=== PATIENT | male | born 1965 | race Caucasian/White ===

== ENCOUNTER → 2017-09-10 11:28 | Outpatient (CLI) | payer OTHER, SELFPAY ==
[2017-09-10 12:29] LABS: Hematocrit 40.9 % (40-54); Mean Corp Hgb Conc 34.2 g/gl (32-36); Mean Corpuscular Hgb 31.8 pg (27.0-32.0); Mean Platelet Vol. 9.2 fl (6.2-12.0); Platelet Count 423 K/mm3 (150-450); RBC Distribution Width CV 12.3 % (11.6-14.6); RBC Distribution Width SD 41.1 fl (35.1-43.9)
[2017-09-10 12:34] LABS: Scan Indicated on CBC? Y/N NO
[2017-09-10 12:52] LABS: ALB/GLOB Ratio 0.9 RATIO (0.9-2.4); AST(SGOT) 37 U/L (15-37); Alanine Aminotransfer ALT/SGPT 33 U/L (16-61); Albumin, Serum 3.8 g/dL (3.2-5.0); Alkaline Phosphatase 93 U/L (45-117); Anion Gap 8 (5-15); BUN 21 mg/dL (7-18); BUN/Creat Ratio 20.8 RATIO (10-20); Calcium,Total 9.3 mg/dL (8.5-10.1); Chloride 111 mmol/L (98-107); Creatinine, Serum 1.01 mg/dL (0.70-1.30); EST Glomerular Filtration Rate 82 mL/min (>60); Est Glom Filt Rate - Afr Amer 100 mL/min (>60); Globulin 4.3 g/dL (2.2-4.2); Glucose 89 mg/dL (74-106); Potassium 3.7 mmol/L (3.5-5.1); Protein, Total 8.1 g/dL (6.4-8.2); Sodium Level 141 mmol/L (136-145); T4 Total, Thyroxin 8.7 ug/dL (4.5-12.1)
== END ==
PROVIDERS: Family Provider Family Medicine; PCP Family Medicine; Visit Provider Family Medicine
DX: R53.83 Other fatigue (principal)
CPT/HCPCS: 36415; 80053; 84436; 85027

== ENCOUNTER 2018-01-28 15:04 | Emergency (ER) | payer OTHER, SELFPAY ==
[2018-01-28 15:05] VITALS: BP 138/100; PULSE 92; RESP 18; TEMP 36.6; O2SAT 99; BMI 21.4
--- NOTE | 2018-01-28 15:25 | CT_ITS ---
STUDY: CTA OF THE BRAIN REASON FOR EXAM: Male, 52 years old. Headache for 3 days. RADIATION DOSAGE (If Supplied By Facility): CTDIvol = ( 26.65 ) mGy, DLP = ( 1169.78 ) mGycm TECHNIQUE: CT angiography was performed with a multi-detector CT scanner. Data acquisition was obtained from the skull base through the vertex following intravenous administration of 100 ml of Isovue 370. MIP images were reconstructed from the axial data set. Post-processing of the angiographic images was performed, with multiplanar reformation and 3D reconstruction. Individualized dose optimization techniques were used for this CT. COMPARISON: Noncontrast CT brain March 21, 2014 (report from that study are not available for review at the time of this dictation). FINDINGS: Normal bilateral petrous carotid arteries. Normal right cavernous carotid artery with a normal supraclinoid bifurcation. Normal left cavernous carotid artery with a normal supraclinoid bifurcation. Normal A1 segment of the right anterior cerebral artery. Normal A1 segment of the left anterior cerebral artery. Normal intact anterior communicating artery (ACOM). Normal bilateral A2 segments of the anterior cerebral arteries. Normal M1 and M2 segments of the right middle cerebral artery, with a normal M1 bifurcation. Normal M1 and M2 segments of the left middle cerebral artery, with a normal M1 bifurcation. Normal right posterior communicating artery (PCOM). There is a persistent origin of the left posterior cerebral artery with absence of the posterior communicating artery (PCOM). Normal bilateral vertebral arteries. Normal basilar artery with a normal basilar bifurcation. The visualized bilateral superior cerebellar (SCA) arteries are normal. Normal P1 segment of the right posterior cerebral artery. Normal P2 and visualized P3 segments of the bilateral posterior cerebral arteries. There is no demonstrated aneurysm of the [place] of [place]. There is no demonstrated abnormality of the visualized brain. 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 Electronically Signed: Balaji Aponte MD at 17:07 EDT , Service support ,
--- NOTE | 2018-01-28 15:28 | ED.VISSUMM ---
- ER Visit Summary Date of Service: 01/28/18 Chief Complaint: Headache History of Present Illness: The patient is a 52 M with a headache for 4 days. 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 He reports some nausea and vomiting. Denies fevers. Denies any other neurologic symptoms. He does report that he cut his right middle finger about the same time this started when he was chopping wood. This was a superficial injury. He has no concern for foreign body or fracture. Physical Examination: Afebrile and vital signs unremarkable. Patient is alert and oriented. No acute distress. Head and neck atraumatic. Cranial nerves grossly intact. Heart regular. Lungs clear. No focal or lateralizing neurologic abnormalities. Right middle finger shows a superficial laceration near the PIP joint. He has good range of motion. Neurovascularly intact distally. Negative [place] signs Test Results: CTA and labs pending. Emergency Department Course and Treatment: Patient has a superficial finger laceration. Nothing to suggest fracture or foreign body. Imaging not performed. Nothing to suggest joint involvement. Suturing and closure is not indicated at this point. Soak the area 3 times a day in warm soapy water. He will be prescribed antibiotics. Given his headache and history of alvarez aneurysm, will check CT imaging. Labs unremarkable. CTA showed nothing acute. No aneurysm or bleeding. Patient treated with Toradol. He also received Bactrim and Keflex for his finger infection. Follow-up with his outpatient doctors. Treatment Plan: As above Disposition: Discharge Impression: 1. Headache 2. Right middle finger laceration 1 cm This note was generated with [employer] dictation software. It may contain incorrect words, spelling, and punctuation that were not noted in review of the chart prior to signing ED Disposition - Plan for ED Patient: Chief Complaint: Headache Referrals: Pj Reed DO [Primary Care Provider] -
[2018-01-28 15:46] LABS: Absolute Lymphocyte Count 2.44 X10^3/ul (0.83-4.51); Absolute Neutrophil Count 6.4 X10^3/uL (2.0-7.7); Basophil# 0.03 X10^3/uL; Basophil% 0.3 % (0-1); Eosinophil# 0.11 X10^3/uL; Eosinophils% 1.1 % (0-5); Hematocrit 42.8 % (40-54); Hemoglobin 14.2 g/dl (13.0-16.5); Lymphocyte # 2.44 X10^3/ul (4.0); Lymphocyte % 25.1 % (19-41); Mean Corp Hgb Conc 33.2 g/gl (32-36); Mean Corpuscular Hgb 31.6 pg (27.0-32.0); Mean Corpuscular Volume 95.1 fL (80-94); Mean Platelet Vol. 8.8 fl (6.2-12.0); Monocyte# 0.72 X10^3/uL; Monocyte% 7.4 % (0-10); Neutrophil # 6.41 X10^3/uL (2.7-7.7); Platelet Count 319 K/mm3 (150-450); RBC Distribution Width CV 12.7 % (11.6-14.6); RBC Distribution Width SD 44.1 fl (35.1-43.9); White Blood Count 9.7 K/mm3 (4.4-11.0)
[2018-01-28 15:48] LABS: POSITIVE COUNT NO; POSITIVE DIFFERENTIAL NO; POSITIVE MORPHOLOGY NO
[2018-01-28] MEDS: 0.9% Normal Saline 1,000 ML 1000 ML IV (15:56)
[2018-01-28 15:57] LABS: International Normalized Ratio 0.9
[2018-01-28 15:58] LABS: Partial Thromboplast Time 30.5 Seconds (24.1-36.2)
[2018-01-28 16:02] LABS: Anion Gap 8 (5-15); BUN 15 mg/dL (7-18); BUN/Creat Ratio 14.7 RATIO (10-20); Calcium,Total 9.1 mg/dL (8.5-10.1); Chloride 110 mmol/L (98-107); Creatinine, Serum 1.02 mg/dL (0.70-1.30); EST Glomerular Filtration Rate 81 mL/min (>60); Est Glom Filt Rate - Afr Amer 98 mL/min (>60); Estimated Creatinine Clearance 78.81 ml/min; Glucose 99 mg/dL (74-106); Potassium 3.7 mmol/L (3.5-5.1); Sodium Level 143 mmol/L (136-145)
--- NOTE | 2018-01-28 17:32 | ED.DEP ---
ED Disposition - Plan for ED Patient: Chief Complaint: Headache Instructions: ED Cephalgia Unspecified Prescriptions: Cephalexin [Keflex] 500 mg PO Q6 #28 cap Naproxen [Naprosyn] 500 mg PO BID #14 tab Smz/Tmp Ds [Bactrim Ds] 1 tab PO BID #14 tab Referrals: Pj Reed DO [Primary Care Provider] -
[2018-01-28] MEDS: Cephalexin 250 MG Capsule 500 MG PO (18:00)
[2018-01-28] MEDS: Ketorolac 30 MG/ML Syringe IV (18:00)
[2018-01-28] MEDS: Smz/Tmp Ds Tablet 1 TABLET PO (18:00)
[2018-01-28 18:04] VITALS: BP 130/78; PULSE 78; RESP 16; O2SAT 100
== END 2018-01-28 18:05 | disposition home or self-care (01) ==
PROVIDERS: Emergency Provider Emergency Medicine; Family Provider Family Medicine; PCP Family Medicine
DX: R51 Headache (principal); S61.212A Laceration without foreign body of right middle finger without damage to nail, initial encounter; I67.1 Cerebral aneurysm, nonruptured; Z72.0 Tobacco use; Z79.899 Other long term (current) drug therapy; W26.8XXA Contact with other sharp object(s), not elsewhere classified, initial encounter; Y93.89 Activity, other specified; Y92.007 Garden or yard of unspecified non-institutional (private) residence as the place of occurrence of the external cause; Y99.8 Other external cause status
CPT/HCPCS: 70496; 80048; 85025; 85610; 85730; 96361; 96374; 99285; Q9967; A4216

== ENCOUNTER 2018-03-25 23:15 | Emergency (ER) | payer OTHER, SELFPAY ==
[2018-03-25 23:16] VITALS: BP 154/90; PULSE 89; RESP 22; TEMP 36.7; O2SAT 97; BMI 22.1
--- NOTE | 2018-03-25 23:41 | ED.DCSUM_ITS ---
- ER Visit Summary Date of Service: 03/25/18 Chief Complaint: Headache History of Present Illness: The patient is a 52 M 3-day history right sided headache with photophobia. No nausea or vomiting. No aura. No falls or head injuries. History of similar. States seen in ED 2 months ago for similar improved with Toradol. Reported history of avlarez aneurysm states that CTA of the head was obtained at that time. Records reviewed notes negative for any aneurysms. He is on headache medicines by his PCP follow-up 2 weeks ago. Unclear the name. States intermittent symptoms were told to take 2 tabs if needed. Denies fever. No other complaints. Physical Examination: General: Alert and oriented ?3, no acute distress HEENT: Normocephalic, atraumatic. Moist mucosa membranes. No temporal artery tenderness. Neck: supple, nontender. No meningismus Cardiovascular: Regular rate and rhythm, no murmurs Respiratory: Normal breath sounds, symmetric, no distress Abdomen: Soft, nontender, nondistended Extremities: Nontender, no edema, pulses intact ?4 Neuro: no focal neurological deficits. Test Results: [] Emergency Department Course and Treatment: Patient nontoxic, no meningismus. Reports improved symptoms with Toradol the past. This is ordered. Will re- evaluate. Reevaluation, improving symptoms. Requested prescription for Toradol which was written to use as needed. Work note given. Treatment Plan: [] Disposition: discharge Impression: Cephalgia This note was generated with [employer] dictation software. It may contain incorrect words, spelling, and punctuation that were not noted in review of the chart prior to signing ED Disposition - Plan for ED Patient: Disposition: Home or Assisted Living Chief Complaint: Headache Diagnosis: Cephalgia Instructions: ED Cephalgia Unspecified Prescriptions: Ketorolac [Toradol] 10 mg PO Q8H PRN PRN #20 tablet PRN Reason: Headache Referrals: Pj Reed DO [Primary Care Provider] - 3-5 Days
[2018-03-25] MEDS: Ketorolac 60 MG/2 ML Vial IM (23:59)
[2018-03-26 00:23] VITALS: BP 160/99; PULSE 86; O2SAT 99
== END 2018-03-26 00:30 | disposition home or self-care (01) ==
PROVIDERS: Emergency Provider Emergency Medicine; Family Provider Family Medicine; PCP Family Medicine
DX: R51 Headache (principal); I10 Essential (primary) hypertension; Z72.0 Tobacco use; Z79.899 Other long term (current) drug therapy
CPT/HCPCS: 96372; 99282

== ENCOUNTER 2018-06-08 07:57 | Emergency (ER) | payer OTHER, SELFPAY ==
[2018-06-08 07:58] VITALS: BP 150/112; PULSE 89; RESP 20; TEMP 36.4; O2SAT 99; BMI 22.8
--- NOTE | 2018-06-08 08:10 | ED.DCSUM_ITS ---
- ER Visit Summary Date of Service: 06/08/18 Chief Complaint: Headache History of Present Illness: The patient is a [address] Reed. He reports he has a headache that began 3 days ago. Is gradually gotten worse. He describes as a slamming in the frontal area. He states that it is 8 out of 10 currently and 10 out of 10 at worst. Is worsened by nothing relieved by nothing. He does complain of photophobia. He denies any associated fever, nausea, vomiting, numbness, weakness, or change in vision. Patient denies any recent trauma. He reports he has had similar headaches previously. Physical Examination: Vitals: Stable. Afebrile. General: Well-nourished and well-developed. Head: Normocephalic atraumatic. Neck: Supple, no lymphadenopathy. No JVD. Nontender. Cardiovascular: Regular rate and rhythm. No murmurs. Respiratory: No respiratory distress. Clear to auscultation bilaterally. Abdominal: Soft, nontender, nondistended, normal bowel sounds. No guarding, rebound, or peritoneal signs. Back: Nontender. Extremities: Nontender, no edema. Skin: Normal color, no rash. Neurologic: Alert and oriented ?3. Cranial nerves II through XII are intact. Normal strength and sensation. Psych: Normal affect. Emergency Department Course and Treatment: Patient reports that in the past he has had relief with Toradol. He does not want an IV placed. He was given a shot of Toradol IM. Treatment Plan: Patient will be discharged instructed to follow-up with his primary care physician 1-2 days if not improving. Return to the emergency department for any worsening symptoms. Disposition: This note was generated with [employer] dictation software. It may contain incorrect words, spelling, and punctuation that were not noted in review of the chart prior to signing. Impression: 1. Cephalgia, acute. This note was generated with [employer] dictation software. It may contain incorrect words, spelling, and punctuation that were not noted in review of the chart prior to signing ED Disposition - Plan for ED Patient: Chief Complaint: Headache Instructions: ED Cephalgia Unspecified Referrals: Pj Reed DO [Primary Care Provider] - 1-2 Days if not improving
[2018-06-08] MEDS: Ketorolac 60 MG/2 ML Vial IM (08:17)
== END 2018-06-08 08:29 | disposition home or self-care (01) ==
PROVIDERS: Emergency Provider Emergency Medicine; Family Provider Family Medicine; PCP Family Medicine
DX: R51 Headache (principal); I10 Essential (primary) hypertension; Z86.73 Personal history of transient ischemic attack (TIA), and cerebral infarction without residual deficits; Z72.0 Tobacco use; Z79.899 Other long term (current) drug therapy
CPT/HCPCS: 96372; 99282

== ENCOUNTER 2018-10-07 01:23 | Emergency (ER) | payer SELFPAY ==
[2018-10-07 01:24] VITALS: BP 165/104; PULSE 89; RESP 16; TEMP 36.7; O2SAT 100; BMI 22.4
--- NOTE | 2018-10-07 01:47 | RAD_ITS ---
STUDY: X-RAY - RIGHT FOOT CLINICAL: Male, 53 years old. Trauma TECHNIQUE: 3 view(s) of the foot. COMPARISON: None. FINDINGS: Normal talus, calcaneus, and tarsal bones. Normal visualized subtalar, talonavicular, calcaneocuboid, tarsal and tarsometatarsal articulations. Normal metatarsi. 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 Normal tibial and fibular sesamoid bones. Normal interphalangeal joint of the great toe. Normal phalanges of the great toe. Normal second through fifth metatarsophalangeal joints. Normal interphalangeal joints and phalanges of the lesser toes. The soft tissue structures are unremarkable. 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 Electronically Signed: Zoë Awan, at 2:31 EDT Tel , Service support ,
--- NOTE | 2018-10-07 02:41 | ED.DCSUM_ITS ---
- ER Visit Summary Date of Service: 10/07/18 Chief Complaint: Right first toe pain and foot pain History of Present Illness: The patient is a 53 M who presents with an injury to his right first toe and foot. He dropped a railroad tie on it yesterday about 10 hours before presentation. He is able to ambulate but is painful. He denies any other injuries. Physical Examination: Afebrile vitals unremarkable except blood pressure 165/104 Heart regular No respiratory distress There is ecchymosis of the right first toe as well as near avulsion of the nail he does not have any other foot tenderness he has an easily palpable dorsalis pedis pulse he has normal sensation Test Results: Right foot x-ray read as degenerative arthrosis of the first MTP. However on my review there does appear to be a fracture of the distal portion of the distal phalanx of the right first toe. Emergency Department Course and Treatment: Patient appears to have an open fracture of his right first toe. The nail itself is very hypertrophied and I believe would be technically difficult to remove to evaluate the nailbed. I do not feel this needs to be done emergently. Patient referred to podiatry. Patient was also placed on Keflex prophylaxis. Wound was cleansed and dressed and he was given a postoperative shoe and discharged home. Treatment Plan: [] Disposition: Discharge Impression: open fracture distal phalanx of right first toe This note was generated with [employer] dictation software. It may contain incorrect words, spelling, and punctuation that were not noted in review of the chart prior to signing ED Disposition - Plan for ED Patient: Referrals: Pj Reed DO [Primary Care Provider] -
--- NOTE | 2018-10-07 02:41 | ED.DEP ---
ED Disposition - Plan for ED Patient: Instructions: ED Fx Toe Open Referrals: Pj Reed DO [Primary Care Provider] - Zenia Vega DPM [STAFF PHYSICIAN] -
[2018-10-07 02:59] VITALS: BP 147/104; PULSE 73; RESP 16; O2SAT 97
== END 2018-10-07 03:00 | disposition home or self-care (01) ==
PROVIDERS: Emergency Provider Emergency Medicine; Family Provider Family Medicine; PCP Family Medicine
DX: S92.421B Displaced fracture of distal phalanx of right great toe, initial encounter for open fracture (principal); I10 Essential (primary) hypertension; Z72.0 Tobacco use; W22.8XXA Striking against or struck by other objects, initial encounter; Y93.89 Activity, other specified; Y92.89 Other specified places as the place of occurrence of the external cause; Y99.8 Other external cause status
CPT/HCPCS: 73630; 99283

== ENCOUNTER 2019-01-19 03:44 | Emergency (ER) | payer SELFPAY ==
[2019-01-19 03:45] VITALS: BP 158/103; PULSE 77; RESP 15; TEMP 36.4; O2SAT 100; BMI 22.8
[2019-01-19 03:49] VITALS: O2SAT 100
--- NOTE | 2019-01-19 04:34 | ED.VISSUMM ---
- ER Visit Summary Date of Service: 01/19/19 Chief Complaint: Sore throat History of Present Illness: The patient is a 53 M presents with a sore throat that is been getting worse over the past 4 days. Patient has not seen his primary care physician for this. Patient states he feels aching in his head and wheezing in his chest. Patient states nothing makes the pain worse but ibuprofen was helping with the pain. Patient admits to nasal congestion and a headache. Patient denies any nausea, vomiting, or diarrhea. Patient denies any chest pain or shortness of breath. Patient states he does have some yellow rhinorrhea. Patient also states that he occasionally coughs up yellow sputum. Physical Examination: Vital signs are stable. Patient is afebrile. Patient is in no acute distress. Tympanic membranes are clear bilaterally. Oral mucosa is pink and moist. Oropharynx is erythematous. There are no exudates noted. Neck is supple. Trachea is midline. There is tender anterior cervical lymphadenopathy. Heart was regular rate and rhythm. Lungs are clear and equal bilaterally. There is no retractions noted. There is good respiratory effort noted. Abdomen is soft and nontender. Cranial nerves II through XII are intact. There are no focal motor or sensory deficits noted. Test Results: Rapid strep was obtained and was negative. Emergency Department Course and Treatment: Patient was advised that this is most likely viral pharyngitis. Patient was instructed to drink plenty of fluids. Patient was instructed to follow-up with his primary care physician in 5 to 7 days. Patient understood and was agreeable with the plan. All questions were answered. Disposition: Discharge home Impression: Viral pharyngitis This note was generated with [employer] dictation software. It may contain incorrect words, spelling, and punctuation that were not noted in review of the chart prior to signing ED Disposition - Plan for ED Patient: Disposition: Home or Assisted Living Diagnosis: Viral pharyngitis Instructions: PHARYNGITIS, Viral Referrals: Pj Reed DO [Primary Care Provider] - 5-7 Days
[2019-01-19 06:53] VITALS: BP 165/98; PULSE 80; RESP 16; O2SAT 99
--- NOTE | 2019-01-22 10:43 | ED.RN ---
CALLED IN RX TO [facility] FOR AMOX 500 MG TID X 10 DAYS QUANT 30 NO REFILLS PER VERBAL ORDER FROM DR CRUZ
--- NOTE | 2019-01-22 10:43 | ED.RN ---
TALKED TO PT AND LET HIM KNOW CULT POS AND MEDS BEING CALLED IN
== END 2019-01-19 06:53 | disposition home or self-care (01) ==
PROVIDERS: Emergency Provider Emergency Medicine; Family Provider Family Medicine; PCP Family Medicine
DX: J02.8 Acute pharyngitis due to other specified organisms (principal); B97.89 Other viral agents as the cause of diseases classified elsewhere; I10 Essential (primary) hypertension; Z72.0 Tobacco use
CPT/HCPCS: 87077; 87880; 99282

== ENCOUNTER 2020-05-17 01:26 | Inpatient (IN) | payer MEDICAID, SELFPAY ==
[2020-05-17] VITALS (41 sets, daily range): BP systolic 121–163; BP diastolic 87–108; PULSE 63–88; RESP 12–21; TEMP 35.9–36.6; O2SAT 95–100; BMI 23.6; BMI 26.8; BMI 24.6
--- NOTE | 2020-05-17 01:30 | CT_ITS ---
STUDY: CT HEAD STROKE PROTOCOL W/O CONTRAST INJECTION REASON FOR EXAM: Male, 55 years old. STROKE RADIATION DOSAGE (If Supplied By Facility): CTDIvol = ( ) mGy, DLP = ( ) mGycm TECHNIQUE: Transaxial CT imaging of the brain was performed without administration of intravenous contrast material. Individualized dose optimization techniques were used for this CT. COMPARISON: March 21, 2018 CT scan head FINDINGS: Normal soft tissue structures. Normal calvarium. There is mild cerebral atrophy with widening of the extra-axial spaces and ventricular dilatation. Normal white matter tracts of the cerebral hemispheres. Normal basal ganglia and thalami. Normal brainstem. There is mild cerebellar atrophy. There is no intracranial hemorrhage. There are no findings of an acute ischemic infarction. Normal visualized paranasal sinuses. CT/STROKE Brain/Head without Cont IMPRESSION: No visualized acute hemorrhage infarct or edema. Recommend further imaging such as MRI or CT angiogram for further evaluation given the clinical history. N.B. : The above information has been verbally conveyed by Priscilla Kahn MD to Dr. Omar Werner MD, on 05/17/2020 01:44:47 (ET). Electronically Signed: Priscilla Kahn MD at 1:45 EST Tel , Service support ,
--- NOTE | 2020-05-17 01:30 | RAD_ITS ---
STUDY: X-RAY CHEST REASON FOR EXAM: Male, 55 years old. Neuro deficit TECHNIQUE: Single AP portable view of the chest. COMPARISON: March 16, 2015 chest x-ray FINDINGS: The lungs are clear and expanded. There is no demonstrated pleural abnormality. Normal size heart. Normal mediastinum and catrachita. Normal visualized pulmonary arteries. There is atherosclerotic tortuosity of the aortic arch and descending thoracic aorta. There are diffuse degenerative changes of the visualized thoracic spine. Normal visualized ribs, clavicles, and shoulders. There is no demonstrated abnormality of the visualized soft tissue structures of the upper abdomen. RAD/Chest 1 View IMPRESSION: Degenerative changes, as described above. No demonstrated acute cardiopulmonary process. Electronically Signed: Priscilla Kahn MD at 3:09 EST Tel , Service support ,
--- NOTE | 2020-05-17 01:30 | EKG12_ITS ---
Test Reason : STROKE Blood Pressure : / mmHG Vent. Rate : 092 BPM Atrial Rate : 092 BPM P-R Int : 180 ms QRS Dur : 082 ms QT Int : 388 ms P-R-T Axes : 051 014 062 degrees QTc Int : 479 ms Normal sinus rhythm Normal ECG Confirmed by TATYANA DC, LISSETTE ([id number]), field map editor OTTO LIAO ([id number]) on 05/18/2020 9:28:48 AM Referred By: LAMBERT Confirmed By:LISSETTE JOE MD
--- NOTE | 2020-05-17 01:31 | CT_ITS ---
We are attempting to reach an attending provider to discuss findings. An addendum with communication details will be sent when the communication is complete. STUDY: CTA HEAD AND NECK WITH CONTRAST REASON FOR EXAM: Male, 55 years old. ? STROKE/RT SIDE WEAKNESS RADIATION DOSAGE (If Supplied By Facility): CTDIvol = ( 16.78 ) mGy, DLP = ( 632.95 ) mGycm TECHNIQUE: CT angiography was performed with a multi-detector CT scanner. Data acquisition was obtained from the skull base through the vertex following intravenous administration of IV 100mL Isovue-370. MIP images were reconstructed from the axial data set. Post-processing of the angiographic images was performed, with multiplanar reformation and 3D reconstruction. Study has some limitations given that there is arterial and venous phase imaging at the similar timing. Individualized dose optimization techniques were used for this CT. COMPARISON: January 28, 2018 CT angiogram head, CT stroke. FINDINGS: Normal bilateral petrous carotid arteries. There is minimal calcified plaque formation of the right cavernous carotid artery, without a cross-sectional luminal stenosis. Normal left cavernous carotid artery with a normal supraclinoid bifurcation. Normal right A1 segments of the anterior cerebral artery. Normal left A1 segments of the anterior cerebral artery. Normal intact anterior communicating artery (ACOM). Normal bilateral A2 segments of the anterior cerebral arteries. Normal right M1 and M2 segments of the middle cerebral arteries, with a normal M1 bifurcation. Normal left M1 and M2 segments of the middle cerebral arteries, with a normal M1 bifurcation. Normal right posterior communicating artery (PCOM). There is a persistent origin of the left posterior cerebral artery with absence of the posterior communicating artery (PCOM). Normal bilateral vertebral arteries. Normal basilar artery with a normal basilar bifurcation. The visualized bilateral superior cerebellar (SCA) arteries are normal. Normal bilateral P1, P2 and visualized P3 segments of the posterior cerebral arteries. This is allowing for the timing of the procedure as there is a superimposed venous contrast enhancement within the venous structures at the same level as the arterial structures. There is no demonstrated aneurysm of the [place] of [place]. There is no demonstrated abnormality of the visualized brain. AORTIC ARCH: Normal visualized aortic arch. Normal origins of the innominate, left common carotid, and left subclavian arteries. RIGHT CAROTID ARTERIES: Normal right common carotid artery (CCA). Normal right common carotid bulb. Normal origin of the right internal carotid (ICA) artery without a hemodynamically significant stenosis. Normal visualized cervical portion of the right internal carotid artery. Normal origin of the right external carotid artery (ECA). LEFT CAROTID ARTERIES: Normal left common carotid artery (CCA). There is minimal soft plaque formation suggested within the carotid bulb. Normal origin of the left internal carotid (ICA) artery without a hemodynamically significant stenosis. Normal visualized cervical portion of the left internal carotid artery. Normal origin of the left external carotid artery (ECA). VERTEBRAL ARTERIES: Normal bilateral vertebral arteries. There is visualized mild degenerative change within the cervical spine. There is nonspecific mild prominence of the tonsillar tissues. CT/STROKE CTA Head AND Neck W/Con IMPRESSION: Stable CTA Head. Minimal soft plaque formation at the carotid bulb without significant stenosis. Given the clinical history and MRI may be helpful for further clarification. Electronically Signed: Priscilla Kahn MD at 2:46 EST Tel , Service support ,
--- NOTE | 2020-05-17 01:34 | ED.DCSUM_ITS ---
History of Present Illness Chief Complaint: Neuro S/Sx Informant: Patient, Chemistry Intern Onset: Today Narrative: Patient presents with sudden onset of neurological symptoms that started 1 hour and a half prior to arrival. He has been drinking alcohol today. When he arrives to the emergency department he is complaining of left leg and left arm weakness. Objectively he also has slight slurring of the speech although I am not sure if this is secondary to a stroke or because of the alcohol. He denies any head injury. He tells me he has a history of TIAs, he has not been compliant with any of his medications and is not taking any medications. No history of intracranial hemorrhage, he denies any symptoms of a GI bleed. He has not had any recent surgery. He does not have a current headache. Past Medical History - Allergies and Home Meds Allergies/Adverse Reactions: Allergies hydrocodone bitartrate [From Vicodin] Allergy (Verified 01/19/19 03:50) Rash tramadol HCl [From Ultram] Allergy (Verified 01/19/19 03:50) Rash Primary Care Physician: Pj Reed DO [COURTESY STAFF PHYSICIAN] - Past Medical History: - - Hypertension, hypercholesterolemia, prior TIAs, smoker, noncompliant with medications. Surgical History: - - left foot surgery, left knee surgery Smoking Status: Current every day smoker - Family History Paternal Family History: Reports: No pertinent history Maternal Family History: Reports: No pertinent history Review of Systems All systems negative except as indicated General: Denies: Fever Eyes: Denies: Visual changes - bilaterally ENT: Denies: Bilateral ear pain Cardiovascular: Denies: Chest pain Respiratory: Denies: Dyspnea, Cough, Sputum Gastrointestinal: Denies: Abdominal pain Genitourinary: Denies: Dysuria Musculoskeletal: Denies: Extremity Pain Skin: Denies: Rash Neurological: Reports: Weakness, Parasthesia Psych: Denies: Anxiety, Suicidal thoughts Endocrine: Denies: Polyuria Hematologic: Denies: Easy bruising STROKE Vital Signs/Narrative: Vital Signs Temp 05/17/20 01:27 97.9 F - NIHSS Initial 1a Level of Consciousness: 0 1b LOC Questions (Score 2 if aphasic/stupor): 0 1c LOC Commands (Only score 1st attempt): 0 2 Best Gaze (If aphasic, use reflexive mvmts.): 0 3 Visual: 0 4 Facial Palsy: 0 5 Motor Arm Right (UN = amputation/fusion): 0 5 Motor Arm Left: 1 6 Motor Leg Right: 0 6 Motor Leg Left: 3 7 Limb ataxia (Only + if out of proportion): 0 8 Sensory (Aphasia/stupor=0 or 1, coma=2): 1 9 Best Language: 0 10 Dysarthria (mute, coma=2, intubated=UN): 1 11 Extinction and Inattention (only scored if +): 0 Total Score: 6 General: - - Patient does not appear in distress. He is speaking to me, he does appear slightly intoxicated and I smell fermentation on his breath, however he can tell me the year the month his name, he gives me a reasonable history and review of systems. Head: Normocephalic, Atraumatic Eyes: Perrl ENT: Dry mucous membranes Neck: Supple Cardiovascular: Regular rate, Regular rhythm, No murmurs Respiratory: No distress, CTA bilaterally Abdomen: Soft, Nontender Back: Nontender, Normal Inspection Extremities: Nontender, No edema Skin: Normal color, No rash Neurological: - - See NIH stroke scale Diagnostic/Tx/Re-eval Chest X-Ray - ED: 1 View, Read by ED Physician, Read by Radiologist, Unchanged, Normal, Heart, Lungs - Medical Decision Making Stroke Team Activated: Yes Reviewed Inclusion/Exclusion criteria: Yes IV Alteplase (t-PA) Administered: Yes No contraindications for IV Alteplase (t-PA) administration.: Yes Alteplase (t-PA) risks, benefits, alternative discussed: Yes Patient certainly appears somewhat intoxicated however I talked to him and his and they are both in agreement to TPA, patient was reevaluated after CT now his left arm shows more weakness than before thus his new NIH stroke scale is an 8 and he meets TPA criteria. I discussed the patient with [facility] stroke neurologist was also in agreement with TPA. Critical care time (excluding procedures): 30-74 minutes ED Disposition - Plan for ED Patient: Disposition: Acute Care Hospital [facility] Diagnosis: CVA (cerebral vascular accident) Referrals: Pj Reed DO [COURTESY STAFF PHYSICIAN] -
--- NOTE | 2020-05-17 01:46 | ED.RN ---
LAST WELL KNOWN 901.
[2020-05-17 01:56] LABS: Absolute Lymphocyte Count 3.85 X10^3/uL (0.83-4.51); Absolute Neutrophil Count 3.5 X10^3/uL (2.0-7.7); Basophil# 0.07 X10^3/uL; Basophil% 0.9 % (0-1); Eosinophil# 0.18 X10^3/uL; Eosinophils% 2.2 % (0-5); Hematocrit 42.3 % (40-54); Hemoglobin 14.1 g/dL (13.0-16.5); Lymphocyte # 3.85 X10^3/ul (4.0); Mean Corp Hgb Conc 33.3 g/dL (32-36); Mean Corpuscular Hgb 30.9 pg (27.0-32.0); Mean Corpuscular Volume 92.8 fL (80-94); Monocyte# 0.58 X10^3/uL; Monocyte% 7.1 % (0-10); NRBC Flagged by Analyzer 0 % (0-5); Neutrophil # 3.48 X10^3/uL (2.7-7.7); Neutrophil % 42.4 % (47-70); Platelet Count 264 K/mm3 (150-450); RBC Distribution Width CV 12.1 % (11.6-14.6); RBC Distribution Width SD 41.4 fl (35.1-43.9); Red Blood Count 4.56 M/mm3 (4.6-6.2); White Blood Count 8.2 K/mm3 (4.4-11.0)
[2020-05-17 02:09] LABS: Anion Gap 9 (5-15); BUN 19 mg/dL (7-18); BUN/Creat Ratio 18.1 RATIO (10-20); Calcium,Total 7.9 mg/dL (8.5-10.1); Chloride 108 mmol/L (98-107); Creatinine, Serum 1.05 mg/dL (0.70-1.30); EST Glomerular Filtration Rate 78 mL/min (>60); Est Glom Filt Rate - Afr Amer 94 mL/min (>60); Glucose 93 mg/dL (74-106); Potassium 3.4 mmol/L (3.5-5.1); Sodium Level 139 mmol/L (136-145)
[2020-05-17 02:10] LABS: Partial Thromboplast Time 30.8 Seconds (24.1-36.2); Prothrombin Time (Protime)PT. 12.5 SECONDS (11.7-14.9)
[2020-05-17] MEDS: 0.9% Normal Saline 1,000 ML 100 ML IV (02:29)
[2020-05-17] MEDS: Acetaminophen 325 MG Tablet 650 MG PO ×3 (02:29→20:49)
--- NOTE | 2020-05-17 02:42 | ED.RN ---
S/O ALIYAH CORDOVA [phone]
--- NOTE | 2020-05-17 02:43 | ED.RN ---
CALLED CTJERRY SAID PRELIM WAS POSTED INTO INVISION. DR. MERRITT AWARE.
--- NOTE | 2020-05-17 03:03 | PCM.HP.STD ---
Problem List (1) CVA (cerebral vascular accident) Status: Acute Qualifiers: CVA mechanism: unspecified Qualified Code(s): I63.9 - Cerebral infarction, unspecified (2) Anxiety disorder Status: Chronic Qualifiers: Anxiety disorder type: unspecified anxiety disorder Qualified Code(s): F41.9 - Anxiety disorder, unspecified (3) Alcohol abuse Status: Chronic (4) Tobacco abuse disorder Status: Chronic (5) Chronic pain Status: Chronic Qualifiers: Chronic pain type: other chronic pain Qualified Code(s): G89.29 - Other chronic pain History of Present Illness Date of Admission: 05/17/20 Chief Complaint: Acute strokelike symptoms ongoing for 1 and half hours prior to arrival. The patient is a 55 year old M with past medical history of TIAs, brain aneurysm, status post star clipping, chronic alcohol use disorder who comes in with complaints of left leg and arm weakness. Patient reported has been having palpitations ongoing for days. 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 Around 11:30 PM, patient was noted to be lying around. He was unable to move his left side. He had complained of a headache. He tried to drag himself to go out and smoke. The EMS were called. Patient has a history of star clipping for brain aneurysm done by Dr. Bo in [facility]. He cannot remember if he had an MRI since then. His admitting NIHSS score was 6-8, he received TPA at 0148 hours. Vitals in the ED showed temperature of 96.6F, heart rate 80, blood pressure 153/98, respiratory 16, SPO2 97% on room air. Admitting blood work showed unremarkable CBCD, INR 1.0, potassium was 3.4, sodium 139, chloride 108, bicarbonate 22, BUN 19, creatinine 1.05, troponins negative. Alcohol level 106 CT scan of the brain showed no acute hemorrhage or edema. CTA of the head showed minimal soft plaque formation at the carotid bulb without significant stenosis Chest x-ray is unremarkable except for degenerative changes. At the time of being seen, patient was eager to be discharged. He stated that he had a job interview tomorrow morning. Post TPA, he is able to move his left upper extremity. Still cannot move his left lower extremity much. He complains of a headache Past Medical History Past Medical History (Chronic Problems): Chronic Problems Anxiety disorder (Chronic) Alcohol abuse (Chronic) Tobacco abuse disorder (Chronic) Chronic pain (Chronic) Allergies hydrocodone bitartrate [From Vicodin] Allergy (Verified 01/19/19 03:50) Rash tramadol HCl [From Ultram] Allergy (Verified 01/19/19 03:50) Rash Home Medications: Ambulatory Orders Medication Instructions Recorded NK 05/17/20 Surgical History: - - left foot surgery, left knee surgery Psychiatric History: Anxiety, Depression Lives: Spouse/ Significant Other Smoking Status: Current every day smoker Tobacco Use: Cigarettes, - Alcohol: Heavy Drugs: Marijuana - *Family History Paternal History Items: No pertinent history Maternal History Items: Cancer Review of Systems Constitutional: Denies: Anorexia, Chills, Fever, Malaise, Weakness, Weight Change, Fatigue Eyes: Denies: Blurred vision, Cataracts, Conjunctivae Inflammation HEENT: Denies: Difficulty Hearing, Difficulty Swallowing, Head Aches, Hearing Changes, Sinus Congestion, Sinus Drainage, Sore Throat Cardiovascular: Denies: Chest Pain, Claudication, Chest Pressure, Chest Tightness, Orthopnea, Palpitations, Paroxysmal Noc. Dyspnea Respiratory: Denies: Cough, Hemoptysis, Shortness of breath at rest, Shortness of breath upon exertion, Sputum production Gastrointestinal: Denies: Abdominal Pain, Hematemesis, Hematochezia, Nausea, Vomiting Genitourinary: Denies: Dysuria, Frequency Musculoskeletal: Denies: Joint Pain, Joint Tenderness Skin: Denies: Rash, Wounds Neurological: Reports: Slurred speech, Focal weakness, Incoordination, Numbness, Tingling. Denies: Balance problems, Blurred vision, Double vision Psychiatric: Denies: Anxiety, Depression, Homicidal Ideations, Suicidal Ideations Hematologic/ Lymphatic: Denies: Easy Bruising, Easy Bleeding VTE Information - Inpt Only VTE Present on Admission: No VTE Pharm Prophylaxis ordered?: Yes Patient Problems: Active and Suspected Problems CVA (cerebral vascular accident) (Acute) - Physical Exam Vitals/I&O's: Vital Signs Temp Pulse Resp BP Pulse Ox 97.2 F L 85 17 149/99 H 98 05/17/20 02:45 05/17/20 02:45 05/17/20 02:45 05/17/20 02:45 05/17/20 02:45 Oxygen Delivery Method Room Air Weight: 80 kg Body Mass Index (BMI) 26.8 Finger Stick Blood Glucose 120 General: Alert, Oriented x3, Cooperative, No apparent distress HEENT: Atraumatic, PERRLA, EOMI, Normocephalic Oral: Moist Mucosa Neck: Supple Lungs: Clear to auscultation, Normal air movement Cardiovascular: Regular rate, Regular Rhythm, Normal S1, Normal S2, No murmurs Abdomen: Bowel Sounds Present, Soft, Non Tender, Non-Distended, No Hepato-splenomegaly Extremities: No edema Skin: No rashes Musculoskeletal: No Tenderness to Palpation of Joints or Extremities Lymphatic: No Cervical, Supraclavicular, or Inguinal Adenopathy Neurological: Cranial nerves II-XII grossly intact, - - Power in his right upper and lower extremities 5/5. Left upper extremity is 4/5, power in the left lower extremity is 3/5 Psych/Mental Status: Normal Affect, Appropriate Microbiology Past 72 Hours 05/17/20 01:55 Mucosa - Nose SARS-CoV-2 Antigen (Rapid) - Final Laboratory Results 05/17/20 01:43: WBC 8.2, RBC 4.56 L, Hgb 14.1, Hct 42.3, MCV 92.8, MCH 30.9, MCHC 33.3, RDW Std Deviation 41.4, RDW Coeff of Jayy 12.1, Plt Count 264, MPV 9.0, Immature Gran % (Auto) 0.400, Neut % (Auto) 42.4 L, Lymph % (Auto) 47.0 H, [place] % (Auto) 7.1, Eos % (Auto) 2.2, Baso % (Auto) 0.9, Absolute Neuts (auto) 3.5, Absolute Lymphs (auto) 3.85, Nucleated RBC % 0 05/17/20 01:43: PT 12.5, INR 1.0, APTT 30.8 05/17/20 01:43: Sodium 139, Potassium 3.4 L, Chloride 108 H, Carbon Dioxide 22.0, Anion Gap 9, BUN 19 H, Creatinine 1.05, Estim Creat Clear Calc 76.90, Est GFR (MDRD) Af Amer 94, Est GFR (MDRD) Non-Af 78, BUN/Creatinine Ratio 18.1, Glucose 93, Calcium 7.9 L, Troponin I < 0.015 05/17/20 01:43: Ethyl Alcohol 106.0 Current Medications Acetaminophen (Acetaminophen 325 Mg Tablet) 650 mg PO .X1 PRN PRN Reason: Temp > 99.6 F Last Admin: 05/17/20 02:29 Dose: 650 mg Documented by: Diphenhydramine HCl (Diphenhydramine 50 Mg/Ml Syringe) 50 mg IV .X1 PRN PRN Reason: Allergic Reaction Stop: 05/19/20 01:49 Sodium Chloride () 1,000 mls @ 100 mls/hr IV .Q10H NIKITA Last Admin: 05/17/20 02:29 Dose: 100 mls/hr Documented by: Famotidine 20 mg/ Sodium (Chloride) 10 mls @ 300 mls/hr IV .X1 PRN PRN Reason: Allergic Reaction Stop: 05/19/20 01:49 Nicardipine/Dextrose (Cardene-Dex 20 Mg/200 Ml Soln) 20 mg in 200 mls @ 50 mls/hr IV .Q4H PRN; Protocol PRN Reason: See Instructions Labetalol HCl (Labetalol (Prefilled) 20 Mg/4 Ml) 20 mg IV X1 PRN PRN Reason: BLOOD PRESSURE Labetalol HCl (Labetalol (Prefilled) 20 Mg/4 Ml) 20 mg IV X1 PRN; Protocol PRN Reason: BLOOD PRESSURE Methylprednisolone (Methylprednisolone 125 Mg/2 Ml Vial) 125 mg IV .X1 PRN PRN Reason: Allergic Reaction Stop: 05/19/20 01:49 Assessment/Plan All Active Problems CVA (cerebral vascular accident) (Acute) Overdose of opiate or related narcotic (Acute) Acute respiratory failure with hypoxia (Acute) 1. Acute CVA with right hemiparesis, status post TPA at 0148HRS Initial CT of the head was negative for acute hemorrhage. CTA of the head was basically unremarkable except for mild plaque at the carotid bulb Continue per TPA protocol in ICU Patient has a history of star-clipping for brain aneurysm; unclear if that is MRI compatible -STAT records from [facility] requested Continue with rest of stroke protocol with 2D echo, lipid profile, HbA1c Mix[employer] consulted 2. Hypertension, uncontrolled, will allow for permissive hypertension Blood pressure control per post TPA protocol 3. Chronic alcohol use disorder, patient denies that he would go into withdrawal. Admitting alcohol level is 106 He stated that he could go for days without going to withdrawal We will monitor on alcohol withdrawal protocol without any start of taper 4. Hypokalemia, K is 3.4, replaced, recheck in a.m. We will also check magnesium level 5. Nicotine dependence, advised to quit, will put on replacement 6. DVT PPx- SCDs, s/p TPA 7. CODE STATUS: DNR CCA I discussed and explained in details the various types of CODE STATUS-full code, DNR CCA, DNR CC. Patient does not want to be kept on artificial life support if he suffers a cardiopulmonary arrest. He stated that his brother was on the ventilator for a while prior to dying and does not want to be like that. Time spent discussing CODE STATUS 17 minutes Inpatient E&M: 26720 Init Hosp L3 Procedures: 32030 Advncd Care Plan 30 Min
--- NOTE | 2020-05-17 04:22 | ECHOD_ITS ---
Reason For Study: TIA/CVA Procedure This was a 2D Doppler, Color Flow transthoracic echocardiogram. The exam was of adequate technical quality. Exam performed portable in ICU/CCU. Left Ventricle Normal LV size. Left ventricular systolic function is normal. The estimated ejection fraction is 60 %. No evidence for diastolic dysfunction. No regional wall motion abnormalities noted. Right Ventricle Normal RV size. Normal systolic function. Atria Normal left atrium. Normal right atrium. Positive agitated saline contrast study for a right to left interatrial shunt compatible with a PFO versus ASD. Mitral Valve There is no mitral annular calcification. Normal mitral valve. Trivial mitral valve insufficiency. Tricuspid Valve Normal tricuspid valve. Trivial tricuspid valve insufficiency. Right ventricular systolic pressure estimated to be 18 mmHg. Aortic Valve Trisinus/trileaflet aortic valve. Mild focal aortic valve calcification. Pulmonic Valve The pulmonic valve is not well visualized. Great Vessels Normal sized aortic root. Pericardium/Pleural No pericardial effusion. Medication Performed a rapid injection of agitated mix of 9 cc saline and 1cc air to assess for atrial septal defect. MMode/2D Measurements & Calculations LVIDd: 4.5 cm IVSd: 0.99 cm Ao root diam: 3.3 cm LVIDs: 3.1 cm LVPWd: 1.0 cm RVDd: 2.9 cm FS: 30.7 % LAV(MOD-sp2): 32.4 ml LA A4 area: 12.0 cm2 LA dimension(2D): 3.4 cm RA A4 area: 10.7 cm2 Time Measurements MV dec time: 0.22 sec Doppler Measurements & Calculations MV E max kadeem: 85.0 cm/sec Lat Peak E' Kadeem: 12.6 cm/sec Med Peak E' Kadeem: 8.5 cm/sec MV A max kadeem: 76.3 cm/sec E/E' lat: 6.8 E/E' med: 10.1 MV E/A: 1.1 Ao V2 max: 129.7 cm/sec LV V1 max: 92.9 cm/sec PA V2 max: 83.6 cm/sec Ao max P.7 mmHg LV V1 max P.5 mmHg TR max kadeem: 192.4 cm/sec TR max P.8 mmHg Interpretation Summary Left ventricular systolic function is normal. The estimated ejection fraction is 60 %. Trivial mitral valve insufficiency. Trivial tricuspid valve insufficiency. Mild focal aortic valve calcification. Right ventricular systolic pressure estimated to be 18 mmHg. No evidence for diastolic dysfunction. Positive agitated saline contrast study for a right to left interatrial shunt compatible with a PFO versus ASD. Ordering Physician: Mili Cannon Performed By: Dayami Moreno, GELA, RVT
[2020-05-17 04:44] LABS: AST(SGOT) 24 U/L (15-37); Alanine Aminotransfer ALT/SGPT 48 U/L (16-61); Albumin, Serum 3.3 g/dL (3.2-5.0); Alkaline Phosphatase 97 U/L (45-117); Bilirubin, Direct 0.09 mg/dL (0.00-0.30); Cholesterol 158 mg/dL (200); High Density Lipoprotein 33 mg/dL; Protein, Total 6.3 g/dL (6.4-8.2); Triglycerides 476 mg/dL
[2020-05-17] MEDS: Gabapentin 300 MG Capsule PO ×2 (05:57→14:09)
[2020-05-17] MEDS: 0.9% Saline Lock 10 ML Syringe IV (06:36)
[2020-05-17 06:37] LABS: Absolute Lymphocyte Count 3.49 X10^3/uL (0.83-4.51); Basophil# 0.08 X10^3/uL; Basophil% 1.1 % (0-1); Eosinophil# 0.19 X10^3/uL; Eosinophils% 2.6 % (0-5); Hematocrit 44.3 % (40-54); Hemoglobin 14.9 g/dL (13.0-16.5); Lymphocyte # 3.49 X10^3/ul (4.0); Lymphocyte % 47.5 % (19-41); Mean Corp Hgb Conc 33.6 g/dL (32-36); Mean Corpuscular Hgb 30.9 pg (27.0-32.0); Mean Corpuscular Volume 91.9 fL (80-94); Mean Platelet Vol. 9.2 fl (6.2-12.0); Monocyte# 0.56 X10^3/uL; Monocyte% 7.6 % (0-10); NRBC Flagged by Analyzer 0 % (0-5); Neutrophil # 2.99 X10^3/uL (2.7-7.7); Neutrophil % 40.7 % (47-70); Platelet Count 267 K/mm3 (150-450); RBC Distribution Width CV 12.1 % (11.6-14.6); Red Blood Count 4.82 M/mm3 (4.6-6.2); White Blood Count 7.4 K/mm3 (4.4-11.0)
[2020-05-17 06:53] LABS: ALB/GLOB Ratio 1.1 RATIO (0.9-2.4); AST(SGOT) 33 U/L (15-37); Alanine Aminotransfer ALT/SGPT 53 U/L (16-61); Albumin, Serum 3.5 g/dL (3.2-5.0); Alkaline Phosphatase 103 U/L (45-117); Anion Gap 9 (5-15); BUN 18 mg/dL (7-18); BUN/Creat Ratio 17.6 RATIO (10-20); Calcium,Total 7.8 mg/dL (8.5-10.1); Chloride 108 mmol/L (98-107); Creatinine, Serum 1.02 mg/dL (0.70-1.30); EST Glomerular Filtration Rate 81 mL/min (>60); Est Glom Filt Rate - Afr Amer 98 mL/min (>60); Estimated Creatinine Clearance 81.83 ml/min; Globulin 3.2 g/dL (2.2-4.2); Glucose 122 mg/dL (74-106); Potassium 3.8 mmol/L (3.5-5.1); Protein, Total 6.7 g/dL (6.4-8.2); Sodium Level 139 mmol/L (136-145)
[2020-05-17 08:33] LABS: Hemoglobin A1c 5.7 % (3.8-5.6)
[2020-05-17] MEDS: Folic Acid 1 MG Tablet PO (08:42)
[2020-05-17] MEDS: Thiamine Hydrochloride 100 MG Tablet PO (08:42)
--- NOTE | 2020-05-17 08:55 | PCM.CON.CC ---
Problem List (1) CVA (cerebral vascular accident) Status: Acute Qualifiers: CVA mechanism: unspecified Qualified Code(s): I63.9 - Cerebral infarction, unspecified (2) Overdose of opiate or related narcotic Status: Acute (3) Anxiety disorder Status: Chronic Qualifiers: Anxiety disorder type: unspecified anxiety disorder Qualified Code(s): F41.9 - Anxiety disorder, unspecified (4) Tobacco abuse disorder Status: Chronic (5) Chronic pain Status: Chronic Qualifiers: Chronic pain type: other chronic pain Qualified Code(s): G89.29 - Other chronic pain Reason for Consult Date of Consultation: 05/17/20 Reason for Consultation: Post CVA History of Present Illness: The patient is a 55 year old M with past medical history listed below, who presented to [facility] on 05/17/2020 at 1:30 AM secondary to acute onset of left-sided weakness and paresthesia. Patient reportedly had had some slight slurring of his speech, but was drinking alcohol and was unclear if this was related to intoxication. Patient reportedly then developed left-sided weakness and presented to the ER for evaluation. Patient does have a history of TIA/CVA in the past with left-sided symptoms and had been seen by interventional radiology. Patient denies any history of GI bleed and has not had any recent surgery. In the ER, patient was noted to have an initial NIH of 6. This did progress as high as 12 before he was placed on TPA. Patient's infusion was completed at approximately 3 AM while in the intensive care unit. Since being in the intensive care unit, patient has had significant improvement in overall NIH to as low as 4. Patient does continue to report paresthesia and left-sided weakness, but not paralysis. Patient is not having any dysarthria or aphasia, but does have a slight facial droop. Patient reports that he does drink alcohol regularly, but has not had withdrawal symptoms in the past. Patient does have an extensive smoking history, but has never been evaluated for COPD. Patient does not require supplemental oxygen at baseline. Patient states he has not established with a new primary care physician after the assisted of Dr. Reed. Patient was on antihypertensive medications in the past, but has stopped taking them secondary to a lack of a prescription. Review of systems otherwise negative from a constitutional, HEENT, respiratory, cardiovascular, GI, genitourinary, musculoskeletal, skin, neurologic, psychiatric and hematologic system unless stated above. Past Medical History Past Medical History (Chronic Problems): Chronic Problems Anxiety disorder (Chronic) Alcohol abuse (Chronic) Tobacco abuse disorder (Chronic) Chronic pain (Chronic) Allergies hydrocodone bitartrate [From Vicodin] Allergy (Verified 01/19/19 03:50) Rash tramadol HCl [From Ultram] Allergy (Verified 01/19/19 03:50) Rash Home Medications: Ambulatory Orders Medication Instructions Recorded NK 05/17/20 Surgical History: - - left foot surgery, left knee surgery Psychiatric History: Anxiety, Depression Lives: Spouse/ Significant Other Smoking Status: Current every day smoker Tobacco Use: Cigarettes, - Alcohol: Heavy Drugs: Marijuana - *Family History Paternal History Items: No pertinent history Maternal History Items: Cancer Review of Systems Comment: See HPI Patient Problems: Active and Suspected Problems CVA (cerebral vascular accident) (Acute) Objective: All imaging was personally reviewed. Agree with formal interpretation. Echocardiogram has been completed, but results are not available for review. Chest x-ray was not suggestive of any acute intrathoracic pathology, but there was some hyperinflation - Physical Exam Vitals/I&O's: Vital Signs Temp Pulse Resp BP Pulse Ox 36.6 C 73 17 142/89 H 96 05/17/20 08:00 05/17/20 08:30 05/17/20 08:30 05/17/20 08:30 05/17/20 08:30 Oxygen Delivery Method Room Air Weight: 75.7 kg Body Mass Index (BMI) 24.6 Finger Stick Blood Glucose 120 Intake and Output for Last 24 Hours 05/15/20 05/16/20 05/17/20 23:59 23:59 23:59 Intake Total 351 / 351 Output Total 900 / 900 Balance -549 / -549 General: Alert, Oriented x3, Cooperative, No apparent distress, - - Speaking in full sentences HEENT: Atraumatic, PERRLA, EOMI, - - Slight facial droop noted Oral: Moist Mucosa, No Gingival or Mucosal Lesions/ Ulcerations Neck: Supple, No JVD, No Nodes, Trachea Midline Lungs: Clear to auscultation, No rhonchi, No wheeze, No rales, - - Symmetric expansion. Increased AP diameter. Cardiovascular: Regular rate, Regular Rhythm, Normal S1, Normal S2, No murmurs, No rub noted, No Gallop Abdomen: Bowel Sounds Present, Soft, Non Tender, Non-Distended Extremities: No clubbing, No cyanosis, No edema Skin: No rashes, No breakdown Musculoskeletal: No Tenderness to Palpation of Joints or Extremities Lymphatic: No Cervical, Supraclavicular, or Inguinal Adenopathy Neurological: - - Slight drift noted in left upper and left lower extremity. Sensation to fine touch slightly abnormal. Slight facial droop noted. Psych/Mental Status: Alert and oriented to time, place, person, mood and affect Microbiology Past 72 Hours 05/17/20 01:55 Mucosa - Nose SARS-CoV-2 Antigen (Rapid) - Final Laboratory Results 05/17/20 01:43: WBC 8.2, RBC 4.56 L, Hgb 14.1, Hct 42.3, MCV 92.8, MCH 30.9, MCHC 33.3, RDW Std Deviation 41.4, RDW Coeff of Jayy 12.1, Plt Count 264, MPV 9.0, Immature Gran % (Auto) 0.400, Neut % (Auto) 42.4 L, Lymph % (Auto) 47.0 H, Tama % (Auto) 7.1, Eos % (Auto) 2.2, Baso % (Auto) 0.9, Absolute Neuts (auto) 3.5, Absolute Lymphs (auto) 3.85, Nucleated RBC % 0 05/17/20 01:43: PT 12.5, INR 1.0, APTT 30.8 05/17/20 01:43: Sodium 139, Potassium 3.4 L, Chloride 108 H, Carbon Dioxide 22.0, Anion Gap 9, BUN 19 H, Creatinine 1.05, Estim Creat Clear Calc 76.90, Est GFR (MDRD) Af Amer 94, Est GFR (MDRD) Non-Af 78, BUN/Creatinine Ratio 18.1, Glucose 93, Calcium 7.9 L, Troponin I < 0.015 05/17/20 01:43: Ethyl Alcohol 106.0 05/17/20 01:43: Total Bilirubin 0.20, Direct Bilirubin 0.09, AST 24, ALT 48, Alkaline Phosphatase 97, Total Protein 6.3 L, Albumin 3.3, Globulin 3.0, Triglycerides 476 H, Cholesterol 158, LDL Cholesterol TNP, VLDL Cholesterol TNP, HDL Cholesterol 33 L 05/17/20 01:43: Hemoglobin A1c 5.7 H 05/17/20 06:30: WBC 7.4, RBC 4.82, Hgb 14.9, Hct 44.3, MCV 91.9, MCH 30.9, MCHC 33.6, RDW Std Deviation 41.0, RDW Coeff of Jayy 12.1, Plt Count 267, MPV 9.2, Immature Gran % (Auto) 0.500, Neut % (Auto) 40.7 L, Lymph % (Auto) 47.5 H, Tama % (Auto) 7.6, Eos % (Auto) 2.6, Baso % (Auto) 1.1 H, Absolute Neuts (auto) 3.0, Absolute Lymphs (auto) 3.49, Nucleated RBC % 0 05/17/20 06:30: Sodium 139, Potassium 3.8, Chloride 108 H, Carbon Dioxide 22.0, Anion Gap 9, BUN 18, Creatinine 1.02, Estim Creat Clear Calc 81.83, Est GFR (MDRD) Af Amer 98, Est GFR (MDRD) Non-Af 81, BUN/Creatinine Ratio 17.6, Glucose 122 H, Calcium 7.8 L, Total Bilirubin 0.20, AST 33, ALT 53, Alkaline Phosphatase 103, Total Protein 6.7, Albumin 3.5, Globulin 3.2, Albumin/Globulin Ratio 1.1 Current Medications Acetaminophen (Acetaminophen 325 Mg Tablet) 650 mg PO Q6H PRN PRN PRN Reason: Pain Score 1-10 Last Admin: 05/17/20 08:42 Dose: 650 mg Documented by: Dicyclomine HCl (Dicyclomine 10 Mg Capsule) 20 mg PO Q6H PRN PRN PRN Reason: abdominal discomfort Folic Acid (Folic Acid 1 Mg Tablet) 1 mg PO DAILY@0800 NIKITA Last Admin: 05/17/20 08:42 Dose: 1 mg Documented by: Gabapentin (Gabapentin 300 Mg Capsule) 300 mg PO Q8H PRN PRN PRN Reason: moderate to severe anxiety Last Admin: 05/17/20 05:57 Dose: 300 mg Documented by: Hydroxyzine Pamoate (Hydroxyzine Adrienne 25 Mg Capsule) 50 mg PO Q4H PRN PRN PRN Reason: mild anxiety Sodium Chloride () 250 mls @ 15 mls/hr IV .[id number] PRN PRN Reason: Saline Flush Influenza Virus Vaccine Quadrival (Influenza Vaccine (6mos+)/Pf 0.5 Ml Syringe) 0.5 ml IM .ONCE ONE Stop: 05/18/20 10:01 Loperamide HCl (Loperamide 2 Mg Capsule) 2 mg PO Q4H PRN PRN PRN Reason: LOOSE STOOLS Nicotine (Nicotine 21 Mg Patch) 21 mg TD DAILY NIKITA Nicotine Polacrilex (Nicotine Polacrilex 2 Mg Gum) 2 mg PO Q2H PRN PRN PRN Reason: Nicotine Craving Ondansetron HCl (Ondansetron Odt 4 Mg Tablet) 8 mg PO Q8H PRN PRN PRN Reason: NAUSEA Sodium Chloride (0.9% Saline Lock 10 Ml Syringe) 10 - 40 ml IV UD PRN PRN Reason: SALINE FLUSH Last Admin: 05/17/20 06:36 Dose: 10 ml Documented by: Thiamine HCl (Thiamine Hydrochloride 100 Mg Tablet) 100 mg PO DAILYCM NIKITA Last Admin: 05/17/20 08:42 Dose: 100 mg Documented by: Trazodone HCl (Trazodone 100 Mg Tablet) 100 mg PO QHS PRN PRN PRN Reason: INSOMNIA Clinical Impression(s) from Imaging Studies Brain CT 05/17/20 01:30 IMPRESSION: No visualized acute hemorrhage infarct or edema. Recommend further imaging such as MRI or CT angiogram for further evaluation given the clinical history. N.B. : The above information has been verbally conveyed by Priscilla Kahn MD to Dr. Omar Werner MD, on 05/17/2020 01:44:47 (ET). Electronically Signed: Priscilla Kahn MD at 1:45 EST Tel , Service support , ADDENDUM: 05/17/20 0152 IMPRESSION: No visualized acute hemorrhage infarct or edema. Recommend further imaging such as MRI or CT angiogram for further evaluation given the clinical history. N.B. : The above information has been verbally conveyed by Priscilla Kahn MD to Dr. Omar Werner MD, on 05/17/2020 01:44:47 (ET). Electronically Signed: Priscilla Kahn MD at 1:45 EST Tel , Service support , Chest X-Ray 05/17/20 01:30 IMPRESSION: Degenerative changes, as described above. No demonstrated acute cardiopulmonary process. Electronically Signed: Priscilla Kahn MD at 3:09 EST Tel , Service support , Head/Neck CTA 05/17/20 01:31 IMPRESSION: Stable CTA Head. Minimal soft plaque formation at the carotid bulb without significant stenosis. Given the clinical history and MRI may be helpful for further clarification. Electronically Signed: Priscilla Kahn MD at 2:46 EST Tel , Service support , ADDENDUM: 05/17/20 0303 IMPRESSION: Stable CTA Head. Minimal soft plaque formation at the carotid bulb without significant stenosis. Given the clinical history and MRI may be helpful for further clarification. N.B. : The above information has been verbally conveyed by Priscilla Kahn MD to RENÉ MCLAUGHLIN MD, on 05/17/2020 02:56:05 (ET). Electronically Signed: Priscilla Kahn MD at 2:46 EST Tel , Service support , Assessment/Plan Active and Suspected Problems CVA (cerebral vascular accident) (Acute) RECOMMENDATIONS: 1. Continue with post TPA protocol 2. Labetalol and hydralazine as needed for hypertension 3. Possible initiation of chronic antihypertensive tomorrow 4. Monitor for signs and symptoms of alcohol withdrawal. IMPRESSIONS: 1. CVA status post TPA Patient with previous left-sided symptoms on TIA/CVA. Exact history is unclear. Patient reportedly was evaluated for a alvarez aneurysm, but no intracranial bleeding was noted. Patient appears to have responded well to TPA at this point. Continue with protocol. 2. Uncontrolled hypertension Patient's diastolic blood pressure is slightly elevated. Would treat with as needed medications as necessary per the protocol. Clinical suspicion for a need of new maintenance medication for hypertension prior to discharge, but this can be addressed after the 24 hours of TPA monitoring is completed. Would not initiate p.o. medications in the immediate period and allow for permissive hypertension. 3. Possible alcoholism Patient does admit to drinking frequently, but has not had withdrawal symptoms in the past. Patient admitted with an alcohol level of 106. Continue to monitor clinically. Patient may require Ativan. Patient receiving frequent checks by nursing secondary to problem #1, so this can be initiated if noted. Given reported history, likely not appropriate to initiate phenobarbital as this may complicate neurologic assessments. 4. Hypokalemia/nicotine dependence/lack of primary care Complicates care, management, recovery and prognosis. We will discuss with case management about providing information for new PCP. Inpatient E&M: 45630 Init Hosp L3
--- NOTE | 2020-05-17 12:49 | CASEMGMT ---
MAHOGANY HUERTA Assessment Note Introduced role of CM to patient to room. Patient is awake, alert and oriented. Able to participate in assessment. Demographics, PCP verified. Pt lived independently with his sign. other Shanna Fisher. States he did not have prior care needs. Pt now has residual L sided weakness. Discussed with patient that PT/OT would evaluate and recommendations would be given re: appropriate level of therapy which could include Inpt Rehab, outpt therapy or home therapy. Pt is agreeable to whatever I need. -ETOH use: Discussion with patient re: ETOH use. He states he does use alcohol, though not daily. States he has beer and [place] when he drinks. When asked how much he consumes, he would not give certain amount. Pt states it does not interfere with his life. States he has had 3 DUI's in the past, the last was in 2002. MAHOGANY HUERTA discussed resources available to patient if he would like information and he declined at this time. - He is currently employed as a temp and states he had a job interview today which he missed. He is able to call and contact employers himself. MAHOGANY HUERTA let him know a work excuse could be printed for him on dc if needed to verify he was @ [facility]. Diagnosis: CVA, uncontrolled HTN PCP: no PCP. [facility] for patient's area. Patient states he would like to re-establish with [facility] and will call on discharge. Insurance: [facility] Preferred Pharmacy: [facility] Prescription Benefit: yes LNOK: Significant Other, Shanna Fisher Living Arrangements: Lives in mobile home. Tranportation: drives, but has s.o. who can drive him if needed. DME: cane only HHC: none SNF: none Patient DC Goal: Home on dc DC Plan: TBD. PT/OT evaluations pending. Will need recommendations for level of therapy needed on dc. CM available for discharge planning coordination. Contact CM for any concerns/needs that may arise. Pierce HENRY RN ACM
--- NOTE | 2020-05-17 13:41 | CASEMGMT ---
Addendum entered by Nahun Le 05/17/20 15:49: Call from office and patient is not active with Dr. Schultz. Pt will be listed as no PCP. Call to [facility] and they are willing to have patient call on dc and fill out paperwork for re-evaluation by their physicians. Pt was a no show in 2019 and has not been seen there since Dr. Reed retired so they will not make an appt now. Above explained to patient and # given for him to call on dc. Pierce HENRY RN ACM Original Note: RN CM Note: Pt has been seeing Dr. Schultz in [place]. Call to office and message left to verify pt is active and for f/u appts on dc. Pierce Henry RN ACM
[2020-05-17] MEDS: hydrOXYzine PAM 25 MG Capsule 50 MG PO (15:27)
--- NOTE | 2020-05-17 15:57 | CASEMGMT ---
Social Work ICU Reason for Consult: PHQ9 related to new stroke diagnosis. Summary: Met with patient in room and introduced to social work role and reason for visit. Patient willing to complete PHQ9 assessment. Refer to attached link for further details. Score is a 6, falling in the mild range of depression. During PHQ9 assessment patient shared that has been feeling down and depressed related to not being able to find a job that patient really enjoys; trying to find a purpose. Patient reports he doesn't leave the house much, so has been sleeping more and feeling more tired. Patient also having thoughts of letting others down due to not being able to maintain a job, when in the past has been able to work jobs for years at at at time. Patient describes getting bored and restless, so ends up leaving his employment. Patient reports was to start a new job today, but unable to do so due to this hospitalization. Recent Life Changes: 18 year relationship, broke up for 2 years, and reconciled 6 months ago. Patient reports sometimes to feel like current girlfriend would be better off if patient was not around. Patient denies however, having active thoughts of wanting to kill or harm himself. Denies thoughts, plans, intent. Reports belief that killing oneself if is a cowards way, and went on to talk about wanting to find a job and wanting to visit with family in [place]. Patient denies access to lethal means such as firearms or stockpiles of medications. Patient does endorse an overdose on pain prescribed pain medications in about 2005 after patient's father and brother . Patient denies this was a suicide attempt, but more of trying to numb out pain. Patient reports a 4 day hospitalization at [facility] for medical management, but no psychiatric admission. Followed with outpatient services after. Patient reports history of counseling at the counseling Center and prescribed medications throughout the years such as Xanax along with 4 other meds that patient cannot recall the name of. Reports had a self initiated appointment at [facility] about 3 months ago, but did not follow through due to belief that could get better on his own. Patient endorsed having anxiety, and physical panic attacks at times. Patient reports to not have a lot of social outlets and that finds it helpful to have people to talk to. Denies any history of Bipolar illness. Patient endorses tattoos are my drug of choice at this time in patient's life. Patient does endorse drinking alcohol, on average 3 drinks in a day when drinking. Vague as to to frequency of alcohol consumption. Will drink both beer and [employer] Whiskey. Patient denies belief that drinking is problematic at this time, nor does patient feel guilty or remorse for level of usage. Patient alluded to past history of substance use, but that has grown up through the years. Patient report coping as keeping self busy, distractions, and being productive. Supports include girlfriend and then a sister in [place]. (Reports to have one other living sister but not a good relationship and then a 32 year old daughter who patient gave up parental rights to when the child was young). Assessment: Patient cooperative, pleasant, and talkative during social work visit often offering more information than what was asked. Patient easily redirected. Smiled at appropriate times, good eye contact, affect constricted overall. Patient is future oriented and does agree to have rn social services assist with an appointment at [facility] for a mental health assessment. [facility] program discussed, but patient uncertain about this as wants to be able to work and programming is the same time as new job would be. Plan: SW to follow up with MH resources including: PHQ9 handout, [facility] programming, and [facility] intake appointment. -STACI Hernández, PANTOGRAPH MACHINE SET UP OPERATOR
[2020-05-17] MEDS: Labetalol (Prefilled) 20 MG/4 ML IV (22:53)
[2020-05-18] VITALS (18 sets, daily range): BP systolic 107–142; BP diastolic 70–101; PULSE 53–81; RESP 14–20; TEMP 36.2–36.4; O2SAT 95–100
--- NOTE | 2020-05-18 02:07 | CT_ITS ---
STUDY: CT BRAIN WITHOUT CONTRAST REASON FOR EXAM: Male, 55 years old. Status post TPA thrombolysis for stroke RADIATION DOSAGE (If Supplied By Facility): CTDIvol = ( 44.99 ) mGy, DLP = ( 796.11 ) mGycm TECHNIQUE: Transaxial CT imaging of the brain was performed without administration of intravenous contrast material. Individualized dose optimization techniques were used for this CT. COMPARISON: 05/17/2020 FINDINGS: Normal soft tissue structures. Normal calvarium. Normal size ventricles and extra-axial spaces for the patient''s age. Normal white matter tracts of the cerebral hemispheres. Normal basal ganglia and thalami. Normal brainstem. Normal cerebellum. There is no intracranial hemorrhage. There are no findings of an acute ischemic infarction. Normal visualized paranasal sinuses. CT/Brain/Head without Contrast IMPRESSION: No acute intracranial abnormality. Electronically Signed: Marvin Grijalva MD at 2:48 EST Tel , Service support ,
[2020-05-18 04:31] LABS: Absolute Lymphocyte Count 3.17 X10^3/uL (0.83-4.51); Absolute Neutrophil Count 3.5 X10^3/uL (2.0-7.7); Basophil# 0.07 X10^3/uL; Basophil% 0.9 % (0-1); Eosinophil# 0.16 X10^3/uL; Eosinophils% 2.1 % (0-5); Hemoglobin 15.3 g/dL (13.0-16.5); Lymphocyte # 3.17 X10^3/ul (4.0); Lymphocyte % 41.9 % (19-41); Mean Corp Hgb Conc 33.3 g/dL (32-36); Mean Corpuscular Hgb 30.5 pg (27.0-32.0); Mean Corpuscular Volume 91.8 fL (80-94); Monocyte% 7.9 % (0-10); NRBC Flagged by Analyzer 0 % (0-5); Neutrophil # 3.52 X10^3/uL (2.7-7.7); Neutrophil % 46.7 % (47-70); Platelet Count 273 K/mm3 (150-450); RBC Distribution Width CV 12.1 % (11.6-14.6); RBC Distribution Width SD 41.3 fl (35.1-43.9); Red Blood Count 5.01 M/mm3 (4.6-6.2); White Blood Count 7.6 K/mm3 (4.4-11.0)
[2020-05-18 04:49] LABS: ALB/GLOB Ratio 1.1 RATIO (0.9-2.4); AST(SGOT) 27 U/L (15-37); Alanine Aminotransfer ALT/SGPT 55 U/L (16-61); Albumin, Serum 3.4 g/dL (3.2-5.0); Alkaline Phosphatase 81 U/L (45-117); Anion Gap 7 (5-15); BUN 18 mg/dL (7-18); BUN/Creat Ratio 16.4 RATIO (10-20); Calcium,Total 8.6 mg/dL (8.5-10.1); Chloride 106 mmol/L (98-107); EST Glomerular Filtration Rate 74 mL/min (>60); Est Glom Filt Rate - Afr Amer 89 mL/min (>60); Estimated Creatinine Clearance 75.88 ml/min; Globulin 3.2 g/dL (2.2-4.2); Glucose 97 mg/dL (74-106); Potassium 3.9 mmol/L (3.5-5.1); Protein, Total 6.6 g/dL (6.4-8.2); Sodium Level 138 mmol/L (136-145)
--- NOTE | 2020-05-18 07:19 | PCM.PN.INT ---
Subjective: Patient did well overnight. Patient's last NIH was 1. Patient is denying headache at this time, but has had complaints of headache overnight. CT of the head was normal this morning. There was some concern for withdrawal symptoms yesterday, but no as needed Ativan has been required. Objective: CT of the head was unremarkable. Echocardiogram did show an EF of 60% with a PFO. General: Alert, Oriented x3, Cooperative, No apparent distress, Well developed, Well nourished, - - Speaking in full sentences HEENT: Atraumatic, PERRLA, EOMI, Normocephalic Oral: Moist Mucosa, No Gingival or Mucosal Lesions/ Ulcerations Neck: Supple, No JVD, No Nodes, Trachea Midline Lungs: Clear to auscultation, Normal air movement, No rhonchi, No wheeze, No rales Cardiovascular: Regular rate, Regular Rhythm, Normal S1, Normal S2 Abdomen: Bowel Sounds Present, Soft, Non Tender, Non-Distended Extremities: No clubbing, No cyanosis, No edema Skin: No rashes, No breakdown Musculoskeletal: No Tenderness to Palpation of Joints or Extremities Lymphatic: No Cervical, Supraclavicular, or Inguinal Adenopathy Neurological: Neuro grossly intact - Slight leg drift left Psych/Mental Status: Alert and oriented to time, place, person, mood and affect Vital Signs Temp Pulse Resp BP Pulse Ox 36.2 C L 61 15 117/78 96 05/18/20 04:00 05/18/20 07:14 05/18/20 06:00 05/18/20 06:00 05/18/20 06:00 Oxygen Delivery Method Room Air Weight: 77.337 kg Body Mass Index (BMI) 24.6 Finger Stick Blood Glucose 120 Intake and Output for Last 24 Hours 05/16/20 05/17/20 05/18/20 23:59 23:59 23:59 Intake Total 1291 / 1291 Output Total 2150 / 3000 1300 / 1300 Balance -859 / -1709 -1300 / -1300 Labs (Last 48 Hours) 05/17/20 05/17/20 05/17/20 01:43 01:43 01:43 WBC 8.2 RBC 4.56 L Hgb 14.1 Hct 42.3 MCV 92.8 MCH 30.9 MCHC 33.3 RDW Std Deviation 41.4 RDW Coeff of Jayy 12.1 Plt Count 264 MPV 9.0 Immature Gran % (Auto) 0.400 Neut % (Auto) 42.4 L Lymph % (Auto) 47.0 H [place] % (Auto) 7.1 Eos % (Auto) 2.2 Baso % (Auto) 0.9 Absolute Neuts (auto) 3.5 Absolute Lymphs (auto) 3.85 Nucleated RBC % 0 PT 12.5 INR 1.0 APTT 30.8 Sodium 139 Potassium 3.4 L Chloride 108 H Carbon Dioxide 22.0 Anion Gap 9 BUN 19 H Creatinine 1.05 Estim Creat Clear Calc 76.90 Est GFR (MDRD) Af Amer 94 Est GFR (MDRD) Non-Af 78 BUN/Creatinine Ratio 18.1 Glucose 93 Hemoglobin A1c Calcium 7.9 L Total Bilirubin Direct Bilirubin AST ALT Alkaline Phosphatase Troponin I < 0.015 Total Protein Albumin Globulin Albumin/Globulin Ratio Triglycerides Cholesterol LDL Cholesterol VLDL Cholesterol HDL Cholesterol Ethyl Alcohol 05/17/20 05/17/20 05/17/20 01:43 01:43 01:43 WBC RBC Hgb Hct MCV MCH MCHC RDW Std Deviation RDW Coeff of Jayy Plt Count MPV Immature Gran % (Auto) Neut % (Auto) Lymph % (Auto) [place] % (Auto) Eos % (Auto) Baso % (Auto) Absolute Neuts (auto) Absolute Lymphs (auto) Nucleated RBC % PT INR APTT Sodium Potassium Chloride Carbon Dioxide Anion Gap BUN Creatinine Estim Creat Clear Calc Est GFR (MDRD) Af Amer Est GFR (MDRD) Non-Af BUN/Creatinine Ratio Glucose Hemoglobin A1c 5.7 H Calcium Total Bilirubin 0.20 Direct Bilirubin 0.09 AST 24 ALT 48 Alkaline Phosphatase 97 Troponin I Total Protein 6.3 L Albumin 3.3 Globulin 3.0 Albumin/Globulin Ratio Triglycerides 476 H Cholesterol 158 LDL Cholesterol TNP VLDL Cholesterol TNP HDL Cholesterol 33 L Ethyl Alcohol 106.0 05/17/20 05/17/20 05/18/20 06:30 06:30 04:25 WBC 7.4 7.6 RBC 4.82 5.01 Hgb 14.9 15.3 Hct 44.3 46.0 MCV 91.9 91.8 MCH 30.9 30.5 MCHC 33.6 33.3 RDW Std Deviation 41.0 41.3 RDW Coeff of Jayy 12.1 12.1 Plt Count 267 273 MPV 9.2 9.0 Immature Gran % (Auto) 0.500 0.500 Neut % (Auto) 40.7 L 46.7 L Lymph % (Auto) 47.5 H 41.9 H [place] % (Auto) 7.6 7.9 Eos % (Auto) 2.6 2.1 Baso % (Auto) 1.1 H 0.9 Absolute Neuts (auto) 3.0 3.5 Absolute Lymphs (auto) 3.49 3.17 Nucleated RBC % 0 0 PT INR APTT Sodium 139 Potassium 3.8 Chloride 108 H Carbon Dioxide 22.0 Anion Gap 9 BUN 18 Creatinine 1.02 Estim Creat Clear Calc 81.83 Est GFR (MDRD) Af Amer 98 Est GFR (MDRD) Non-Af 81 BUN/Creatinine Ratio 17.6 Glucose 122 H Hemoglobin A1c Calcium 7.8 L Total Bilirubin 0.20 Direct Bilirubin AST 33 ALT 53 Alkaline Phosphatase 103 Troponin I Total Protein 6.7 Albumin 3.5 Globulin 3.2 Albumin/Globulin Ratio 1.1 Triglycerides Cholesterol LDL Cholesterol VLDL Cholesterol HDL Cholesterol Ethyl Alcohol 05/18/20 04:25 WBC RBC Hgb Hct MCV MCH MCHC RDW Std Deviation RDW Coeff of Jayy Plt Count MPV Immature Gran % (Auto) Neut % (Auto) Lymph % (Auto) [place] % (Auto) Eos % (Auto) Baso % (Auto) Absolute Neuts (auto) Absolute Lymphs (auto) Nucleated RBC % PT INR APTT Sodium 138 Potassium 3.9 Chloride 106 Carbon Dioxide 25.0 Anion Gap 7 BUN 18 Creatinine 1.10 Estim Creat Clear Calc 75.88 Est GFR (MDRD) Af Amer 89 Est GFR (MDRD) Non-Af 74 BUN/Creatinine Ratio 16.4 Glucose 97 Hemoglobin A1c Calcium 8.6 Total Bilirubin 0.20 Direct Bilirubin AST 27 ALT 55 Alkaline Phosphatase 81 Troponin I Total Protein 6.6 Albumin 3.4 Globulin 3.2 Albumin/Globulin Ratio 1.1 Triglycerides Cholesterol LDL Cholesterol VLDL Cholesterol HDL Cholesterol Ethyl Alcohol Microbiology 05/17/20 01:55 Mucosa - Nose SARS-CoV-2 Antigen (Rapid) - Final Clinical Impression(s) from Imaging Studies Brain CT 05/18/20 02:07 IMPRESSION: No acute intracranial abnormality. Electronically Signed: Marvin Grijalva MD at 2:48 EST Tel , Service support , Medical Necessity - Tobacco Use Smoking Status: Current every day smoker Tobacco Use: Cigarettes, - Assessment/Plan All Active Problems CVA (cerebral vascular accident) (Acute) RECOMMENDATIONS: 1. Obtain neuro consultation 2. Consider baseline medication for baseline hypertension 3. Await MRI 4. Hemodynamically stable on room air. Will sign off from a critical care perspective IMPRESSIONS: 1. CVA status post TPA Patient with previous left-sided symptoms on TIA/CVA. Patient may be having paradoxical embolization given PFO. Patient reportedly was evaluated for a alvarez aneurysm, but no intracranial bleeding was noted. Patient appears to have responded well to TPA. No complications are noted. Neurology consult and MRI still need to be completed. 2. Uncontrolled hypertension Patient's diastolic blood pressure is slightly elevated. Would treat with as needed medications as necessary per the protocol. Patient does have a history of previous baseline hypertension. Likely reasonable to initiate baseline hypertensive medication. 3. Possible alcoholism Patient does admit to drinking frequently, but has not had withdrawal symptoms in the past. Patient admitted with an alcohol level of 106. Continue to monitor clinically. Patient was placed on the CIWA protocol, but appears to be doing okay at this time. This can likely be discontinued in another 24 hours given patient presented with a positive alcohol level. 4. Hypokalemia/nicotine dependence/lack of primary care Complicates care, management, recovery and prognosis. We will discuss with case management about providing information for new PCP. Inpatient E&M: 30020 Subs Hosp L2
[2020-05-18] MEDS: Acetaminophen 325 MG Tablet 650 MG PO ×2 (08:21→23:25)
[2020-05-18] MEDS: Thiamine Hydrochloride 100 MG Tablet PO (08:21)
[2020-05-18] MEDS: Folic Acid 1 MG Tablet PO (08:21)
--- NOTE | 2020-05-18 09:28 | MRI_ITS ---
STUDY: MRI BRAIN WITHOUT CONTRAST REASON FOR EXAM: Male, 55 years old. acute stroke, tpa given 05/17/20 2am, hx alcohol abuse TECHNIQUE: Standardized multiplanar fat and water weighted pulse sequences were obtained. COMPARISON: CT earlier today FINDINGS: Normal size of the ventricles and extra-axial spaces for the patient''s age. Normal white matter tracts of the supratentorial brain. There is no evidence for recent intracranial ischemia or other cause of cytotoxic edema on diffusion weighted imaging (DWI). Normal T2* images of the brain without demonstrated susceptibility artifact. There is no demonstrated hemosiderin stain. Normal bilateral basal ganglia. Normal thalami. There is no extra-axial fluid accumulation. Normal flow voids within the major intracranial circulation suggesting patency by spin echo criteria. Normal sella turcica, pituitary gland, infundibular stalk, optic chiasm and hypothalamus. Normal tectal plate and pineal gland. Normal midbrain, ria and medulla. Normal cerebellum. Normal basal cisterns. Normal bilateral temporal bones. Normal bilateral internal auditory canals. No demonstrated orbital abnormality, within the constraints of a routine brain study. Normal visualized paranasal sinuses. Normal calvarium and skull base. Normal visualized soft tissue structures. Normal visualized upper cervical spine. MRI/Brain without Contrast IMPRESSION: Normal unenhanced MRI of the brain. Electronically Signed: Richard Mast MD at 13:13 EST Tel , Service support ,
--- NOTE | 2020-05-18 09:48 | PCM.PROGNOTE ---
Patient Problems: Active and Suspected Problems CVA (cerebral vascular accident) (Acute) Subjective: Chief complaint: Follow-up after admission for acute stroke, he developed acute alcohol withdrawal. Patient seen and examined. Overnight, patient started having some withdrawal symptoms and he was started on Ativan as needed. Weakness on the left side improved. Denied headache, slurred speech or blurred vision this morning. CT scan brain done this morning and showed no acute bleed. His vital signs are stable. - Physical Exam Vitals/I&O's: Vital Signs Temp Pulse Resp BP Pulse Ox 97.2 F L 74 15 132/88 H 98 05/18/20 04:00 05/18/20 09:00 05/18/20 09:00 05/18/20 09:00 05/18/20 09:00 Oxygen Delivery Method Room Air Weight: 170 lb 8 oz Body Mass Index (BMI) 24.6 Finger Stick Blood Glucose 120 Intake and Output for Last 24 Hours 05/16/20 05/17/20 05/18/20 23:59 23:59 23:59 Intake Total 1291 / 1291 Output Total 2150 / 3000 1300 / 1300 Balance -859 / -1709 -1300 / -1300 General: Alert, Oriented x3, Cooperative, No apparent distress HEENT: Atraumatic, PERRLA, EOMI, Normocephalic Oral: Moist Mucosa, No Gingival or Mucosal Lesions/ Ulcerations Neck: Supple, No JVD, Negative Carotid Bruits, Trachea Midline, Thyroid Normal Size and Texture Lungs: Clear to auscultation, Normal air movement, No rhonchi, No wheeze, No rales Cardiovascular: Regular rate, Regular Rhythm, Normal S1, Normal S2, PMI Normal Abdomen: Bowel Sounds Present, Soft, Non Tender, Non-Distended, No Hepato-splenomegaly Extremities: No clubbing, No cyanosis, No edema Skin: No rashes, No breakdown Lymphatic: No Cervical, Supraclavicular, or Inguinal Adenopathy Neurological: Cranial nerves II-XII grossly intact, Motor Exam 5/5 strength throughout Psych/Mental Status: Normal Affect, Appropriate, Alert and oriented to time, place, person, mood and affect Microbiology Past 72 Hours 05/17/20 01:55 Mucosa - Nose SARS-CoV-2 Antigen (Rapid) - Final Laboratory Results 05/18/20 04:25: WBC 7.6, RBC 5.01, Hgb 15.3, Hct 46.0, MCV 91.8, MCH 30.5, MCHC 33.3, RDW Std Deviation 41.3, RDW Coeff of Jayy 12.1, Plt Count 273, MPV 9.0, Immature Gran % (Auto) 0.500, Neut % (Auto) 46.7 L, Lymph % (Auto) 41.9 H, [place] % (Auto) 7.9, Eos % (Auto) 2.1, Baso % (Auto) 0.9, Absolute Neuts (auto) 3.5, Absolute Lymphs (auto) 3.17, Nucleated RBC % 0 05/18/20 04:25: Sodium 138, Potassium 3.9, Chloride 106, Carbon Dioxide 25.0, Anion Gap 7, BUN 18, Creatinine 1.10, Estim Creat Clear Calc 75.88, Est GFR (MDRD) Af Amer 89, Est GFR (MDRD) Non-Af 74, BUN/Creatinine Ratio 16.4, Glucose 97, Calcium 8.6, Total Bilirubin 0.20, AST 27, ALT 55, Alkaline Phosphatase 81, Total Protein 6.6, Albumin 3.4, Globulin 3.2, Albumin/Globulin Ratio 1.1 Clinical Impression(s) from Imaging Studies Brain CT 05/17/20 01:30 IMPRESSION: No visualized acute hemorrhage infarct or edema. Recommend further imaging such as MRI or CT angiogram for further evaluation given the clinical history. N.B. : The above information has been verbally conveyed by Priscilla Kahn MD to Dr. Omar Werner MD, on 05/17/2020 01:44:47 (ET). Electronically Signed: Priscilla Kahn MD at 1:45 EST Tel , Service support , ADDENDUM: 05/17/20 0152 IMPRESSION: No visualized acute hemorrhage infarct or edema. Recommend further imaging such as MRI or CT angiogram for further evaluation given the clinical history. N.B. : The above information has been verbally conveyed by Priscilla Kahn MD to Dr. Omar Werner MD, on 05/17/2020 01:44:47 (ET). Electronically Signed: Priscilla Kahn MD at 1:45 EST Tel , Service support , Chest X-Ray 05/17/20 01:30 IMPRESSION: Degenerative changes, as described above. No demonstrated acute cardiopulmonary process. Electronically Signed: Priscilla Kahn MD at 3:09 EST Tel , Service support , Head/Neck CTA 05/17/20 01:31 IMPRESSION: Stable CTA Head. Minimal soft plaque formation at the carotid bulb without significant stenosis. Given the clinical history and MRI may be helpful for further clarification. Electronically Signed: Priscilla Kahn MD at 2:46 EST Tel , Service support , ADDENDUM: 05/17/20 0303 IMPRESSION: Stable CTA Head. Minimal soft plaque formation at the carotid bulb without significant stenosis. Given the clinical history and MRI may be helpful for further clarification. N.B. : The above information has been verbally conveyed by Priscilla Kahn MD to RENÉ MCLAUGHLIN MD, on 05/17/2020 02:56:05 (ET). Electronically Signed: Priscilla Kahn MD at 2:46 EST Tel , Service support , Brain CT 05/18/20 02:07 IMPRESSION: No acute intracranial abnormality. Electronically Signed: Marvin Grijalva MD at 2:48 EST Tel , Service support , Current Medications Acetaminophen (Acetaminophen 325 Mg Tablet) 650 mg PO Q6H PRN PRN PRN Reason: Pain Score 1-10 Last Admin: 05/18/20 08:21 Dose: 650 mg Documented by: Atorvastatin Calcium (Atorvastatin Calcium 80 Mg Tablet) 80 mg PO QHS NIKITA Dicyclomine HCl (Dicyclomine 10 Mg Capsule) 20 mg PO Q6H PRN PRN PRN Reason: abdominal discomfort Famotidine (Famotidine 20 Mg Tablet) 20 mg PO BID [facility] Folic Acid (Folic Acid 1 Mg Tablet) 1 mg PO DAILY@0800 [facility] Last Admin: 05/18/20 08:21 Dose: 1 mg Documented by: Gabapentin (Gabapentin 300 Mg Capsule) 300 mg PO Q8H PRN PRN PRN Reason: moderate to severe anxiety Last Admin: 05/17/20 14:09 Dose: 300 mg Documented by: Hydroxyzine Pamoate (Hydroxyzine Adrienne 25 Mg Capsule) 50 mg PO Q4H PRN PRN PRN Reason: mild anxiety Last Admin: 05/17/20 15:27 Dose: 50 mg Documented by: Sodium Chloride () 250 mls @ 15 mls/hr IV .[id number] PRN PRN Reason: Saline Flush Nicardipine/Dextrose (Cardene-Dex 20 Mg/200 Ml Soln) 20 mg in 200 mls @ 50 mls/hr IV .Q4H PRN; Protocol PRN Reason: See Instructions Influenza Virus Vaccine Quadrival (Influenza Vaccine (6mos+)/Pf 0.5 Ml Syringe) 0.5 ml IM .ONCE ONE Stop: 05/18/20 10:01 Labetalol HCl (Labetalol (Prefilled) 20 Mg/4 Ml) 20 mg IV X1 PRN PRN Reason: BP Goals Last Admin: 05/17/20 22:53 Dose: 20 mg Documented by: Loperamide HCl (Loperamide 2 Mg Capsule) 2 mg PO Q4H PRN PRN PRN Reason: LOOSE STOOLS Lorazepam (Lorazepam 1 Mg Tablet) 2 mg PO Q2H PRN PRN; Protocol PRN Reason: CIWA score > 8 but <15 Lorazepam (Lorazepam 1 Mg Tablet) 2 mg PO UD PRN; Protocol PRN Reason: CIWA score >/=15. Lorazepam (Lorazepam 2 Mg/Ml Syringe) 2 mg IV Q2H PRN PRN; Protocol PRN Reason: CIWA score > 8 but <15 Lorazepam (Lorazepam 2 Mg/Ml Syringe) 2 mg IV UD PRN; Protocol PRN Reason: CIWA score >/=15. Nicotine (Nicotine 21 Mg Patch) 21 mg TD DAILY [facility] Last Admin: 05/18/20 08:21 Dose: 21 mg Documented by: Nicotine Polacrilex (Nicotine Polacrilex 2 Mg Gum) 2 mg PO Q2H PRN PRN PRN Reason: Nicotine Craving Ondansetron HCl (Ondansetron Odt 4 Mg Tablet) 8 mg PO Q8H PRN PRN PRN Reason: NAUSEA Sodium Chloride (0.9% Saline Lock 10 Ml Syringe) 10 - 40 ml IV UD PRN PRN Reason: SALINE FLUSH Last Admin: 05/17/20 06:36 Dose: 10 ml Documented by: Thiamine HCl (Thiamine Hydrochloride 100 Mg Tablet) 100 mg PO DAILYCM [facility] Last Admin: 05/18/20 08:21 Dose: 100 mg Documented by: Trazodone HCl (Trazodone 100 Mg Tablet) 100 mg PO QHS PRN PRN PRN Reason: INSOMNIA Medical Necessity - Tobacco Use Smoking Status: Current every day smoker Tobacco Use: Cigarettes, - Assessment/Plan All Active Problems CVA (cerebral vascular accident) (Acute) This is a 55 years old male patient presented to the emergency room because of left leg and arm weakness as well as slurred speech, found to have acute stroke, received TPA and after admission, he developed acute alcohol withdrawal. #1 acute CVA status post TPA: Initially CT scan brain showed no acute findings. Repeat CT scan brain 24 hours after TPA showed no acute bleed. CTA of the head and neck showed no significant vascular disease or stenosis, revealed minimal soft plaque at the carotid bulb, no significant stenosis. 2D echocardiogram revealed ejection fraction of 60%, revealed PFO versus ASD. Currently, blood pressure under control. Weakness of the left side almost resolved. Started on statin this morning. Routine blood work was unremarkable. Plan: MRI brain today, start Lipitor, start aspirin if okay with neurology, SOC telemetry neurology consult after MRI results. #2 acute alcohol withdrawal: Patient drinks alcohol every day heavily. Last drink was 1 day before admission. Overnight, he expressed some symptoms of withdrawal. He was started on Ativan as needed, folic acid and thiamine. Currently, he is stable, vital signs are stable. Plan to continue same treatment. #3 hypertension: Noncompliant, patient stopped taking his medication 2 years ago. Currently, blood pressure under control. He is not on any antihypertensive medications. #4 migraine headaches: Stable, no complaints. #5 tobacco abuse: Continue NicoDerm patch. #6 alcohol abuse: Plan as above. #7 DVT prophylaxis: SCDs. This note was generated with [employer] dictation software. It may contain incorrect words, spelling, and punctuation that were not noted in checking the note before signing. Inpatient E&M: 56833 Subs Hosp L2
[2020-05-18] MEDS: Famotidine 20 MG Tablet PO ×2 (10:22→23:24)
[2020-05-18] MEDS: LORazepam 2 MG/ML Syringe 1 MG IV (11:52)
[2020-05-18] MEDS: 0.9% Saline Lock 10 ML Syringe IV (11:52)
--- NOTE | 2020-05-18 13:15 | TELEMED_ITS ---
[facility] Telemed has confirmed receipt of a request for visit. This document confirms receipt of the order initiating the consult. To find the results of the consultation, please view the patient's reports for the scanned Telemed Consult.
[2020-05-18] MEDS: Aspirin 325 MG Tablet PO (16:58)
--- NOTE | 2020-05-18 17:03 | CASEMGMT ---
MAHOGANY HUERTA NOTE: PT/OT notes have been reviewed--per evnighat, pt states he is back at his baseline and no additional therapy recommended. MAHOGANY HUERTA to room to talk with pt. He states he does not feel he needs any therapy. He states he is aware, if in the future he decides he would like therapy, that he can talk with his PCP. Pt states he plans to start seeing Dr Reed as his PCP again. He states he was informed that he needs to complete paperwork first and he plans to do so. He denies having any discharge planning needs/concerns/questions at this time. Rico MARINN MAHOGANY CM
[2020-05-18] MEDS: hydrOXYzine PAM 25 MG Capsule 50 MG PO (23:24)
[2020-05-18] MEDS: Atorvastatin Calcium 80 MG Tablet PO (23:24)
[2020-05-19] VITALS (7 sets, daily range): BP systolic 134–150; BP diastolic 80–99; PULSE 60–94; RESP 13–18; TEMP 36.4–36.6; O2SAT 95–98
[2020-05-19] MEDS: Famotidine 20 MG Tablet PO (08:56)
[2020-05-19] MEDS: Thiamine Hydrochloride 100 MG Tablet PO (08:56)
[2020-05-19] MEDS: Folic Acid 1 MG Tablet PO (08:56)
[2020-05-19] MEDS: Aspirin 325 MG Tablet PO (09:01)
--- NOTE | 2020-05-19 10:41 | PCM.DC ---
- Discharge Diagnoses Current Active Problems: Current Active and Chronic Problems CVA (cerebral vascular accident) (Acute) Anxiety disorder (Chronic) Alcohol abuse (Chronic) Tobacco abuse disorder (Chronic) You will use the following diet at home:: Cardiac Your food should be the consistency of: Regular Discharge Activity: Return to Normal Activity Weight Bearing Status: Weight bearing as tolerated Call your doctor if you observe: Fever of 101 or Higher, Shortness of breath, Dizziness, Fainting spells, Chest pain, Increased palpitations (irregular heartbeat), Uncontrolled pain Instructions: Taking Your Blood Pressure, Controlling High Blood Pressure, Recovering from Addiction: Continuing with Counseling, Alcoholism: How to be Part of the Solution Allergies/Adverse Reactions: Allergies hydrocodone bitartrate [From Vicodin] Allergy (Verified 01/19/19 03:50) Rash tramadol HCl [From Ultram] Allergy (Verified 01/19/19 03:50) Rash Medications to take at Discharge Aspirin 325 mg PO DAILY@0800 #90 tab 05/19/20 Atorvastatin Calcium [Lipitor] 80 mg PO QHS #90 tab 05/19/20 Folic Acid 1 mg PO DAILY@0800 #30 tab 05/19/20 Lisinopril/Hydrochlorothiazide [Lisinopril-Hctz 10-12.5 mg Tab] 1 ea PO DAILY #30 tab 05/19/20 Thiamine Hydrochloride [Vitamin B1] 100 mg PO DAILYCM #30 tab 05/19/20 The following prescriptions were given: Aspirin 325 mg PO DAILY@0800 #90 tab Transmission Status: Pending to [facility] Folic Acid 1 mg PO DAILY@0800 #30 tab Transmission Status[facility] Atorvastatin Calcium [Lipitor] 80 mg PO QHS #90 tab Transmission Status: P[facility] to [facility] Lisinopril/Hydrochlorothiazide [Lisinopril-Hctz 10-12.5 mg Tab] 1 ea PO DAILY #30 tab Transmission Status: P[facility] to [facility] Thiamine Hydrochloride [Vitamin B1] 100 mg PO DAILYCM #30 tab Transmission Status: Pending to [facility] Primary Care Physician: Pj Reed DO [COURTESY STAFF PHYSICIAN] - Please follow up with your Primary Care Physician in: 1 week. Test Results: Test results from this visit will be discussed in further detail at your follow-up appointment, if applicable. Please Follow Up With: Elliot Hamilton MD When: 2 weeks. Please Follow Up With: Amaury Mendieta MD When: 2-3 weeks.
[2020-05-19] MEDS: hydroCHLOROthiazide 12.5mg 12.5 MG PO (11:30)
[2020-05-19] MEDS: Lisinopril 10 MG Tablet PO (11:30)
--- NOTE | 2020-05-19 11:55 | DS.PCM_ITS ---
Discharge Date and Diagnosis - Problem List Patient Problems: Active and Suspected Problems CVA (cerebral vascular accident) (Acute) Date of Admission: 05/17/20 Date of Discharge: 05/19/20 - Primary Discharge Diagnosis Acute Problems: Active Problems #1 presumed acute CVA status post TPA. #2 acute alcohol withdrawal. #3 uncontrolled hypertension, noncompliant. - Secondary Discharge Diagnosis Chronic Problems: Chronic Problems Migraine (Chronic) Hypertension (Chronic) Anxiety disorder (Chronic) Alcohol abuse (Chronic) Tobacco abuse disorder (Chronic) Hospital Course and Treatment Imaging Results: Clinical Impression(s) from Imaging Studies Brain CT 05/17/20 01:30 IMPRESSION: No visualized acute hemorrhage infarct or edema. Recommend further imaging such as MRI or CT angiogram for further evaluation given the clinical history. N.B. : The above information has been verbally conveyed by Priscilla Kahn MD to Dr. Omar Wernre MD, on 05/17/2020 01:44:47 (ET). Electronically Signed: Priscilla Kahn MD at 1:45 EST Tel , Service support , ADDENDUM: 05/17/20 0152 IMPRESSION: No visualized acute hemorrhage infarct or edema. Recommend further imaging such as MRI or CT angiogram for further evaluation given the clinical history. N.B. : The above information has been verbally conveyed by Priscilla Kahn MD to Dr. Omar Werner MD, on 05/17/2020 01:44:47 (ET). Electronically Signed: Priscilla Kahn MD at 1:45 EST Tel , Service support , Chest X-Ray 05/17/20 01:30 IMPRESSION: Degenerative changes, as described above. No demonstrated acute cardiopulmonary process. Electronically Signed: Priscilla Kahn MD at 3:09 EST Tel , Service support , Head/Neck CTA 05/17/20 01:31 IMPRESSION: Stable CTA Head. Minimal soft plaque formation at the carotid bulb without significant stenosis. Given the clinical history and MRI may be helpful for further clarification. Electronically Signed: Priscilla Kahn MD at 2:46 EST Tel , Service support , ADDENDUM: 05/17/20 0303 IMPRESSION: Stable CTA Head. Minimal soft plaque formation at the carotid bulb without significant stenosis. Given the clinical history and MRI may be helpful for further clarification. N.B. : The above information has been verbally conveyed by Priscilla Kahn MD to RENÉ MCLAUGHLIN MD, on 05/17/2020 02:56:05 (ET). Electronically Signed: Priscilla aKhn MD at 2:46 EST Tel , Service support , Brain CT 05/18/20 02:07 IMPRESSION: No acute intracranial abnormality. Electronically Signed: Marvin Grijalva MD at 2:48 EST Tel , Service support , Brain MRI 05/18/20 09:28 IMPRESSION: Normal unenhanced MRI of the brain. Electronically Signed: Richard Mast MD at 13:13 EST Tel , Service support , Dr. Garvey, critical care. [facility] tele-neurology. Operations: None Procedures: 2-D Echocardiogram, EKG Summary of Care Provided: Patient seen and examined on the day of discharge to be to be stable to be discharged home. He denied any complaints. Vitals were stable. This is a 55 years old male patient presented to the emergency room because of left leg and arm weakness as well as slurred speech, presumed to have acute stroke, received TPA and after admission, he developed acute alcohol withdrawal. #1 Presumed acute CVA status post TPA: Initially CT scan brain showed no acute findings. Repeat CT scan brain 24 hours after TPA showed no acute bleed. CTA of the head and neck showed no significant vascular disease or stenosis, revealed minimal soft plaque at the carotid bulb, no significant stenosis. 2D echocardiogram revealed ejection fraction of 60%, revealed PFO versus ASD. MRI brain showed no evidence of acute infarct or hemorrhage. Patient was treated with Lipitor and started on aspirin after 24 hours from the TPA. [facility] neurology consulted, stated that no clear evidence of stroke on MRI brain, recommended aspirin 325 mg p.o. daily and statins as well as cardiology evaluation as outpatient for the PFO/ASD. Patient discharged home in a stable medical condition, discharged on aspirin 325 mg p.o. daily, Lipitor 80 mg nightly, recommended follow-up with neurology as outpatient and a referral to cardiology as outpatient in 2 weeks. #2 acute alcohol withdrawal: Patient drinks alcohol every day heavily. There was no significant withdrawal symptoms but patient started to become tremulous and shaky. He was treated with as needed Ativan, folic acid, and thiamine. Symptoms improved and has no significant withdrawal symptoms. Patient was discharged on folic acid and thiamine, counseled to quit drinking alcohol. #3 hypertension: Uncontrolled, noncompliant, patient stopped taking his medication 2 years ago. Started on lisinopril/HCTZ, recommended follow-up with PCP in 1 week. Patient discharged home in a stable medical condition, discharged on aspirin, statins, lisinopril/HCTZ, thiamine folic acid, referred to cardiology as outpatient for evaluation regarding PFO/ASD, recommended follow-up with PCP in 1 week and follow-up with neurology in 2 to 3 weeks. This note was generated with [employer] dictation software. It may contain incorrect words, spelling, and punctuation that were not noted in checking the note before signing. Patient Problems: Active and Suspected Problems CVA (cerebral vascular accident) (Acute) - Physical Exam Vitals/I&O's: Vital Signs Temp Pulse Resp BP Pulse Ox 98 F 94 14 150/93 H 97 05/19/20 11:32 05/19/20 11:32 05/19/20 11:32 05/19/20 11:32 05/19/20 11:32 Oxygen Delivery Method Room Air Weight: 171 lb 1.259 oz Body Mass Index (BMI) 24.6 Finger Stick Blood Glucose 120 Intake and Output for Last 24 Hours 05/17/20 05/18/20 05/19/20 23:59 23:59 23:59 Intake Total 1291 / 1291 780 / 780 240 / 240 Output Total 2150 / 3000 2750 / 2750 Balance -859 / -1709 -1970 / -1969 240 / 240 General: Alert, Oriented x3, Cooperative, No apparent distress HEENT: Atraumatic, PERRLA, EOMI, Normocephalic Oral: Moist Mucosa, No Gingival or Mucosal Lesions/ Ulcerations Neck: Supple, No JVD, Negative Carotid Bruits, Trachea Midline, Thyroid Normal Size and Texture Lungs: Clear to auscultation, Normal air movement, No rhonchi, No wheeze Cardiovascular: Regular rate, Regular Rhythm, Normal S1, Normal S2, PMI Normal Abdomen: Bowel Sounds Present, Soft, Non Tender, Non-Distended, No Hepato- splenomegaly Extremities: No clubbing, No cyanosis, No edema Skin: No rashes, No breakdown Lymphatic: No Cervical, Supraclavicular, or Inguinal Adenopathy Neurological: Cranial nerves II-XII grossly intact, Motor Exam 5/5 strength throughout Psych/Mental Status: Normal Affect, Appropriate Microbiology Past 72 Hours 05/17/20 01:55 Mucosa - Nose SARS-CoV-2 Antigen (Rapid) - Final Current Medications Acetaminophen (Acetaminophen 325 Mg Tablet) 650 mg PO Q6H PRN PRN PRN Reason: Pain Score 1-10 Last Admin: 05/18/20 23:25 Dose: 650 mg Documented by: Aspirin (Aspirin 325 Mg Tablet) 325 mg PO DAILY@0800 [facility] Last Admin: 05/19/20 09:01 Dose: 325 mg Documented by: Atorvastatin Calcium (Atorvastatin Calcium 80 Mg Tablet) 80 mg PO QHS [facility] Last Admin: 05/18/20 23:24 Dose: 80 mg Documented by: Dicyclomine HCl (Dicyclomine 10 Mg Capsule) 20 mg PO Q6H PRN PRN PRN Reason: abdominal discomfort Famotidine (Famotidine 20 Mg Tablet) 20 mg PO BID [facility] Last Admin: 05/19/20 08:56 Dose: 20 mg Documented by: Folic Acid (Folic Acid 1 Mg Tablet) 1 mg PO DAILY@0800 [facility] Last Admin: 05/19/20 08:56 Dose: 1 mg Documented by: Gabapentin (Gabapentin 300 Mg Capsule) 300 mg PO Q8H PRN PRN PRN Reason: moderate to severe anxiety Last Admin: 05/17/20 14:09 Dose: 300 mg Documented by: Hydroxyzine Pamoate (Hydroxyzine Adrienne 25 Mg Capsule) 50 mg PO Q4H PRN PRN PRN Reason: mild anxiety Last Admin: 05/18/20 23:24 Dose: 50 mg Documented by: Sodium Chloride () 250 mls @ 15 mls/hr IV .[id number] PRN PRN Reason: Saline Flush Nicardipine/Dextrose (Cardene-Dex 20 Mg/200 Ml Soln) 20 mg in 200 mls @ 50 mls/hr IV .Q4H PRN; Protocol PRN Reason: See Instructions Labetalol HCl (Labetalol (Prefilled) 20 Mg/4 Ml) 20 mg IV X1 PRN PRN Reason: BP Goals Last Admin: 05/17/20 22:53 Dose: 20 mg Documented by: Loperamide HCl (Loperamide 2 Mg Capsule) 2 mg PO Q4H PRN PRN PRN Reason: LOOSE STOOLS Lorazepam (Lorazepam 1 Mg Tablet) 2 mg PO Q2H PRN PRN; Protocol PRN Reason: CIWA score > 8 but <15 Lorazepam (Lorazepam 1 Mg Tablet) 2 mg PO UD PRN; Protocol PRN Reason: CIWA score >/=15. Lorazepam (Lorazepam 2 Mg/Ml Syringe) 2 mg IV Q2H PRN PRN; Protocol PRN Reason: CIWA score > 8 but <15 Lorazepam (Lorazepam 2 Mg/Ml Syringe) 2 mg IV UD PRN; Protocol PRN Reason: CIWA score >/=15. Nicotine (Nicotine 21 Mg Patch) 21 mg TD DAILY [facility] Last Admin: 05/19/20 08:57 Dose: 21 mg Documented by: Nicotine Polacrilex (Nicotine Polacrilex 2 Mg Gum) 2 mg PO Q2H PRN PRN PRN Reason: Nicotine Craving Ondansetron HCl (Ondansetron Odt 4 Mg Tablet) 8 mg PO Q8H PRN PRN PRN Reason: NAUSEA Sodium Chloride (0.9% Saline Lock 10 Ml Syringe) 10 - 40 ml IV UD PRN PRN Reason: SALINE FLUSH Last Admin: 05/18/20 11:52 Dose: 10 ml Documented by: Thiamine HCl (Thiamine Hydrochloride 100 Mg Tablet) [facility] Admin: 05/19/20 08:56 Dose: 100 mg Documented by: Trazodone HCl (Trazodone 100 Mg Tablet) 100 mg PO QHS PRN PRN PRN Reason: INSOMNIA Discharge Activity: Return to Normal Activity Weight Bearing Status: Weight bearing as tolerated Call your doctor if you observe: Fever of 101 or Higher, Shortness of breath, Dizziness, Fainting spells, Chest pain, Increased palpitations (irregular heartbeat), Uncontrolled pain Home Medications: Medications to take at Discharge Aspirin 325 mg PO DAILY@0800 #90 tab 05/19/20 Atorvastatin Calcium [Lipitor] 80 mg PO QHS #90 tab 05/19/20 Folic Acid 1 mg PO DAILY@0800 #30 tab 05/19/20 Lisinopril/Hydrochlorothiazide [Lisinopril-Hctz 10-12.5 mg Tab] 1 ea PO DAILY #30 tab 05/19/20 Thiamine Hydrochloride [Vitamin B1] 100 mg PO DAILYCM #30 tab 05/19/20 Following Prescriptions Were Given to Patient: Aspirin 325 mg PO DAILY@0800 #90 tab Transmission Status: Received by [address] Folic Acid 1 mg PO DAILY@0800 #30 tab Transmission Status: Received by [address] Atorvastatin Calcium [Lipitor] 80 mg PO QHS #90 tab Transmission Status: Received by [address] Lisinopril/Hydrochlorothiazide [Lisinopril-Hctz 10-12.5 mg Tab] 1 ea PO DAILY #30 tab Transmission Status: Received by [address] Thiamine Hydrochloride [Vitamin B1] 100 mg PO DAILYCM #30 tab Transmission Status: Received by [address] Primary Care Physician: Pj Reed DO [COURTESY STAFF PHYSICIAN] - Please follow up with your Primary Care Physician in: 1 week. Please Follow Up With: Elliot Hamilton MD When: 2 weeks. Please Follow Up With: Amaury Mendieta MD When: 2-3 weeks. Patient Instructions: Controlling High Blood Pressure, Alcoholism: How to be Part of the Solution, Recovering from Addiction: Continuing with Counseling, Taking Your Blood Pressure Disposition: Home Minutes spent on discharge:: 33 Patient Condition:: Stable Medical Necessity - Tobacco Use Smoking Status: Current every day smoker Tobacco Use: Cigarettes, - Meaningful Use Info Meaningful Use Diagnoses (Choose all that apply): None applicable Inpatient E&M: 29280 Disch Hosp
--- NOTE | 2020-05-19 12:18 | NURSING ---
disc Stroke/HTN education at length, including the importance of taking prescribed meds and keeping dr appts. Also disc stopping smoking and limiting/avoiding etoh. He indicates understanding and states he is willing to keep appointments and take meds.
--- NOTE | 2020-05-19 13:15 | CASEMGMT ---
Social Work ICU Arranged follow up for [facility] at [facility] for Saturday05.30.20 at 1400 with Cirilo York. Printed out appointment, along with [facility] pamphlet and PHQ9 resource guide. -STACI Hernández, PROPRIETARY TRADER
--- NOTE | 2020-05-19 14:29 | CASEMGMT ---
Social Work SW attempted to meet with pt to provide mental health resources and appointment card for [facility]. Pt had already left the hospital. SW placed phone call to pt at home and explained when the appointment was. SW offered to mail information to pt and pt declined stating he would pick info up at the hospital tomorrow. MERCEDEZ will arrange for pt to pick up operator the resources. VALENTE Moya
== END 2020-05-19 11:56 | disposition home or self-care (01) | DRG 45 ==
LOC: ED 02:50 → ICU 03:27
PROVIDERS: Admitting Provider Internal Medicine; Emergency Provider Emergency Medicine; Visit Provider Hospitalist
DX: I63.9 Cerebral infarction, unspecified (principal); F10.239 Alcohol dependence with withdrawal, unspecified; I10 Essential (primary) hypertension; Z23 Encounter for immunization; E78.00 Pure hypercholesterolemia, unspecified; F17.210 Nicotine dependence, cigarettes, uncomplicated; Z91.14 Patient's other noncompliance with medication regimen; Y90.5 Blood alcohol level of 100-119 mg/100 ml; E87.6 Hypokalemia; G81.94 Hemiplegia, unspecified affecting left nondominant side; Z66 Do not resuscitate; R47.81 Slurred speech; R29.810 Facial weakness; Q21.1 Atrial septal defect
CPT/HCPCS: 51702; 70450; 70496; 70498; 70551; 71045; 80048; 80053; 80061; 80076; 82077; 83036; 84484; 85025; 85610; 85730; 87426; 92610; 93005; 93306; 97161; 97166; 97802; 99285; 99406; J2997; J7030; Q9967; 90686; A4216; J3490

== ENCOUNTER → 2020-07-28 09:33 | Outpatient (CLI) | payer MEDICAID, SELFPAY ==
[2020-07-28 08:22] VITALS: BMI 24.2
[2020-07-28 11:15] LABS: Vitamin B12 403 pg/mL (211-911)
[2020-07-28 11:48] LABS: Thyroid Stim Hormone (TSH) 0.97 uIU/mL (0.358-3.74)
[2020-08-05 05:16] LABS: Vitamin B1, Thiamine 175.6 nmol/L (66.5-200.0)
== END ==
PROVIDERS: Referring Provider Psychiatry & Neurology Neurology; Visit Provider Psychiatry & Neurology Neurology
DX: G31.84 Mild cognitive impairment of uncertain or unknown etiology (principal); G45.9 Transient cerebral ischemic attack, unspecified
CPT/HCPCS: 36415; 82607; 82746; 84425; 84443

== ENCOUNTER → 2020-09-15 13:13 | Outpatient (CLI) | payer MEDICAID, SELFPAY ==
[2020-07-28 08:22] VITALS: BMI 24.2
--- NOTE | 2020-09-15 13:19 | RAD_ITS ---
STUDY: X-RAY - LUMBAR SPINE REASON FOR EXAM: Male, 55 years old. ARTHROPATHY OF LUMBAR FACET JOINT TECHNIQUE: 5 view(s) of the lumbar spine were obtained. COMPARISON: None FINDINGS: Normal lumbar lordosis. There is no substantial scoliosis. Grade 1 retrolisthesis at L2-3 There is narrowing of the L3-4, L4-5 and L5-S1 disc spaces with endplate spurring.. Facet arthropathy at L4-5 and L5-S1 Mild vascular calcification without evidence for aneurysm. RAD/L/S Spine Min 4 Views IMPRESSION: Advanced degenerative changes for age.. No acute fracture or other significant bony pathology. Electronically Signed: Del Gonzalez MD at 22:51 EDT , Service support ,
== END ==
PROVIDERS: Referring Provider Nurse Practitioner Family; Visit Provider Nurse Practitioner Family
DX: M46.96 Unspecified inflammatory spondylopathy, lumbar region (principal); M51.36 Other intervertebral disc degeneration, lumbar region; M54.16 Radiculopathy, lumbar region; M47.816 Spondylosis without myelopathy or radiculopathy, lumbar region
CPT/HCPCS: 72110

== ENCOUNTER → 2022-02-17 | Outpatient (CLI) | payer MEDICAID, SELFPAY ==
--- NOTE | 2022-02-17 11:42 | RAD_ITS ---
EXAM: XR THORACIC SPINE, 3 VIEWS CLINICAL INDICATION: Back pain. TECHNIQUE: Frontal, lateral and swimmer''s views of the thoracic spine. This report was created using [employer] report generation technology. COMPARISON: None. FINDINGS: VERTEBRAE: Minimal anterior wedging of the superior endplates of T8, T10, T11 and T12 vertebral bodies are from remote injury. Normal remaining vertebral body heights and endplates. No spondylolisthesis. Preservation of the normal thoracic kyphosis. No significant facet arthropathy. DISC SPACES: Normal thoracic disc space heights and alignment. RAD/Thoracic Spine 3 Views IMPRESSION: 1. Minimal anterior wedging of the superior endplates of T8, T10, T11 and T12 vertebral bodies are presumably from remote injury. 2. No acute osseous abnormality or malalignment of the thoracic spine. Electronically Signed: Neymar Menjivar MD at 14:24 EDT ,
== END | disposition home or self-care (01) ==
LOC: RAD 11:41
PROVIDERS: Referring Provider Anesthesiology Pain Medicine; Visit Provider Anesthesiology Pain Medicine
DX: M54.6 Pain in thoracic spine (principal)
CPT/HCPCS: 72072

== ENCOUNTER → 2022-04-12 | Outpatient (CLI) | payer MEDICAID, SELFPAY ==
[2022-04-12 16:51] LABS: Hematocrit 41.6 % (40-54); Hemoglobin 13.8 g/dL (13.0-16.5); Mean Corp Hgb Conc 33.2 g/dL (32-36); Mean Corpuscular Volume 93.5 fL (80-94); Mean Platelet Vol. 8.5 fl (6.2-12.0); Platelet Count 385 K/mm3 (150-450); RBC Distribution Width CV 13.2 % (11.6-14.6); RBC Distribution Width SD 45.6 fl (35.1-43.9); Red Blood Count 4.45 M/mm3 (4.6-6.2); White Blood Count 9.4 K/mm3 (4.4-11.0)
[2022-04-12 17:41] LABS: ALB/GLOB Ratio 1.2 RATIO (0.9-2.4); AST(SGOT) 33 U/L (15-37); Alanine Aminotransfer ALT/SGPT 169 U/L (16-61); Albumin, Serum 4.1 g/dL (3.2-5.0); Alkaline Phosphatase 104 U/L (45-117); Anion Gap 5 (5-15); BUN 22 mg/dL (7-18); BUN/Creat Ratio 17.9 RATIO (10-20); Calcium,Total 9.3 mg/dL (8.5-10.1); Chloride 107 mmol/L (98-107); Creatinine, Serum 1.23 mg/dL (0.70-1.30); EST Glomerular Filtration Rate 65 mL/min (>60); Est Glom Filt Rate - Afr Amer 78 mL/min (>60); Globulin 3.3 g/dL (2.2-4.2); Glucose 84 mg/dL (74-106); Potassium 4.4 mmol/L (3.5-5.1); Protein, Total 7.4 g/dL (6.4-8.2); Sodium Level 139 mmol/L (136-145)
[2022-04-17 20:52] LABS: Lamotrigine (Lamictal) Level 3.9 ug/mL (2.0-20.0); Trileptal-Oxcarbazepine 11 ug/mL (10-35)
== END | disposition home or self-care (01) ==
LOC: LAB 16:36
PROVIDERS: PCP Student in an Organized Health Care Education/Training Program; Referring Provider Psychiatry & Neurology Neurology; Visit Provider Psychiatry & Neurology Neurology
DX: F32.A Depression, unspecified (principal); F41.9 Anxiety disorder, unspecified
CPT/HCPCS: 36415; 80053; 82140; 82542; 85027

== ENCOUNTER → 2022-05-24 | Outpatient (CLI) | payer MEDICAID, SELFPAY ==
[2022-05-24 11:48] LABS: AST(SGOT) 27 U/L (15-37); Alanine Aminotransfer ALT/SGPT 56 U/L (16-61); Albumin, Serum 4.6 g/dL (3.2-5.0); Alkaline Phosphatase 129 U/L (45-117); Bilirubin, Direct 0.08 mg/dL (0.00-0.30); Globulin 3.7 g/dL (2.2-4.2); Protein, Total 8.3 g/dL (6.4-8.2)
[2022-05-25 06:07] LABS: HEPATITIS B SURFACE AG Negative (Negative); Hep C Antibodies <0.1 s/co ratio (0.0-0.9); Hepatitis A IgM Antibody Negative (Negative); Hepatitis B Core AB IgM Negative (Negative)
== END | disposition home or self-care (01) ==
LOC: LAB 09:38
PROVIDERS: PCP Student in an Organized Health Care Education/Training Program; Referring Provider Psychiatry & Neurology Neurology; Visit Provider Psychiatry & Neurology Neurology
DX: R79.89 Other specified abnormal findings of blood chemistry (principal)
CPT/HCPCS: 36415; 80074; 80076; 82140

== ENCOUNTER → 2022-06-28 | Outpatient (CLI) | payer MEDICAID, SELFPAY | END | disposition home or self-care (01) | LOC: PSN 08:32 | PROVIDERS: PCP Student in an Organized Health Care Education/Training Program; Referring Provider Psychiatry & Neurology Neurology; Visit Provider Psychiatry & Neurology Neurology | DX: G45.9 Transient cerebral ischemic attack, unspecified (principal); G31.84 Mild cognitive impairment of uncertain or unknown etiology | CPT/HCPCS: 95819 ==

== ENCOUNTER → 2022-08-30 | Outpatient (CLI) | payer MEDICAID, SELFPAY | END | disposition home or self-care (01) | PROVIDERS: PCP Student in an Organized Health Care Education/Training Program; Referring Provider Internal Medicine; Visit Provider Internal Medicine | DX: G47.33 Obstructive sleep apnea (adult) (pediatric) (principal) | CPT/HCPCS: 95810 ==

== ENCOUNTER → 2022-09-14 | Outpatient (CLI) | payer MEDICAID, SELFPAY ==
--- NOTE | 2022-09-16 06:40 | PFT ---
INTRODUCTION: The patient is a 57-year-old male that presents for pulmonary function studies secondary to a diagnosis of restrictive lung disease. Respiratory therapy reported good patient effort. Bronchodilators were used during testing. INTERPRETATION: Forced expiration spirometry demonstrates the presence of a moderately severe large airways obstructive ventilatory defect. There was no significant response to aerosolized bronchodilators. Spirograms are of good quality and plateau gradually indicating slow emptying of the lungs. Body plethysmography was performed and revealed a decreased TLC to 4.5 L, 78% of predicted, indicative of a mild restrictive ventilatory impairment. Diffusing capacity by single breath CO was within normal limits. IMPRESSION: Irreversible moderately severe mixed ventilatory defect.
== END | disposition home or self-care (01) ==
LOC: PSN 10:45
PROVIDERS: PCP Student in an Organized Health Care Education/Training Program; Referring Provider Internal Medicine; Visit Provider Internal Medicine
DX: F17.200 Nicotine dependence, unspecified, uncomplicated (principal)
CPT/HCPCS: 94060; 94726; 94729

== ENCOUNTER → 2022-11-22 | Outpatient (CLI) | payer MEDICAID, SELFPAY ==
--- NOTE | 2022-11-22 17:59 | CT_ITS ---
ACR Level 3 findings have been noted. An addendum which confirms receipt of the report will follow. EXAM: CT CHEST WITH INTRAVENOUS CONTRAST CLINICAL INDICATION: Hemoptysis, follow-up recurrent pneumonia TECHNIQUE: Helically acquired images were obtained of the chest with intravenous contrast. CTDIvol = ( 12.43 ) mGy, DLP = ( 592.40 ) mGycm This CT exam was performed using one or more of the following dose reduction techniques: automated exposure control, adjustment of the mA and/or kV according to patient size, and/or use of iterative reconstruction technique. CONTRAST: IV 100mL [id number] COMPARISON: No relevant prior studies available. FINDINGS: LUNGS AND PLEURAL SPACES: 6 mm solid circumscribed noncalcified pulmonary nodule at the right upper lobe near the apex. Moderate centrilobular emphysema. No mass. No consolidation. No pleural effusion or pneumothorax. HEART: Mild calcific coronary arteriolosclerosis. No cardiomegaly or pericardial effusion. MEDIASTINUM: Unremarkable. Esophagus is unremarkable. No hiatal hernia. No mediastinal or hilar adenopathy. THYROID: Thyroid is unremarkable. BONES/JOINTS: Several old healed right rib fractures laterally. No unusual lytic or sclerotic lesions of bone. VASCULATURE: Unremarkable. No obvious central pulmonary embolism although this study was not performed with the pulmonary embolism protocol. No PE. No aortic aneurysm or dissection. LIVER: Hepatic steatosis. SPLEEN: Small calcified granuloma of the spleen. CT/Chest WITH Contrast IMPRESSION: No PE. No pneumonia, aortic dissection or other acute disease. 6 mm right upper lobe pulmonary nodule with no aggressive features. Recommend 6 month follow-up chest CT to document stability. [employer] program was used to assist in the detection of abnormal findings. Electronically Signed: Asad Anderson MD at 3:01 EDT ,
[2022-11-22 18:28] LABS: CREATININE FINGERSTICK 1.3 mg/dL (0.70-1.30); EGFR FINGERSTICK > 60.0000 mL/min (>60)
== END | disposition home or self-care (01) ==
LOC: CT 17:56
PROVIDERS: PCP Student in an Organized Health Care Education/Training Program; Referring Provider Internal Medicine; Visit Provider Internal Medicine
DX: J18.9 Pneumonia, unspecified organism (principal); J44.1 Chronic obstructive pulmonary disease with (acute) exacerbation; R79.89 Other specified abnormal findings of blood chemistry; F17.200 Nicotine dependence, unspecified, uncomplicated
CPT/HCPCS: 71260; Q9967

== ENCOUNTER 2023-01-01 17:27 | Emergency (ER) | payer MEDICAID, SELFPAY ==
[2023-01-01 17:28] VITALS: BP 112/77; PULSE 98; RESP 14; TEMP 36.1; O2SAT 99; BMI 26.4
[2023-01-01 17:31] VITALS: BMI 26.9
--- NOTE | 2023-01-01 17:44 | CT_ITS ---
STUDY: CT BRAIN WITHOUT CONTRAST REASON FOR EXAM: Male, 57 years old. ams RADIATION DOSAGE (If Supplied By Facility): CTDIvol = ( 44.99 ) mGy, DLP = ( 829.85 ) mGycm TECHNIQUE: Transaxial CT imaging of the brain was performed without administration of intravenous contrast material. Individualized dose optimization techniques were used for this CT. COMPARISON: 05/18/2020. FINDINGS: Normal soft tissue structures. Normal calvarium. Normal size ventricles and extra-axial spaces for the patient''s age. Normal white matter tracts of the cerebral hemispheres. Normal basal ganglia and thalami. Normal brainstem. Normal cerebellum. There is no intracranial hemorrhage. There are no findings of an acute ischemic infarction. Normal visualized paranasal sinuses. CT/Brain/Head without Contrast IMPRESSION: Normal unenhanced CT scan of the brain. Electronically Signed: Macie Lyles MD at 19:11 EDT Reading Location ID and State: [id number] / Tel , Service support ,
--- NOTE | 2023-01-01 17:48 | EX.ED.DYSGE1 ---
HPI History of Present Illness Chief Complaint: Neuro S/Sx Narrative Narrative: Patient presents with his significant other for confusion. Apparently last he went to work at 10 PM and his significant other implored him not to go because it was acting confused and was dropping things. She states he was walking funny. He does have a history of TIA past. He is on aspirin he believes but did not bring his med list. She states that he she did not notice any facial droop or slurred speech but noticed he was dropping things he was able to go to work and was gone from 10 PM till about 330 and somebody followed him home out of concern he might crash. She states that he has basically been sleeping all day for the last few days. She notes that he has been hallucinating and believes he is seeing his mom and has been talking to her. She states that he has a history of some psychiatric disease but did not bring his paperwork. She believes he is on Seroquel and has not missed any doses. Patient significant other concerned he had a TIA. [facility] Medical History Alcohol abuse Alcohol withdrawal (05/18/20) Anxiety Anxiety disorder Community acquired pneumonia COPD exacerbation Essential hypertension Excessive daytime sleepiness Ischemic cerebrovascular accident (CVA) (05/17/20) Nicotine dependence PFO (patent foramen ovale) Primary snoring TIA (transient ischemic attack) Witnessed apneic spells Home Medications atorvastatin 80 mg tablet 80 mg PO QHS #90 tabs 05/19/20 [Rx Last Taken Unknown] BP monitor #1 ea 07/15/20 [Rx Last Taken Unknown] lisinopril 10 mg-hydrochlorothiazide 12.5 mg tablet 1 tab PO DAILY 07/28/20 [History Last Taken Unknown] cyclobenzaprine 5 mg tablet 5 mg PO DAILY PRN 11/24/20 [History Last Taken Unknown] gabapentin 300 mg capsule 300 mg PO BID 11/24/20 [History Last Taken Unknown] baclofen 10 mg tablet 5 mg PO DAILY 06/20/21 [History Last Taken Unknown] lamotrigine 150 mg tablet 150 mg PO DAILY 06/20/21 [History Last Taken Unknown] ondansetron HCl 4 mg tablet 4 mg PO TID PRN nausea and vomiting #90 tabs 06/20/21 [Rx Last Taken Unknown] oxcarbazepine 150 mg tablet 150 mg PO BID 06/20/21 [History Last Taken Unknown] quetiapine 50 mg tablet 50 mg PO DAILY 06/20/21 [History Last Taken Unknown] aspirin 81 mg tablet,delayed release (Adult Aspirin Regimen) 81 mg PO DAILY 09/26/21 [History Last Taken Unknown] amlodipine 5 mg tablet 5 mg PO DAILY #30 tabs 07/03/22 [Rx Last Taken Unknown] folic acid 1 mg tablet 1 mg PO DAILY #30 tabs 07/04/22 [Rx Last Taken Unknown] fremanezumab-vfrm 225 mg/1.5 mL subcutaneous syringe (Ajovy Syringe) 225 mg (1.5 mL) subcut QMONTH #1.5 mL 07/04/22 [Rx Last Taken Unknown] thiamine HCl (vitamin B1) 100 mg tablet 100 mg PO DAILY #30 tabs 07/04/22 [Rx Last Taken Unknown] ubrogepant 100 mg tablet (Ubrelvy) 100 mg .Route .COMPLEX migraine headache #16 tabs 07/04/22 [Rx Last Taken Unknown] umeclidinium 62.5 mcg-vilanterol 25 mcg/actuation powdr for inhalation (Anoro Ellipta) 1 inh inhalation DAILY #60 ea 08/15/22 [Rx Last Taken Unknown] albuterol sulfate 90 mcg/actuation aerosol inhaler 2 puff inhalation Q4H PRN shortness of breath or wheezing #8.5 grams 10/01/22 [Rx Last Taken Unknown] cholecalciferol (vitamin D3) 50 mcg (2,000 unit) capsule (Vitamin D3) 50 mcg PO DAILY 10/22/22 [History Last Taken Unknown] fluticasone propionate 220 mcg/actuation HFA aerosol inhaler (Flovent HFA) 1 puff inhalation BID #12 grams 10/22/22 [Rx Last Taken Unknown] hydroxyzine HCl 50 mg tablet 50 mg PO BID PRN 10/22/22 [History Last Taken Unknown] nabumetone 500 mg tablet 500 mg PO DAILY 10/22/22 [History Last Taken Unknown] nicotine (polacrilex) 4 mg gum 4 mg buccal ONCE PRN 10/22/22 [History Last Taken Unknown] olanzapine 15 mg tablet 15 mg PO DAILY 10/22/22 [History Last Taken Unknown] omeprazole 40 mg capsule,delayed release 40 mg PO DAILY 10/22/22 [History Last Taken Unknown] levofloxacin 500 mg tablet 500 mg PO DAILY #7 tabs 01/01/23 [Rx Last Taken Unknown] Allergy/AdvReac Type Severity Reaction Status Date / Time tramadol HCl [From [facility]] Allergy Rash Verified 01/01/23 17:28 Family History Mother Cancer Brother Lung disease Father Cancer Surgical History History of angiography (05/18/15) History of back surgery (~12/2021) History of foot surgery History of left knee surgery Social History Smoking Status: Current some day smoker tobacco type: cigarettes Electronic Cigarette Use: not used second hand exposure: No alcohol intake: current alcohol intake frequency: 0-2 drinks per day substance use type: former substance user and marijuana ROS ROS ED Constitutional Constitutional ED: Denies chills or fever(s) Eyes Eyes: Denies change in vision or diplopia ENT ENT ED: Denies rhinorrhea or sore throat Cardiovascular Cardiovascular: Denies chest pain or palpitations Respiratory/Chest Respiratory/Chest: Denies cough or dyspnea Gastrointestinal Gastrointestinal: Denies abdominal pain or constipation Genitourinary Genitourinary ED: Denies dysuria or hematuria Musculoskeletal Musculoskeletal: Denies arthralgias, back pain or myalgias Integumentary Denies abscess or Abrasions Neurologic Neurologic: Denies headache(s) or paresthesias Psychiatric Psychiatric: Denies anxiety, depression, suicidal ideation or suicidal thoughts EXAM Physical Exam Const Vital Signs: 01/01/23 17:28 01/01/23 18:10 01/01/23 20:05 Temperature 97 F L Temperature Source Temporal Pulse Rate 98 77 Respiratory Rate 14 14 Blood Pressure 112/77 117/81 H Blood Pressure Mean 88 93 Pulse Ox 99 99 94 Oxygen Delivery Method Room Air Room Air Room Air 01/01/23 20:45 01/01/23 20:56 Temperature Temperature Source Pulse Rate 80 80 Respiratory Rate 15 15 Blood Pressure 120/82 H 120/82 H Blood Pressure Mean 94 Pulse Ox 93 93 Oxygen Delivery Method Room Air Positive well nourished General Appearance ED: NAD; Negative for pallor HEENT Reports moist mucous membranes Negative for trauma Eyes PERRL and EOMs intact bilaterally General Eye ED: Negative for pale conjunctiva or scleral icterus Neck no lymphadenopathy and supple Chest Wall inspection of chest normal Resp normal respiratory effort and clear to auscultation bilaterally Auscultation: Negative for rales, rhonchi or wheezes Cardio regular rate and regular rhythm Extremity normal to inspection General Extremety ED: Negative for edema or tenderness General Extremity: Negative for edema Neuro oriented x3, CN's II-XII intact bilaterally and no sensory deficits noted Neuro Narrative: No focal neurologic deficits. NIH stroke scale score of 0 Sensorium / Orientation: alert Motor Exam: strength 5/5 throughout Skin no rashes or lesions noted and no wounds General Skin Exam: Negative for jaundice or pallor MDM MDM MDM Narrative Medical decision making narrative: Patient presenting with intermittent confusion over the weekend. He states he is not a drinker and does not do drugs. There is no explanation for his behavior. Patient significant other believes he might of had a TIA but she notes he has not had a facial droop, slurred speech, inability his extremities. He is not complaining of numbness or tingling. NIH stroke score of 0. CBC will be obtained to assess white blood cell count, hemoglobin, platelets, differential. BMP to assess renal function electrolytes. CMP to assess liver function. Lipase to assess for pancreatitis. EtOH will be obtained to assess for alcohol level. Drug abuse screen to assess for any abnormal drugs. EKG and high-sensitivity troponin will be obtained to rule out ischemia. CT brain rule out stroke or other acute intracranial abnormalities. Ammonia level will be drawn as well. He does not like he has a long history of alcohol abuse but he is denying drinking at all this weekend. CBC shows no leukocytosis. Hemoglobin hematocrit are stable. Platelets are normal. LFTs unremarkable. Creatinine is elevated today so he was given a liter of IV fluids. Ammonia level was normal. EtOH negative. Drug abuse screen negative. CT brain within normal limits. Chest x-ray on my interpretation shows hazy infiltrates compared to previous EKG. These are in the bibasilar region. Patient initially had a pulse ox of 99 but is now 93%. Given this I will treat him. First dose of Levaquin given in the ER. Urinalysis negative for infection. Patient will be discharged with prescription for Levaquin and instructed to drink plenty of fluids. He is given return precautions. Impression: 1. Confusion 2. Community-acquired pneumonia 3. Dehydration Lab Data Labs: Laboratory Results - last 24 hr 01/01/23 01/01/23 01/01/23 18:00 18:02 18:05 WBC 9.7 RBC 4.80 Hgb 14.2 Hct 42.3 MCV 88.1 MCH 29.6 MCHC 33.6 RDW Std Deviation 43.0 RDW Coeff of Jayy 13.3 Plt Count 379 MPV 9.8 Immature Gran % (Auto) 0.700 Neut % (Auto) 75.6 H Lymph % (Auto) 16.3 L [place] % (Auto) 6.0 Eos % (Auto) 0.9 Baso % (Auto) 0.5 Absolute Neuts (auto) 7.3 Absolute Lymphs (auto) 1.58 Nucleated RBC % 0 Sodium 137 Potassium 4.1 Chloride 104 Carbon Dioxide 22.0 Anion Gap 11 BUN 28 H Creatinine 1.43 H Estim Creat Clear Calc 56.99 Est GFR (MDRD) Af Amer 65 Est GFR (MDRD) Non-Af 54 L BUN/Creatinine Ratio 19.6 Glucose 107 H Calcium 9.8 Total Bilirubin 0.60 Direct Bilirubin 0.19 AST 57 H ALT 42 Alkaline Phosphatase 139 H Ammonia < 10.0 L Troponin I High Sens 7 Total Protein 8.1 Albumin 3.4 Globulin 4.7 H Lipase 32 TSH 1.02 Urine Color Yellow Urine Clarity Sl. Cloudy Urine pH 6.0 Ur Specific [place] 1.015 Urine Protein 15 H Urine Glucose (UA) Normal Urine Ketones 150 A* Urine Occult Blood Negative Urine Nitrite Negative Urine Bilirubin 1 H Urine Urobilinogen 1 H Ur Leukocyte Esterase 100 H Urine RBC 0 SEEN Urine WBC 10-25 SEEN Ur Squamous Epith Cells 0-5 SEEN Amorphous Sediment 1+ URATE Urine Bacteria 0 SEEN Urine Mucus 0 SEEN Urine Opiates Screen NEGATIVE Urine Methadone Screen NEGATIVE Ur Barbiturates Screen NEGATIVE Ur Phencyclidine Scrn NEGATIVE Ur Amphetamines Screen NEGATIVE MDMA (Ecstasy) Screen NEGATIVE U Benzodiazepines Scrn NEGATIVE Urine Cocaine Screen NEGATIVE U Cannabinoids Screen NEGATIVE Ur Drug Screen Comment Ethyl Alcohol 3.0 Radiography Diagnostic Testing: Clinical Impression(s) from Imaging Studies Brain CT 01/01/23 17:44 IMPRESSION: Normal unenhanced CT scan of the brain. Electronically Signed: Macie Lyles MD at 19:11 EDT Reading Location ID and State: [place] / Tel , Service support , Chest X-Ray 01/01/23 18:04 IMPRESSION: Hazy opacities in the lung bases suspicious for pneumonia. Electronically Signed: Macie Lyles MD at 19:04 EDT Reading Location ID and State: [place] / Tel , Service support , Discharge Plan Triage Chief Complaint: Neuro S/Sx ED Provider: Brian York Dx/Rx/DC Orders Instructions: ED Dehydration (Adult), ED Pneumonia (Adult) Prescriptions: New levofloxacin 500 mg tablet 500 mg PO DAILY Qty: 7 0RF No Action lisinopril-hydrochlorothiazide 10-12.5 mg tablet 1 tab PO DAILY cyclobenzaprine 5 mg tablet 5 mg PO DAILY PRN gabapentin 300 mg capsule 300 mg PO BID Patient Comments: take 1 capsule by mouth at bedtime for 3 days then 1 twice a day ... (REFER TO PRESCRIPTION NOTES). oxcarbazepine 150 mg tablet 150 mg PO BID quetiapine 50 mg tablet 50 mg PO DAILY lamotrigine 150 mg tablet 150 mg PO DAILY baclofen 10 mg tablet 5 mg PO DAILY Patient Comments: take 1/2 to 1 tablet by mouth three times a day if needed for SPASM(S) ondansetron HCl 4 mg tablet 4 mg PO TID PRN (Reason: nausea and vomiting) Qty: 90 2RF aspirin [Adult Aspirin Regimen] 81 mg tablet,delayed release (DR/EC) 81 mg PO DAILY amlodipine 5 mg tablet 5 mg PO DAILY Qty: 30 5RF thiamine HCl (vitamin B1) 100 mg tablet 100 mg PO DAILY Qty: 30 6RF folic acid 1 mg tablet 1 mg PO DAILY Qty: 30 6RF Ubrelvy 100 mg tablet 100 mg .ROUTE .COMPLEX Qty: 16 6RF Rx Instructions: One tablet PO every 2 hours as needed for headache up to 2 tablets daily. Ajovy Syringe 225 mg/1.5 mL syringe 225 mg subcut QMONTH Qty: 1.5 6RF Anoro Ellipta 62.5-25 mcg/actuation blister with device 1 inh inhalation DAILY Qty: 60 6RF cholecalciferol (vitamin D3) [Vitamin D3] 50 mcg (2,000 unit) capsule 50 mcg PO DAILY nabumetone 500 mg tablet 500 mg PO DAILY nicotine (polacrilex) 4 mg gum 4 mg buccal ONCE PRN omeprazole 40 mg capsule,delayed release(DR/EC) 40 mg PO DAILY olanzapine 15 mg tablet 15 mg PO DAILY hydroxyzine HCl 50 mg tablet 50 mg PO BID PRN fluticasone propionate [Flovent HFA] 220 mcg/actuation HFA aerosol inhaler 1 puff inhalation BID Qty: 12 4RF atorvastatin 80 MG tablet 80 mg PO QHS Qty: 90 0RF (DME) BP monitor large See Rx Instructions .Route .MEDSUPPLY Qty: 1 0RF Rx Instructions: As directed albuterol sulfate 90 mcg/actuation HFA aerosol inhaler 2 puff inhalation Q4H PRN (Reason: shortness of breath or wheezing) Qty: 8.5 11RF Primary Care Provider: Kam Dumont Referrals: Kam Dumont DO [Primary Care Provider] - Disposition Disposition: Home, Self Care
--- NOTE | 2023-01-01 18:04 | RAD_ITS ---
INDICATION: chest pain EXAMINATION/TECHNIQUE: X-RAY - XR Chest 1 View COMPARISON: 05/17/2020. FINDINGS: LINES/DEVICES: None. LUNGS: Mild hazy opacities in the lung bases, greater on the right. MEDIASTINUM AND CARDIOVASCULAR STRUCTURES: Cardiac silhouette not enlarged. Central airways and mediastinal contour are unremarkable. BONES AND SOFT TISSUES: Unremarkable. RAD/Chest 1 View (Portable) IMPRESSION: Hazy opacities in the lung bases suspicious for pneumonia. Electronically Signed: Macie Lyles MD at 19:04 EDT Reading Location ID and State: [id number] / Tel , Service support ,
[2023-01-01 18:10] VITALS: O2SAT 99
[2023-01-01 18:22] LABS: Bacteria 0 SEEN /hpf (None Seen); Mucous, Urine 0 SEEN /hpf (<or=2+); Red Blood Cells-Urine 0 SEEN /hpf (0-5)
[2023-01-01 18:27] LABS: Color, Urine Yellow (Yellow); Glucose, Dipstick Normal (Normal); Leukocyte Esterase-Dipstick 100 /ul (Negative); Nitrite-Dipstick Negative (Negative); Occult Blood-Urine Negative /ul (Negative); Protein-Dipstick 15 mg/dl (Negative); Specific Gravity, Urine 1.015 (1.002-1.030); Urine Clarity Sl. Cloudy (Clear); Urine Urobilinogen 1 mg/dl (Normal)
[2023-01-01 18:34] LABS: Absolute Lymphocyte Count 1.58 X10^3/uL (0.83-4.51); Absolute Neutrophil Count 7.3 X10^3/uL (2.0-7.7); Basophil# 0.05 X10^3/uL; Basophil% 0.5 % (0-1); Eosinophil# 0.09 X10^3/uL; Eosinophils% 0.9 % (0-5); Hematocrit 42.3 % (40-54); Hemoglobin 14.2 g/dL (13.0-16.5); Lymphocyte # 1.58 X10^3/ul (0.83-4.51); Lymphocyte % 16.3 % (19-41); Mean Corp Hgb Conc 33.6 g/dL (32-36); Mean Corpuscular Hgb 29.6 pg (27.0-32.0); Mean Corpuscular Volume 88.1 fL (80-94); Mean Platelet Vol. 9.8 fl (6.2-12.0); Monocyte# 0.58 X10^3/uL; NRBC Flagged by Analyzer 0 % (0-5); Neutrophil # 7.31 X10^3/uL (2.7-7.7); Neutrophil % 75.6 % (47-70); POSITIVE COUNT YES; Platelet Count 379 K/mm3 (150-450); RBC Distribution Width CV 13.3 % (11.6-14.6); White Blood Count 9.7 K/mm3 (4.4-11.0)
[2023-01-01 18:51] LABS: Amphetamine Urine VISTA NEGATIVE (<1000 ng/mL); Barbiturate Urine VISTA NEGATIVE (< 200 ng/mL); Benzodiazepine Urine VISTA NEGATIVE (< 200 ng/mL); Cocaine Urine VISTA NEGATIVE (< 300 ng/mL); Ecstacy Urine VISTA NEGATIVE (< 500 ng/mL); Methadone Urine VISTA NEGATIVE (< 300 ng/mL); PCP Urine VISTA NEGATIVE (< 25 ng/mL); THC Urine VISTA NEGATIVE (< 50 ng/mL); Vista UDS pH Range 6
[2023-01-01 18:55] LABS: Urine Bilirubin Dipstick 1 mg/dL (Negative)
[2023-01-01 18:57] LABS: Ketone-Dipstick 150 mg/dl (Negative)
[2023-01-01 19:01] LABS: White Blood Cells 10-25 SEEN /hpf (0-5)
[2023-01-01 19:02] LABS: Amorphous Sediment 1+ URATE; Squamous Epithelial Cells - UA 0-5 SEEN /hpf (0-5)
[2023-01-01 19:06] LABS: AST(SGOT) 57 U/L (15-37); Alanine Aminotransfer ALT/SGPT 42 U/L (16-61); Albumin, Serum 3.4 g/dL (3.2-5.0); Alkaline Phosphatase 139 U/L (45-117); Anion Gap 11 (5-15); BUN 28 mg/dL (7-18); BUN/Creat Ratio 19.6 RATIO (10-20); Bilirubin, Direct 0.19 mg/dL (0.00-0.30); Calcium,Total 9.8 mg/dL (8.5-10.1); Chloride 104 mmol/L (98-107); Creatinine, Serum 1.43 mg/dL (0.70-1.30); EST Glomerular Filtration Rate 54 mL/min (>60); Est Glom Filt Rate - Afr Amer 65 mL/min (>60); Estimated Creatinine Clearance 56.99 ml/min; Globulin 4.7 g/dL (2.2-4.2); Glucose 107 mg/dL (74-106); Lipase 32 U/L (13-75); Potassium 4.1 mmol/L (3.5-5.1); Protein, Total 8.1 g/dL (6.4-8.2); Sodium Level 137 mmol/L (136-145); Thyroid Stim Hormone (TSH) 1.02 uIU/mL (0.358-3.74); Troponin-I HS 7 pg/mL (3.0-78.0)
[2023-01-01 19:14] LABS: Ammonia < 10.0 umol/L (11-32)
[2023-01-01] MEDS: 0.9% Normal Saline 1,000 ML 999 ML IV (19:24)
[2023-01-01 20:05] VITALS: BP 117/81; PULSE 77; RESP 14; O2SAT 94
[2023-01-01 20:45] VITALS: BP 120/82; PULSE 80; RESP 15; O2SAT 93
[2023-01-01 20:56] VITALS: BP 120/82; PULSE 80; RESP 15; O2SAT 93
[2023-01-01] MEDS: levoFLOXacin 750 MG Tablet PO (21:23)
[2023-01-02 11:30] LABS: Bedside Glucose 123 mg/dL (74-106)
== END 2023-01-01 21:30 | disposition home or self-care (01) ==
PROVIDERS: Emergency Provider Student in an Organized Health Care Education/Training Program; PCP Student in an Organized Health Care Education/Training Program; Visit Provider Student in an Organized Health Care Education/Training Program
DX: R41.0 Disorientation, unspecified (principal); J18.9 Pneumonia, unspecified organism; E86.0 Dehydration; F17.210 Nicotine dependence, cigarettes, uncomplicated; Z86.73 Personal history of transient ischemic attack (TIA), and cerebral infarction without residual deficits
CPT/HCPCS: 70450; 71045; 80048; 80076; 80307; 81001; 82077; 82140; 82962; 83690; 84443; 84484; 85025; 93005; 99284; J7030; A4216

== ENCOUNTER → 2023-01-18 | Outpatient (CLI) | payer MEDICAID, SELFPAY ==
--- NOTE | 2023-01-18 06:46 | MRI_ITS ---
STUDY: MRI LUMBAR SPINE WITHOUT CONTRAST REASON FOR EXAM: Male, 57 years old. Radiculopathy, sharp, throbbing, burning low back pain constant. TECHNIQUE: Standardized fat and water weighted pulse sequences were obtained in the sagittal and axial planes. COMPARISON: Lumbar spine radiographs 09/15/2020. FINDINGS: T11-T12: (Sagittal only). Normal endplates. Minimal disc space height narrowing. Minimal ventral extradural defect is posterior bulging annulus. Normal central canal and bilateral intervertebral neural foramina. T12-L1: (Sagittal only). Normal endplates. Mild disc space height narrowing. Prominent ventral extradural defect due to posterior bulging annulus. Normal central canal and bilateral intervertebral neural foramina. Normal lumbar lordosis. There is no substantial scoliosis. Normal conus medullaris that terminates at the T12-L1 disc space level. L1-2: Normal endplates. Mild disc space height narrowing. Mild ventral extradural defect due to posterior bulging annulus. Normal facet joints. Normal central canal and bilateral lateral recesses. Normal bilateral intervertebral neural foramina. L2-3: Normal endplates. Mild disc space height narrowing. Mild degenerative retrolisthesis of L2 on L3 is unchanged. Mild bilateral degenerative facet arthropathy. Prominent dorsal epidural lipomatosis. Moderately pronounced central canal stenosis with an AP canal diameter of 6.3 mm. Normal bilateral lateral recesses. Normal right intervertebral neural foramen. Mild stenosis of the left intervertebral neural foramen. L3-4: Normal endplates. Schmorl''s node in the left side of the vertebral endplates with reactive marrow fatty infiltration. Moderate disc space height narrowing. Minimal degenerative anterolisthesis of L3 on L4. Moderate right degenerative facet arthropathy. Mild to moderate left degenerative facet arthropathy. Prominent dorsal epidural lipomatosis. Pronounced central canal stenosis with an AP canal diameter of 4 mm. Normal bilateral lateral recesses. Mild stenosis of the left intervertebral neural foramen. Normal right intervertebral neural foramen. L4-5: Mild Modic type II degenerative vertebral marrow fat infiltration underneath the vertebral endplates. Prominent central Schmorl''s node in the L4 inferior endplate. Mild degenerative retrolisthesis of L4 on L5. Mild asymmetric degenerative facet arthropathy, left greater than right. Prominent dorsal epidural lipomatosis. Pronounced central canal stenosis with an AP canal diameter of 4 mm. Normal bilateral lateral recesses. Moderate stenosis of the right intervertebral neural foramen. Mild stenosis of the left intervertebral neural foramen. L5-S1: Modic type II degenerative vertebral marrow fat infiltration underneath the vertebral endplates. Pronounced disc space height narrowing. Mild bilateral degenerative facet arthropathy. Mild to moderate central canal stenosis with an AP canal diameter of 8 mm. Normal bilateral lateral recesses. Pronounced stenosis of the right intervertebral neural foramen with osteophytic impingement on the right L5 nerve. Moderately pronounced stenosis of the left intervertebral neural foramen with minimal impingement on the undersurface of the left L5 nerve. Normal visualized sacral ala. Normal visualized paraspinous soft tissue structures. MRI/Spine Lumbar (Routine) IMPRESSION: 1. Pronounced stenosis of the right L5-S1 intervertebral neural foramen with osteophytic impingement on the right L5 nerve, moderately pronounced stenosis of the left L5-S1 intervertebral neural foramen with minimal impingement on the undersurface of the left L5 nerve. Mild to moderate central canal stenosis with an AP canal 11 mm. 2. Pronounced central canal stenosis at L4-L5 disc space level with an AP canal diameter of 4 mm, moderate stenosis of the right intervertebral neural foramen and mild degenerative retrolisthesis of L4 on L5. 3. Pronounced central canal stenosis at L3-L4 disc space level with an AP canal diameter of 4 mm, mild stenosis of the left intervertebral neural foramen and minimal degenerative anterolisthesis of L3 on L4. 4. Moderately pronounced central canal stenosis at L2-L3 disc space level with an AP canal diameter of 6.3 mm secondary to developmentally short pedicles, prominent dorsal epidural lipomatosis and mild degenerative retrolisthesis of L2 on L3. 5. Posterior bulging annulus at T11-T12, T12-L1 and L1-L2 disc space levels. 6. No MRI evidence of lumbar extruded disc fragment. Electronically Signed: Neymar Menjivar MD at 8:38 EDT ,
== END | disposition home or self-care (01) ==
LOC: MRI 06:08
PROVIDERS: PCP Student in an Organized Health Care Education/Training Program; Referring Provider Nurse Practitioner Acute Care; Visit Provider Nurse Practitioner Acute Care
DX: M46.96 Unspecified inflammatory spondylopathy, lumbar region (principal); M51.36 Other intervertebral disc degeneration, lumbar region; M48.061 Spinal stenosis, lumbar region without neurogenic claudication; M54.16 Radiculopathy, lumbar region; M47.816 Spondylosis without myelopathy or radiculopathy, lumbar region
CPT/HCPCS: 72148

== ENCOUNTER 2023-05-25 13:42 | Inpatient (IN) | payer OTHER, MEDICAID, SELFPAY ==
[2023-05-25] VITALS (13 sets, daily range): BP systolic 108–127; BP diastolic 71–87; PULSE 60–100; RESP 16–94; TEMP 35.8–37.6; O2SAT 89–96; BMI 27.1; BMI 26.8
--- NOTE | 2023-05-25 12:59 | RAD_ITS ---
INDICATION: dyspnea EXAMINATION/TECHNIQUE: X-RAY - portable upright AP chest x-ray COMPARISON: 01/01/2023 FINDINGS: LINES/DEVICES: None. LUNGS: Patchy bilateral airspace opacities, right side greater than left. No consolidations or pleural effusions. No vascular congestion. MEDIASTINUM AND CARDIOVASCULAR STRUCTURES: Patient rotated. Cardiac silhouette within upper normal limits. BONES AND SOFT TISSUES: No acute changes. RAD/Chest 1 View (Portable) IMPRESSION: Bilateral infiltrates, right side greater than left. Findings consistent with pneumonia. Recommend short-term follow-up to resolution. Electronically Signed: Eamon Mccarthy MD at 15:31 EST ,
[2023-05-25] MEDS: Ipratropium/Albuterol Sulfate 3 ML AMPUL.NEB INHALATION ×2 (14:23→23:04)
[2023-05-25 14:31] LABS: Absolute Lymphocyte Count 0.84 X10^3/uL (0.83-4.51); Absolute Neutrophil Count 5.9 X10^3/uL (2.0-7.7); Basophil# 0.01 X10^3/uL; Basophil% 0.1 % (0-1); Hematocrit 38.6 % (40-54); Hemoglobin 12.5 g/dL (13.0-16.5); Lymphocyte # 0.84 X10^3/ul (0.83-4.51); Lymphocyte % 11.8 % (19-41); Mean Corp Hgb Conc 32.4 g/dL (32-36); Mean Corpuscular Volume 89.6 fL (80-94); Mean Platelet Vol. 9.7 fl (6.2-12.0); Monocyte# 0.35 X10^3/uL; Monocyte% 4.9 % (0-10); NRBC Flagged by Analyzer 0 % (0-5); Neutrophil # 5.89 X10^3/uL (2.7-7.7); Neutrophil % 82.9 % (47-70); Platelet Count 194 K/mm3 (150-450); RBC Distribution Width SD 50.1 fl (35.1-43.9); Red Blood Count 4.31 M/mm3 (4.6-6.2); White Blood Count 7.1 K/mm3 (4.4-11.0)
--- OUTSIDE RECORDS SUMMARY | 2023-05-25 14:42 | XMS RPT_ITS | CCD ---
Author Name Unknown Address [address] [place] [address] Organization [facility] Care Team Providers Care Service Desk Team Lead Name Role Phone MORA EASLEY, DR ALVAREZ Primary Care Physician [phone] [place] Pj EASLEY Primary Care Provider Yanira vailable Kemarar , Kim Primary Care Provider MD ALEAH FISCHER Attending Unavailable ROMAR DO, DR ALVAREZ Primary Care Unavailable TEACH PEN AND PENCIL REPAIRER-FORESTRY WORKERFANY Attending Unavaila ble ROMAR DO, DR ALVAREZ Primary Care Unavailable TEACH PEN AND PENCIL REPAIRER-FORESTRY WORKER, FANY Referring Unavaila EDILIA Grace MD Attending Unavailable ROMAR DO, DR ALVAREZ Primary Care Unavailable DEVON CARDOSO MD Attending Unavailable ROMAR DO, DR ALVAREZ Primary Care Unavailable ROMAR DO, DR ALVAREZ Attending Unavailable ROMAR DO, DR ALVAREZ Primary Care Unavailable RONEY DO, FRANSICO [place] Attending Unavailable ROMAR DO, DR ALVAREZ Primary Care Unavailable ROMAR DO, DR ALVAREZ Attending Unavailable ROMAR DO, DR ALVAREZ Primary Care Unavailable ROMAR DO, DR ALVAREZ Attending Unavailable ROMAR DO, DR ALVAREZ Primary Care Unavailable ROMAR DO, DR ALVAREZ Attending Unavailable ROMAR DO, DR ALVAREZ Primary Care Unavailable ROMAR DO, DR ALVAREZ Attending Unavailable ROMAR DO, DR ALVAREZ Primary Care Unavailable ROMAR DO, DR ALVAREZ Attending Unavailable ROMAR DO, DR ALVAREZ Primary Care Unavailable ROMAR DO, DR ALVAREZ Attending Unavailable ROMAR DO, DR ALVAREZ Primary Care Unavailable ROMAR DO, DR ALVAREZ Attending Unavailable ROMAR DO, DR ALVAREZ Primary Care Unavailable ROMAR DO, DR ALVAREZ Attending Unavailable ROMAR DO, DR ALVAREZ Primary Care Unavailable ROMAR DO, DR ALVAREZ Attending Unavailable ROMAR DO, DR ALVAREZ Primary Care Unavailable ROMAR DO, DR ALVAREZ Attending Unavailable ROMAR DO, DR ALVAREZ Primary Care Unavailable ROMAR DO, DR ALVAREZ Attending Unavailable ROMAR DO, DR ALVAREZ Primary Care Unavailable ROMAR, KIM Primary Care Unavailable ROMAR, KIM Primary Care Unavailable MENDEZ GUILLORY Referring Unavailable ROMAR, KIM Primary Care Unavailable ROMAR, KIM Primary Care Unavailable ROMAR, KIM Primary Care Unavailable YONATHAN IVAN Referring Unavailable ROMAR, KIM Primary Care Unavailable ROMAR, KIM Primary Care Unavailable MIKE CORREA Referring Unavailable ROMAR, KIM Primary Care Unavailable ROMAR, KIM Primary Care Unavailable ROMAR, KIM Primary Care Unavailable FAIZA ÁLVAREZ Referring Unavailable ROMAR, KIM Primary Care Unavailable FAIZA ÁLVAREZ Referring Unavailable ROMAR, KIM Primary Care Unavailable Allergies Allergy Classification Reported Allergen(s) Allergy Type Date of Onset Reaction(s) Facility (6 sources) acetaminophen / HYDROcodone; Translations: [HYDROCODONE-ACET AMINOPHEN] Drug Allergy 0 Hives, GI Upset [facility] Repository (16 sources) traMADol; Translations: [TRAMADOL] Drug Allergy 6 AOF [facility] Repository (4 sources) HYDROcodone; Translations: [hydrocodone] Drug Allergy rash [facility] (11 sources) traMADol; Translations: [TRAMADOL HCL] Drug Allergy 0 Hives, GI [facility] (9 sources) Nicotine; Translations: [nicotine] Drug Allergy 3 Allergic contact dermatitis (disorder), Other: See Comments [facility] Medications Current Medications Medication Drug Class(es) Dates Sig (Normalized) Sig (Original) acetaminophen 500 mg oral tablet (15 sources) Start: 02-21-2022 End: 08-20-2022 take 1 tablet by mouth once daily acetaminophen 500 mg oral tablet Dose : 1,000 mg = 2 tab(s), Oral, q8h, PRN as needed for pain, in absence of pcp. not to exceed 3000 mg/day, # 180 tab(s), 0 Refill(s), Pharmacy: [facility] [place] - [id number], 176.5, cm, 07/17/22 12:58:00 EST, Height, kg, 07/17/22 12:58:00 EST,... Start Date: 08/09/22 Status: Ordered Completed/Discontinued Medications Medication Drug Class(es) Dates Sig (Normalized) Sig (Original) acetaminophen 500 mg / diphenhydrAMINE hydrochloride 25 mg oral tablet (10 sources) Histamine-1 Receptor Antagonist Start: 09-23-2009 acetaminophen/dp-h ydram hcl(TYLENOL PM EXTRA STRENGTH 25 MG-500 MG TAB) amitriptyline hydrochloride 25 mg oral tablet (10 sources) Tricyclic Antidepressant Start: 06-20-2021 amitriptyline (ELAVIL) 25 mg tablet Take by mouth. 0 06/20/2021 Active Problems Active Problems Problem Classification Problem Date Documented Date Episodic/Chronic Abdominal hernia (11 sources) Inguinal hernia 11-09-2021 Episodic Abdominal pain (14 sources) Left inguinal pain 07-06-2021 Episodic Acute cerebrovascular disease (15 sources) Cerebrovascular accident 05-26-2020 Chronic Administrative/social admission (1 source) Patient encounter status; Translations: [Encounter for other administrative examinations] Episodic Alcohol-related disorders (20 sources) Alcohol abuse; Translations: [Alcohol withdrawal syndrome] 05-26-2020 Chronic Anxiety disorders (15 sources) Anxiety 07-05-2015 Chronic Chronic obstructive pulmonary disease and bronchiectasis (2 sources) Acute exacerbation of chronic obstructive airways disease; Translations: [Chronic obstructive pulmonary disease with (acute) exacerbation] Onset: 09-10-2022 Chronic Chronic obstructive pulmonary disease and bronchiectasis (1 source) Bronchitis; Translations: [Bronchitis, not specified as acute or chronic] Episodic Disorders of lipid metabolism (2 sources) Hyperlipidemia 09-16-2022 Chronic Disorders of teeth and jaw (1 source) Chronic gingivitis; Translations: [Chronic gingivitis, plaque induced] Onset: 08-28-2022 Chronic Esophageal disorders (2 sources) Gastroesophageal reflux disease 09-16-2022 Chronic Essential hypertension (17 sources) Hypertensive disorder; Translations: [Essential (primary) hypertension] Onset: 07-17-2022 05-11-2021 Chronic Fracture of upper limb (15 sources) Closed fracture thumb distal phalanx, tuft 09-30-2021 Episodic Genitourinary symptoms and ill-defined conditions (14 sources) Dysuria 07-06-2021 Episodic Headache; including migraine (20 sources) Headache; Translations: [Headache, unspecified headache type] 07-05-2015 Episodic Heart valve disorders (15 sources) Aortic valve calcification 05-26-2020 Chronic Immunizations and screening for infectious disease (9 sources) Anti-nuclear factor positive 12-01-2021 Episodic Lymphadenitis (20 sources) Inguinal lymphadenopathy; Translations: [Head and neck lymphadenopathy] 07-06-2021 Episodic Malaise and fatigue (16 sources) Fatigue; Translations: [Malaise and fatigue] 02-09-2021 Episodic Mycoses (20 sources) Tinea corporis; Translations: [Candidal intertrigo] 02-09-2021 Episodic Neoplasms of unspecified nature or uncertain behavior (15 sources) Neoplasm and/or hamartoma 02-09-2021 Episodic Nutritional deficiencies (14 sources) Vitamin D deficiency 06-27-2021 Chronic Other and ill-defined cerebrovascular disease (15 sources) 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 Other and ill-defined heart disease (15 sources) Right to left cardiac shunt 05-26-2020 Chronic Other and unspecified benign neoplasm (12 sources) Melanocytic nevus 09-28-2021 Episodic Other connective tissue disease (15 sources) Swelling of right lower limb 06-14-2020 Episodic Other connective tissue disease (1 source) Pain in left foot; Translations: [Pain in left foot] 03-05-2023 Episodic Other connective tissue disease (1 source) Pain of left lower leg; Translations: [Pain in left lower leg] 03-05-2023 Episodic Other connective tissue disease (1 source) Pain in left foot; Translations: [Foot pain, left] Onset: 03-05-2023 Episodic Other connective tissue disease (1 source) Pain in left lower leg; Translations: [Pain in left lower leg] Onset: 03-05-2023 Episodic Other ear and sense organ disorders (15 sources) Bilateral tinnitus 06-14-2020 Episodic Other female genital disorders (12 sources) Disorder of reproductive system 07-27-2021 Episodic Other injuries and conditions due to external causes (1 source) Injury of ribs; Translations: [Unspecified injury of thorax, initial encounter] 04-02-2023 Episodic Other injuries and conditions due to external causes (1 source) Unspecified injury of thorax, initial encounter; Translations: [Rib injury] Onset: 04-02-2023 Episodic Other liver diseases (13 sources) Elevated liver enzymes level 07-15-2020 Episodic Other lower respiratory disease (1 source) Wheezing; Translations: [Wheezing] Episodic Other lower respiratory disease (7 sources) Nodule of lung 06-18-2022 Episodic Other lower respiratory disease (5 sources) Restrictive lung disease 07-17-2022 Episodic Other lower respiratory disease (1 source) Cough; Translations: [Acute cough] Episodic Other lower respiratory disease (1 source) Disorder of lung; Translations: [Other disorders of lung] Episodic Other male genital disorders (15 sources) Impotence 04-03-2019 Chronic Other male genital disorders (14 sources) Pain of left testicle 07-06-2021 Episodic Other screening for suspected conditions (not mental disorders or infectious disease) (1 source) Imaging of thorax abnormal; Translations: [Abnormal findings on diagnostic imaging of other specified body structures] Chronic Other skin disorders (12 sources) Swelling of hand 09-28-2021 Episodic Other skin disorders (8 sources) Mass of neck 05-24-2022 Episodic Other upper respiratory disease (2 sources) Nasal congestion 09-16-2022 Episodic Other upper respiratory infections (5 sources) Sore throat symptom; Translations: [Acute pharyngitis, unspecified] Episodic Pneumonia (except that caused by tuberculosis or sexually transmitted disease) (8 sources) Bilateral pneumonia; Translations: [Pneumonia] 07-10-2022 Episodic Residual codes; unclassified (10 sources) Chronic back pain 04-03-2019 Episodic Residual codes; unclassified (15 sources) Difficulty sleeping 05-26-2020 Episodic Residual codes; unclassified (15 sources) Flushing 10-18-2020 Episodic Residual codes; unclassified (15 sources) Memory impairment 06-14-2020 Episodic Screening and history of mental health and substance abuse codes (9 sources) History of delirium 02-21-2022 Episodic Spondylosis; intervertebral disc disorders; other back problems (1 source) Thoracic spondylosis; Translations: [Spondylosis without myelopathy or radiculopathy, thoracic region] Chronic Spondylosis; intervertebral disc disorders; other back problems (8 sources) Chronic low back pain 05-24-2022 Episodic Substance-related disorders (12 sources) Marijuana user 09-28-2021 Episodic Unclassified (15 sources) History of clinical finding in subject 05-28-2021 Unclassified (1 source) Acute cough; Translations: [Acute cough] Onset: 09-10-2022 Past or Other Problems Problem Classification Problem Date Documented Da te Episodic/Chronic Other non-traumatic joint disorders (2 sources) Pain in left knee; Translations: [Pain in joint, lower leg] Onset: 01-22-2023 01-22-2023 Episodic Results Test Name Value Interpretation Reference Range Facil ity Vital Signs Date Time Vital Sign Value Performing Clinician Facility 04-02-2023 14:59-0500 Body temperature 97.2 [degF] Yonathan Athy PA-C Work Phone: [facility] 04-02-2023 14:59-0500 Body weight 84.01 kg Yonathan Athy PA-C Work Phone: [facility] 04-02-2023 14:59-0500 Diastolic blood pressure 78 mm[Hg] Yonathan Athy PA-C Work Phone: [facility] 04-02-2023 14:59-0500 Heart rate 80 /min Yonathan Athy PA-C Work Phone: [facility] 04-02-2023 14:59-0500 Respiratory rate 16 /min Yonatahn Athy PA-C Work Phone: [facility] 04-02-2023 14:59-0500 SaO2% (BldA) [Mass fraction] 98 % Yonathan Athy PA-C Work Phone: [facility] 04-02-2023 14:59-0500 Systolic blood pressure 122 mm[Hg] Yonathan Athy PA-C Work Phone: [facility] 03-05-2023 14:40-0400 Body temperature 97.7 [degF] Mike Correa APRN.FORESTRY WORKER Work Phone: [facility] 03-05-2023 14:40-0400 Body weight 81.38 kg Mike Correa APRN.FORESTRY WORKER Work Phone: [facility] 03-05-2023 14:40-0400 Diastolic blood pressure 80 mm[Hg] Mike Correa APRN.FORESTRY WORKER Work Phone: [facility] 03-05-2023 14:40-0400 Heart rate 92 /min Mike Correa APRN.FORESTRY WORKER Work Phone: [facility] 03-05-2023 14:40-0400 Respiratory rate 16 /min Mike Correa APRN.FORESTRY WORKER Work Phone: [facility] 03-05-2023 14:40-0400 Systolic blood pressure 122 mm[Hg] Mike Correa APRN.FORESTRY WORKER Work Phone: [facility] 02-21-2023 11:53-0400 Body temperature 97.5 [degF] Melida Chille APRN.FORESTRY WORKER Work Phone: [facility] 02-21-2023 11:53-0400 Body weight 82.19 kg Melida Chilel APRN.FORESTRY WORKER Work Phone: [facility] 02-21-2023 11:53-0400 Diastolic blood pressure 84 mm[Hg] Melida Chilel APRN.FORESTRY WORKER Work Phone: [facility] 02-21-2023 11:53-0400 Heart rate 7 /min Melida Chilel APRN.FORESTRY WORKER Work Phone: [facility] 02-21-2023 11:53-0400 Respiratory rate 18 /min Melida Chilel APRN.FORESTRY WORKER Work Phone: [facility] 02-21-2023 11:53-0400 SaO2% (BldA) [Mass fraction] 95 % Melida Chilel APRN.FORESTRY WORKER Work Phone: [facility] 02-21-2023 11:53-0400 Systolic blood pressure 135 mm[Hg] Melida Chilel APRN.FORESTRY WORKER Work Phone: [facility] 01-22-2023 08:22-0400 Body temperature 97.39 [degF] Faiza Álvarez PA-C Work Phone: [facility] 01-22-2023 08:22-0400 Body weight 87.09 kg Faiza Bogner PA-C Work Phone: [facility] 01-22-2023 08:22-0400 Diastolic blood pressure 72 mm[Hg] Faiza Bogner PA-C Work Phone: [facility] 01-22-2023 08:22-0400 Heart rate 80 /min Faiza Bogner PA-C Work Phone: [facility] 01-22-2023 08:22-0400 Respiratory rate 16 /min Faiza Bogner PA-C Work Phone: [facility] 01-22-2023 08:22-0400 SaO2% (BldA) [Mass fraction] 96 % Faiza Bogner PA-C Work Phone: [facility] 01-22-2023 08:22-0400 Systolic blood pressure 122 mm[Hg] Faiza Bogner PA-C Work Phone: [facility] 01-02-2023 15:31-0400 Body temperature 97.81 [degF] Mendez Guillory MD Work Phone: [facility] 01-02-2023 15:31-0400 Body weight 81.1 kg Mendez Guillory MD Work Phone: [facility] 01-02-2023 15:31-0400 Diastolic blood pressure 79 mm[Hg] Mendez Guillory MD Work Phone: [facility] 01-02-2023 15:31-0400 Heart rate 104 /min Mendez Guillory MD Work Phone: [facility] 01-02-2023 15:31-0400 Respiratory rate 20 /min Mendez Guillory MD Work Phone: [facility] 01-02-2023 15:31-0400 SaO2% (BldA) [Mass fraction] 96 % Mendez Guillory MD Work Phone: [facility] 01-02-2023 15:31-0400 Systolic blood pressure 114 mm[Hg] Mendez Guillory MD Work Phone: [facility] 09-10-2022 11:25-0400 Body temperature 97.2 [degF] Mendez Guillory MD Work Phone: [facility] 09-10-2022 11:25-0400 Body weight 84.55 kg Mendez Guillory MD Work Phone: [facility] 09-10-2022 11:25-0400 Diastolic blood pressure 62 mm[Hg] Mendez Guillory MD Work Phone: [facility] 09-10-2022 11:25-0400 Heart rate 101 /min Mendez Guillory MD Work Phone: [facility] 09-10-2022 11:25-0400 Respiratory rate 20 /min Mendez Guillory MD Work Phone: [facility] 09-10-2022 11:25-0400 SaO2% (BldA) [Mass fraction] 92 % Mendez Guillory MD Work Phone: [facility] 09-10-2022 11:25-0400 Systolic blood pressure 98 mm[Hg] Mendez Guillory MD Work Phone: [facility] 09-05-2022 16:40-0400 Body temperature 100.09 [degF] Mendez Guillory MD Work Phone: [facility] 09-05-2022 16:40-0400 Body weight 87.18 kg Mendez Guillory MD Work Phone: [facility] 09-05-2022 16:40-0400 Heart rate 112 /min Mendez Guillory MD Work Phone: [facility] 09-05-2022 16:40-0400 Respiratory rate 21 /min Mendez Guillory MD Work Phone: [facility] 09-05-2022 16:40-0400 SaO2% (BldA) [Mass fraction] 93 % Mendez Guillory MD Work Phone: [facility] 08-28-2022 15:49-0400 Body height 175.3 cm DEVON CARDOSO MD [facility] 08-28-2022 15:49-0400 Body temperature 97.7 [degF] DEVON CARDOSO MD [facility] 08-28-2022 15:49-0400 Body weight 88 kg DEVON CARDOSO MD [facility] 08-28-2022 15:49-0400 Diastolic Blood Pressure Non-Invasive 98 1 DEVON CARDOSO MD [facility] 08-28-2022 15:49-0400 Heart rate 114 /min DEVON CARDOSO MD [facility] 08-28-2022 15:49-0400 Respiratory rate 18 /min DEVON CARDOSO MD [facility] 08-28-2022 15:49-0400 Systolic Blood Pressure Non-Invasive 162 1 DEVON CARDOSO MD [facility] 04-02-2022 16:37-0500 Body temperature 98.1 [degF] Traci Heri PEN AND PENCIL REPAIRER.FORESTRY WORKER Work Phone: [facility] 04-02-2022 16:37-0500 Body weight 77.29 kg Traci Heri PEN AND PENCIL REPAIRER.FORESTRY WORKER Work Phone: [facility] 04-02-2022 16:37-0500 Diastolic blood pressure 66 mm[Hg] Traci Heri PEN AND PENCIL REPAIRER.FORESTRY WORKER Work Phone: [facility] 04-02-2022 16:37-0500 Heart rate 110 /min Traci Heri PEN AND PENCIL REPAIRER.FORESTRY WORKER Work Phone: [facility] 04-02-2022 16:37-0500 Respiratory rate 20 /min Traci Heri PEN AND PENCIL REPAIRER.FORESTRY WORKER Work Phone: [facility] 04-02-2022 16:37-0500 SaO2% (BldA) [Mass fraction] 98 % Traci Heri PEN AND PENCIL REPAIRER.FORESTRY WORKER Work Phone: [facility] 04-02-2022 16:37-0500 Systolic blood pressure 100 mm[Hg] Traci Heri PEN AND PENCIL REPAIRER.FORESTRY WORKER Work Phone: [facility] 12-19-2021 10:19-0400 Body temperature 97.3 [degF] Traci Heri PEN AND PENCIL REPAIRER.FORESTRY WORKER Work Phone: [facility] 12-19-2021 10:19-0400 Body weight 79.29 kg Traci Heri PEN AND PENCIL REPAIRER.FORESTRY WORKER Work Phone: [facility] 12-19-2021 10:19-0400 Diastolic blood pressure 78 mm[Hg] Traci Heri PEN AND PENCIL REPAIRER.FORESTRY WORKER Work Phone: [facility] 12-19-2021 10:19-0400 Heart rate 89 /min Traci Heri PEN AND PENCIL REPAIRER.FORESTRY WORKER Work Phone: [facility] 12-19-2021 10:19-0400 Respiratory rate 18 /min Traci Heri PEN AND PENCIL REPAIRER.FORESTRY WORKER Work Phone: [facility] 12-19-2021 10:19-0400 SaO2% (BldA) [Mass fraction] 97 % Traci Heri PEN AND PENCIL REPAIRER.FORESTRY WORKER Work Phone: [facility] 12-19-2021 10:19-0400 Systolic blood pressure 112 mm[Hg] Traci Heri PEN AND PENCIL REPAIRER.FORESTRY WORKER Work Phone: [facility] Encounters Encounter Date Encounter Type Care Provider Facility Start: 05-04-2023 End: 05-04-2023 [facility] Facility:[facility] Start: 04-02-2023 End: 04-02-2023 [facility] Facility:[facility] Start: 04-02-2023 End: 04-02-2023 Patient encounter procedure Yonathan Ivan PA-C Work Phone: [facility] Procedures Date Procedure Procedure Detail Performing Clinician Start: 04-02-2023 COVID & INFLUENZA A/ B & RSV NAAT, ROUTINE Yonathan Ivan PA-C Work Phone: Start: 02-21-2023 STREP A MOLECULAR (POC) Melida Chilel PEN AND PENCIL REPAIRER.FORESTRY WORKER Work Phone: Start: 04-02-2022 STREP A MOLECULAR (POC) Traci Liriano PEN AND PENCIL REPAIRER.FORESTRY WORKER Work Phone: Start: 06-14-2012 Lipid 1996 panel - S fariba or Plasma Faiza Álvarez PA-C Work Phone: Aneurysm clipping DR KIM GONZALEZ DO Repair of ankle DR KIM Molina DO Plan of Treatment Date Care Activity Detail Author Start: 10-27-2030 Urine microalbumin profile DTaP,Tdap,Td Vaccine (3 - Td or Tdap) [facility] Start: 02-21-2023 End: 03-07-2023 COVID & INFLUENZA A/B & RSV NAAT, ROUTINE [facility] Work Phone: Immunizations Immunization Date Immunization Notes Care Provider Fa [facility] 06-15-2022 influenza, injectabl e, quadrivalent, contains preservative; Translations: [Fluarix PF Quadrivalent ] DR KIM DUMONT DO [facility] 06-15-2022 zoster vaccine recombinant; Translations: [Shingrix] DR KIM DUMONT DO [facility] 06-15-2022 Pneumococcal conjuga te PCV20, polysaccharide [id number] conjugate, adjuvant, PF; Translations: [Prevnar 20] DR KIM DUMONT DO [facility] 06-15-2022 influenza virus vaccine, unspecified formulation Faiza Álvarez PA-C Work Phone: [facility] 10-27-2020 tetanus and diphther ia toxoids, adsorbed, preservative free, for adult use (5 Lf of tetanus toxoid and 2 Lf of diphtheria toxoid); Translations: [Tenivac] DR KIM DUMONT DO [facility] 05-18-2020 influenza virus vaccine, unspecified formulation DR KIM DUMONT DO [facility] 03-20-2018 influenza virus vaccine, unspecified formulation DR KIM DUMONT DO [facility] 04-15-2017 influenza virus vaccine, unspecified formulation DR KIM DUMONT DO [facility] 04-11-2016 pneumococcal polysaccharide vaccine, [address] KIM DUMONT DO [facility] 03-18-2015 influenza virus vaccine, unspecified formulation DR KIM DUMONT DO [facility] 02-02-2015 tetanus toxoid, redu carlin diphtheria toxoid, and acellular pertussis vaccine, adsorbed DR KIM DUMONT DO [facility] 02-04-2014 influenza virus vaccine, unspecified formulation DR KIM DUMONT DO [facility] Payers Date Payer Category Payer Unknown PENDING 2023 Unknown [id number] 2023 Unknown [id number] 2021 Unknown [id number] 2021 Unknown [id number] 2019 Medicaid [id number] 1965 Unknown [id number] 2.16.8 [id number] 1965 Unknown [id number] 2.16.8 [id number] 1965 Unknown [id number] 2.16.8 [id number] 1965 Unknown [id number] 2.16.8 [id number] 1965 Unknown [id number] 2.16.8 [id number] 1965 Unknown [id number] 2.16.8 [id number] 1965 Unknown [id number] 2.16.8 [id number] 1965 Unknown [id number] 2.16.8 [id number] 1965 Unknown [id number] 2.16.8 [id number] 1965 Unknown [id number] 2.16.8 [id number] 1965 Unknown [id number] 2.16.8 [id number] 1965 Unknown [id number] 2.16.8 [id number] 1965 Unknown [id number] 2.16.8 [id number] 1965 Unknown [id number] 2.16.8 [id number] 1965 Unknown [id number] 2.16.8 [id number] 1965 Unknown [id number] 2.16.8 [id number] 1965 Unknown [id number] 2.16.8 [id number] Social History Date Type Detail Facility Start: 05-26-2020 Heavy tobacco smoker (finding) [facility] Sex Assigned At Male [facility] Start: 12-19-2021 Tobacco smoking stat [facility] Smokes tobacco daily [facility] History of tobacco use Cigarette Smoker [facility] Start: 12-19-2021 End: 02-21-2023 Cigarettes smoked current (pack per day) - Reported 0.5 [facility] Start: 12-19-2021 Tobacco use and exposure Smokeless tobacco non-user [facility] Start: 12-19-2021 End: 04-02-2023 Alcohol intake Current non-drinker of alcohol (finding) [facility] Start: 1965 Sex Assigned At Not on file [facility] Start: 12-09-2021 End: 04-02-2022 Exposure to SARS-CoV-2 (event) Not sure [facility] Work Phone: Start: 05-24-2022 Tobacco smoking status Light t obacco smoker (finding) [facility] Start: 01-02-2023 End: 02-21-2023 Tobacco use panel [facility] [facility] National Score (1-10 0), lower number is lower risk Not on file [facility] Functional Status Date Assessment Result Facility 09-03-2022 Functional Status Objective: Cardiovascular Screen: BP:116/70 HR: 108 BPM O2 sat: 96% Observation: Mild excess thoracic kyphosis. Thoracic AROM: Flex: min loss Ext: major loss Rotation: R: major loss L: major loss Motion testing: Flex in seated thoracic; increased pain, ext in seated inc pain. Mid range postural correction: reduced pain. MMT: see chart Palpation: MIld tenderness to palpation thoracic paraspinal region grossly Neural Tension: - slump test bilat Segmental Motion: NT Sensation: Grossly intact light touch bilat LE's and UE's Reflexes1+ bilat patellar and achillles. Gait: L knee valgus with slight circumduction through swing phase of gait. Decreased stride length bilat. [facility] 08-28-2022 Functional Status Room check performed [facility] [place] Mental Status Date Assessment Result Facility 08-28-2022 [facility] Status [facility] x [facility] Clinical Notes 11-24-2021 to 05-04-2023 Patient InstructionsYonathan Ivan PA-C - 04/02/2023 3:22 PM Mike Ackerman APRN.FORESTRY WORKER - 03/05/2023 3:15 PM EDTPatient Melida Gentile APRN.FORESTRY WORKER - 02/21/2023 11:59 AM EDTRadiology Note Date & Type Note Facility 05-04-2023 Note HNO ID: [id number] Author: Isadora Devi PA Service: ? Author Type: Physician Customer Development Representative Type: Progress Notes Filed: 05/04/2023 10:34 AM Note Text: This note was created using [employer]. Subjective Hilda Leo is a 58 year old male. HPI 58-year-old male presents for sore throat, headache, congestion. Patient states he has been having symptoms for the past 3 days. He has sore throat, congestion, mild cough, headache, body aches. No fevers. He states people have been sick at his work. He did a home COVID test that was negative. No chest pain or shortness of breath. He does have history of COPD. No other complaint. PAST MEDICAL HISTORY Diagnosis Date Alcohol abuse Anxiety COPD (chronic obstructive pulmonary disease) (HCC) CVA (cerebral vascular accident) ([facility]) Hypertension Migraine headache PAST SURGICAL HISTORY Procedure Laterality Date %ACLUK2 1ST EDILIA 2006 ACL repair times 3 on Left ANKLE Left ALLERGIES Nicotine and Ultram [Tramadol Hcl] MEDICATIONS Naproxen Sodium (ANAPROX DS) 550 mg tablet Take 1 tablet by mouth two times a day as needed. nystatin (MYCOSTATIN) 100,000 unit/mL suspension Take 5 mL by mouth four times daily. 1tsp swish in mouth for several minutes, then swallow (or expectorate) 4 times daily until gone. albuterol HFA (PROAIR HFA) 90 mcg/actuation inhaler Inhale 2 Puffs as instructed every 4 hours as needed. amitriptyline (ELAVIL) 25 mg tablet Take by mouth. amLODIPine (NORVASC) 5 mg tablet atorvastatin (LIPITOR) 80 mg tablet Cholecalciferol, Vitamin D3, 50 mcg (2,000 unit) cap folic acid 1 mg tablet AJOVY SYRINGE 225 mg/1.5 mL syringe inject 1 AND 1/2 milliliters ( 225 milligrams ) subcutaneously Ev... (REFER TO PRESCRIPTION NOTES). hydrOXYzine HCl (ATARAX) 50 mg tablet lamoTRIgine (LAMICTAL) 200 mg tablet Take 200 mg by mouth once daily. lisinopril-hydroCHLOROthiazide (PRINZIDE,ZESTORETIC) 10-12.5 mg per tablet OXcarbazepine (TRILEPTAL) [address] (PROTONIX) 20 mg tablet QUEtiapine (SEROQUEL) 50 mg tablet thiamine (VITAMIN B1) 100 mg tablet UBRELVY 100 mg tablet acetaminophen/dp-hydram hcl(TYLENOL PM EXTRA STRENGTH 25 MG-500 MG TAB) No family history on file. Social History Tobacco Use Smoking status: Every Day Packs/day: 0.50 Years: 25.00 Additional pack years: 0.00 Total pack years: 12.50 Types: Cigarettes Smokeless tobacco: Never Substance Use Topics Alcohol use: No Drug use: No Review of Systems Constitutional: Negative for chills and fever. HENT: Positive for congestion and sore throat. Respiratory: Positive for cough. Negative for shortness of breath. Gastrointestinal: Negative for diarrhea and vomiting. Musculoskeletal: Positive for myalgias. Neurological: Positive for headaches. Objective BP 128/82 Pulse 72 Temp 36.8 ?C (98.2 ?F) (Tympanic) Resp 16 Wt 80.9 kg (178 lb 6.4 oz) Physical Exam Vitals and nursing note reviewed. Constitutional: General: He is not in acute distress. Appearance: Normal appearance. He is not toxic-appearing. HENT: Right Ear: Tympanic membrane and ear canal normal. Left Ear: Tympanic membrane and ear canal normal. Nose: Congestion present. Mouth/Throat: Mouth: Mucous membranes are moist. Pharynx: Uvula midline. Posterior oropharyngeal erythema present. Tonsils: No tonsillar exudate or tonsillar abscesses. 2+ on the right. 2+ on the left. Eyes: Conjunctiva/sclera: Conjunctivae normal. Cardiovascular: Rate and Rhythm: Normal rate and regular rhythm. Pulmonary: Effort: Pulmonary effort is normal. Breath sounds: Normal breath sounds. Skin: General: Skin is warm and dry. Neurological: Mental Status: He is alert. Assessment and Plan ASSESSMENT/PLAN: 1. Sore throat - ICD9: 462, ICD10: J02.9 (primary diagnosis) - suspect viral - Group A strep molecular testing negative - Discussed supportive care treatment with fluids, rest and analgesia. - STREP A MOLECULAR (POC) 2. URI, acute - ICD9: 465.9, ICD10: J06.9 - Discussed viral etiology and rationale for treatment. - Symptomatic treatment with prn analgesia - Supportive care with fluids and rest -Declines COVID/flu/RSV swab. Diagnosis and treatment plan were discussed and questions were answered to the patient's satisfaction. Pt acknowledged understanding of concepts and follow up plan. Specific signs and symptoms that would indicate the need for higher level of care were discussed in detail warranting prompt ER evaluation. ANGELY Cowart [facility] 04-02-2023 Note HNO ID: [id number] Author: Yonathan Ivan PA-C Service: ? Author Type: Physician Customer Development Representative Type: Progress Notes Filed: 04/02/2023 3:40 PM Note Text: This note was created using [employer]. Subjective Hilda Leo is a 57 year old male. HPI Presents with a chief complaint of cough, congestion, sore throat over the past day. He also is complaining of some left rib pain. His dog had tripped him and he fell hitting the side of the coffee table yesterday. States if he sneezes or coughs it hurts in his ribs. Denies pain with breathing. Denies breaking his ribs previously. He has not had a fever. He did do a home COVID test which was negative. His girlfriend has been sick recently. He does have COPD. Review of Systems Constitutional: Positive for fatigue. Negative for fever. HENT: Positive for congestion, rhinorrhea and sore throat. Negative for ear pain, sinus pressure and sinus pain. Respiratory: Positive for cough. Negative for shortness of breath and wheezing. Cardiovascular: Left rib pain Gastrointestinal: Negative. Genitourinary: Negative. Musculoskeletal: Negative. All other systems reviewed and are negative. PAST MEDICAL HISTORY Diagnosis Date Alcohol abuse Anxiety COPD (chronic obstructive pulmonary disease) ([facility]) CVA (cerebral vascular accident) ([facility]) Hypertension Migraine headache Current Outpatient Medications Medication Sig Dispense Refill Naproxen Sodium (ANAPROX DS) 550 mg tablet Take 1 tablet by mouth two times a day as needed. 28 tablet 0 nystatin (MYCOSTATIN) 100,000 unit/mL suspension Take 5 mL by mouth four times daily. 1tsp swish in mouth for several minutes, then swallow (or expectorate) 4 times daily until gone. 200 mL 0 albuterol HFA (PROAIR HFA) 90 mcg/actuation inhaler Inhale 2 Puffs as instructed every 4 hours as needed. 18 g 0 amitriptyline (ELAVIL) 25 mg tablet Take by mouth. amLODIPine (NORVASC) 5 mg tablet atorvastatin (LIPITOR) 80 mg tablet Cholecalciferol, Vitamin D3, 50 mcg (2,000 unit) cap folic acid 1 mg tablet AJOVY SYRINGE 225 mg/1.5 mL syringe inject 1 AND 1/2 milliliters ( 225 milligrams ) subcutaneously Ev... (REFER TO PRESCRIPTION NOTES). hydrOXYzine HCl (ATARAX) 50 mg tablet lamoTRIgine (LAMICTAL) 200 mg tablet Take 200 mg by mouth once daily. lisinopril-hydroCHLOROthiazide (PRINZIDE,ZESTORETIC) 10-12.5 mg per tablet OXcarbazepine (TRILEPTAL) [address] (PROTONIX) 20 mg tablet QUEtiapine (SEROQUEL) 50 mg tablet thiamine (VITAMIN B1) 100 mg tablet UBRELVY 100 mg tablet acetaminophen/dp-hydram hcl(TYLENOL PM EXTRA STRENGTH 25 MG-500 MG TAB) 0 No current facility-administered medications for this visit. PAST SURGICAL HISTORY Procedure Laterality Date %ACLUK2 1ST EDILIA 2006 ACL repair times 3 on Left ANKLE Left No family history on file. Social History Tobacco Use Smoking status: Every Day Packs/day: 0.50 Years: 25.00 Additional pack years: 0.00 Total pack years: 12.50 Types: Cigarettes Smokeless tobacco: Never Substance Use Topics Alcohol use: No Drug use: No Objective BP 122/78 Pulse 80 Temp 36.2 ?C (97.2 ?F) (Tympanic) Resp 16 Wt 84 kg (185 lb 3.2 oz) SpO2 98% Physical Exam Vitals reviewed. Constitutional: Appearance: Normal appearance. HENT: Head: Normocephalic and atraumatic. Right Ear: Tympanic membrane, ear canal and external ear normal. Left Ear: Tympanic membrane, ear canal and external ear normal. Nose: Congestion present. Mouth/Throat: Mouth: Mucous membranes are moist. Pharynx: Oropharynx is clear. Cardiovascular: Rate and Rhythm: Normal rate and regular rhythm. Heart sounds: Normal heart sounds. Pulmonary: Effort: Pulmonary effort is normal. Breath sounds: Normal breath sounds. Comments: There is bruising on the lateral left ribs with tenderness on palpation. No tenderness on palpation of the abdomen or any sign of splenic injury. Musculoskeletal: Cervical back: Neck supple. Skin: General: Skin is warm and dry. Findings: No rash. Neurological: General: No focal deficit present. Mental Status: He is alert. Assessment and Plan ASSESSMENT/PLAN: 1. Rib injury - ICD9: 959.11, ICD10: S29.9XXA (primary diagnosis) Rib x-ray showed no displaced rib fractures. Discussed using ice, Tylenol, rest. If not improving follow-up with PCP. - XR RIBS/CHEST 3V AP RIB/OBLS/CXR LEFT 2. Viral URI - ICD9: 465.9, ICD10: J06.9 - Discussed viral etiology and rationale for treatment. - Symptomatic treatment with prn analgesia - Supportive care with fluids and rest - Follow up in 3-5 days if symptoms persist or sooner if worsening of symptoms - COVID AND INFLUENZA A/B AND RSV NAAT, ROUTINE Yonathan Ivan PA-C [facility] 04-02-2023 Note HNO ID: [id number] Author: Hamida Sher RT(R) Service: Radiology Author Type: Technologist Type: Progress Notes Filed: 04/02/2023 3:25 PM Note Text: Radiology Service Progress Note PATIENT NAME: Hilda Leo DATE OF SERVICE: April 02, 2023 TIME: 3:15 PM PATIENT IDENTITY VERIFICATION COMPLETED USING TWO (2) IDENTIFIERS: Name and Date of confirmed by patient verbally. FALL SCREENING: Has the patient had 2 falls in the last year or 1 fall with injury or currently using an Ambulatory Assistive Device (Walker, Cane, Wheelchair, Crutches, etc.)? No PATIENT GENDER DATA: Male PATIENT RELEVANT IMPLANT DATA REVIEWED: Yes RADIOLOGY DEPARTMENT: General X-ray: Exam(s) Completed: Rib X-Ray: Left PERIPHERAL IV DATA: Not applicable SIGNED BY: RT Deandra(R) April 02, 2023 3:15 PM [facility] 04-02-2023 Instructions Yonathan Ivan PA-C - 04/02/2023 3:37 PM EST Mucinex dm otc for cold symptoms If symptoms worsening in 5-7 days be seen again. documented in this encounter [facility] 04-02-2023 History of Present illness Narrative This note was created using [employer]. Subjective Hilda Leo is a 57 year old male. HPI Presents with a chief complaint of cough, congestion, sore throat over the past day. He also is complaining of some left rib pain. His dog had tripped him and he fell hitting the side of the coffee table yesterday. States if he sneezes or coughs it hurts in his ribs. Denies pain with breathing. Denies breaking his ribs previously. He has not had a fever. He did do a home COVID test which was negative. His girlfriend has been sick recently. He does have COPD. Review of Systems Constitutional: Positive for fatigue. Negative for fever. HENT: Positive for congestion, rhinorrhea and sore throat. Negative for ear pain, sinus pressure and sinus pain. Respiratory: Positive for cough. Negative for shortness of breath and wheezing. Cardiovascular: Left rib pain Gastrointestinal: Negative. Genitourinary: Negative. Musculoskeletal: Negative. All other systems reviewed and are negative. PAST MEDICAL HISTORY Diagnosis Date Alcohol abuse Anxiety COPD (chronic obstructive pulmonary disease) (HCC) CVA (cerebral vascular accident) (HCC) Hypertension Migraine headache Current Outpatient Medications Medication Sig Dispense Refill Naproxen Sodium (ANAPROX DS) 550 mg tablet Take 1 tablet by mouth two times a day as needed. 28 tablet 0 nystatin (MYCOSTATIN) 100,000 unit/mL suspension Take 5 mL by mouth four times daily. 1tsp swish in mouth for several minutes, then swallow (or expectorate) 4 times daily until gone. 200 mL 0 albuterol HFA (PROAIR HFA) 90 mcg/actuation inhaler Inhale 2 Puffs as instructed every 4 hours as needed. 18 g 0 amitriptyline (ELAVIL) 25 mg tablet Take by mouth. amLODIPine (NORVASC) 5 mg tablet atorvastatin (LIPITOR) 80 mg tablet Cholecalciferol, Vitamin D3, 50 mcg (2,000 unit) cap folic acid 1 mg tablet AJOVY SYRINGE 225 mg/1.5 mL syringe inject 1 AND 1/2 milliliters ( 225 milligrams ) subcutaneously Ev... (REFER TO PRESCRIPTION NOTES). hydrOXYzine HCl (ATARAX) 50 mg tablet lamoTRIgine (LAMICTAL) 200 mg tablet Take 200 mg by mouth once daily. lisinopril-hydroCHLOROthiazide (PRINZIDE,ZESTORETIC) 10-12.5 mg per tablet OXcarbazepine (TRILEPTAL) [address] (PROTONIX) 20 mg tablet QUEtiapine (SEROQUEL) 50 mg tablet thiamine (VITAMIN B1) 100 mg tablet UBRELVY 100 mg tablet acetaminophen/dp-hydram hcl(TYLENOL PM EXTRA STRENGTH 25 MG-500 MG TAB) 0 No current facility-administered medications for this visit. PAST SURGICAL HISTORY Procedure Laterality Date %ACLUK2 2006 ACL repair times 3 on Left ANKLE Left No family history on file. Social History Tobacco Use Smoking status: Every Day Packs/day: 0.50 Years: 25.00 Additional pack years: 0.00 Total pack years: 12.50 Types: Cigarettes Smokeless tobacco: Never Substance Use Topics Alcohol use: No Drug use: No Objective BP 122/78 Pulse 80 Temp 36.2 C (97.2 F) (Tympanic) Resp 16 Wt 84 kg (185 lb 3.2 oz) SpO2 98% Physical Exam Vitals reviewed. Constitutional: Appearance: Normal appearance. HENT: Head: Normocephalic and atraumatic. Right Ear: Tympanic membrane, ear canal and external ear normal. Left Ear: Tympanic membrane, ear canal and external ear normal. Nose: Congestion present. Mouth/Throat: Mouth: Mucous membranes are moist. Pharynx: Oropharynx is clear. Cardiovascular: Rate and Rhythm: Normal rate and regular rhythm. Heart sounds: Normal heart sounds. Pulmonary: Effort: Pulmonary effort is normal. Breath sounds: Normal breath sounds. Comments: There is bruising on the lateral left ribs with tenderness on palpation. No tenderness on palpation of the abdomen or any sign of splenic injury. Musculoskeletal: Cervical back: Neck supple. Skin: General: Skin is warm and dry. Findings: No rash. Neurological: General: No focal deficit present. Mental Status: He is alert. Assessment and Plan ASSESSMENT/PLAN: 1. Rib injury - ICD9: 959.11, ICD10: S29.9XXA (primary diagnosis) Rib x-ray showed no displaced rib fractures. Discussed using ice, Tylenol, rest. If not improving follow-up with PCP. - XR RIBS/CHEST 3V AP RIB/OBLS/CXR LEFT 2. Viral URI - ICD9: 465.9, ICD10: J06.9 - Discussed viral etiology and rationale for treatment. - Symptomatic treatment with prn analgesia - Supportive care with fluids and rest - Follow up in 3-5 days if symptoms persist or sooner if worsening of symptoms - COVID & INFLUENZA A/B & RSV NAAT, ROUTINE Yonathan Ivan PA-C documented in this encounter [facility] 03-05-2023 Note HNO ID: [id number] Author: Pattie Diehl RT(R) Service: Radiology Author Type: Technologist Type: Progress Notes Filed: 03/05/2023 3:28 PM Note Text: Radiology Service Progress Note PATIENT NAME: Hilda Leo DATE OF SERVICE: March 05, 2023 TIME: 3:15 PM PATIENT IDENTITY VERIFICATION COMPLETED USING TWO (2) IDENTIFIERS: Name and Date of confirmed by patient verbally. FALL SCREENING: Has the patient had 2 falls in the last year or 1 fall with injury or currently using an Ambulatory Assistive Device (Walker, Cane, Wheelchair, Crutches, etc.)? No PATIENT GENDER DATA: Male PATIENT RELEVANT IMPLANT DATA REVIEWED: Not Applicable RADIOLOGY DEPARTMENT: General X-ray: Exam(s) Completed: Lower Extremity X-Ray(s): Tibia Fibula, Left and Foot, Left PERIPHERAL IV DATA: Not applicable SIGNED BY: Pattie Diehl RT(R) March 05, 2023 3:15 PM [facility] 03-05-2023 Note HNO ID: [id number] Author: Mike Correa APRN.FORESTRY WORKER Service: ? Author Type: Nurse Practitioner Type: Progress Notes Filed: 03/06/2023 9:54 AM Note Text: Subjective Hilda Leo is a 57 year old year old who presents to express care today with complaint of left leg ankle and foot pain x 3 days s/p dropping a truck tire on his left leg. Aside from symptoms as described above, patient has no other complaints at this time. Presents with complaint of left leg ankle and foot pain x 3 days s/p dropping a truck tire on his left leg. States he lost his balance while chnging a truck tire, and the truck mio moved and the tire fell toward his left leg. Denies feeling or hearing a popping, tearing or breaking sensation. Pain has been worse with walking, 7-8/10. Taking Ibuprofen. Denies and sick symptoms fever, shortness of breath, chest pains, Nausea, vomiting, changes in bowel or bladder or skin rashes. : Review of Systems ALLERGIES Allergen Reactions Nicotine Other: See Comments Nicotine patches, contact dermatitis Ultram [Tramadol Hc* Hives, GI Upset Current Outpatient Medications on File Prior to Visit Medication Sig nystatin (MYCOSTATIN) 100,000 unit/mL suspension Take 5 mL by mouth four times daily. 1tsp swish in mouth for several minutes, then swallow (or expectorate) 4 times daily until gone. albuterol HFA (PROAIR HFA) 90 mcg/actuation inhaler Inhale 2 Puffs as instructed every 4 hours as needed. amitriptyline (ELAVIL) 25 mg tablet Take by mouth. amLODIPine (NORVASC) 5 mg tablet atorvastatin (LIPITOR) 80 mg tablet Cholecalciferol, Vitamin D3, 50 mcg (2,000 unit) cap folic acid 1 mg tablet AJOVY SYRINGE 225 mg/1.5 mL syringe inject 1 AND 1/2 milliliters ( 225 milligrams ) subcutaneously Ev... (REFER TO PRESCRIPTION NOTES). hydrOXYzine HCl (ATARAX) 50 mg tablet lamoTRIgine (LAMICTAL) 200 mg tablet Take 200 mg by mouth once daily. lisinopril-hydroCHLOROthiazide (PRINZIDE,ZESTORETIC) 10-12.5 mg per tablet OXcarbazepine (TRILEPTAL) [address] (PROTONIX) 20 mg tablet QUEtiapine (SEROQUEL) 50 mg tablet thiamine (VITAMIN B1) 100 mg tablet UBRELVY 100 mg tablet acetaminophen/dp-hydram hcl(TYLENOL PM EXTRA STRENGTH 25 MG-500 MG TAB) No current facility-administered medications on file prior to visit. There is no problem list on file for this patient. Social History Tobacco Use Smoking status: Every Day Packs/day: 0.50 Years: 25.00 Additional pack years: 0.00 Total pack years: 12.50 Types: Cigarettes Smokeless tobacco: Never Substance Use Topics Alcohol use: No Drug use: No Objective BP 122/80 Pulse 92 Temp 36.5 ?C (97.7 ?F) (Tympanic) Resp 16 Wt 81.4 kg (179 lb 6.4 oz) Physical Exam Constitutional: General: He is not in acute distress. Appearance: Normal appearance. He is not ill-appearing or toxic-appearing. Cardiovascular: Rate and Rhythm: Normal rate and regular rhythm. Pulses: Normal pulses. Heart sounds: Normal heart sounds. Pulmonary: Effort: Pulmonary effort is normal. Breath sounds: Normal breath sounds. Abdominal: General: Bowel sounds are normal. Palpations: Abdomen is soft. Musculoskeletal: General: Tenderness (from Tibia to lateral malleolus, to dorsum of left foot, diffuse tenderness, full ROM minimal difficulty with movement- flexion extension of ankle and foot, even with lateral movement of foot) and signs of injury (scattered bruises along lateral lower leg, no open wounds) present. No swelling or deformity. Right lower leg: Edema (1+ my normal swelling per pt ankle and foot) present. Left lower leg: Edema (1+ my normal swelling per pt and and foot) present. Skin: General: Skin is warm and dry. Capillary Refill: Capillary refill takes less than 2 seconds. Neurological: Mental Status: He is alert. Assessment/Plan 1. Foot pain, left - XR FOOT GENERAL 3V AP/LAT/OBL LEFT; Future - Naproxen Sodium (ANAPROX DS) 550 mg tablet; Take 1 tablet by mouth two times a day as needed. Dispense: 28 tablet; Refill: 0 2. Pain in left lower leg - XR TIBIA FIBULA 2V AP/LAT LEFT; Future - Naproxen Sodium (ANAPROX DS) 550 mg tablet; Take 1 tablet by mouth two times a day as needed. Dispense: 28 tablet; Refill: 0 Plan of care for this patient is to treat for SUPPORTIVE CARE AND NSAIDS FOR PAIN ALONG WITH ICE 20 MINS ON/ OFF -SEE PCP IN ONE WEEK IF NOT IMPROVING AND IN ONE MONTH REGARDING SWELLING AT ANKLES AND CURRENT MEDICATIONS Patient advised to drink fluids, get rest and take all meds as prescribed. Patient given educational materials - see patient instructions. Discussed use, benefit, and side effects of prescribed medications. All patient questions answered. Pt voiced understanding and agrees with treatment plan. Patient advised if symptoms worsen or persist, they are to follow up with PCP or ED. Patient agreeable with treatment plan. Mike Zaragoza (more content not included)... [facility] 03-05-2023 History of Present illness Narrative Subjective Hilda Leo is a 57 year old year old who presents to express care today with complaint of left leg ankle and foot pain x 3 days s/p dropping a truck tire on his left leg. Aside from symptoms as described above, patient has no other complaints at this time. Presents with complaint of left leg ankle and foot pain x 3 days s/p dropping a truck tire on his left leg. States he lost his balance while chnging a truck tire, and the truck mio moved and the tire fell toward his left leg. Denies feeling or hearing a popping, tearing or breaking sensation. Pain has been worse with walking, 7-8/10. Taking Ibuprofen. Denies and sick symptoms fever, shortness of breath, chest pains, Nausea, vomiting, changes in bowel or bladder or skin rashes. : Review of Systems ALLERGIES Allergen Reactions Nicotine Other: See Comments Nicotine patches, contact dermatitis Ultram [Tramadol Hc* Hives, GI Upset Current Outpatient Medications on File Prior to Visit Medication Sig nystatin (MYCOSTATIN) 100,000 unit/mL suspension Take 5 mL by mouth four times daily. 1tsp swish in mouth for several minutes, then swallow (or expectorate) 4 times daily until gone. albuterol HFA (PROAIR HFA) 90 mcg/actuation inhaler Inhale 2 Puffs as instructed every 4 hours as needed. amitriptyline (ELAVIL) 25 mg tablet Take by mouth. amLODIPine (NORVASC) 5 mg tablet atorvastatin (LIPITOR) 80 mg tablet Cholecalciferol, Vitamin D3, 50 mcg (2,000 unit) cap folic acid 1 mg tablet AJOVY SYRINGE 225 mg/1.5 mL syringe inject 1 AND 1/2 milliliters ( 225 milligrams ) subcutaneously Ev... (REFER TO PRESCRIPTION NOTES). hydrOXYzine HCl (ATARAX) 50 mg tablet lamoTRIgine (LAMICTAL) 200 mg tablet Take 200 mg by mouth once daily. lisinopril-hydroCHLOROthiazide (PRINZIDE,ZESTORETIC) 10-12.5 mg per tablet OXcarbazepine (TRILEPTAL) [address] (PROTONIX) 20 mg tablet QUEtiapine (SEROQUEL) 50 mg tablet thiamine (VITAMIN B1) 100 mg tablet UBRELVY 100 mg tablet acetaminophen/dp-hydram hcl(TYLENOL PM EXTRA STRENGTH 25 MG-500 MG TAB) No current facility-administered medications on file prior to visit. There is no problem list on file for this patient. Social History Tobacco Use Smoking status: Every Day Packs/day: 0.50 Years: 25.00 Additional pack years: 0.00 Total pack years: 12.50 Types: Cigarettes Smokeless tobacco: Never Substance Use Topics Alcohol use: No Drug use: No Objective BP 122/80 Pulse 92 Temp 36.5 C (97.7 F) (Tympanic) Resp 16 Wt 81.4 kg (179 lb 6.4 oz) Physical Exam Constitutional: General: He is not in acute distress. Appearance: Normal appearance. He is not ill-appearing or toxic-appearing. Cardiovascular: Rate and Rhythm: Normal rate and regular rhythm. Pulses: Normal pulses. Heart sounds: Normal heart sounds. Pulmonary: Effort: Pulmonary effort is normal. Breath sounds: Normal breath sounds. Abdominal: General: Bowel sounds are normal. Palpations: Abdomen is soft. Musculoskeletal: General: Tenderness (from Tibia to lateral malleolus, to dorsum of left foot, diffuse tenderness, full ROM minimal difficulty with movement- flexion extension of ankle and foot, even with lateral movement of foot) and signs of injury (scattered bruises along lateral lower leg, no open wounds) present. No swelling or deformity. Right lower leg: Edema (1+ my normal swelling per pt ankle and foot) present. Left lower leg: Edema (1+ my normal swelling per pt and and foot) present. Skin: General: Skin is warm and dry. Capillary Refill: Capillary refill takes less than 2 seconds. Neurological: Mental Status: He is alert. Assessment/Plan 1. Foot pain, left - XR FOOT GENERAL 3V AP/LAT/OBL LEFT; Future - Naproxen Sodium (ANAPROX DS) 550 mg tablet; Take 1 tablet by mouth two times a day as needed. Dispense: 28 tablet; Refill: 0 2. Pain in left lower leg - XR TIBIA FIBULA 2V AP/LAT LEFT; Future - Naproxen Sodium (ANAPROX DS) 550 mg tablet; Take 1 tablet by mouth two times a day as needed. Dispense: 28 tablet; Refill: 0 Plan of care for this patient is to treat for SUPPORTIVE CARE AND NSAIDS FOR PAIN ALONG WITH ICE 20 MINS ON/ OFF -SEE PCP IN ONE WEEK IF NOT IMPROVING AND IN ONE MONTH REGARDING SWELLING AT ANKLES AND CURRENT MEDICATIONS Patient advised to drink fluids, get rest and take all meds as prescribed. Patient given educational materials - see patient instructions. Discussed use, benefit, and side effects of prescribed medications. All patient questions answered. Pt voiced understanding and agrees with treatment plan. Patient advised if symptoms worsen or persist, they are to follow up with PCP or ED. Patient agreeable with treatment plan. Mike Correa APRN, CNP 03/05/2023 3:16 PM documented in this encounter [facility] 03-05-2023 Instructions Mike Correa APRN.CNP - 03/05/2023 3:15 PM EDT R.I.C.E. The general care of your injury includes the following: Resting, Icing, Compressing and Elevating the injured area. Remember this as RICE. REST: Limit the use of the injured body part. ICE: By applying ice to the affected area, swelling and pain can be reduced. Place some ice cubes in a re-sealable (Ziploc) bag and add some water. Put a thin washcloth between the bag and your skin. Apply the ice bag to the area for at least 20 minutes. Do this at least 4 times per day. Using the ice for longer times and more frequently is OK. NEVER APPLY ICE DIRECTLY TO THE SKIN. COMPRESS: Compression means to apply pressure around the injured area such as with a splint, cast or an david bandage. Compression decreases swelling and improves comfort. Compression should be tight enough to relieve swelling but not so tight as to decrease circulation. Increasing pain, numbness, tingling, or change in skin color, are all signs of decreased circulation. ELEVATE: Elevate the injured part. For example, elevate your foot by placing it on a chair while sitting, or propping it up on pillows when lying down. documented in this encounter [facility] 02-21-2023 Note HNO ID: [id number] Author: Melida Chilel APRN.LEBRON Service: ? Author Type: Nurse Practitioner Type: Progress Notes Filed: 02/21/2023 12:16 PM Note Text: CC: Patient presents with: Cough: MEREDITH, vomiting, congestion, eye pain x1 day HPI: Hilda Leo is a 57 year old male who presents to the office with complaint of head congestion, cough, nonproductive, and sore throat for the past day. Symptoms are worsening Associated symptoms includes sore throat. Denies nausea, vomiting , and diarrhea. Treatments tried include nothing so far. with no relief of symptoms. Sick contacts: unknown. History of asthma, frequent episodes of bronchitis, chronic bronchitis, bronchiectasis or COPD: No Smoker: No Seasonal/environmental allergies: No The ROS is otherwise negative. The patient's pmh, medications, allergies, and past visits are reviewed. PHYSICAL EXAM: BP 135/84 Pulse (!) 7 Temp 36.4 ?C (97.5 ?F) Resp 18 Wt 82.2 kg (181 lb 3.2 oz) SpO2 95% General appearance: alert, cooperative, pleasant, in no acute distress Head: Normocephalic Eyes: EOM's intact, conjunctiva pink and moist, no icterus, sclera white, non-injected Ears: Right ear: External ear/canal- Normal, TM - clear with good landmarks. Left ear: External ear/canal- Normal, TM - clear with good landmarks Oropharynx:moderate erythema, without exudates present Heart: Negative. RRR without obvious murmur, gallop, or rubs. No ectopy. Lungs: clear to auscultation, without rales or wheeze, good air exchange PAST MEDICAL HISTORY Diagnosis Date Alcohol abuse Anxiety COPD (chronic obstructive pulmonary disease) ([facility]) CVA (cerebral vascular accident) ([facility]) Hypertension Migraine headache PAST SURGICAL HISTORY Procedure Laterality Date %ACLUK2 1ST EDILIA 2006 ACL repair times 3 on Left ANKLE Left ALLERGIES Nicotine and Ultram [Tramadol Hcl] MEDICATIONS acetaminophen/dp-hydram hcl(TYLENOL PM EXTRA STRENGTH 25 MG-500 MG TAB) AJOVY SYRINGE 225 mg/1.5 mL syringe inject 1 AND 1/2 milliliters ( 225 milligrams ) subcutaneously Ev... (REFER TO PRESCRIPTION NOTES). albuterol HFA (PROAIR HFA) 90 mcg/actuation inhaler Inhale 2 Puffs as instructed every 4 hours as needed. amitriptyline (ELAVIL) 25 mg tablet Take by mouth. amLODIPine (NORVASC) 5 mg tablet atorvastatin (LIPITOR) 80 mg tablet Cholecalciferol, Vitamin D3, 50 mcg (2,000 unit) cap folic acid 1 mg tablet hydrOXYzine HCl (ATARAX) 50 mg tablet lamoTRIgine (LAMICTAL) 200 mg tablet Take 200 mg by mouth once daily. lisinopril-hydroCHLOROthiazide (PRINZIDE,ZESTORETIC) 10-12.5 mg per tablet nabumetone (RELAFEN) 500 mg tablet nystatin (MYCOSTATIN) 100,000 unit/mL suspension Take 5 mL by mouth four times daily. 1tsp swish in mouth for several minutes, then swallow (or expectorate) 4 times daily until gone. OXcarbazepine (TRILEPTAL) [address] (PROTONIX) 20 mg tablet QUEtiapine (SEROQUEL) 50 mg tablet thiamine (VITAMIN B1) 100 mg tablet UBRELVY 100 mg tablet No family history on file. Social History Tobacco Use Smoking status: Every Day Packs/day: 0.50 Years: 25.00 Additional pack years: 0.00 Total pack years: 12.50 Types: Cigarettes Smokeless tobacco: Never Substance Use Topics Alcohol use: No Drug use: No ASSESSMENT/PLAN: 1. Sore throat - ICD9: 462, ICD10: J02.9 (primary diagnosis) - STREP A MOLECULAR (POC) 2. URI, acute - ICD9: 465.9, ICD10: J06.9 - COVID AND INFLUENZA A/B AND RSV NAAT, ROUTINE OTC medication for symptoms management. Potential red flag symptoms discussed with the patient. Reviewed appropriate action plan to take if red flag symptoms occur. Patient agreeable to treatment plan. Melida Chilel APRN.[facility] 02-21-2023 History of Present illness Narrative CC: Patient presents with: Cough: MEREDITH, vomiting, congestion, eye pain x1 day HPI: iHlda Leo is a 57 year old male who presents to the office with complaint of head congestion, cough, nonproductive, and sore throat for the past day. Symptoms are worsening Associated symptoms includes sore throat. Denies nausea, vomiting , and diarrhea. Treatments tried include nothing so far. with no relief of symptoms. Sick contacts: unknown. History of asthma, frequent episodes of bronchitis, chronic bronchitis, bronchiectasis or COPD: No Smoker: No Seasonal/environmental allergies: No The ROS is otherwise negative. The patient's pmh, medications, allergies, and past visits are reviewed. PHYSICAL EXAM: BP 135/84 Pulse (!) 7 Temp 36.4 C (97.5 F) Resp 18 Wt 82.2 kg (181 lb 3.2 oz) SpO2 95% General appearance: alert, cooperative, pleasant, in no acute distress Head: Normocephalic Eyes: EOM's intact, conjunctiva pink and moist, no icterus, sclera white, non-injected Ears: Right ear: External ear/canal- Normal, TM - clear with good landmarks. Left ear: External ear/canal- Normal, TM - clear with good landmarks Oropharynx:moderate erythema, without exudates present Heart: Negative. RRR without obvious murmur, gallop, or rubs. No ectopy. Lungs: clear to auscultation, without rales or wheeze, good air exchange PAST MEDICAL HISTORY Diagnosis Date Alcohol abuse Anxiety COPD (chronic obstructive pulmonary disease) ([facility]) CVA (cerebral vascular accident) ([facility]) Hypertension Migraine headache PAST SURGICAL HISTORY Procedure Laterality Date %ACLUK2 1ST EDILIA 2006 ACL repair times 3 on Left ANKLE Left ALLERGIES Nicotine and Ultram [Tramadol Hcl] MEDICATIONS acetaminophen/dp-hydram hcl(TYLENOL PM EXTRA STRENGTH 25 MG-500 MG TAB) AJOVY SYRINGE 225 mg/1.5 mL syringe inject 1 AND 1/2 milliliters ( 225 milligrams ) subcutaneously Ev... (REFER TO PRESCRIPTION NOTES). albuterol HFA (PROAIR HFA) 90 mcg/actuation inhaler Inhale 2 Puffs as instructed every 4 hours as needed. amitriptyline (ELAVIL) 25 mg tablet Take by mouth. amLODIPine (NORVASC) 5 mg tablet atorvastatin (LIPITOR) 80 mg tablet Cholecalciferol, Vitamin D3, 50 mcg (2,000 unit) cap folic acid 1 mg tablet hydrOXYzine HCl (ATARAX) 50 mg tablet lamoTRIgine (LAMICTAL) 200 mg tablet Take 200 mg by mouth once daily. lisinopril-hydroCHLOROthiazide (PRINZIDE,ZESTORETIC) 10-12.5 mg per tablet nabumetone (RELAFEN) 500 mg tablet nystatin (MYCOSTATIN) 100,000 unit/mL suspension Take 5 mL by mouth four times daily. 1tsp swish in mouth for several minutes, then swallow (or expectorate) 4 times daily until gone. OXcarbazepine (TRILEPTAL) [address] (PROTONIX) 20 mg tablet QUEtiapine (SEROQUEL) 50 mg tablet thiamine (VITAMIN B1) 100 mg tablet UBRELVY 100 mg tablet No family history on file. Social History Tobacco Use Smoking status: Every Day Packs/day: 0.50 Years: 25.00 Additional pack years: 0.00 Total pack years: 12.50 Types: Cigarettes Smokeless tobacco: Never Substance Use Topics Alcohol use: No Drug use: No ASSESSMENT/PLAN: 1. Sore throat - ICD9: 462, ICD10: J02.9 (primary diagnosis) \ - STREP A MOLECULAR (POC) 2. URI, acute - ICD9: 465.9, ICD10: J06.9 - COVID & INFLUENZA A/B & RSV NAAT, ROUTINE OTC medication for symptoms management. Potential red flag symptoms discussed with the patient. Reviewed appropriate action plan to take if red flag symptoms occur. Patient agreeable to treatment plan. Melida Chilel APRN.LEBRON documented in this encounter [facility] 01-22-2023 Note HNO ID: [id number] Author: Pattie Diehl RT(R) Service: Radiology Author Type: Technologist Type: Progress Notes Filed: 01/22/2023 9:05 AM Note Text: Radiology Service Progress Note PATIENT NAME: Hilda Leo DATE OF SERVICE: January 22, 2023 TIME: 8:55 AM PATIENT IDENTITY VERIFICATION COMPLETED USING TWO (2) IDENTIFIERS: Name and Date of confirmed by patient verbally. FALL SCREENING: Has the patient had 2 falls in the last year or 1 fall with injury or currently using an Ambulatory Assistive Device (Walker, Cane, Wheelchair, Crutches, etc.)? No PATIENT GENDER DATA: Male PATIENT RELEVANT IMPLANT DATA REVIEWED: Not Applicable RADIOLOGY DEPARTMENT: General X-ray: Exam(s) Completed: Lower Extremity X-Ray(s): Knee, AP / Lat / Tunne / Merchant Left and Wt. Bearing PERIPHERAL IV DATA: Not applicable SIGNED BY: RT Romain(R) January 22, 2023 8:55 AM [facility] 01-22-2023 Note HNO ID: [id number] Author: Faiza Álvarez PA-C Service: ? Author Type: Physician Customer Development Representative Type: Progress Notes Filed: 01/22/2023 10:38 AM Note Text: 01/22/2023 Patient presents with: Knee Pain: left x 2 weeks, denies injury SUBJECTIVE: This is a 57 year old that is here today for Complaint(s) of left knee pain x 2-3 weeks. States he does recall planting foot and twisted knee to the outside. Has had some swelling in the knee sincthat time. Shooting pain from the top of the knee to the outside of the knee. Previous history of surgery for meniscal tear and ACL tear. PAST MEDICAL HISTORY Diagnosis Date Alcohol abuse Anxiety COPD (chronic obstructive pulmonary disease) ([facility]) CVA (cerebral vascular accident) ([facility]) Hypertension Migraine headache ALLERGIES Nicotine and Ultram [Tramadol Hcl] MEDICATIONS Current Outpatient Medications Medication Sig nystatin (MYCOSTATIN) 100,000 unit/mL suspension Take 5 mL by mouth four times daily. 1tsp swish in mouth for several minutes, then swallow (or expectorate) 4 times daily until gone. albuterol HFA (PROAIR HFA) 90 mcg/actuation inhaler Inhale 2 Puffs as instructed every 4 hours as needed. amitriptyline (ELAVIL) 25 mg tablet Take by mouth. amLODIPine (NORVASC) 5 mg tablet atorvastatin (LIPITOR) 80 mg tablet Cholecalciferol, Vitamin D3, 50 mcg (2,000 unit) cap folic acid 1 mg tablet AJOVY SYRINGE 225 mg/1.5 mL syringe inject 1 AND 1/2 milliliters ( 225 milligrams ) subcutaneously Ev... (REFER TO PRESCRIPTION NOTES). hydrOXYzine HCl (ATARAX) 50 mg tablet lamoTRIgine (LAMICTAL) 200 mg tablet Take 200 mg by mouth once daily. lisinopril-hydroCHLOROthiazide (PRINZIDE,ZESTORETIC) 10-12.5 mg per tablet nabumetone (RELAFEN) 500 mg tablet OXcarbazepine (TRILEPTAL) [address] (PROTONIX) 20 mg tablet QUEtiapine (SEROQUEL) 50 mg tablet thiamine (VITAMIN B1) 100 mg tablet UBRELVY 100 mg tablet acetaminophen/dp-hydram hcl(TYLENOL PM EXTRA STRENGTH 25 MG-500 MG TAB) No current facility-administered medications for this visit. SOCIAL HISTORY Social History Tobacco Use Smoking status: Every Day Packs/day: 0.50 Years: 25.00 Additional pack years: 0.00 Total pack years: 12.50 Types: Cigarettes Smokeless tobacco: Never Substance Use Topics Alcohol use: No Drug use: No REVIEW OF SYSTEMS See HPI OBJECTIVE: BP 122/72 Pulse 80 Temp 36.3 ?C (97.4 ?F) Resp 16 Wt 87.1 kg (192 lb) SpO2 96% APPEARANCE Well appearing, alert, in no acute distress, well-hydrated, well nourished. EXTREMITIES DONNY trace LE edema, non-pitting in ankles DONNY. No calf TTP. Negative Homans'. Left knee with normal ROM. + TTP in joint lines DONNY and over infra and supra patella. + edema present. No erythema, warmth. ASSESSMENT/PLAN: 1. Acute pain of left knee - ICD9: 719.46, ICD10: M25.562 XR shows joint space narrowing, with effusion. Recommend referral to orthopedics for evaluation David wrap applied, ice, rest Continue tylenol/motrin prn - XR KNEE GENERAL 4V AP BOTH/PA BOTH/LAT/MERC LEFT - CONSULT TO ORTHOPAEDICS The patient indicates understanding of these issues and agrees with the plan Reviewed red flags and when to seek care sooner. Faiza Álvarez PA-C [facility] 01-22-2023 History of Present illness Narrative 01/22/2023 Patient presents with: Knee Pain: left x 2 weeks, denies injury SUBJECTIVE: This is a 57 year old that is here today for Complaint(s) of left knee pain x 2-3 weeks. States he does recall planting foot and twisted knee to the outside. Has had some swelling in the knee sincthat time. Shooting pain from the top of the knee to the outside of the knee. Previous history of surgery for meniscal tear and ACL tear. PAST MEDICAL HISTORY Diagnosis Date Alcohol abuse Anxiety COPD (chronic obstructive pulmonary disease) ([facility]) CVA (cerebral vascular accident) ([facility]) Hypertension Migraine headache ALLERGIES Nicotine and Ultram [Tramadol Hcl] MEDICATIONS Current Outpatient Medications Medication Sig nystatin (MYCOSTATIN) 100,000 unit/mL suspension Take 5 mL by mouth four times daily. 1tsp swish in mouth for several minutes, then swallow (or expectorate) 4 times daily until gone. albuterol HFA (PROAIR HFA) 90 mcg/actuation inhaler Inhale 2 Puffs as instructed every 4 hours as needed. amitriptyline (ELAVIL) 25 mg tablet Take by mouth. amLODIPine (NORVASC) 5 mg tablet atorvastatin (LIPITOR) 80 mg tablet Cholecalciferol, Vitamin D3, 50 mcg (2,000 unit) cap folic acid 1 mg tablet AJOVY SYRINGE 225 mg/1.5 mL syringe inject 1 AND 1/2 milliliters ( 225 milligrams ) subcutaneously Ev... (REFER TO PRESCRIPTION NOTES). hydrOXYzine HCl (ATARAX) 50 mg tablet lamoTRIgine (LAMICTAL) 200 mg tablet Take 200 mg by mouth once daily. lisinopril-hydroCHLOROthiazide (PRINZIDE,ZESTORETIC) 10-12.5 mg per tablet nabumetone (RELAFEN) 500 mg tablet OXcarbazepine (TRILEPTAL) [address] (PROTONIX) 20 mg tablet QUEtiapine (SEROQUEL) 50 mg tablet thiamine (VITAMIN B1) 100 mg tablet UBRELVY 100 mg tablet acetaminophen/dp-hydram hcl(TYLENOL PM EXTRA STRENGTH 25 MG-500 MG TAB) No current facility-administered medications for this visit. SOCIAL HISTORY Social History Tobacco Use Smoking status: Every Day Packs/day: 0.50 Years: 25.00 Additional pack years: 0.00 Total pack years: 12.50 Types: Cigarettes Smokeless tobacco: Never Substance Use Topics Alcohol use: No Drug use: No REVIEW OF SYSTEMS See HPI OBJECTIVE: BP 122/72 Pulse 80 Temp 36.3 C (97.4 F) Resp 16 Wt 87.1 kg (192 lb) SpO2 96% APPEARANCE Well appearing, alert, in no acute distress, well-hydrated, well nourished. EXTREMITIES DONNY trace LE edema, non-pitting in ankles DONNY. No calf TTP. Negative Homans'. Left knee with normal ROM. + TTP in joint lines DONNY and over infra and supra patella. + edema present. No erythema, warmth. ASSESSMENT/PLAN: 1. Acute pain of left knee - ICD9: 719.46, ICD10: M25.562 XR shows joint space narrowing, with effusion. Recommend referral to orthopedics for evaluation David wrap applied, ice, rest Continue tylenol/motrin prn - XR KNEE GENERAL 4V AP BOTH/PA BOTH/LAT/MERC LEFT - CONSULT TO ORTHOPAEDICS The patient indicates understanding of these issues and agrees with the plan Reviewed red flags and when to seek care sooner. Faiza Álvarez PA-C documented in this encounter [facility] 01-08-2023 Miscellaneous Notes Patient given results and verbalized understanding of instructions given. Sybil Preston Left message for pt to call back. Roseanne Mcclellan MA Left VM instructing patient to return call to receive results. Cyndie Lopez MA COVID-19, influenza A, and influenza B PCR test are negative. Continue supportive therapies as discussed during visit. Follow-up with PCP if symptoms are not improving. Del Keyes APRN.FORESTRY WORKER documented in this encounter [facility] 01-02-2023 Note HNO ID: [id number] Author: Mendez Guillory MD Service: ? Author Type: Physician Type: Progress Notes Filed: 01/02/2023 4:12 PM Note Text: Patient presents with: Headache: Fatigue x2 days HPI: Feeling poorly for a couple days. Positive symptoms: Fatigue, malaise, all over Headache, some Diarrhea, poor appetite, Negative symptoms: change in chronic Cough or shortness of breath, Nasal Congestion, Rhinorrhea, Fever, Nausea, Vomiting, OTC: ubrelvy MEDICATIONS: Current Outpatient Medications Medication Sig nystatin (MYCOSTATIN) 100,000 unit/mL suspension Take 5 mL by mouth four times daily. 1tsp swish in mouth for several minutes, then swallow (or expectorate) 4 times daily until gone. albuterol HFA (PROAIR HFA) 90 mcg/actuation inhaler Inhale 2 Puffs as instructed every 4 hours as needed. amitriptyline (ELAVIL) 25 mg tablet Take by mouth. amLODIPine (NORVASC) 5 mg tablet atorvastatin (LIPITOR) 80 mg tablet Cholecalciferol, Vitamin D3, 50 mcg (2,000 unit) cap folic acid 1 mg tablet AJOVY SYRINGE 225 mg/1.5 mL syringe inject 1 AND 1/2 milliliters ( 225 milligrams ) subcutaneously Ev... (REFER TO PRESCRIPTION NOTES). hydrOXYzine HCl (ATARAX) 50 mg tablet lamoTRIgine (LAMICTAL) 200 mg tablet Take 200 mg by mouth once daily. lisinopril-hydroCHLOROthiazide (PRINZIDE,ZESTORETIC) 10-12.5 mg per tablet nabumetone (RELAFEN) 500 mg tablet OXcarbazepine (TRILEPTAL) [address] (PROTONIX) 20 mg tablet QUEtiapine (SEROQUEL) 50 mg tablet thiamine (VITAMIN B1) 100 mg tablet UBRELVY 100 mg tablet acetaminophen/dp-hydram hcl(TYLENOL PM EXTRA STRENGTH 25 MG-500 MG TAB) No current facility-administered medications for this visit. ALLERGIES: ALLERGIES Allergen Reactions Nicotine Other: See Comments Nicotine patches, contact dermatitis Ultram [Tramadol Hc* Hives, GI Upset VITALS: BP 114/79 Pulse 104 Temp 36.6 ?C (97.8 ?F) Resp 20 Wt 81.1 kg (178 lb 12.8 oz) SpO2 96% PHYSICAL EXAM: GEN: mildly ill appearing HEENT: PERRL, EOMI, conjunctiva clear Ears: canals clear. TMs without erythema, bulge, or effusion Sinuses: non-tender frontal sinus, non-tender maxillary sinuses Throat: moist mucous membranes, smooth erythema of tongue and mucosa, no exudate Neck: supple, no thyromegaly, no lymphadenopathy HEART: regular rate and rhythm, no murmurs LUNGS: right lung base crackles, no wheezes, no increased WOB ABD: Soft, protuberant, non-tender, no masses ASSESSMENT/PLAN: 1. Headache, unspecified headache type - ICD9: 784.0, ICD10: R51.9 (primary diagnosis) 2. Malaise and fatigue - ICD9: 780.79, ICD10: R53.81, R53.83 3. Pneumonia of lower lobe due to infectious organism, unspecified laterality - ICD9: 486, ICD10: J18.9 Patient is primarily concerned with a work note for today. He did not volunteer that he was seen in [facility] ER yesterday for malaise and abnormal behavior - rule out [facility] Brain/Head without Contrast Date of Exam: 01/01/[address] scan of the brain. Chest 1 View (Portable) on 01-01-2023 showed Hazy opacities in the lung bases suspicious for pneumonia. He was prescribed levofloxacin 500 mg tablet 500 mg PO DAILY #7 tabs 01/01/23. He will turkey picker levaquin tomorrow, it was not available at the pharmacy Add - COVID AND INFLUENZA A/B NAAT, ROUTINE Work note provided for today. Mendez Guillory MD [facility] 01-02-2023 History of Present illness Narrative Patient presents with: Headache: Fatigue x2 days HPI: Feeling poorly for a couple days. Positive symptoms: Fatigue, malaise, all over Headache, some Diarrhea, poor appetite, Negative symptoms: change in chronic Cough or shortness of breath, Nasal Congestion, Rhinorrhea, Fever, Nausea, Vomiting, OTC: ubrelvy MEDICATIONS: Current Outpatient Medications Medication Sig nystatin (MYCOSTATIN) 100,000 unit/mL suspension Take 5 mL by mouth four times daily. 1tsp swish in mouth for several minutes, then swallow (or expectorate) 4 times daily until gone. albuterol HFA (PROAIR HFA) 90 mcg/actuation inhaler Inhale 2 Puffs as instructed every 4 hours as needed. amitriptyline (ELAVIL) 25 mg tablet Take by mouth. amLODIPine (NORVASC) 5 mg tablet atorvastatin (LIPITOR) 80 mg tablet Cholecalciferol, Vitamin D3, 50 mcg (2,000 unit) cap folic acid 1 mg tablet AJOVY SYRINGE 225 mg/1.5 mL syringe inject 1 AND 1/2 milliliters ( 225 milligrams ) subcutaneously Ev... (REFER TO PRESCRIPTION NOTES). hydrOXYzine HCl (ATARAX) 50 mg tablet lamoTRIgine (LAMICTAL) 200 mg tablet Take 200 mg by mouth once daily. lisinopril-hydroCHLOROthiazide (PRINZIDE,ZESTORETIC) 10-12.5 mg per tablet nabumetone (RELAFEN) 500 mg tablet OXcarbazepine (TRILEPTAL) [address] (PROTONIX) 20 mg tablet QUEtiapine (SEROQUEL) 50 mg tablet thiamine (VITAMIN B1) 100 mg tablet UBRELVY 100 mg tablet acetaminophen/dp-hydram hcl(TYLENOL PM EXTRA STRENGTH 25 MG-500 MG TAB) No current facility-administered medications for this visit. ALLERGIES: ALLERGIES Allergen Reactions Nicotine Other: See Comments Nicotine patches, contact dermatitis Ultram [Tramadol Hc* Hives, GI Upset VITALS: BP 114/79 Pulse 104 Temp 36.6 C (97.8 F) Resp 20 Wt 81.1 kg (178 lb 12.8 oz) SpO2 96% PHYSICAL EXAM: GEN: mildly ill appearing HEENT: PERRL, EOMI, conjunctiva clear Ears: canals clear. TMs without erythema, bulge, or effusion Sinuses: non-tender frontal sinus, non-tender maxillary sinuses Throat: moist mucous membranes, smooth erythema of tongue and mucosa, no exudate Neck: supple, no thyromegaly, no lymphadenopathy HEART: regular rate and rhythm, no murmurs LUNGS: right lung base crackles, no wheezes, no increased WOB ABD: Soft, protuberant, non-tender, no masses ASSESSMENT/PLAN: 1. Headache, unspecified headache type - ICD9: 784.0, ICD10: R51.9 (primary diagnosis) 2. Malaise and fatigue - ICD9: 780.79, ICD10: R53.81, R53.83 3. Pneumonia of lower lobe due to infectious organism, unspecified laterality - ICD9: 486, ICD10: J18.9 Patient is primarily concerned with a work note for today. He did not volunteer that he was seen in [facility] ER yesterday for malaise and abnormal behavior - rule out [facility] Brain/Head without Contrast Date of Exam: 01/01/[address] scan of the brain. Chest 1 View (Portable) on 01-01-2023 showed Hazy opacities in the lung bases suspicious for pneumonia. He was prescribed levofloxacin 500 mg tablet 500 mg PO DAILY #7 tabs 01/01/23. He will turkey picker levaquin tomorrow, it was not available at the pharmacy Add - COVID & INFLUENZA A/B NAAT, ROUTINE Work note provided for today. Mendez Guillory MD documented in this encounter [facility] 09-10-2022 Note HNO ID: [id number] Author: RT Romain(R) Service: Nuclear Medicine Author Type: Technologist Type: Progress Notes Filed: 09/10/2022 12:17 PM Note Text: Radiology Service Progress Note PATIENT NAME: Hilda Leo DATE OF SERVICE: September 10, 2022 TIME: 12:06 PM PATIENT IDENTITY VERIFICATION COMPLETED USING TWO (2) IDENTIFIERS: Name and Date of confirmed by patient verbally. FALL SCREENING: Has the patient had 2 falls in the last year or 1 fall with injury or currently using an Ambulatory Assistive Device (Walker, Cane, Wheelchair, Crutches, etc.)? No PATIENT GENDER DATA: Male PATIENT RELEVANT IMPLANT DATA REVIEWED: Not Applicable RADIOLOGY DEPARTMENT: General X-ray: Exam(s) Completed: Chest X-Ray PERIPHERAL IV DATA: Not applicable SIGNED BY: RT Romain(R) September 10, 2022 12:06 PM [facility] 09-10-2022 Note HNO ID: [id number] Author: Mendez Guillory MD Service: ? Author Type: Physician Type: Progress Notes Filed: 09/10/2022 12:59 PM Note Text: Patient presents with: Cough: MEREDITH, fatigue x1 week HPI: Feeling sick for 1 week. Negative COVID here 09/05/22. Positive symptoms: Cough, Fatigue (falling asleep easily), Headache, dyspnea with walking, chest hurts to cough, improving Nasal Congestion/Rhinorrhea, resolved fever/sweats, improved sore throat Negative symptoms: leg edema, OTC: Mucinex. Prescribed nystatin for thrush last week. MEDICATIONS: Current Outpatient Medications Medication Sig nystatin (MYCOSTATIN) 100,000 unit/mL suspension Take 5 mL by mouth four times daily. 1tsp swish in mouth for several minutes, then swallow (or expectorate) 4 times daily until gone. albuterol HFA (PROAIR HFA) 90 mcg/actuation inhaler Inhale 2 Puffs as instructed every 4 hours as needed. amitriptyline (ELAVIL) 25 mg tablet Take by mouth. amLODIPine (NORVASC) 5 mg tablet atorvastatin (LIPITOR) 80 mg tablet Cholecalciferol, Vitamin D3, 50 mcg (2,000 unit) cap folic acid 1 mg tablet AJOVY SYRINGE 225 mg/1.5 mL syringe inject 1 AND 1/2 milliliters ( 225 milligrams ) subcutaneously Ev... (REFER TO PRESCRIPTION NOTES). hydrOXYzine HCl (ATARAX) 50 mg tablet lamoTRIgine (LAMICTAL) 200 mg tablet Take 200 mg by mouth once daily. lisinopril-hydroCHLOROthiazide (PRINZIDE,ZESTORETIC) 10-12.5 mg per tablet nabumetone (RELAFEN) 500 mg tablet OXcarbazepine (TRILEPTAL) [address] (PROTONIX) 20 mg tablet QUEtiapine (SEROQUEL) 50 mg tablet thiamine (VITAMIN B1) 100 mg tablet UBRELVY 100 mg tablet acetaminophen/dp-hydram hcl(TYLENOL PM EXTRA STRENGTH 25 MG-500 MG TAB) No current facility-administered medications for this visit. ALLERGIES: ALLERGIES Allergen Reactions Ultram [Tramadol Hc* Hives, GI Upset Vicodin [Hydrocodon* Hives, GI Upset VITALS: BP 98/62 Pulse 101 Temp 36.2 ?C (97.2 ?F) Resp 20 Wt 84.6 kg (186 lb 6.4 oz) SpO2 92% PHYSICAL EXAM: GEN: mildly ill appearing, alert, pleasant HEENT: PERRL, EOMI, conjunctiva clear Ears: canals clear. TMs without erythema, bulge, or effusion Sinuses: non-tender frontal sinus, non-tender maxillary sinuses Throat: slightly glossy/tachy mucous membranes, mild erythema, no exudate, no white patches Neck: supple, no thyromegaly, no lymphadenopathy HEART: borderline fast rate and regular rhythm, no murmurs LUNGS: clear to auscultation, no wheezes or crackles, no increased WOB ASSESSMENT/PLAN: 1. COPD with exacerbation (HCC) - ICD9: 491.21, ICD10: J44.1 (primary diagnosis) 2. Acute cough - ICD9: 786.2, ICD10: R05.1 - XR CHEST 2V FRONTAL/LAT1. Peribronchial cuffing which may be seen with small airways inflammation. - DOXYCYCLINE MONOHYDRATE 100 MG CAPSULE 3. Abnormal CXR (chest x-ray) - ICD9: 793.2, ICD10: R93.89 Minimal opacity at the left base, subsegmental atelectasis versus small focus of bronchopneumonia in the appropriate clinical setting. Reviewed with patient to keep his follow up with pulmonology in the next couple weeks for review and repeat imaging of left lower lung abnormality. Mendez Guillory MD [facility] 09-10-2022 Instructions Mendez Guillory MD - 09/10/2022 12:48 PM EDT Follow up with your lung doctor for follow up. Your chest xray today showed: IMPRESSION: 1. Peribronchial cuffing which may be seen with small airways inflammation. 2. Minimal opacity at the left base, subsegmental atelectasis versus small focus of bronchopneumonia in the appropriate clinical setting. documented in this encounter [facility] 09-10-2022 History of Present illness Narrative Patient presents with: Cough: MEREDITH, fatigue x1 week HPI: Feeling sick for 1 week. Negative COVID here 09/05/22. Positive symptoms: Cough, Fatigue (falling asleep easily), Headache, dyspnea with walking, chest hurts to cough, improving Nasal Congestion/Rhinorrhea, resolved fever/sweats, improved sore throat Negative symptoms: leg edema, OTC: Mucinex. Prescribed nystatin for thrush last week. MEDICATIONS: Current Outpatient Medications Medication Sig nystatin (MYCOSTATIN) 100,000 unit/mL suspension Take 5 mL by mouth four times daily. 1tsp swish in mouth for several minutes, then swallow (or expectorate) 4 times daily until gone. albuterol HFA (PROAIR HFA) 90 mcg/actuation inhaler Inhale 2 Puffs as instructed every 4 hours as needed. amitriptyline (ELAVIL) 25 mg tablet Take by mouth. amLODIPine (NORVASC) 5 mg tablet atorvastatin (LIPITOR) 80 mg tablet Cholecalciferol, Vitamin D3, 50 mcg (2,000 unit) cap folic acid 1 mg tablet AJOVY SYRINGE 225 mg/1.5 mL syringe inject 1 AND 1/2 milliliters ( 225 milligrams ) subcutaneously Ev... (REFER TO PRESCRIPTION NOTES). hydrOXYzine HCl (ATARAX) 50 mg tablet lamoTRIgine (LAMICTAL) 200 mg tablet Take 200 mg by mouth once daily. lisinopril-hydroCHLOROthiazide (PRINZIDE,ZESTORETIC) 10-12.5 mg per tablet nabumetone (RELAFEN) 500 mg tablet OXcarbazepine (TRILEPTAL) [address] (PROTONIX) 20 mg tablet QUEtiapine (SEROQUEL) 50 mg tablet thiamine (VITAMIN B1) 100 mg tablet UBRELVY 100 mg tablet acetaminophen/dp-hydram hcl(TYLENOL PM EXTRA STRENGTH 25 MG-500 MG TAB) No current facility-administered medications for this visit. ALLERGIES: ALLERGIES Allergen Reactions Ultram [Tramadol Hc* Hives, GI Upset Vicodin [Hydrocodon* Hives, GI Upset VITALS: BP 98/62 Pulse 101 Temp 36.2 C (97.2 F) Resp 20 Wt 84.6 kg (186 lb 6.4 oz) SpO2 92% PHYSICAL EXAM: GEN: mildly ill appearing, alert, pleasant HEENT: PERRL, EOMI, conjunctiva clear Ears: canals clear. TMs without erythema, bulge, or effusion Sinuses: non-tender frontal sinus, non-tender maxillary sinuses Throat: slightly glossy/tachy mucous membranes, mild erythema, no exudate, no white patches Neck: supple, no thyromegaly, no lymphadenopathy HEART: borderline fast rate and regular rhythm, no murmurs LUNGS: clear to auscultation, no wheezes or crackles, no increased WOB ASSESSMENT/PLAN: 1. COPD with exacerbation (HCC) - ICD9: 491.21, ICD10: J44.1 (primary diagnosis) 2. Acute cough - ICD9: 786.2, ICD10: R05.1 - XR CHEST 2V FRONTAL/LAT1. Peribronchial cuffing which may be seen with small airways inflammation. - DOXYCYCLINE MONOHYDRATE 100 MG CAPSULE 3. Abnormal CXR (chest x-ray) - ICD9: 793.2, ICD10: R93.89 Minimal opacity at the left base, subsegmental atelectasis versus small focus of bronchopneumonia in the appropriate clinical setting. Reviewed with patient to keep his follow up with pulmonology in the next couple weeks for review and repeat imaging of left lower lung abnormality. Mendez Guillory MD documented in this encounter [facility] 09-05-2022 Note HNO ID: [id number] Author: Mendez Guillory MD Service: ? Author Type: Physician Type: Progress Notes Filed: 09/05/2022 5:25 PM Note Text: Patient presents with: Cough: Body aches, chest congestion, MEREDITH x 2 days HPI: Feeling sick for a few days. Positive symptoms: Cough (occasional brown production), Chest tightness, Body Aches, Headache, Shortness of breath, Wheezing, Nasal Congestion, Rhinorrhea, Fever, Negative symptoms: Vomiting, Diarrhea, OTC: inhaler. Augmentin 08/15/22 (COPD exacerbation) and 08/28/22 (gingivitis), azithromycin 07/11/22. Dx with pneumonia in June, cleared on CXR through [facility] 08/22/22. Has had steroid recently also. Has not had known COVID illness. Smoking down to 1/4 PPD. MEDICATIONS: Current Outpatient Medications Medication Sig albuterol HFA (PROAIR HFA) 90 mcg/actuation inhaler Inhale 2 Puffs as instructed every 4 hours as needed. amitriptyline (ELAVIL) 25 mg tablet Take by mouth. amLODIPine (NORVASC) 5 mg tablet atorvastatin (LIPITOR) 80 mg tablet Cholecalciferol, Vitamin D3, 50 mcg (2,000 unit) cap folic acid 1 mg tablet [employer] SYRINGE 225 mg/1.5 mL syringe inject 1 AND 1/2 milliliters ( 225 milligrams ) subcutaneously Ev... (REFER TO PRESCRIPTION NOTES). hydrOXYzine HCl (ATARAX) 50 mg tablet lamoTRIgine (LAMICTAL) 200 mg tablet Take 200 mg by mouth once daily. lisinopril-hydroCHLOROthiazide (PRINZIDE,ZESTORETIC) 10-12.5 mg per tablet nabumetone (RELAFEN) 500 mg tablet OXcarbazepine (TRILEPTAL) [address] (PROTONIX) 20 mg tablet QUEtiapine (SEROQUEL) 50 mg tablet thiamine (VITAMIN B1) 100 mg tablet UBRELVY 100 mg tablet acetaminophen/dp-hydram hcl(TYLENOL PM EXTRA STRENGTH 25 MG-500 MG TAB) No current facility-administered medications for this visit. ALLERGIES: ALLERGIES Allergen Reactions Ultram [Tramadol Hc* Hives, GI Upset Vicodin [Hydrocodon* Hives, GI Upset VITALS: Pulse 112 Temp 37.8 ?C (100.1 ?F) Resp 21 Wt 87.2 kg (192 lb 3.2 oz) SpO2 93% Vitals PULSE OX 03/27/2019 97 03/01/2020 96 12/19/2021 97 12/26/2021 98 04/02/2022 98 09/05/2022 93 PHYSICAL EXAM: GEN: mildly ill appearing, alert. History is obtained from patient and chart with poor patient accuracy of recall. HEENT: PERRL, EOMI, conjunctiva clear Ears: canals clear. TMs without erythema, bulge, or effusion Sinuses: non-tender frontal sinus, non-tender maxillary sinuses Throat: glossy dry mucous membranes, mild erythema, white patches on the tongue, palate, and pharynx, Neck: supple, no thyromegaly, no lymphadenopathy HEART: borderline fast rate, regular rhythm, no murmurs LUNGS: few crackles right base, no increased WOB ASSESSMENT/PLAN: 1. Viral URI with cough - ICD9: 465.9, ICD10: J06.9 (primary diagnosis) - 2019 CORONAVIRUS He would be a high risk patient suitable for antiviral consideration if positive. Initial day of symptoms is unclear. Fever, tachycardia, and hypoxia. CXR for possible pneumonia declined. He will seek re-evaluation if not feeling better. 2. Thrush (oral) - ICD9: 112.0, ICD10: B37.0 - NYSTATIN 100,000 UNIT/ML ORAL SUSPENSION Mendez Guillory MD [facility] 09-05-2022 History of Present illness Narrative Patient presents with: Cough: Body aches, chest congestion, MEREDITH x 2 days HPI: Feeling sick for a few days. Positive symptoms: Cough (occasional brown production), Chest tightness, Body Aches, Headache, Shortness of breath, Wheezing, Nasal Congestion, Rhinorrhea, Fever, Negative symptoms: Vomiting, Diarrhea, OTC: inhaler. Augmentin 08/15/22 (COPD exacerbation) and 08/28/22 (gingivitis), azithromycin 07/11/22. Dx with pneumonia in June, cleared on CXR through [facility] 08/22/22. Has had steroid recently also. Has not had known COVID illness. Smoking down to 1/4 PPD. MEDICATIONS: Current Outpatient Medications Medication Sig albuterol HFA (PROAIR HFA) 90 mcg/actuation inhaler Inhale 2 Puffs as instructed every 4 hours as needed. amitriptyline (ELAVIL) 25 mg tablet Take by mouth. amLODIPine (NORVASC) 5 mg tablet atorvastatin (LIPITOR) 80 mg tablet Cholecalciferol, Vitamin D3, 50 mcg (2,000 unit) cap folic acid 1 mg tablet AJOVY SYRINGE 225 mg/1.5 mL syringe inject 1 AND 1/2 milliliters ( 225 milligrams ) subcutaneously Ev... (REFER TO PRESCRIPTION NOTES). hydrOXYzine HCl (ATARAX) 50 mg tablet lamoTRIgine (LAMICTAL) 200 mg tablet Take 200 mg by mouth once daily. lisinopril-hydroCHLOROthiazide (PRINZIDE,ZESTORETIC) 10-12.5 mg per tablet nabumetone (RELAFEN) 500 mg tablet OXcarbazepine (TRILEPTAL) [address] (PROTONIX) 20 mg tablet QUEtiapine (SEROQUEL) 50 mg tablet thiamine (VITAMIN B1) 100 mg tablet UBRELVY 100 mg tablet acetaminophen/dp-hydram hcl(TYLENOL PM EXTRA STRENGTH 25 MG-500 MG TAB) No current facility-administered medications for this visit. ALLERGIES: ALLERGIES Allergen Reactions Ultram [Tramadol Hc* Hives, GI Upset Vicodin [Hydrocodon* Hives, GI Upset VITALS: Pulse 112 Temp 37.8 C (100.1 F) Resp 21 Wt 87.2 kg (192 lb 3.2 oz) SpO2 93% Vitals PULSE OX 03/27/2019 97 03/01/2020 96 12/19/2021 97 12/26/2021 98 04/02/2022 98 09/05/2022 93 PHYSICAL EXAM: GEN: mildly ill appearing, alert. History is obtained from patient and chart with poor patient accuracy of recall. HEENT: PERRL, EOMI, conjunctiva clear Ears: canals clear. TMs without erythema, bulge, or effusion Sinuses: non-tender frontal sinus, non-tender maxillary sinuses Throat: glossy dry mucous membranes, mild erythema, white patches on the tongue, palate, and pharynx, Neck: supple, no thyromegaly, no lymphadenopathy HEART: borderline fast rate, regular rhythm, no murmurs LUNGS: few crackles right base, no increased WOB ASSESSMENT/PLAN: 1. Viral URI with cough - ICD9: 465.9, ICD10: J06.9 (primary diagnosis) - 2019 CORONAVIRUS He would be a high risk patient suitable for antiviral consideration if positive. Initial day of symptoms is unclear. Fever, tachycardia, and hypoxia. CXR for possible pneumonia declined. He will seek re-evaluation if not feeling better. 2. Thrush (oral) - ICD9: 112.0, ICD10: B37.0 - NYSTATIN 100,000 UNIT/ML ORAL SUSPENSION Mendez Guillory MD documented in this encounter [facility] 08-28-2022 Hospital Discharge instructions Patient Education 08/28/2022 15:57:24 AA Rita SMITH(CUSTOM) There is evidence of inflammation on the gums and adjacent soft tissues inside her mouth. Start antibiotic today. I would advise that you keep your dentures out to limit inflammation caused by your dentures. You should follow-up with your dentist. Follow Up Care 08/28/2022 15:43:41 With:KIM DUOMNT DO Address: [address] [place] [address] [place] [address]- [phone] When:2-4 days With:Go to emergency room if symptoms worsen Address:Unknown When:2-[address] [facility] 08-28-2022 Note Discharge Instructions Thank you for allowing [facility] to assist you with your healthcare needs. The following is important discharge information regarding your hospital visit. Diagnosis from Today's Visit Gingivitis Mouth pain What to Do Next Instructions from Your Care Team No qualifying data available. Post Acute Orders No qualifying data available. You Need to Schedule the Following Appointments Follow Up with KIM DUMONT DO When Within 2-4 days Where: [address] [facility] [place] [address]- [phone] Follow Up with Go to emergency room if symptoms worsen When Within 2-4 days Allergies Ultram Medications Please ask your primary doctor or pharmacist before taking any other medication not listed, including over the counter drugs, herbal medications, vitamins and or supplements as they may interact with your home medications. What How Much When Why Instructions Last Dose New amoxicillin (amoxicillin 875 mg oral tablet) 1 tab(s) by mouth Two (2) times a day Gingivitis Printed Prescription New amoxicillin-clavulanate (amoxicillin-clavulanate 875 mg-125 mg oral tablet) 1 tab(s) by mouth Every 12 hours Gingivitis Duration: 7 Days Printed Prescription New naproxen (naproxen 500 mg oral tablet) 1 tab(s) by mouth Two (2) times a day Gingivitis Printed Prescription Unchanged acetaminophen (acetaminophen 500 mg oral tablet) 2 tab(s) by mouth Every 8 hours as needed for as needed for pain in absence of pcp. not to exceed 3000 mg/ day Unchanged albuterol (Ventolin HFA MDI (90 mcg/ inh) inhalation aerosol) 2 puff(s) by inhalation Every 4 hours as needed for Shortness of breath or wheezing Duration: 30 Days use with spacer chamber. PHARMACY PLEASE DISPENSE SPACER. Okay to substitute alternative brand if needed for insurance. Unchanged amLODIPine (amLODIPine 5 mg oral tablet) 1 tab(s) by mouth Once a day in absence of pcp Unchanged atorvastatin (atorvastatin 80 mg oral tablet) 1 tab(s) by mouth Once a day in absence of pcp Unchanged cholecalciferol (Vitamin D3 50 mcg (2000 intl units) oral tablet) 1 tab(s) by mouth Every day in absence of pcp. with food Unchanged cyclobenzaprine (cyclobenzaprine 5 mg oral tablet) 1 tab(s) by mouth Three (3) times a day as needed for Muscle spasm Duration: 30 Days in absence of pcp. Do not drive, operate heavy machinery, or drink alcohol while on this med. Unchanged DME (DME MISCellaneous) See instructions COPD exacerbation Spacer chamber, Dx: J44.1 Unchanged folic acid (folic acid 1 mg oral tablet) 1 tab(s) by mouth Once a day in absence of pcp Unchanged gabapentin (gabapentin 300 mg oral capsule) take 1 capsule by mouth three times a day Unchanged hydrochlorothiazide-lisinopril (hydrochlorothiazide-lisinopril 12.5 mg-10 mg oral tablet) 1 tab(s) by mouth Once a day in absence of pcp Unchanged lamoTRIgine (lamoTRIgine 200 mg oral tablet) 1 tab(s) by mouth Two (2) times a day Unchanged lidocaine topical (lidocaine 4% topical cream) 1 application Topical Three (3) times a day as needed for as needed for pain Duration: 7 Days Apply thin layer to affected area as needed, not to exceed 3 applications in 24 hours Unchanged Misc Medication (RA ASPIRIN 325 MG TABLET) 1 tab by mouth Once a day Unchanged nicotine (nicotine 4 mg oral transmucosal lozenge) 1 lozenge(s) Transmucosal Every 2 hours as needed for as needed for smoking cessation Duration: 12 week(s) do not chew or swallow whole. as directed on package labeling. Weeks 1-6 use 1 lozenge every 1-2 hours as needed, weeks 7-9 use 1 lozenge every 2-4 hours, weeks 10-12 use 1 lozenge every 4-8 hours. Maximum 20 lozenges/ day. Unchanged OXcarbazepine (OXcarbazepine 150 mg oral tablet) 1 tab(s) by mouth Two (2) times a day Unchanged QUEtiapine (QUEtiapine 50 mg oral tablet) 1 tab(s) by mouth Two (2) times a day Unchanged thiamine (Vitamin B1 100 mg oral tablet) 1 tab(s) by mouth Once a day in absence of pcp Unchanged ubrogepant (Ubrelvy 100 mg oral tablet) 1 tab(s) by mouth Once as needed for as needed for migraine headache may repeat dose in 2 hours if needed Please take this list to your next doctor s visit. Bring all medications you take, including over the counter medications, herbals and other supplements with you to your doctor s visit. Patients and families are reminded to discard old lists and to update any records with all medication providers or retail pharmacies. Medication Leaflets naproxen (na PROX en) Aleve, Anaprox-DS, Midol Extended Relief, Naprelan 500, Naprosyn What is the most important information I should know about naproxen? Naproxen can increase your risk of fatal heart attack or stroke. Do not use this medicine just before or after heart bypass surgery (coronary artery bypass graft, or CABG). Naproxen may also cause stomach or intestinal bleeding, which can be fatal. What is naproxen? Naproxen is a nonsteroidal anti-inflammatory drug (NSAID). Naproxen is used to treat pain or inflammation caused by conditions such as arthritis, ankylosing spondylitis, tendinitis, bursitis, gout, or menstrual cramps. The delayed-release or extended-release tablets are slower-acting forms of naproxen that are used only for treating chronic conditions such as arthritis or ankylosing spondylitis. These forms of naproxen will not work fast enough to treat acute pain. Naproxen may also be used for purposes not listed in this medication guide. What should I discuss with my healthcare provider before taking naproxen? Naproxen can increase your risk of fatal heart attack or stroke, even if you don't have any risk factors. Do not use this medicine just before or after heart bypass surgery (coronary artery bypass graft, or CABG). Naproxen may also cause stomach or intestinal bleeding, which can be fatal. These conditions can occur without warning while you are using naproxen, especially in older adults. You should not use naproxen if you are allergic to it, or if you have ever had an asthma attack or severe allergic reaction after taking aspirin or an NSAID. Ask a doctor before giving naproxen to a child younger than 12 years old. Ask a doctor or pharmacist if this medicine is safe to use if you have: heart disease, high blood pressure, high cholesterol, diabetes, or if you smoke; a heart attack, stroke, or blood clot; stomach ulcers or bleeding; asthma; liver or kidney disease; fluid retention; or if you take aspirin to prevent heart attack or stroke. If you are , you should not take naproxen unless your doctor tells you to. Taking an NSAID during the last 20 weeks of can cause serious heart or kidney problems in the unborn baby and possible complications with your . It may not be safe to breastfeed while using this medicine. Ask your doctor about any risk. How should I take naproxen? Use exactly as directed on the label, or as prescribed by your doctor. Use the lowest dose that is effective in treating your condition. Shake the oral suspension (liquid) before you measure a dose. Measure a dose with the supplied measuring device (not a kitchen spoon). Take this medicine with food or milk if it upsets your stomach. Always follow directions on the medicine label about giving this medicine to a child. Naproxen doses are based on weight in children. Your child's dose needs may change if the child gains or loses weight. If you use naproxen long-term, you may need frequent medical tests. This medicine can affect the results of certain medical tests. Tell any doctor who treats you that you are using naproxen. Store at room temperature away from moisture, heat, and light. Keep the bottle tightly closed when not in use. What happens if I miss a dose? Since naproxen is used when needed, you may not be on a dosing schedule. Skip any missed dose if it's almost time for your next dose. Do not use two doses at one time. What happens if I overdose? Seek emergency medical attention or call the Poison Help line at . What should I avoid while taking naproxen? Avoid drinking alcohol. It may increase your risk of stomach bleeding. Avoid taking aspirin or other NSAIDs unless your doctor tells you to. Ask a doctor or pharmacist before using other medicines for pain, fever, swelling, or cold/flu symptoms. They may contain ingredients similar to naproxen (such as aspirin, ibuprofen, or ketoprofen). Ask your doctor before using an antacid, and use only the type your doctor recommends. Some antacids can make it harder for your body to absorb naproxen. What are the possible side effects of naproxen? Get emergency medical help if you have signs of an allergic reaction (runny or stuffy nose, wheezing or trouble breathing, hives, swelling in your face or throat) or a severe skin reaction (fever, sore throat, burning eyes, skin pain, red or purple skin rash with blistering and peeling). Stop using naproxen and seek medical treatment if you have a serious drug reaction that can affect many parts of your body. Symptoms may include skin rash, fever, swollen glands, muscle aches, severe weakness, unusual bruising, or yellowing of your skin or eyes. Get emergency medical help if you have signs of a heart attack or stroke: chest pain spreading to your jaw or shoulder, sudden numbness or weakness on one side of the body, slurred speech, leg swelling, feeling short of breath. Stop using naproxen and call your doctor at once if you have: shortness of breath (even with mild exertion); swelling or rapid weight gain; the first sign of any skin rash or blister, no matter how mild; signs of stomach bleeding--bloody or tarry stools, coughing up blood or vomit that looks like coffee grounds; liver problems--nausea, upper stomach pain, loss of appetite, dark urine, tyler-colored stools, jaundice (yellowing of the skin or eyes); kidney problems--little or no urination, painful urination, swelling in your feet or ankles; or low red blood cells (anemia)--pale skin, unusual tiredness, feeling light-headed or short of breath, cold hands and feet. Common side effects may include: headache; indigestion, heartburn, stomach pain; or flu symptoms; This is not a complete list of side effects and others may occur. Call your doctor for medical advice about side effects. You may report side effects to FDA at 2-353-ZLZ-7115. What other drugs will affect naproxen? Ask your doctor before using naproxen if you take an antidepressant. Taking certain antidepressants with an NSAID may cause you to bruise or bleed easily. Ask a doctor or pharmacist before using naproxen with any other medications, especially: other NSAIDs or salicylates (diflunisal, salsalate); antacids and sucralfate; cholestyramine; cyclosporine; digoxin; lithium; methotrexate; pemetrexed; probenecid; warfarin (Coumadin, Jantoven) or similar blood thinners; a diuretic or 'water pill'; or heart or blood pressure medication. This list is not complete. Other drugs may affect naproxen, including prescription and nvvx-glw-toquejt medicines, vitamins, and herbal products. Not all possible drug interactions are listed here. Where can I get more information? Your pharmacist can provide more information about naproxen. Remember, keep this and all other medicines out of the reach of children, never share your medicines with others, and use this medication only for the indication prescribed. Every effort has been made to ensure that the information provided by [employer]') is accurate, up-to-date, and complete, but no guarantee is made to that effect. Drug information contained herein may be time sensitive. [employer] information has been compiled for use by healthcare practitioners and consumers in the [place] and therefore [employer] does not warrant that uses outside of the [place] are appropriate, unless specifically indicated otherwise. [employer]'s drug information does not endorse drugs, diagnose patients or recommend therapy. [employer] drug information is an informational resource designed to assist licensed healthcare practitioners in caring for their patients and/or to serve consumers viewing this service as a supplement to, and not a substitute for, the expertise, skill, knowledge and judgment of healthcare practitioners. The absence of a warning for a given drug or drug combination in no way should be construed to indicate that the drug or drug combination is safe, effective or appropriate for any given patient. [employer] does not assume any responsibility for any aspect of healthcare administered with the aid of information [employer] provides. The information contained herein is not intended to cover all possible uses, directions, precautions, warnings, drug interactions, allergic reactions, or adverse effects. If you have questions about the drugs you are taking, check with your doctor, nurse or pharmacist. Copyright 8083-6452 [employer].. Version: .. Revision Date: 09/19/2021. amoxicillin and clavulanate potassium (am OK i TERA in KLAV ue JULIA ate vlad TAS ee um) Augmentin What is the most important information I should know about amoxicillin and clavulanate potassium? You should not use this medicine if you have severe kidney disease, if you have had liver problems or jaundice while taking amoxicillin and clavulanate potassium, or if you are allergic to any penicillin or cephalosporin antibiotic, such as Amoxil, Ceftin, Cefzil, Moxatag, Omnicef, and others. What is amoxicillin and clavulanate potassium? Amoxicillin is a penicillin antibiotic. Clavulanate potassium helps prevent certain bacteria from becoming resistant to amoxicillin. Amoxicillin and clavulanate potassium is a combination medicine used to treat many different infections caused by bacteria, such as sinusitis, pneumonia, ear infections, bronchitis, urinary tract infections, and infections of the skin. Amoxicillin and clavulanate potassium may also be used for purposes not listed in this medication guide. What should I discuss with my healthcare provider before taking amoxicillin and clavulanate potassium? You should not use this medicine if you are allergic to it, or if: you have severe kidney disease (or if you are on dialysis); you have had liver problems or jaundice while taking amoxicillin and clavulanate potassium; or you are allergic to any penicillin or cephalosporin antibiotic, such as Amoxil, Ceftin, Cefzil, Moxatag, Omnicef, and others. Tell your doctor if you have ever had: liver disease (hepatitis or jaundice); kidney disease; or mononucleosis. The liquid or chewable tablet may contain phenylalanine. Tell your doctor if you have phenylketonuria (PKU). Tell your doctor if you are or . Amoxicillin and clavulanate potassium can make control pills less effective. Ask your doctor about using a non-hormonal control (condom, diaphragm, cervical cap, or contraceptive sponge) to prevent . Do not give this medicine to a child without medical advice. How should I take amoxicillin and clavulanate potassium? Follow all directions on your prescription label and read all medication guides or instruction sheets. Use the medicine exactly as directed. Amoxicillin and clavulanate potassium may work best if you take it at the start of a meal. Take the medicine every 12 hours. Do not crush or chew the extended-release tablet. Swallow the pill whole, or break the pill in half and take both halves one at a time. Tell your doctor if you have trouble swallowing a whole or half pill. You must chew the chewable tablet before you swallow it. Shake the oral suspension (liquid) before you measure a dose. Use the dosing syringe provided, or use a medicine dose-measuring device (not a kitchen spoon). This medicine can affect the results of certain medical tests. Tell any doctor who treats you that you are using amoxicillin and clavulanate potassium. Use this medicine for the full prescribed length of time, even if your symptoms quickly improve. Skipping doses can increase your risk of infection that is resistant to medication. Amoxicillin and clavulanate potassium will not treat a viral infection such as the flu or a common cold. Store the tablets at room temperature away from moisture and heat. Store the liquid in the refrigerator. Throw away any unused liquid after 10 days. What happens if I miss a dose? Take the medicine as soon as you can, but skip the missed dose if it is almost time for your next dose. Do not take two doses at one time. What happens if I overdose? Seek emergency medical attention or call the Poison Help line at . Overdose can cause nausea, vomiting, stomach pain, diarrhea, skin rash, drowsiness, hyperactivity, and decreased urination. What should I avoid while taking amoxicillin and clavulanate potassium? Avoid taking this medicine together with or just after eating a high-fat meal. This will make it harder for your body to absorb the medication. Antibiotic medicines can cause diarrhea, which may be a sign of a new infection. If you have diarrhea that is watery or bloody, call your doctor before using anti-diarrhea medicine. What are the possible side effects of amoxicillin and clavulanate potassium? Get emergency medical help if you have signs of an allergic reaction (hives, difficult breathing, swelling in your face or throat) or a severe skin reaction (fever, sore throat, burning eyes, skin pain, red or purple skin rash with blistering and peeling). Stop using amoxicillin and clavulanate potassium and seek medical treatment if you have a serious drug reaction that can affect many parts of your body. Symptoms may include skin rash, fever, swollen glands, muscle aches, severe weakness, unusual bruising, or yellowing of your skin or eyes. Call your doctor at once if you have: severe stomach pain, diarrhea that is watery or bloody (even if it occurs months after your last dose); pale or yellowed skin, dark colored urine, fever, confusion or weakness; loss of appetite, upper stomach pain; little or no urination; or easy bruising or bleeding. Common side effects may include: nausea, vomiting; diarrhea; rash, itching; vaginal itching or discharge; or diaper rash. This is not a complete list of side effects and others may occur. Call your doctor for medical advice about side effects. You may report side effects to FDA at 9-579-BPR-0149. What other drugs will affect amoxicillin and clavulanate potassium? Tell your doctor about all your other medicines, especially: allopurinol; probenecid; or a blood thinner--warfarin, Coumadin, Jantoven. This list is not complete. Other drugs may affect amoxicillin and clavulanate potassium, including prescription and ukeg-euu-byuimzj medicines, vitamins, and herbal products. Not all possible drug interactions are listed here. Where can I get more information? Your doctor or pharmacist can provide more information about amoxicillin and clavulanate potassium. Remember, keep this and all other medicines out of the reach of children, never share your medicines with others, and use this medication only for the indication prescribed. Every effort has been made to ensure that the information provided by [employer]') is accurate, up-to-date, and complete, but no guarantee is made to that effect. Drug information contained herein may be time sensitive. [employer] information has been compiled for use by healthcare practitioners and consumers in the [place] and therefore [employer] does not warrant that uses outside of the [place] are appropriate, unless specifically indicated otherwise. [employer] drug information does not endorse drugs, diagnose patients or recommend therapy. [employer] drug information is an informational resource designed to assist licensed healthcare practitioners in caring for their patients and/or to serve consumers viewing this service as a supplement to, and not a substitute for, the expertise, skill, knowledge and judgment of healthcare practitioners. The absence of a warning for a given drug or drug combination in no way should be construed to indicate that the drug or drug combination is safe, effective or appropriate for any given patient. [employer] does not assume any responsibility for any aspect of healthcare administered with the aid of information [employer] provides. The information contained herein is not intended to cover all possible uses, directions, precautions, warnings, drug interactions, allergic reactions, or adverse effects. If you have questions about the drugs you are taking, check with your doctor, nurse or pharmacist. Copyright 6533-0483 [employer].. Version: 14.01. Revision Date: 02/16/2022. Education Materials There is evidence of inflammation on the gums and adjacent soft tissues inside her mouth. Start antibiotic today. I would advise that you keep your dentures out to limit inflammation caused by your dentures. You should follow-up with your dentist. Additional Information VACCINATE! IT SAVES LIVES! Members of the community who have not yet received the COVID-19 vaccine and would like to receive it can visit one of [facility] vaccine clinics. There are many vaccine clinic locations within the [facility]. For locations and available times, please visit [email or web address] [email or web address] It is important to note that some COVID mobile vaccine clinics are held outdoors and may be canceled in rainy or stormy conditions. To learn more about pediatric vaccinations (ages 5-11), we invite you to visit the [employer] webpage. [email or web address].org/pa [email or web address]-Hnyxp-Xekkuzzkieh-Freque xhrk-Nhjqm-Hxkykabzw.html To learn more about the COVID-19 vaccine, we invite you to visit the CDC website for a list of frequently asked questions. https://www.cdc.gov/coronavirus/2 019-ncov/vaccines/faq.html [employer] Patient Portal Access Instructions: Stay connected with your healthcare team and access your personal medical information anytime with the [employer] Patient Portal. If you would like a full copy of your medical records please contact the [facility] Medical Records Department Saturday through Saturday between 8a.m. and 4:30p.m. Please follow the directions below to access the portal: 1.Access the email account you provided upon registration to the hospital.2.Look for an invitation email from [facility].3.Open the email and access the invitation link: Accept Invitation to [facility]4.Fill in the required molina to create your account. Sign into [email or web address] with your username and password that you created in the above steps to stay up to date. You can then view a summary of results, a summary of your visits, and the ability to download your summaries to your computer or send the information securely to a physician. Remember that your healthcare information is confidential, so carefully consider who you will allow to register on the [employer] Patient Portal for access to your information. You can also access the [employer] Patient Portal on the [employer] oswaldo. Simply click on Health Records under Health Data and then click on the [employer] logo. HOW TO SAFELY DISPOSE OF PRESCRIPTION MEDICATIONS Please use one of the following methods to safely dispose of your unused medications. 1.Use a drug disposal kit: the drug disposal pouch allows you to safely discard your old and unused drugs. Ask your nurse to give you one when you are discharged.2.Visit a local take-back location: Many local pharmacies and police departments have programs that collect old and unwanted prescription drugs. Call your local pharmacy or go to http://Monkey Bizness.Altruik/6L8Ii4l to find one close to you.3.Make use of household items: Use cat litter or old coffee grounds to dispose medications if other options are not available. Mix your drugs with these household products, seal them in an airtight container and throw it into the garbage. Call [facility]: [phone] to be sure your drugs can be disposed of in this way. Some medicines may require a different approach.4.Never flush your medications down the toilet. IF YOU HAVE BEEN PRESCRIBED AN OPIOIDS FOR PAIN If you have been prescribed an opioid (such as hydrocodone, oxycodone or morphine), it is critical to understand the possible side effects and risks of opioid pain medications. Even when taken as directed, opioids can have several side effects including: Tolerance, meaning you might need to take more of a medication for the same pain relief. Nausea, vomiting and/or constipation. Sleepiness, dizziness, dry mouth, confusion, depression or itching. Physical dependence, meaning you have withdrawal symptoms when a medication is stopped ? this can develop within a few days. KNOW YOUR RESPONSIBILITIES It is important to know exactly how much and how often to take the opioid pain medications you are prescribed. Never take opioids in higher amounts or more often than prescribed. Do not combine opioids with alcohol or other drugs that cause drowsiness, such as benzodiazepines, also known as benzos, including diazepam and alprazolam, muscle relaxants or sleep aids. Never sell or share prescription opioids. This is illegal. Store opioids in a secure place and out of reach of others (including children, family, friends and visitors). The last page(s) of this document has been signed and retained as a CHART COPY Signatures Patient Education Materials AA Blank DI(CUSTOM) Medication Leaflets naproxen, amoxicillin and clavulanate potassium My discharge plan and instructions have been reviewed and explained to me and I,FELIPA, HILDA R understand my current condition and have read and understand these discharge instructions. I have received a written copy of the plan/instructions. If I have questions, I am aware that I should contact my doctor. Patient/Director Of Placement Signature: Date/Time: Relationship to Patient: ____ Witness Name/Signature: Date/Time: [facility] 06-14-2022 Evaluation + Plan note Future Appointments Appointment Date:06/15/2022 02:45:00 PM Scheduled Provider: Location:[facility] Appointment Type:PC Nurse Injection Appointment Date:07/03/2022 07:30:00 AM Scheduled Provider: Location:[facility] Appointment Type:US Soft Tissue Mass of Neck Appointment Date:07/03/2022 08:30:00 AM Scheduled Provider: Location:[facility] Appointment Type:PF PFT w/Bronchodiltor Appointment Date:07/05/2022 03:30:00 PM Scheduled Provider:KIM DUMONT DO Location:[facility] Appointment Type:PC OV Future Scheduled TestsCT Low Dose Lung Cancer Screening (LDCT) 02/21/22US Soft Tissue Mass of Neck 07/03/[address] [facility] 04-02-2022 Instructions Traci Liriano APRN.CNP - 04/02/2022 5:02 PM EST Albuterol inhaler 2 puffs every 4-6 hours as needed for cough Rest, increase water intake Motrin or Tylenol as needed for fever or pain. Salt water gargles, chloraseptic spray or lozenges as needed for sore throat. Warm beverages, honey. Nasal saline spray as needed Cool mist humidifier at night A cold normally lasts 7-10 days. If your symptoms are lasting longer, develop fever, or worsening by that time instead of improving then return to clinic or follow up with PCP for re-evaluation. Tylenol (generic acetaminophen) 500 mg-2 tabs every 8 hrs. as needed for fever and aches Ibuprofen 600 mg (3-200mg tablets) every 6 hours -Mucinex (generic is fine) Guaifenesin 1200 mg twice daily to help with cough and to thin out mucus * Prednisone 40 mg (2 tablets) per day for 5 days, take in morning or early in day * Do not NSAIDs during this 5 day course (ibuprofen, naproxen, Motrin, Aleve, Advil) Tylenol only during prednisone use * Follow up with primary care provider if no improvement with treatment * Seek medical care immediately, call 911, go to ER if you have chest pain, difficulty breathing, shortness of breath, inability to swallow. documented in this encounter [facility] 04-02-2022 History of Present illness Narrative Subjective The history is provided by the patient. No ink jet operator was used. HPI Hilda Leo is a 56 year old male who presents today for CC of cough, sore throat, body aches and headache for a week. He is also having fatigue. He has not used any medications over the past week. He is an every day smoker BP 100/66 Pulse 110 Temp 36.7 C (98.1 F) Resp 20 Wt 77.3 kg (170 lb 6.4 oz) SpO2 98% BMI 25.16 kg/m Social History Tobacco Use Smoking status: Every Day Packs/day: 0.50 Years: 25.00 Pack years: 12.50 Types: Cigarettes Smokeless tobacco: Never Substance Use Topics Alcohol use: No Drug use: No No past medical history on file. I have confirmed and edited as necessary, the [facility] Review of Systems Constitutional: Positive for malaise/fatigue. Negative for chills and fever. HENT: Positive for congestion, sinus pain and sore throat. Negative for ear pain. Respiratory: Positive for cough. Negative for sputum production, shortness of breath and wheezing. Cardiovascular: Negative for chest pain. Gastrointestinal: Negative for abdominal pain, diarrhea, nausea and vomiting. Musculoskeletal: Positive for myalgias. Neurological: Negative for headaches. Objective Physical Exam Vitals and nursing note reviewed. Constitutional: Appearance: He is not toxic-appearing. HENT: Head: Normocephalic and atraumatic. Right Ear: Tympanic membrane, ear canal and external ear normal. Left Ear: Tympanic membrane, ear canal and external ear normal. Nose: Mucosal edema, congestion and rhinorrhea present. Right Sinus: No maxillary sinus tenderness or frontal sinus tenderness. Left Sinus: No maxillary sinus tenderness or frontal sinus tenderness. Mouth/Throat: Pharynx: Uvula midline. Posterior oropharyngeal erythema present. No oropharyngeal exudate. Tonsils: No tonsillar abscesses. Cardiovascular: Rate and Rhythm: Normal rate and regular rhythm. Heart sounds: Normal heart sounds. Pulmonary: Effort: Pulmonary effort is normal. Breath sounds: Wheezing present. No decreased breath sounds, rhonchi or rales. Lymphadenopathy: Head: Right side of head: No submental, submandibular, tonsillar or preauricular adenopathy. Left side of head: No submental, submandibular, tonsillar or preauricular adenopathy. Cervical: No cervical adenopathy. Right cervical: No superficial cervical adenopathy. Left cervical: No superficial cervical adenopathy. Neurological: Mental Status: He is alert. Appears to be viral illness, declines covid/flu testing ASSESSMENT/PLAN: 1. Sore throat - ICD9: 462, ICD10: J02.9 (primary diagnosis) - suspect viral - Alere Strep Test negative, no culture pending - STREP A MOLECULAR (POC) 2. Bronchitis - ICD9: 490, ICD10: J40 Prednisone burst/albuterol inhaler prn Tessalon perls as needed for cough Comfort measures as discussed in patient instructions 3. Wheezing - ICD9: 786.07, ICD10: R06.2 Albuterol inhaler/prednisone Diagnosis and treatment plan were discussed and questions were answered to the patient's satisfaction. Pt acknowledged understanding of concepts and follow up plan. Specific signs and symptoms that would indicate the need for higher level of care were discussed in detail warranting prompt ER evaluation. Traci Liriano APRN.LEBRON documented in this encounter [facility] 12-19-2021 History of Present illness Narrative Subjective The history is provided by the patient. No ink jet operator was used. HPI Hilda Leo is a 56 year old male who presents today for CC of headache and needing work note. Patient is a patient of [facility]/Dr. Reed and is managed for migraines by him. He is currently on Ajovy, and Ubrelvy. Patient just took injection yesterday, and hasn't started any Ubrelvy, hasn't picked up prescription. Needs note for work, did not go today. He also states the headache isn't horrible, not the worst of his life, denies any other symptoms. BP 112/78 Pulse 89 Temp 36.3 C (97.3 F) (Tympanic) Resp 18 Wt 79.3 kg (174 lb 12.8 oz) SpO2 97% BMI 25.81 kg/m Social History Tobacco Use Smoking status: Every Day Packs/day: 0.50 Years: 25.00 Pack years: 12.50 Types: Cigarettes Smokeless tobacco: Never Substance Use Topics Alcohol use: No Drug use: No History reviewed. No pertinent past medical history. I have confirmed and edited as necessary, the [facility] Review of Systems Constitutional: Negative for chills and fever. HENT: Negative for congestion, ear pain, sinus pain and sore throat. Respiratory: Negative for cough, sputum production, shortness of breath and wheezing. Cardiovascular: Negative for chest pain. Gastrointestinal: Negative for abdominal pain, diarrhea, nausea and vomiting. Musculoskeletal: Negative for joint pain and myalgias. Skin: Negative for itching and rash. Neurological: Positive for headaches. All other systems reviewed and are negative. Objective Physical Exam Vitals and nursing note reviewed. Cardiovascular: Rate and Rhythm: Normal rate and regular rhythm. Heart sounds: Normal heart sounds. Pulmonary: Effort: Pulmonary effort is normal. Breath sounds: Normal breath sounds. Skin: General: Skin is warm and dry. Neurological: Mental Status: He is alert and oriented to person, place, and time. Cranial Nerves: Cranial nerves 2-12 are intact. Sensory: Sensation is intact. Motor: Motor function is intact. Coordination: Coordination is intact. Gait: Gait is intact. Psychiatric: Mood and Affect: Affect normal. ASSESSMENT/PLAN: 1. Headache, unspecified headache type - ICD9: 784.0, ICD10: R51.9 Denies worst headache of life H/o of migraines - states his typical migraine Continue migraine meds as ordered Follow up with neurologist if no improvement 2. Encounter to obtain excuse from work - ICD9: V68.89, ICD10: Z02.89 Work note given for today Diagnosis and treatment plan were discussed and questions were answered to the patient's satisfaction. Pt acknowledged understanding of concepts and follow up plan. Specific signs and symptoms that would indicate the need for higher level of care were discussed in detail warranting prompt ER evaluation. Traci Liriano APRN.LEBRON documented in this encounter [facility] 11-24-2021 Note ORIGINAL EXAMINATION: Left groin ULTRASOUND11/24/2021 11:19 am COMPARISON: 07/26/2021 HISTORY: ORDERING SYSTEM PROVIDED HISTORY: Reason for Exam: LIH left groin pain, suspected hernia FINDINGS: No left inguinal hernia is seen on this study. There is again visualization of benign reactive lymph nodes of no clinical significance. IMPRESSION: Negative ultrasound. No inguinal hernia is seen. If this is still strongly suspected, consider CT of the pelvis. Interpreted by: Colby Yoo MD Preliminary Report By: Colby Yoo MD Electronically signed By Colby Yoo MD Dictated Date: 11/24/2021 1:24:59 PM Prelim Date: 11/24/2021 1:30:04 PM Sign Date: 11/24/2021 1:30:04 PM Ordering Provider: [facility] 11-24-2021 Note ORIGINAL EXAMINATION: Left groin ULTRASOUND11/24/2021 11:19 am COMPARISON: 07/26/2021 HISTORY: ORDERING SYSTEM PROVIDED HISTORY: Reason for Exam: LIH left groin pain, suspected hernia FINDINGS: No left inguinal hernia is seen on this study. There is again visualization of benign reactive lymph nodes of no clinical significance. IMPRESSION: Negative ultrasound. No inguinal hernia is seen. If this is still strongly suspected, consider CT of the pelvis. Interpreted by: Colby Yoo MD Preliminary Report By: Colby Yoo MD Electronically signed By Colby Yoo MD Dictated Date: 11/24/2021 1:24:59 PM Prelim Date: 11/24/2021 1:30:04 PM Sign Date: 11/24/2021 1:30:04 PM Ordering Provider: [facility] Evaluation + Plan note Future Appointments Appointment Date:07/06/2021 04:00:00 PM Scheduled Provider:KIM DUMONT DO Location:[facility] Appointment Type:PC OV Diagnostic Tests PendingLipid Profile 06/26/21Thyroid Stimulating Hormone 06/26/21Complete Metabolic Panel 06/26/21Vitamin D Level 06/26/[address] [facility] Evaluation + Plan note Future Appointments Appointment Date:09/28/2021 04:30:00 PM Scheduled Provider:KIM DUMONT DO Location:[facility] Appointment Type:PC Wellness Annual Future Scheduled TestsUS Scrotum Contents 07/06/21US Groin Left 07/06/[address] [facility] Evaluation + Plan note Future Appointments Appointment Date:09/28/2021 04:30:00 PM Scheduled Provider:KIM DUMONT DO Location:[facility] Appointment Type: Wellness Annual [facility] Evaluation + Plan note Future Appointments Appointment Date:10/16/2021 04:00:00 PM Scheduled Provider: Location:[facility] [[email or web address] Appointment Type:DB Diabetic Individual Visit Appointment Date:10/19/2021 03:30:00 PM Scheduled Provider:EDILIA CHAVES MD Location:[facility] Appointment Type:GS ALLERGIST/IMMUNOLOGIST Appointment Date:11/16/2021 04:30:00 PM Scheduled Provider:KIM DUMONT DO Location:[facility] Appointment Type:PC OV Future Scheduled TestsAntinuclear Antibody Screen, Serum 09/28/21C-Reactive Protein 09/28/21Uric Acid 09/28/21Rheumatoid Factor 09/28/21Hepatitis C Antibody IgG 09/28/21Sedimentation Rate Automated 09/28/21CT Low Dose Lung Cancer Screening (LDCT) 09/28/21 [facility] Evaluation + Plan note Future Appointments Appointment Date:11/28/2021 10:30:00 AM Scheduled Provider:KIM DUMONT DO Location:[facility] Appointment Type:PC OV Appointment Date:11/30/2021 01:00:00 PM Scheduled Provider:EDILIA CHAVES MD Location[facility] Appointment Type:GS OV Check after Test Appointment Date:12/07/2021 02:30:00 PM Scheduled Provider: Location:[facility] Appointment Type:CT Thorax Screening w/o Contrast Future Scheduled TestsCT Low Dose Lung Cancer Screening (LDCT) 12/07/[address] [facility] Evaluation + Plan note Future Appointments Appointment Date:11/28/2021 10:30:00 AM Scheduled Provider:KIM DUMONT DO Location:[facility] Appointment Type:PC OV Appointment Date:11/30/2021 01:00:00 PM Scheduled Provider:EDILIA CHAVES MD Location:[facility] Appointment Type:GS OV Check after Test Appointment Date:12/07/2021 02:30:00 PM Scheduled Provider: Location:[facility] Appointment Type:CT Thorax Screening w/o Contrast Diagnostic Tests PendingAntinuclear Antibody Screen, Serum 11/24/21Rheumatoid Factor 11/24/21 Future Scheduled TestsCT Low Dose Lung Cancer Screening (LDCT) 12/07/[address] [facility] Evaluation + Plan note Future Appointments Appointment Date:05/24/2022 04:00:00 PM Scheduled Provider:KIM DUMONT DO Location:[facility] Appointment Type:PC OV Diagnostic Tests PendingAntinuclear Antibody Screen, Serum 05/23/22 Future Scheduled TestsCT Low Dose Lung Cancer Screening (LDCT) 02/21/[address] [facility] Evaluation + Plan note Future Appointments Appointment Date:07/10/2022 01:00:00 PM Scheduled Provider: Location:[facility] Appointment Type:PF PFT w/Bronchodiltor Appointment Date:07/24/2022 01:30:00 PM Scheduled Provider:KIM DUMONT DO Location:[facility] Appointment Type:PC OV [facility] Evaluation + Plan note Future Appointments Appointment Date:07/17/2022 01:00:00 PM Scheduled Provider:KIM DUMONT DO Location:[facility] Appointment Type:PC OV Appointment Date:07/24/2022 01:30:00 PM Scheduled Provider:KIM DUMONT DO Location:[facility] Appointment Type:PC OV Future Scheduled TestsXR Chest 2 Views (PA & Lateral) 08/28/[address] [facility] Evaluation + Plan note Future Appointments Appointment Date:09/12/2022 04:00:00 PM Scheduled Provider:KIM DUMONT DO Location:[facility] Appointment Type:PC OV Future Scheduled TestsBasic Metabolic Panel 07/17/22Complete Blood Count 07/17/22XR Chest 2 Views (PA & Lateral) 08/28/[address] [facility] Evaluation + Plan note Future Appointments Appointment Date:09/12/2022 04:00:00 PM Scheduled Provider:KIM DUMONT DO Location:[facility] Appointment Type:PC OV Future Scheduled TestsBasic Metabolic Panel 07/17/22Complete Blood Count 07/17/[address] [facility] Evaluation + Plan note Future Appointments Appointment Date:09/03/2022 04:30:00 PM Scheduled Provider: Location:[facility] Appointment Type:PT Outpatient Evaluation Appointment Date:09/12/2022 04:00:00 PM Scheduled Provider:KIM DUMONT DO Location:[facility] Appointment Type:PC OV Future Scheduled TestsBasic Metabolic Panel 07/17/22Complete Blood Count 07/17/[address] [facility] Evaluation + Plan note Future Appointments Appointment Date:12/20/2022 04:30:00 PM Scheduled Provider:KIM DUMONT DO Location:[facility] Appointment Type:PC OV [facility] documented in this encounter [facility] note* Diagnosis Sore throat- Primary Acute pharyngitis Bronchitis Bronchitis, not specified as acute or chronic Wheezing documented in this encounter [facility] note* Diagnosis Viral URI with cough- Primary Acute upper respiratory infections of unspecified site Thrush (oral) documented in this encounter [facility] note* Diagnosis COPD with exacerbation (HCC)- Primary Obstructive chronic bronchitis with exacerbation Acute cough Abnormal CXR (chest x-ray) Other nonspecific abnormal finding of lung field documented in this encounter [facility] note* Diagnosis Headache, unspecified headache type- Primary Malaise and fatigue Other malaise and fatigue Pneumonia of lower lobe due to infectious organism, unspecified laterality documented in this encounter [facility] note* Diagnosis Acute pain of left knee- Primary documented in this encounter [facility] note* Diagnosis Sore throat- Primary Acute pharyngitis URI, acute Acute upper respiratory infections of unspecified site documented in this encounter [facility] note* Diagnosis Foot pain, left- Primary Pain in limb Pain in left lower leg documented in this encounter [facility] note* Diagnosis Rib injury- Primary Sprain of ribs Viral URI Acute upper respiratory infections of unspecified site documented in this encounter [facility] course Narrative No data available for this section [facility] Hospital Discharge instructions No data available for this section [facility] Progress note No data available for this section [facility] Reason for referral (narrative)* Diagnostic Procedure Only (Urgent) - Closed Specialty Diagnoses / Procedures Referred By Contkaela t Referred To Contact XR IMAGING Diagnoses Pain in left lower leg Procedures XR TIBIA FIBULA 2V AP/LAT LEFT RADIOLOGIC EXAMINATION TIBIA & FIBULA 2 VIEWS Mike Correa, FORESTRY WORKER [address] [place] [address] Xr Imaging [id number] Referral ID Status Reason Start Date Expiration Date V isits Requested Visits Authorized [id number] Closed Auto-Generate d Referral 03/05/2023 04/03/2024 1 1 * Diagnostic Procedure Only (Urgent) - Closed Specialty Diagnoses / Procedures Referred By Contac t Referred To Contact XR IMAGING Diagnoses Foot pain, left Procedures XR FOOT GENERAL 3V AP/LAT/OBL LEFT RADEX FOOT COMPLETE MINIMUM 3 VIEWS Mike Correa APRN.FORESTRY WORKER [address] [place] [address] [place] [address] Referral ID Status Reason Start Date Expiration Date V isits Requested Visits Authorized [id number] Closed Auto-Generate d Referral 03/05/2023 04/03/2024 1 1 [facility] Diagnostic Procedure Only (Urgent) - Closed Specialty Diagnoses / Procedures Referred By Contac t Referred To Contact XR IMAGING Diagnoses Rib injury Procedures XR RIBS/CHEST 3V AP RIB/OBLS/CXR LEFT RADEX RIBS UNI W/POSTEROANT CH MINIMUM 3 VIEWS Yonathan Ivan PA-C [address] [id number] [place] [address] Referral ID Status Reason Start Date Expiration Date V isits Requested Visits Authorized [id number] Closed Auto-Generate d Referral 04/02/2023 05/01/2024 1 1 [facility] Summary Purpose Family History No Family History Records FoundNo Family History Records FoundNo Family History Records Found Advance Directives No Advanced Directives Records FoundNo Advanced Directives Records FoundNo Advanced Directives Records Found Reason for Referral Specialty Diagnoses / Procedures Referred By Contac t Referred To Contact Orthopedics Diagnoses Acute pain of left knee Procedures CONSULT TO ORTHOPAEDICS OFFICE/OUTPATIENT NEW HIGH MDM 60-74 MINUTES Faiza Álvarez PA-C [address] [place] [address] Referral ID Status Reason Start Date Expiration Date Visits Requested Visits Authorized [id number] Authorized PCP Requested Referral 01/22/2023 01/22/2024 1 1 Specialty Diagnoses / Procedures Referred By Contac t Referred To Contact XR IMAGING Diagnoses Acute pain of left knee Procedures XR KNEE GENERAL 4V AP BOTH/PA BOTH/LAT/MERC LEFT RADIOLOGIC EXAM KNEE COMPLETE 4/MORE VIEWS Faiza Álvarez PA-C [address] [place] [address] [place] [address] Referral ID Status Reason Start Date Expiration Date V isits Requested Visits Authorized [id number] Closed Auto-Generate d Referral 01/22/2023 02/21/2024 1 1 Specialty Diagnoses / Procedures Referred By Syeda purdy Referred To Contact Traci Liriano APRN.FORESTRY WORKER [id number] [id number] Referral ID Status Reason Start Date Expiration Date Visits Re quested Visits Authorized [id number] Closed 1 1 Health Concerns Infection Onset Date Last Indicated Resolved Time COVID-19 Rule-Out 02/21/2023 02/21/2023 Additional Source Comments (unrecognized sect ion and content) No Status Records FoundNo Status Records FoundNo Status Records Found INFORMATION SOURCE (unrecogn ized section and content) DATE CREATED AUTHOR AUTHOR'S ORGANIZ ATION 10/23/2022 [facility] ([place]) DATE CREATED AUTHOR AUTHOR'S ORGANIZ ATION 05/05/2023 [facility] Care Team (unrecognized sect ion and content) Service Desk Team Lead Relationship Specialty Start Date End Date Kim Dumont DO [address] [id number] PCP - General Family Medicine 12/26/21 Service Desk Team Lead Relationship Specialty Start Date End Date Kim Dumont DO [address] [place] [address] PCP - General Family Medicine 12/26/21 Service Desk Team Lead Relationship Specialty Start Date End Date Kim Dumont DO [address] [place] [address] PCP - General Family Medicine 12/26/21 Service Desk Team Lead Relationship Specialty Start Date End Date Kim Dumont DO [address] [place] [address] PCP - General Family Medicine 12/26/21 Service Desk Team Lead Relationship Specialty Start Date End Date Kim Dumont DO [address] [place] [id number] PCP - General Family Medicine 12/26/21 Service Desk Team Lead Relationship Specialty Start Date End Date Kim Dumont DO [address] [place] [address] PCP - General Family Medicine 12/26/21 Service Desk Team Lead Relationship Specialty Start Date End Date Kim Dumont DO [address] [place] [phone] PCP - General Family Medicine 12/26/21 Service Desk Team Lead Relationship Specialty Start Date End Date Kim Dumont DO [address] [place] [phone] PCP - General Family Medicine 12/26/21 Service Desk Team Lead Relationship Specialty Start Date End Date Kim Dumont DO [address] [place] [phone] PCP - General Family Medicine 12/26/21 Care Team (unrecognized sect ion and content) Care Team Personnel Name: KIM DUMONT DO Position: P4 Physician - Primary Care Med Service: Active Provider Member Role: Primary Care Physician Address: Address: [address] [place] [address] Care Team Related Persons Name: ALIYAH MOODY Care Team Personnel Name: KIM DUMONT DO Position: P4 Physician - Primary Care Med Service: Active Provider Member Role: Primary Care Physician Address: Address: [address] [place] [address] Care Team Related Persons Name: ALIYAH MOODY Care Team Personnel Name: KIM DUMONT DO Position: P4 Physician - Primary Care Member Role: Primary Care Physician Address: Address: [address] [place] [address] Care Team Related Persons Name: ALIYAH MOODY Care Team Personnel Name: KIM DUMONT DO Position: P4 Physician - Primary Care Member Role: Primary Care Physician Address: Address: [address] [place] [address] Care Team Related Persons Name: ALIYAH MOODY Care Team Personnel Name: KIM DUMONT DO Position: P4 Physician - Primary Care Member Role: Primary Care Physician Address: Address: [address] [place] [address] Care Team Related Persons Name: ALIYAH MOODY Care Team Personnel Name: KIM DUMONT DO Position: P4 Physician - Primary Care Member Role: Primary Care Physician Address: Address: [address] [place] [address] Care Team Related Persons Name: ALIYAH MOODY Care Team Personnel Name: KIM DUMONT DO Position: P4 Physician - Primary Care Member Role: Primary Care Physician Address: Address: [address] [place] [address] Care Team Related Persons Name: ALIYAH MOODY Source Comments (unrecognize d section and content) In the event this informatio n is protected by the Federal Confidentiality of Alcohol and Drug Abuse Patient Records regulations: The Federal rules restrict any use of the information to criminally investigate or prosecute any alcohol or drug abuse patient.[facility] the event this information is protected by the Federal Confidentiality of Alcohol and Drug Abuse Patient Records regulations: The Federal rules restrict any use of the information to criminally investigate or prosecute any alcohol or drug abuse patient.[facility] the event this information is protected by the Federal Confidentiality of Alcohol and Drug Abuse Patient Records regulations: The Federal rules restrict any use of the information to criminally investigate or prosecute any alcohol or drug abuse patient.[facility] the event this information is protected by the Federal Confidentiality of Alcohol and Drug Abuse Patient Records regulations: The Federal rules restrict any use of the information to criminally investigate or prosecute any alcohol or drug abuse patient.[facility] the event this information is protected by the Federal Confidentiality of Alcohol and Drug Abuse Patient Records regulations: The Federal rules restrict any use of the information to criminally investigate or prosecute any alcohol or drug abuse patient.[facility] the event this information is protected by the Federal Confidentiality of Alcohol and Drug Abuse Patient Records regulations: The Federal rules restrict any use of the information to criminally investigate or prosecute any alcohol or drug abuse patient.[facility] the event this information is protected by the Federal Confidentiality of Alcohol and Drug Abuse Patient Records regulations: The Federal rules restrict any use of the information to criminally investigate or prosecute any alcohol or drug abuse patient.[facility] the event this information is protected by the Federal Confidentiality of Alcohol and Drug Abuse Patient Records regulations: The Federal rules restrict any use of the information to criminally investigate or prosecute any alcohol or drug abuse patient.[facility] the event this information is protected by the Federal Confidentiality of Alcohol and Drug Abuse Patient Records regulations: The Federal rules restrict any use of the information to criminally investigate or prosecute any alcohol or drug abuse patient.[facility] the event this information is protected by the Federal Confidentiality of Alcohol and Drug Abuse Patient Records regulations: The Federal rules restrict any use of the information to criminally investigate or prosecute any alcohol or drug abuse patient.[facility] Reason for Visit (unrecogniz ed section and content) Reason Comments Cough ST, body aches, MEREDITH, fatigue x1 week Reason Comments Cough Body aches, chest co ngestion, MEREDITH x 2 days Reason Comments Cough MEREDITH, fatigue x1 week Reason Comments Headache Fatigue x2 days Reason Comments Results Reason Comments Knee Pain left x 2 weeks, larry es injury Reason Comments Cough MEREDITH, vomiting, conges tion, eye pain x1 day Reason Comments left leg and foot pain Tire fell on him 2 days ago Reason Comments Cough Cough, fatigue, MEREDITH, bodyaches x 2 days and left rib pain from a fall x 1 day FOR RECORDS PERTAINING TO PATIENTS WHO ARE OR HAVE BEEN ENROLLED IN A CHEMICAL DEPENDENCY/SUBSTANCEABUSE PROGRAM, SOME INFORMATION MAY BE OMITTED. This clinical summary was aggregated from multiple sources. Caution should be exercised in using it in the provision of clinical care. This summary normalizes information from multiple sources, and as a consequence, information in this document may materially change the coding, format and clinical context of patient data. In addition, data may be omitted in some cases. CLINICAL DECISIONS SHOULD BE BASED ON THE PRIMARY CLINICAL RECORDS. [facility]. provides no warranty or guarantee of the accuracy or completeness of information in this document.
[2023-05-25 14:46] LABS: Anion Gap 10 (5-15); BUN 24 mg/dL (7-18); BUN/Creat Ratio 13.2 RATIO (10-20); Calcium,Total 8.6 mg/dL (8.5-10.1); Chloride 109 mmol/L (98-107); Creatinine, Serum 1.82 mg/dL (0.70-1.30); EST Glomerular Filtration Rate 41 mL/min (>60); Est Glom Filt Rate - Afr Amer 49 mL/min (>60); Estimated Creatinine Clearance 44.24 ml/min; Glucose 104 mg/dL (74-106); Potassium 3.4 mmol/L (3.5-5.1); Sodium Level 141 mmol/L (136-145)
--- NOTE | 2023-05-25 15:12 | EKG12_ITS ---
Test Reason : SOB Blood Pressure : / mmHG Vent. Rate : 097 BPM Atrial Rate : 097 BPM P-R Int : 174 ms QRS Dur : 080 ms QT Int : 344 ms P-R-T Axes : 045 -17 056 degrees QTc Int : 436 ms Sinus rhythm with Premature atrial complexes Otherwise normal ECG Confirmed by ELAINA DC, MEG ([id number]), production editor ELAN MALDONADO ([id number]) on 05/27/2023 6:08:54 AM Referred By: Confirmed By:MEG DELANEY MD
--- NOTE | 2023-05-25 15:14 | EX.ED.DYSGE1 ---
HPI History of Present Illness Chief Complaint: Shortness of Breath Informant: patient Narrative Narrative: 58-year-old male presenting to the emergency department with a multiday history of dyspnea. Patient notes associated weakness myalgias headache sore throat. Believes he had a fever the first days. He was seen in urgent care and was referred to the emergency department. He notes a history of COPD stroke hypertension and smoking history. Patient notes cough with some sputum production which she describes as yellow. [facility] Medical History Alcohol abuse Alcohol withdrawal (05/18/20) Anxiety Anxiety disorder Community acquired pneumonia COPD exacerbation Essential hypertension Excessive daytime sleepiness Ischemic cerebrovascular accident (CVA) (05/17/20) Nicotine dependence PFO (patent foramen ovale) Primary snoring TIA (transient ischemic attack) Witnessed apneic spells Home Medications atorvastatin 80 mg tablet 80 mg PO QHS #90 tabs 05/19/20 [Rx Last Taken Unknown] BP monitor #1 ea 07/15/20 [Rx Last Taken Unknown] lisinopril 10 mg-hydrochlorothiazide 12.5 mg tablet 1 tab PO DAILY 07/28/20 [History Last Taken Unknown] quetiapine 50 mg tablet 50 mg PO DAILY 06/20/21 [History Last Taken Unknown] aspirin 81 mg tablet,delayed release (Adult Aspirin Regimen) 81 mg PO DAILY 09/26/21 [History Last Taken Unknown] amlodipine 5 mg tablet 5 mg PO DAILY #30 tabs 07/03/22 [Rx Last Taken Unknown] folic acid 1 mg tablet 1 mg PO DAILY #30 tabs 07/04/22 [Rx Last Taken Unknown] thiamine HCl (vitamin B1) 100 mg tablet 100 mg PO DAILY #30 tabs 07/04/22 [Rx Last Taken Unknown] albuterol sulfate 90 mcg/actuation aerosol inhaler 2 puff inhalation Q4H PRN shortness of breath or wheezing #8.5 grams 10/01/22 [Rx Last Taken Unknown] cholecalciferol (vitamin D3) 50 mcg (2,000 unit) capsule (Vitamin D3) 50 mcg PO DAILY 10/22/22 [History Last Taken Unknown] fluticasone propionate 220 mcg/actuation HFA aerosol inhaler (Flovent HFA) 1 puff inhalation BID #12 grams 10/22/22 [Rx Last Taken Unknown] nicotine (polacrilex) 4 mg gum 4 mg buccal ONCE PRN 10/22/22 [History Last Taken Unknown] olanzapine 15 mg tablet 15 mg PO DAILY 10/22/22 [History Last Taken Unknown] omeprazole 40 mg capsule,delayed release 40 mg PO DAILY 10/22/22 [History Last Taken Unknown] fremanezumab-vfrm 225 mg/1.5 mL subcutaneous syringe (Ajovy Syringe) 225 mg (1.5 mL) subcut QMONTH #1.5 mL 02/28/23 [Rx Last Taken Unknown] ubrogepant 100 mg tablet (Ubrelvy) 100 mg .Route .COMPLEX migraine headache #16 tabs 02/28/23 [Rx Last Taken Unknown] umeclidinium 62.5 mcg-vilanterol 25 mcg/actuation powdr for inhalation (Anoro Ellipta) 1 inh inhalation DAILY #60 ea 03/15/23 [Rx Last Taken Unknown] Allergy/AdvReac Type Severity Reaction Status Date / Time tramadol HCl [From [facility]] Allergy Rash Verified 05/25/23 13:45 Family History Mother Cancer Brother Lung disease Father Cancer Surgical History History of angiography (05/18/15) History of back surgery (~12/2021) History of foot surgery History of left knee surgery Social History Smoking Status: Current some day smoker tobacco type: e-cigarettes Electronic Cigarette Use: not used second hand exposure: No alcohol intake: current alcohol intake frequency: 0-2 drinks per day substance use type: former substance user and marijuana ROS ROS ED Constitutional Constitutional ED: Reports chills, fever(s) and subjective; Denies weight loss Eyes Eyes: Denies change in vision or diplopia ENT ENT ED: Reports rhinorrhea and sore throat; Denies ear pain Cardiovascular Cardiovascular: Denies chest pain, orthopnea, palpitations or racing heartbeat Respiratory/Chest Respiratory/Chest: Reports cough, dyspnea, dyspnea on exertion and sputum; Denies orthopnea Gastrointestinal Gastrointestinal: Reports nausea and vomiting; Denies abdominal pain or diarrhea Genitourinary Genitourinary ED: Denies dysuria, hematuria or urinary frequency Musculoskeletal Musculoskeletal: Reports arthralgias and myalgias Integumentary Denies abscess or rash Neurologic Neurologic: Reports headache(s); Denies weakness Psychiatric Psychiatric: Denies anxiety, depression, suicidal ideation or suicidal thoughts Endocrine Endocrinology: Denies polydipsia, polyphagia or polyuria Allergic/Immunologic Allergic/Immunologic ED: Denies mouth swelling, tongue swelling or urticaria EXAM Physical Exam Narrative Exam Narrative: Patient appears generally ill. Const Vital Signs: 05/25/23 13:45 05/25/23 13:55 05/25/23 14:10 Temperature 96.5 F L Temperature Source Temporal Pulse Rate 99 100 Respiratory Rate 16 20 H Respiratory Effort Short of Breath Respiratory Depth Normal Respiratory Pattern Blood Pressure 123/87 H 124/85 H Blood Pressure Mean 99 98 Pulse Ox 96 89 Oxygen Delivery Method Room Air Room Air Room Air Oxygen Flow Rate (L/min) 05/25/23 14:25 05/25/23 14:25 Temperature Temperature Source Pulse Rate 95 Respiratory Rate 16 Respiratory Effort Respiratory Depth Respiratory Pattern Normal Blood Pressure Blood Pressure Mean Pulse Ox 95 Oxygen Delivery Method Nasal Cannula Oxygen Flow Rate (L/min) 2 Positive well nourished and well developed General Appearance ED: well developed HEENT Reports normocephalic, head/scalp atraumatic and moist mucous membranes Eyes PERRL and EOMs intact bilaterally Neck no lymphadenopathy, supple and no JVD Resp Resp Narrative: Patient has slight tachypnea with exertion Auscultation: rhonchi and wheezes expiratory wheezes (Mild) Cardio regular rate, regular rhythm and no murmurs GI normal to inspection, nondistended, normoactive bowel sounds and non-tender Palpation: soft Back/Spine no CVA tenderness and normal ROM Extremity Extremity Narrative: Patient's bilateral hands are cold. They appear whitish or grayish. He does not know if he has a history of Raynaud's. General Extremety ED: Negative for edema General Extremity: Negative for edema Neuro oriented x3 and CN's II-XII intact bilaterally Sensorium / Orientation: alert Motor Exam: strength 5/5 throughout Psych mental status grossly normal Mood & Affect: Negative for depressed or tearful Skin no wounds General Skin Exam: elasticity normal MDM MDM MDM Narrative Medical decision making narrative: Initially patient was noted to be hypoxic around 80%. This is with a good waveform while attached to the ear. It slowly came up but only to about 84. He is placed on supplemental oxygen at 2 L which is raised him into the mid 90s. My independent interpretation of the chest x-ray is multifocal areas of infiltrate. White count normal at 7.1 creatinine 1.82 potassium 3.4. Patient received IV fluids and breathing treatments. His COVID test came back positive. We administered IV Decadron. Will obtain a CTA to evaluate for pulmonary embolism. I am planning on an admission given his hypoxemia. History & Record Review Discussion w/independent historian: Patient Additional record(s) reviewed:: Prior ED visit and Prior labs Lab Data Attestation: I reviewed the patient's lab results. Labs: Laboratory Results - last 24 hr 05/25/23 14:25 WBC 7.1 RBC 4.31 L Hgb 12.5 L Hct 38.6 L MCV 89.6 MCH 29.0 MCHC 32.4 RDW Std Deviation 50.1 H RDW Coeff of Jayy 15.0 H Plt Count 194 MPV 9.7 Immature Gran % (Auto) 0.300 Neut % (Auto) 82.9 H Lymph % (Auto) 11.[address] [place] % (Auto) 4.9 Eos % (Auto) 0.0 Baso % (Auto) 0.1 Absolute Neuts (auto) 5.9 Absolute Lymphs (auto) 0.84 Nucleated RBC % 0 Sodium 141 Potassium 3.4 L Chloride 109 H Carbon Dioxide 22.0 Anion Gap 10 BUN 24 H Creatinine 1.82 H Estim Creat Clear Calc 44.24 Est GFR (MDRD) Af Amer 49 L Est GFR (MDRD) Non-Af 41 L BUN/Creatinine Ratio 13.2 Glucose 104 Calcium 8.6 Radiography Diagnostic Testing: Clinical Impression(s) from Imaging Studies Chest X-Ray 05/25/23 12:59 IMPRESSION: Bilateral infiltrates, right side greater than left. Findings consistent with pneumonia. Recommend short-term follow-up to resolution. Electronically Signed: Eamon Mccarthy MD at 15:31 EST , EKG Initial EKG: Attestation: I personally reviewed and interpreted this EKG as follows: Comments: Sinus rhythm ventricular rate of 97 bpm Management Discussion w/another healthcare provider: Hospitalist Discharge Plan Dx/Rx/DC Orders Clinical Impression: Acute kidney injury, COVID-19, Acute hypoxic respiratory failure Disposition Disposition: Acute Care Hospital [facility]
[2023-05-25] MEDS: 0.9% Normal Saline (1000mL) 1,000 ML 1000 ML IV (15:17)
[2023-05-25] MEDS: Albuterol 2.5 MG/3 ML VIAL.NEB. INHALATION (15:21)
--- NOTE | 2023-05-25 15:30 | CT_ITS ---
STUDY: CTA CHEST REASON FOR EXAM: Male, 58 years old. Covid 19, pulmonary embolism RADIATION DOSAGE (If Supplied By Facility): CTDIvol = ( 10.60 ) mGy, DLP = ( 378.75 ) mGycm TECHNIQUE: The examination was performed with the intravenous administration of 100mL Isovue-370. Post-processing of the angiographic images was performed, with multiplanar reformation and 3D reconstruction. Individualized dose optimization techniques were used for this CT. COMPARISON: 11/22/2022 FINDINGS: Breathing motion artifact limits evaluation of the distal subsegmental branches of the pulmonary arteries. No filling defects in the central or segmental branches. Small or distal filling defects cannot be reliably excluded. Normal thoracic aorta and visualized great vessels. There is no demonstrated aortic dissection. Normal heart and pericardium. Mediastinal and right hilar adenopathy. Extensive, multifocal and bilateral groundglass opacities with multiple areas of confluence, right lung greater than left. No pulmonary mass lesions. Trace bilateral pleural effusions. Normal chest wall structures. No acute or aggressive osseous abnormality. No acute findings in the upper abdomen. CT/CTA Chest W/WO Contrast IMPRESSION: Limited examination due to breathing motion artifact. No pulmonary emboli in the central or primary segmental branches. Smaller or more distal PE cannot be reliably excluded. Pulmonary findings consistent with clinical history of Covid pneumonia. Electronically Signed: Eamon Mccarthy MD at 17:20 [facility] ,
[2023-05-25] MEDS: dexAMETHasone 10 MG/ML Vial IV (15:40)
[2023-05-25] MEDS: Ketorolac 15 MG/ML Vial IV (15:40)
--- NOTE | 2023-05-25 16:02 | HP.PCM.HOS_ITS ---
HPI - General General Date of Admission: 05/25/23 Date of Service: 05/25/23 Chief Complaint: Dyspnea, cough, fatigue, malaise, fever. HPI Narrative The patient is a 58 y/o M w/ PMHx: HTN, HLD, Suspected Raynaud's disease, Cognitive impairment, CKD possible II versus III stage, Anxiety and Depression, COPD, Hx EtOH abuse, Hx PFO, Hx CVA, Tobacco use, Hx Brain aneurysm s/p clipping who presents to the [facility] ED on 05/25/2023 with history of 3 to 5 days of dyspnea with weakness, fatigue, body ache, headache, sore throat with urgent care evalu ation on day of presentation and referral to the ED with mildly productive sputum noted to be yellow. He does note recent ill contacts at work with similar symptoms. He does note the person he lives with has also become ill but seems to be starting symptoms now and he does report that he updated them regarding his diagnosis of COVID. Patient of note is not vaccinated against COVID. Workup in the ED included T96.5, heart rate 99, BP 123/87, respiratory rate 16, initially 96% on room air however desaturated down to 89% with currently improvement to 95% on 2 L nasal cannula, CBC with WBC 7.1, hemoglobin 12.5, MCV 89.6, platelet 194 without marked shift, BMP with potassium 3.4, chloride 109, BUN/creatinine 24/1.82, chest x-ray with bilateral infiltrates, right side greater than left concerning for pneumonia, rapid SARS COVID positive, rapid influenza/RSV PCR negative, CTPA with and without contrast pending upon requested evaluation of patient, blood culture x 2 pending per ED, lactic acid pending per ED, coags pending per ED, troponin pending per ED, urinalysis pending per ED. In the ED patient ministered Toradol 50 mg IV x 1, DuoNeb and albuterol therapy as well as Decadron 10 mg IV x 1 and a 1 L normal saline bolus. [facility] Medical History (Updated 05/25/23 @ 17:[address] Francia Jamil MD) Cerebral aneurysm CKD (chronic kidney disease) COPD (chronic obstructive pulmonary disease) Essential hypertension Excessive daytime sleepiness GERD (gastroesophageal reflux disease) History of alcohol abuse Ischemic cerebrovascular accident (CVA) (05/17/20) Migraine headache without aura Mild cognitive impairment Nicotine dependence PFO (patent foramen ovale) Primary snoring TIA (transient ischemic attack) Witnessed apneic spells Home Medications atorvastatin 80 mg tablet 80 mg PO QHS #90 tabs 05/19/20 [Rx Last Taken Unknown] BP monitor #1 ea 07/15/20 [Rx Last Taken Unknown] lisinopril 10 mg-hydrochlorothiazide 12.5 mg tablet 1 tab PO DAILY 07/28/20 [History Last Taken Unknown] quetiapine 50 mg tablet 50 mg PO DAILY 06/20/21 [History Last Taken Unknown] aspirin 81 mg tablet,delayed release (Adult Aspirin Regimen) 81 mg PO DAILY 09/26/21 [History Last Taken Unknown] amlodipine 5 mg tablet 5 mg PO DAILY #30 tabs 07/03/22 [Rx Last Taken Unknown] folic acid 1 mg tablet 1 mg PO DAILY #30 tabs 07/04/22 [Rx Last Taken Unknown] thiamine HCl (vitamin B1) 100 mg tablet 100 mg PO DAILY #30 tabs 07/04/22 [Rx Last Taken Unknown] albuterol sulfate 90 mcg/actuation aerosol inhaler 2 puff inhalation Q4H PRN shortness of breath or wheezing #8.5 grams 10/01/22 [Rx Last Taken Unknown] cholecalciferol (vitamin D3) 50 mcg (2,000 unit) capsule (Vitamin D3) 50 mcg PO DAILY 10/22/22 [History Last Taken Unknown] fluticasone propionate 220 mcg/actuation HFA aerosol inhaler (Flovent HFA) 1 puff inhalation BID #12 grams 10/22/22 [Rx Last Taken Unknown] olanzapine 15 mg tablet 15 mg PO DAILY 10/22/22 [History Last Taken Unknown] omeprazole 40 mg capsule,delayed release 40 mg PO DAILY 10/22/22 [History Last Taken Unknown] fremanezumab-vfrm 225 mg/1.5 mL subcutaneous syringe (Ajovy Syringe) 225 mg (1.5 mL) subcut QMONTH #1.5 mL 02/28/23 [Rx Last Taken Unknown] ubrogepant 100 mg tablet (Ubrelvy) 100 mg .Route .COMPLEX migraine headache #16 tabs 02/28/23 [Rx Last Taken Unknown] umeclidinium 62.5 mcg-vilanterol 25 mcg/actuation powdr for inhalation (Anoro Ellipta) 1 inh inhalation DAILY #60 ea 03/15/23 [Rx Last Taken Unknown] baclofen 10 mg tablet 10 mg PO Q8H PRN muscle spasm 05/25/23 [History Last Taken Unknown] cyclobenzaprine 5 mg tablet mg 05/25/23 [History Last Taken Unknown] gabapentin 600 mg tablet 600 mg PO Q8H 05/25/23 [History Last Taken Unknown] lamotrigine 150 mg tablet 150 mg PO Q12H 05/25/23 [History Last Taken Unknown] nabumetone 500 mg tablet 500 mg PO 05/25/23 [History Last Taken Unknown] Allergy/AdvReac Type Severity Reaction Status Date / Time tramadol HCl [From [facility]] Allergy Rash Verified 05/25/23 13:45 Family History Mother Cancer Brother Lung disease Father Cancer Surgical History History of angiography (05/18/15) History of back surgery (~12/2021) History of foot surgery History of left knee surgery Social History (Updated 05/25/23 @ 17:[address] Francia Jamil MD) household members: friend(s) Smoking Status: Current some day smoker tobacco type: e-cigarettes Electronic Cigarette Use: not used second hand exposure: No alcohol intake: former details: Sober x 3 years. substance use type: former substance user and marijuana ROS ROS Narrative Admission Review of Systems: CONSTITUTIONAL: No weight loss, + subjective sensation fever, chills, weakness or fatigue. HEENT: + Congestion, rhinorrhea, sore throat, headache. Eyes: No visual loss, blurred vision, double vision or yellow sclerae. Ears, Nose, Throat: No hearing loss. SKIN: No rash or itching, lesions, wounds. CARDIOVASCULAR: No chest pain, chest pressure or chest discomfort, palpitations, edema, orthopnea, syncopal events. RESPIRATORY: + Dyspnea with cough with productive sputum. No wheezing, hemoptysis. GASTROINTESTINAL: + anorexia. No nausea, vomiting or diarrhea, abdominal pain, melena, BRBPR. GENITOURINARY: No dysuria, frequency, urgency or retention. NEUROLOGICAL: + Headache. No dizziness, syncope, paralysis, ataxia, numbness or tingling in the extremities, focal weakness, change in bowel or bladder control, seizure. MUSCULOSKELETAL: + muscle, back pain, joint pain or stiffness. HEMATOLOGIC: + Anemia. History of easy bleeding/bruising previously. LYMPHATICS: No enlarged nodes. No history of splenectomy. PSYCHIATRIC: + History of anxiety and depression. ENDOCRINOLOGIC: No reports of sweating, cold or heat intolerance. No polyuria or polydipsia. ALLERGIES: No history of asthma, hives, eczema or rhinitis. Vital Signs Vital Signs Vital Signs: 05/25/23 13:45 05/25/23 13:55 05/25/23 14:10 Temperature 96.5 F L Temperature Source Temporal Pulse Rate 99 100 Respiratory Rate 16 20 H Respiratory Effort Short of Breath Respiratory Depth Normal Respiratory Pattern Blood Pressure 123/87 H 124/85 H Blood Pressure Mean 99 98 Pulse Ox 96 89 Oxygen Delivery Method Room Air Room Air Room Air Oxygen Flow Rate (L/min) 05/25/23 14:25 05/25/23 14:25 05/25/23 15:12 Temperature Temperature Source Pulse Rate 95 Respiratory Rate 16 Respiratory Effort Respiratory Depth Respiratory Pattern Normal Blood Pressure Blood Pressure Mean Pulse Ox 95 94 Oxygen Delivery Method Nasal Cannula Nasal Cannula Oxygen Flow Rate (L/min) 2 2 Weight Weight: 184 lb Body Mass Index (BMI) 27.1 Physical Exam Narrative Physical Examination: General: Awake, alert, oriented x 3 and cooperative, seated upright in the ED bed, fatigued ill-appearing. Skin: Normal color, normal turgor, no icterus, no cyanosis ecchymoses. HEENT: AT/NC, EOMI, PERRLA, dry MM, no carotid bruits or JVD noted. Lungs: Diffusely diminished, greater bases, mildly increased respiratory rate but no distress, mildly rhonchorous. Heart: Mildly tachycardic with regular rhythm; no gallop, rub audible. Abdomen: Soft, NTTP, ND, mildly hyperactive BS, no appreciated HSM. Extremities: No cyanosis, clubbing, or edema. Neurological: Patient awake, alert, oriented as noted, cognitive function intact with underlying history of cognitive impairment chart reported; pupils equally reactive to light and accommodation, cranial nerves grossly normal, moving all 4 extremities, no focal deficits, strength moderately globally decreased secondary to acute presentation complaints. Psychiatric: Affect appears flat, fatigued, no acute evidence of depressive or anxiety feelings but does have underlying history. Results Lab / Micro Data 05/25/23 14:25 05/25/23 14:25 Labs: Laboratory Results - last 24 hr 05/25/23 14:25: WBC 7.1, RBC 4.31 L, Hgb 12.5 L, Hct 38.6 L, MCV 89.6, MCH 29.0, MCHC 32.4, RDW Std Deviation 50.1 H, RDW Coeff of Jayy 15.0 H, Plt Count 194, MPV 9.7, Immature Gran % (Auto) 0.300, Neut % (Auto) 82.9 H, Lymph % (Auto) 11.8 L, [place] % (Auto) 4.9, Eos % (Auto) 0.0, Baso % (Auto) 0.1, Absolute Neuts (auto) 5.9, Absolute Lymphs (auto) 0.84, Nucleated RBC % 0, Sodium 141, Potassium 3.4 L , Chloride 109 H, Carbon Dioxide 22.0, Anion Gap 10, BUN 24 H, Creatinine 1.82 H , Estim Creat Clear Calc 44.24, Est GFR (MDRD) Af Amer 49 L, Est GFR (MDRD) Non- Af 41 L, BUN/Creatinine Ratio 13.2, Glucose 104, Calcium 8.6 Micro: Microbiology 05/25/23 14:25 Mucosa - Nose SARS-CoV-2, Influenza & RSV (PCR) - Final SARS-CoV-2 (COVID 19 PCR) Imagaing Radiology Impression Chest X-Ray 05/25/23 12:59 IMPRESSION: Bilateral infiltrates, right side greater than left. Findings consistent with pneumonia. Recommend short-term follow-up to resolution. Electronically Signed: Eamon Mccarthy MD at 15:31 EST Reading Location ID and State: [facility] / ID Tel , Service support , Assessment & Plan Assessment/Plan (1) COVID-19: PLAN: Plan The patient is a 58 y/o M w/ PMHx: HTN, HLD, Suspected Raynaud's disease, Cognitive impairment, CKD possible II versus III stage, Anxiety and Depression, COPD, Hx EtOH abuse, Hx PFO, Hx CVA, Tobacco use, Hx Brain aneurysm s/p clipping who presents to the [facility] ED on 05/25/2023 with history of 3 to 5 days of dyspnea with weakness, fatigue, body ache, headache, sore throat with urgent care evaluation on day of presentation and referral to the ED with mildly productive sputum noted to be yellow. #1. Acute Hypoxia (not consistent with respiratory failure) secondary to Acute Bilateral Pneumonia secondary to Acute Viral Syndrome, COVID-19: CTPA with and without contrast pending upon requested evaluation of patient, blood culture x 2 pending per ED. Will admit to the MS, maintain on COVID precautions, will maintain on oxygen with wean as tolerated to room air, PRN albuterol, ATC DuoNebs, HOB, IS parameters w/ pending sputum cultures, respiratory viral panel and urine antigens, will obtain D-dimer, procalcitonin, CRP, CPK, Ferritin, LDH, trop and BNP, continue supportive care, closely monitor for worsening status for ARDS and multiorgan failure, will initiate and continue IV decadron x 10 doses, given presentation will also initiate IV remdesivir but defer to discretion of Infectious disease. Will closely monitor for any superimposed bacterial infection and low threshold to add antibiotic therapy. PT/OT/case management consulted for discharge planning. #2. Possible WILL versus Acute Renal Insufficiency on Chronic Kidney Disease Stage II per prior GFR trending however patient did have a decrease 01/01/23 thus unclear if now stage III: Admission BUN/Cr 24/1.82, baseline renal function previously 1.0-1.2, however he did have 1 single level 01/01/2023 with creatinine 1.43 at that time thus unclear if function had worsened or if this is actually acute kidney injury, will judiciously hydrate and trend. #3. Hypokalemia: Admission K+ 3.4, magnesium level request, supplementation given, repeat level in AM. #4. Chronic COPD: Will maintain on oxygen with wean as tolerated to room air, continue ATC duonebs, PRN albuterol, HOB, IS parameters. #5. Normocytic anemia, unclear chronicity but new since 01/01/2023: Admission hemoglobin 12.5, MCV 89.6, prior to this hemoglobin primarily 13-14 range, will continue to trend and if further drops will further investigate otherwise may consider evaluation outpatient. #6. Chart reported Hx Brain aneurysm: Chart reported s/p clipping, most recent CT of the brain noted 01/01/2023 with no reported significant findings and last MRI brain 05/18/2020 with a normal unenhanced MRI of the brain at that time. #7. History of EtOH Abuse: Patient notes sober x 3 years. To be cautious given cognitive impairment will maintain on CIWA protocol, MVI, thiamine and folic acid. Encourage continued sobriety. Case management consulted. #8. Suspected Raynaud's disease: Patient is not the best historian but from discussions and presentation do suspect he likely has an underlying component of Raynaud's, may consider low-dose nifedipine if necessary. #9. Hx TIA/CVA: Will continue aspirin, statin, hypertensive regimen. #10. Chronic migraines: We will continue patient chronic home regimen however some agents may not be readily available in the hospital this may have to use home regimen. #11. Anxiety and depression: We will continue patient home olanzapine and Seroquel low-dose regimen. #12. Chart reported Cognitive impairment: Noted in the chart and evident on evaluation, complicates presentation, CM consulted. #13. Tobacco Abuse: Encouraged cessation, inpatient consultation per RT, NR if desired. #14. GERD: We will continue patient home PPI. #15. Hypertension none amlodipine, holding ACEI-HCTZ given ? WILL, as needed IV hydralazine. #16. Hyperlipidemia: We will continue patient on statin therapy. #17. DVT prophylaxis: Lovenox. #18. CODE status: Patient HCPOA and living will are not in place but his significant other Ashley would be his decision maker if necessary. Discussed CODE status at length including difference between FULL code, DNR-CCA and DNR-CC status. Following discussions about the differences in these status, requested Full Code status. Advanced Care Planning Face to Face Time: 16 minutes. Charges/Coding Visit Charges Inpatient E&M: 00713 Init Hosp L3 Procedures Hospitalists Procedures: 41080 Advncd Care Plan 30 Min
[2023-05-25 16:18] LABS: International Normalized Ratio 0.9; Partial Thromboplast Time 25.6 Seconds (24.1-36.2); Prothrombin Time (Protime)PT. 12.1 SECONDS (11.7-14.9)
[2023-05-25 16:20] LABS: Troponin-I HS 19 pg/mL (3.0-78.0)
[2023-05-25 16:36] LABS: Lactic Acid 1.3 mmol/L (0.4-1.9)
--- OUTSIDE RECORDS SUMMARY | 2023-05-25 17:09 | XMS RPT_ITS | CCD ---
Author Name Unknown Address [address] [place] [address] Organization [facility] Care Team Providers Care Logistics Account Manager Name Role Phone MORA EASLEY, DR ALVAREZ Primary Care Physician [phone] [place] Pj EASLEY Primary Care Provider Yanira vailable Kemarar , Kim Primary Care Provider MD ALEAH FISCHER Attending Unavailable ROMAR DO, DR ALVAREZ Primary Care Unavailable TEACH WAIST PLEATER-LICENSED FUNERAL DIRECTORFANY Attending Unavaila ble ROMAR DO, DR ALVAREZ Primary Care Unavailable TEACH WAIST PLEATER-LICENSED FUNERAL DIRECTOR, FANY Referring Unavaila EDILIA Grace MD Attending [...] AMINOPHEN] Drug Allergy 0 Hives, GI Upset [facility] (16 sources) traMADol; Translations: [TRAMADOL] Drug Allergy 6 AOF [facility] (4 sources) HYDROcodone; Translations: [hydrocodone] Drug Allergy rash [facility] (11 sources) traMADol; Translations: [TRAMADOL HCL] Drug Allergy 0 Hives, GI [facility] (9 sources) Nicotine; Translations: [nicotine] Drug Allergy 3 Allergic contact dermatitis (disorder), Other: See Comments [facility] Medications Current Medications Medication Drug Class(es) Dates Sig (Normalized) Sig (Original) acetaminophen 500 mg oral tablet (15 sources) Start: 02-21-2022 End: 08-20-2022 take 1 tablet by mouth once daily acetaminophen 500 mg oral tablet Dose : 1,000 mg = 2 tab(s), Oral, q8h, PRN as needed for pain, in absence of pcp. not to exceed 3000 mg/day, # 180 tab(s), 0 Refill(s), Pharmacy: [facility] [place] [facility] [id number], 176.5, cm, 07/17/22 12:58:00 EST, Height, kg, [...] 97.2 [degF] Yonathan Athy PA-C Work Phone: [facility] 04-02-2023 14:59-0500 Body weight 84.01 kg Yonathan Athy PA-C Work Phone: [facility] 04-02-2023 14:59-0500 Diastolic blood pressure 78 mm[Hg] Yonathan Athy PA-C Work Phone: [facility] 04-02-2023 14:59-0500 Heart rate 80 /min Yonathan Athy PA-C Work Phone: [facility] 04-02-2023 14:59-0500 Respiratory rate 16 /min Yonathan Athy PA-C Work Phone: [facility] 04-02-2023 14:59-0500 SaO2% (BldA) [Mass fraction] 98 % Yonathan Athy PA-C Work Phone: [facility] 04-02-2023 14:59-0500 Systolic blood pressure 122 mm[Hg] Yonathan Athy PA-C Work Phone: [facility] 03-05-2023 14:40-0400 Body temperature 97.7 [degF] Mike Correa APRN.LICENSED FUNERAL DIRECTOR Work Phone: [facility] 03-05-2023 14:40-0400 Body weight 81.38 kg Mike Correa APRN.LICENSED FUNERAL DIRECTOR Work Phone: [facility] 03-05-2023 14:40-0400 Diastolic blood pressure 80 mm[Hg] Mike Correa APRN.LICENSED FUNERAL DIRECTOR Work Phone: [facility] 03-05-2023 14:40-0400 Heart rate 92 /min Mike Correa APRN.LICENSED FUNERAL DIRECTOR Work Phone: [facility] 03-05-2023 14:40-0400 Respiratory rate 16 /min Mike Correa APRN.LICENSED FUNERAL DIRECTOR Work Phone: [facility] 03-05-2023 14:40-0400 Systolic blood pressure 122 mm[Hg] Mike Correa APRN.LICENSED FUNERAL DIRECTOR Work Phone: [facility] 02-21-2023 11:53-0400 Body temperature 97.5 [degF] Melida Chilel APRN.LICENSED FUNERAL DIRECTOR Work Phone: [facility] 02-21-2023 11:53-0400 Body weight 82.19 kg Melida Chilel APRN.LICENSED FUNERAL DIRECTOR Work Phone: [facility] 02-21-2023 11:53-0400 Diastolic blood pressure 84 mm[Hg] Melida Chilel APRN.LICENSED FUNERAL DIRECTOR Work Phone: [facility] 02-21-2023 11:53-0400 Heart rate 7 /min Melida Chilel APRN.LICENSED FUNERAL DIRECTOR Work Phone: [facility] 02-21-2023 11:53-0400 Respiratory rate 18 /min Melida Chilel APRN.LICENSED FUNERAL DIRECTOR Work Phone: [facility] 02-21-2023 11:53-0400 SaO2% (BldA) [Mass fraction] 95 % Melida Chilel APRN.LICENSED FUNERAL DIRECTOR Work Phone: [facility] 02-21-2023 11:53-0400 Systolic blood pressure 135 mm[Hg] Melida Chilel APRN.LICENSED FUNERAL DIRECTOR Work Phone: [facility] 01-22-2023 08:22-0400 Body temperature 97.39 [degF] Faiza Álvarez PA-C Work Phone: [facility] 01-22-2023 08:22-0400 Body weight 87.09 kg Faiza Bogner PA-C Work Phone: [facility] 01-22-2023 08:22-0400 Diastolic blood pressure 72 mm[Hg] Faiza Bogner PA-C Work Phone: [facility] 01-22-2023 08:22-0400 Heart rate 80 /min Faiza Bogner PA-C Work Phone: [facility] 01-22-2023 08:22-0400 Respiratory rate 16 /min Faiza Bogner PA-C Work Phone: [facility] 01-22-2023 08:22-0400 SaO2% (BldA) [Mass fraction] 96 % Faiza Bogner PA-C Work Phone: [facility] 01-22-2023 08:22-0400 Systolic blood pressure 122 mm[Hg] Faiza Bogner PA-C Work Phone: [facility] 01-02-2023 15:31-0400 Body temperature 97.81 [degF] Mendez Guillory MD Work Phone: [facility] 01-02-2023 15:31-0400 Body weight 81.1 kg Mendez Guillory MD Work Phone: [facility] 01-02-2023 15:31-0400 Diastolic blood pressure 79 mm[Hg] Mendez Guillory MD Work Phone: [facility] 01-02-2023 15:31-0400 Heart rate 104 /min Mendez Guillory MD Work Phone: [facility] 01-02-2023 15:31-0400 Respiratory rate 20 /min Mendez Guillory MD Work Phone: [facility] 01-02-2023 15:31-0400 SaO2% (BldA) [Mass fraction] 96 % Mendez Guillory MD Work Phone: [facility] 01-02-2023 15:31-0400 Systolic blood pressure 114 mm[Hg] Mendez Guillory MD Work Phone: [facility] 09-10-2022 11:25-0400 Body temperature 97.2 [degF] Mendez Guillory MD Work Phone: [facility] 09-10-2022 11:25-0400 Body weight 84.55 kg Mendez Guillory MD Work Phone: [facility] 09-10-2022 11:25-0400 Diastolic blood pressure 62 mm[Hg] Mendez Guillory MD Work Phone: [facility] 09-10-2022 11:25-0400 Heart rate 101 /min Mendez Guillory MD Work Phone: [facility] 09-10-2022 11:25-0400 Respiratory rate 20 /min Mendez Guillory MD Work Phone: [facility] 09-10-2022 11:25-0400 SaO2% (BldA) [Mass fraction] 92 % Mendez Guillory MD Work Phone: [facility] 09-10-2022 11:25-0400 Systolic blood pressure 98 mm[Hg] Mendez Guillory MD Work Phone: [facility] 09-05-2022 16:40-0400 Body temperature 100.09 [degF] Mendez Guillory MD Work Phone: [facility] 09-05-2022 16:40-0400 Body weight 87.18 kg Mendez Guillory MD Work Phone: [facility] 09-05-2022 16:40-0400 Heart rate 112 /min Mendez Guillory MD Work Phone: [facility] 09-05-2022 16:40-0400 Respiratory rate 21 /min Mendez Guillory MD Work Phone: [facility] 09-05-2022 16:40-0400 SaO2% (BldA) [Mass fraction] 93 % Mendez Guillory MD Work Phone: [facility] 08-28-2022 15:49-0400 Body height 175.3 cm DEVON CARDOSO MD [facility] 08-28-2022 15:49-0400 Body temperature 97.7 [degF] DEVON CARDOSO MD [facility] 08-28-2022 15:49-0400 Body weight 88 kg DEVON CARDOSO MD [facility] 08-28-2022 15:49-0400 Diastolic Blood Pressure Non-Invasive 98 1 DEVON CARDOSO MD [facility] 08-28-2022 15:49-0400 Heart rate 114 /min DEVON CARDOSO MD [facility] 08-28-2022 15:49-0400 Respiratory rate 18 /min DEVON CARDOSO MD [facility] 08-28-2022 15:49-0400 Systolic Blood Pressure Non-Invasive 162 1 DEVON CARDOSO MD [facility] 04-02-2022 16:37-0500 Body temperature 98.1 [degF] Traci Heri WAIST PLEATER.LICENSED FUNERAL DIRECTOR Work Phone: [facility] 04-02-2022 16:37-0500 Body weight 77.29 kg Traci Heri WAIST PLEATER.LICENSED FUNERAL DIRECTOR Work Phone: [facility] 04-02-2022 16:37-0500 Diastolic blood pressure 66 mm[Hg] Traci Heri WAIST PLEATER.LICENSED FUNERAL DIRECTOR Work Phone: [facility] 04-02-2022 16:37-0500 Heart rate 110 /min Traci Heri WAIST PLEATER.LICENSED FUNERAL DIRECTOR Work Phone: [facility] 04-02-2022 16:37-0500 Respiratory rate 20 /min Traci Heri WAIST PLEATER.LICENSED FUNERAL DIRECTOR Work Phone: [facility] 04-02-2022 16:37-0500 SaO2% (BldA) [Mass fraction] 98 % Traci Heri WAIST PLEATER.LICENSED FUNERAL DIRECTOR Work Phone: [facility] 04-02-2022 16:37-0500 Systolic blood pressure 100 mm[Hg] Traci Heri WAIST PLEATER.LICENSED FUNERAL DIRECTOR Work Phone: [facility] 12-19-2021 10:19-0400 Body temperature 97.3 [degF] Traci Heri WAIST PLEATER.LICENSED FUNERAL DIRECTOR Work Phone: [facility] 12-19-2021 10:19-0400 Body weight 79.29 kg Traci Heri WAIST PLEATER.LICENSED FUNERAL DIRECTOR Work Phone: [facility] 12-19-2021 10:19-0400 Diastolic blood pressure 78 mm[Hg] Traci Heri WAIST PLEATER.LICENSED FUNERAL DIRECTOR Work Phone: [facility] 12-19-2021 10:19-0400 Heart rate 89 /min Traci Heri WAIST PLEATER.LICENSED FUNERAL DIRECTOR Work Phone: [facility] 12-19-2021 10:19-0400 Respiratory rate 18 /min Traci Heri WAIST PLEATER.LICENSED FUNERAL DIRECTOR Work Phone: [facility] 12-19-2021 10:19-0400 SaO2% (BldA) [Mass fraction] 97 % Traci Heri WAIST PLEATER.LICENSED FUNERAL DIRECTOR Work Phone: [facility] 12-19-2021 10:19-0400 Systolic blood pressure 112 mm[Hg] Traci Heri WAIST PLEATER.LICENSED FUNERAL DIRECTOR Work Phone: [facility] Encounters Encounter Date Encounter Type Care Provider Facility Start: 05-04-2023 End: 05-04-2023 [facility] Facility:[facility] Start: 04-02-2023 End: 04-02-2023 [facility] Facility:[facility] Start: 04-02-2023 End: 04-02-2023 Patient encounter procedure Yonathan Ivan PA-C Work Phone: [facility] Procedures Date Procedure Procedure Detail Performing Clinician Start: 04-02-2023 COVID & INFLUENZA A/ B & RSV NAAT, ROUTINE Yonathan Ivan PA-C Work Phone: Start: 02-21-2023 STREP A MOLECULAR (POC) Melida Chilel WAIST PLEATER.LICENSED FUNERAL DIRECTOR Work Phone: Start: 04-02-2022 STREP A MOLECULAR (POC) Traci Liriano WAIST PLEATER.LICENSED FUNERAL DIRECTOR Work Phone: Start: 06-14-2012 Lipid 1996 panel - S fariba or Plasma Faiza Álvarez PA-C Work Phone: Aneurysm clipping DR KIM GONZALEZ DO Repair of ankle DR KIM Molina DO Plan of Treatment Date Care Activity Detail Author Start: 10-27-2030 Urine microalbumin profile DTaP,Tdap,Td Vaccine (3 - Td or Tdap) [facility] Start: 02-21-2023 End: 03-07-2023 COVID & INFLUENZA A/B & RSV NAAT, ROUTINE [facility] Work Phone: Immunizations Immunization Date Immunization Notes Care Provider Fa [facility] 06-15-2022 influenza, injectabl e, quadrivalent, contains preservative; Translations: [Fluarix PF Quadrivalent ] DR KIM DUMONT DO [facility] 06-15-2022 zoster vaccine recombinant; Translations: [Shingrix] DR KIM DUMONT DO [facility] 06-15-2022 Pneumococcal conjuga te PCV20, polysaccharide [id number] conjugate, adjuvant, PF; Translations: [Prevnar 20] DR KIM DUMONT DO [facility] 06-15-2022 influenza virus vaccine, unspecified formulation Faiza Álvarez PA-C Work Phone: [facility] 10-27-2020 tetanus and diphther ia toxoids, adsorbed, preservative free, for adult use (5 Lf of tetanus toxoid and 2 Lf of diphtheria toxoid); Translations: [Tenivac] DR KIM DUMONT DO [facility] 05-18-2020 influenza virus vaccine, unspecified formulation DR KIM DUMONT DO [facility] 03-20-2018 influenza virus vaccine, unspecified formulation DR KIM DUMONT DO [facility] 04-15-2017 influenza virus vaccine, unspecified formulation DR KIM DUMONT DO [facility] 04-11-2016 pneumococcal polysaccharide vaccine, [address] KIM DUMONT DO [facility] 03-18-2015 influenza virus vaccine, unspecified formulation DR KIM DUMONT DO [facility] 02-02-2015 tetanus toxoid, redu carlin diphtheria toxoid, and acellular pertussis vaccine, adsorbed DR KIM DUMONT DO [facility] 02-04-2014 influenza virus vaccine, unspecified formulation DR KIM DUMONT DO [facility] Payers Date Payer Category Payer Unknown PENDING 2023 Unknown [id number] 2023 Unknown [id number] 2021 Unknown [id number] 2021 Unknown [id number] 2019 Medicaid [id number] 1965 Unknown [id number] 2.16.8 [id number] 1965 Unknown [id number] 2.16.8 [id number] 1965 Unknown [id number] 2.16.8 [id number] 1965 Unknown [id number] 2.16.8 [id number] 1965 Unknown [id number] 2.16.8 [id number] 1965 Unknown [id number] 2.16.8 [id number] 1965 Unknown [id number] 2.16.8 [id number] 1965 Unknown [id number] 2.16.8 [id number] 1965 Unknown [id number] 2.16.8 [id number] 1965 Unknown [id number] 2.16.8 [id number] 1965 Unknown [id number] 2.16.8 [id number] 1965 Unknown [id number] 2.16.8 [id number] 1965 Unknown [id number] 2.16.8 [id number] 1965 Unknown [id number] 2.16.8 [id number] 1965 Unknown [id number] 2.16.8 [id number] 1965 Unknown [id number] 2.16.8 [id number] 1965 Unknown [id number] 2.16.8 [id number] Social History Date Type Detail Facility Start: 05-26-2020 Heavy tobacco smoker (finding) [facility] Sex Assigned At Male [facility] Start: 12-19-2021 Tobacco smoking stat [facility] Smokes tobacco daily [facility] History of tobacco use Cigarette Smoker [facility] Start: 12-19-2021 End: 02-21-2023 Cigarettes smoked current (pack per day) - Reported 0.5 [facility] Start: 12-19-2021 Tobacco use and exposure Smokeless tobacco non-user [facility] Start: 12-19-2021 End: 04-02-2023 Alcohol intake Current non-drinker of alcohol (finding) [facility] Start: 1965 Sex Assigned At Not on file [facility] Start: 12-09-2021 End: 04-02-2022 Exposure to SARS-CoV-2 (event) Not sure [facility] Work Phone: Start: 05-24-2022 Tobacco smoking status Light t obacco smoker (finding) [facility] Start: 01-02-2023 End: 02-21-2023 Tobacco use panel [facility] National Score (1-10 0), lower number is lower risk Not on file [facility] Functional Status Date Assessment Result Facility 09-03-2022 [...] phase of gait. Decreased stride length bilat. [facility] 08-28-2022 Functional Status Room check performed [facility] Mental Status Date Assessment Result Facility 08-28-2022 [facility] Clinical Notes 11-24-2021 to 05-04-2023 Patient InstructionsYonathan Ivan PA-C - 04/02/2023 3:22 PM Mike Ackerman APRN.LICENSED FUNERAL DIRECTOR - 03/05/2023 3:15 PM EDTPatient Melida Gentile APRN.LICENSED FUNERAL DIRECTOR - 02/21/2023 11:59 AM EDTRadiology Note Date & Type Note Facility 05-04-2023 Note HNO ID: [id number] Author: Isadora Devi PA Service: ? Author Type: Physician Clinique Counter Manager Type: Progress Notes Filed: 05/04/2023 10:34 AM Note Text: This note was created using [employer]. Subjective Hilda Leo is a 58 year [...] pulmonary disease) (HCC) CVA (cerebral vascular accident) ([facility]) Hypertension Migraine headache PAST SURGICAL HISTORY [...] detail warranting prompt ER evaluation. ANGELY Cowart [facility] 04-02-2023 Note HNO ID: [id number] Author: Yonathan Ivan PA-C Service: ? Author Type: Physician Clinique Counter Manager Type: Progress Notes Filed: 04/02/2023 3:40 PM Note Text: This note was created using [employer]. Subjective Hilda Leo is a 57 year [...] abuse Anxiety COPD (chronic obstructive pulmonary disease) ([facility]) CVA (cerebral vascular accident) ([facility]) Hypertension Migraine headache Current Outpatient Medications [...] AND RSV NAAT, ROUTINE Yonathan Ivan PA-C [facility] 04-02-2023 Note HNO ID: [id number] Author: Hamida Sher RT(R) Service: Radiology Author [...] RT Deandra(R) April 02, 2023 3:15 PM [facility] 04-02-2023 Instructions Yonathan Ivan PA-C - 04/02/2023 3:37 PM EST Mucinex dm otc for cold symptoms If symptoms worsening in 5-7 days be seen again. documented in this encounter [facility] 04-02-2023 History of Present illness Narrative This note was created using [employer]. Subjective Hilda Leo is a 57 year [...] Yonathan Ivan PA-C documented in this encounter [facility] 03-05-2023 Note HNO ID: [id number] Author: Pattie Diehl RT(R) Service: Radiology Author [...] Diehl RT(R) March 05, 2023 3:15 PM [facility] 03-05-2023 Note HNO ID: [id number] Author: Mike Correa APRN.LICENSED FUNERAL DIRECTOR Service: ? Author Type: Nurse Practitioner Type: [...] plan. Mike Zaragoza (more content not included)... [facility] 03-05-2023 History of Present illness Narrative [...] 03/05/2023 3:16 PM documented in this encounter [facility] 03-05-2023 Instructions Mike Correa APRN.CNP - 03/05/2023 [...] when lying down. documented in this encounter [facility] 02-21-2023 Note HNO ID: [id number] Author: Melida Chilel APRN.[facility] Service: ? Author [...] abuse Anxiety COPD (chronic obstructive pulmonary disease) ([facility]) CVA (cerebral vascular accident) ([facility]) Hypertension Migraine headache PAST SURGICAL HISTORY [...] Patient agreeable to treatment plan. Melida Chilel APRN.[facility] 02-21-2023 History of Present illness Narrative [...] abuse Anxiety COPD (chronic obstructive pulmonary disease) ([facility]) CVA (cerebral vascular accident) ([facility]) Hypertension Migraine headache PAST SURGICAL HISTORY [...] Melida Chilel APRN.LEBRON documented in this encounter [facility] 01-22-2023 Note HNO ID: [id number] Author: Pattie Diehl RT(R) Service: Radiology Author [...] RT Romain(R) January 22, 2023 8:55 AM [facility] 01-22-2023 Note HNO ID: [id number] Author: Faiza Álvarez PA-C Service: ? Author Type: Physician Clinique Counter Manager Type: Progress Notes Filed: 01/22/2023 10:38 AM [...] abuse Anxiety COPD (chronic obstructive pulmonary disease) ([facility]) CVA (cerebral vascular accident) ([facility]) Hypertension Migraine headache ALLERGIES Nicotine and [...] to seek care sooner. Faiza Álvarez PA-C [facility] 01-22-2023 History of Present illness Narrative [...] abuse Anxiety COPD (chronic obstructive pulmonary disease) ([facility]) CVA (cerebral vascular accident) ([facility]) Hypertension Migraine headache ALLERGIES Nicotine and [...] Faiza Álvarez PA-C documented in this encounter [facility] 01-08-2023 Miscellaneous Notes Patient given results and [...] if symptoms are not improving. Del Keyes APRN.LICENSED FUNERAL DIRECTOR documented in this encounter [facility] 01-02-2023 Note HNO ID: [id number] Author: Mendez Guillory MD Service: ? Author [...] not volunteer that he was seen in [facility] ER yesterday for malaise and abnormal behavior - rule out [facility] Brain/Head without Contrast Date of Exam: 01/01/[address] scan of the brain. Chest 1 View (Portable) on 01-01-2023 showed Hazy opacities in the lung bases suspicious for pneumonia. He was prescribed levofloxacin 500 mg tablet 500 mg PO DAILY #7 tabs 01/01/23. He will order picker levaquin tomorrow, it was not available at the pharmacy Add - COVID AND INFLUENZA A/B NAAT, ROUTINE Work note provided for today. Mendez Guillory MD [facility] 01-02-2023 History of Present illness Narrative [...] not volunteer that he was seen in [facility] ER yesterday for malaise and abnormal behavior - rule out TIA [facility] Brain/Head without Contrast Date of Exam: 01/01/[address] scan of the brain. Chest 1 View (Portable) on 01-01-2023 showed Hazy opacities in the lung bases suspicious for pneumonia. He was prescribed levofloxacin 500 mg tablet 500 mg PO DAILY #7 tabs 01/01/23. He will order picker levaquin tomorrow, it was not available at the pharmacy Add - COVID & INFLUENZA A/B NAAT, ROUTINE Work note provided for today. Mendez Guillory MD documented in this encounter [facility] 09-10-2022 Note HNO ID: [id number] Author: RT Romain(R) Service: Nuclear Medicine Author [...] RT Romain(R) September 10, 2022 12:06 PM [facility] 09-10-2022 Note HNO ID: [id number] Author: Mendez Guillory MD Service: ? Author [...] left lower lung abnormality. Mendez Guillory MD [facility] 09-10-2022 Instructions Mendez Guillory MD - 09/10/2022 12:48 PM EDT Follow up with your lung doctor for follow up. Your chest xray today showed: IMPRESSION: 1. Peribronchial cuffing which may be seen with small airways inflammation. 2. Minimal opacity at the left base, subsegmental atelectasis versus small focus of bronchopneumonia in the appropriate clinical setting. documented in this encounter [facility] 09-10-2022 History of Present illness Narrative Patient [...] Mendez Guillory MD documented in this encounter [facility] 09-05-2022 Note HNO ID: [id number] Author: Mendez Guillory MD Service: ? Author [...] pneumonia in June, cleared on CXR through [facility] 08/22/22. Has had steroid recently also. Has [...] unit) cap folic acid 1 mg tablet meebeeOVY SYRINGE 225 mg/1.5 mL syringe inject 1 [...] 100,000 UNIT/ML ORAL SUSPENSION Mendez Guillory MD [facility] 09-05-2022 History of Present illness Narrative [...] pneumonia in June, cleared on CXR through [facility] 08/22/22. Has had steroid recently also. Has [...] Mendez Guillory MD documented in this encounter [facility] 08-28-2022 Hospital Discharge instructions Patient Education 08/28/2022 15:57:24 AA Rita SMITH(CUSTOM) There is evidence of inflammation on the gums and adjacent soft tissues inside her mouth. Start antibiotic today. I would advise that you keep your dentures out to limit inflammation caused by your dentures. You should follow-up with your dentist. Follow Up Care 08/28/2022 15:43:41 With:KIM DUMONT DO Address: [address] [place] [address] Physicians [place] [address]- [phone] When:2-4 days With:Go to emergency room if symptoms worsen Address:Unknown When:2-4 days [facility] 08-28-2022 Note Discharge Instructions Thank you for allowing [facility] to assist you with your healthcare needs. The following is important discharge information regarding your hospital visit. Diagnosis from Today's Visit Gingivitis Mouth pain What to Do Next Instructions from Your Care Team No qualifying data available. Post Acute Orders No qualifying data available. You Need to Schedule the Following Appointments Follow Up with KIM DUMONT DO When Within 2-4 days Where: [address] [facility] [place] [phone] Follow Up with Go to emergency room [...] may report side effects to FDA at 4-841-ACJ-3010. What other drugs will affect naproxen? Ask [...] drugs may affect naproxen, including prescription and mfic-cer-kyzebig medicines, vitamins, and herbal products. Not all [...] to ensure that the information provided by [employer]. ('[employer]') is accurate, up-to-date, and complete, but no guarantee is made to that effect. Drug information contained herein may be time sensitive. [employer] information has been compiled for use by healthcare practitioners and consumers in the [place] and therefore [employer] does not warrant that uses outside of the [place] are appropriate, unless specifically indicated otherwise. [employer]'s drug information does not endorse drugs, diagnose patients or recommend therapy. [employer] drug information is an informational resource designed [...] effective or appropriate for any given patient. [employer] does not assume any responsibility for any aspect of healthcare administered with the aid of information [employer] provides. The information contained herein is not intended to cover all possible uses, directions, precautions, warnings, drug interactions, allergic reactions, or adverse effects. If you have questions about the drugs you are taking, check with your doctor, nurse or pharmacist. Copyright 1196-0342 [employer]. Version: .. Revision Date: 09/19/2021. amoxicillin and [...] may report side effects to FDA at 2-039-HKH-5514. What other drugs will affect amoxicillin and clavulanate potassium? Tell your doctor about all your other medicines, especially: allopurinol; probenecid; or a blood thinner--warfarin, Coumadin, Jantoven. This list is not complete. Other drugs may affect amoxicillin and clavulanate potassium, including prescription and gpzb-yxf-nvrvpbo medicines, vitamins, and herbal products. Not all [...] to ensure that the information provided by [employer]. ('[employer]') is accurate, up-to-date, and complete, but no guarantee is made to that effect. Drug information contained herein may be time sensitive. [employer] information has been compiled for use by healthcare practitioners and consumers in the [place] and therefore [employer] does not warrant that uses outside of the [place] are appropriate, unless specifically indicated otherwise. [employer] drug information does not endorse drugs, diagnose patients or recommend therapy. [employer] drug information is an informational resource designed [...] effective or appropriate for any given patient. [employer] does not assume any responsibility for any aspect of healthcare administered with the aid of information [employer] provides. The information contained herein is not intended to cover all possible uses, directions, precautions, warnings, drug interactions, allergic reactions, or adverse effects. If you have questions about the drugs you are taking, check with your doctor, nurse or pharmacist. Copyright 8791-1943 [employer]. Version: 14.01. Revision Date: 02/16/2022. Education Materials [...] to receive it can visit one of [facility] vaccine clinics. There are many vaccine clinic locations within the [facility]. For locations and available times, please visit [email or web address].g ov/. It is important to note that some COVID mobile vaccine clinics are held outdoors and may be canceled in rainy or stormy conditions. To learn more about pediatric vaccinations (ages 5-11), we invite you to visit the [employer] webpage. https://www.Hotchalks.org/pa ges/0834-Jrkcs-Wrjexrppdmh-Freque ogvh-Eilbv-Zhgrcwiyp.html To learn more about the COVID-19 vaccine, we invite you to visit the CDC website for a list of frequently asked questions. https://www.cdc.gov/coronavirus/2 019-ncov/vaccines/faq.html [facility] Patient Portal Access Instructions: Stay connected with your healthcare team and access your personal medical information anytime with the [employer] Patient Portal. If you would like a full copy of your medical records please contact the [facility] Medical Records Department Saturday through Saturday between 8a.m. and 4:30p.m. Please follow the directions below to access the portal: 1.Access the email account you provided upon registration to the hospital.2.Look for an invitation email from [facility].3.Open the email and access the invitation link: Accept Invitation to [facility]4.Fill in the required molina to create your account. Sign into [email or web address] with your username and password that you [...] you will allow to register on the [employer] Patient Portal for access to your information. You can also access the [facility] Patient Portal on the [employer] oswaldo. Simply click on Health Records under Health Data and then click on the [employer] logo. HOW TO SAFELY DISPOSE OF PRESCRIPTION [...] Call your local pharmacy or go to http://[employer]6T0El2k to find one close to you.3.Make use of household items: Use cat litter or old coffee grounds to dispose medications if other options are not available. Mix your drugs with these household products, seal them in an airtight container and throw it into the garbage. Call [facility]: [phone] to be sure your drugs can be [...] aware that I should contact my doctor. Patient/Pharmacy Technician Infusion Signature: Date/Time: Relationship to Patient: ____ Witness Name/Signature: Date/Time: [facility] 06-14-2022 Evaluation + Plan note Future Appointments Appointment Date:06/15/2022 02:45:00 PM Scheduled Provider: Location:[facility] Appointment Type:PC Nurse Injection Appointment Date:07/03/2022 07:30:00 AM Scheduled Provider: Location:[facility] Appointment Type:US Soft Tissue Mass of Neck Appointment Date:07/03/2022 08:30:00 AM Scheduled Provider: Location:[facility] Appointment Type:PF PFT w/Bronchodiltor Appointment Date:07/05/2022 03:30:00 PM Scheduled Provider:KIM DUMONT DO Location:[facility] Appointment Type:PC OV Future Scheduled TestsCT Low Dose Lung Cancer Screening (LDCT) 02/21/22US Soft Tissue Mass of Neck 07/03/22 [facility] 04-02-2022 Instructions Traci Liriano APRN.CNP - [...] inability to swallow. documented in this encounter [facility] 04-02-2022 History of Present illness Narrative Subjective The history is provided by the patient. No social services coordinator was used. HPI Hilda Leo is a [...] have confirmed and edited as necessary, the [facility] Review of Systems Constitutional: Positive for malaise/fatigue. [...] Traci Liriano APRN.LEBRON documented in this encounter [facility] 12-19-2021 History of Present illness Narrative Subjective The history is provided by the patient. No social services coordinator was used. HPI Hilda Leo is a 56 year old male who presents today for CC of headache and needing work note. Patient is a patient of [facility]/Dr. Reed and is managed for migraines [...] have confirmed and edited as necessary, the [facility] Review of Systems Constitutional: Negative for chills [...] Traci Liriano APRN.LEBRON documented in this encounter [facility] 11-24-2021 Note ORIGINAL EXAMINATION: Left groin ULTRASOUND11/24/2021 [...] Sign Date: 11/24/2021 1:30:04 PM Ordering Provider: [facility] 11-24-2021 Note ORIGINAL EXAMINATION: Left groin ULTRASOUND11/24/2021 [...] Sign Date: 11/24/2021 1:30:04 PM [facility] + Plan note Future Appointments Appointment Date:07/06/2021 04:00:00 PM Scheduled Provider:KIM DUMONT DO Location:[facility] Appointment Type:PC OV Diagnostic Tests PendingLipid Profile 06/26/21Thyroid Stimulating Hormone 06/26/21Complete Metabolic Panel 06/26/21Vitamin D Level 06/26/21 [facility] Evaluation + Plan note Future Appointments Appointment Date:09/28/2021 04:30:00 PM Scheduled Provider:KIM DUMONT DO Location:[facility] Appointment Type:PC Wellness Annual Future Scheduled TestsUS Scrotum Contents 07/06/21US Groin Left 07/06/21 [facility] Evaluation + Plan note Future Appointments Appointment Date:09/28/2021 04:30:00 PM Scheduled Provider:KIM DUMONT DO Location:[facility] Appointment Type: Wellness Annual [facility] Evaluation + Plan note Future Appointments Appointment Date:10/16/2021 04:00:00 PM Scheduled Provider: Location:[facility] Appointment Type:DB Diabetic Individual Visit Appointment Date:10/19/2021 03:30:00 PM Scheduled Provider:EDILIA CHAVES MD Location:[facility] Appointment Type:GS FOIL SPOOLER Appointment Date:11/16/2021 04:30:00 PM Scheduled Provider:KIM DUMONT DO Location:[facility] Appointment Type:PC OV Future Scheduled TestsAntinuclear Antibody Screen, Serum 09/28/21C-Reactive Protein 09/28/21Uric Acid 09/28/21Rheumatoid Factor 09/28/21Hepatitis C Antibody IgG 09/28/21Sedimentation Rate Automated 09/28/21CT Low Dose Lung Cancer Screening (LDCT) 09/28/21 [facility] Evaluation + Plan note Future Appointments Appointment Date:11/28/2021 10:30:00 AM Scheduled Provider:KIM DUMONT DO Location:[facility] Appointment Type:PC OV Appointment Date:11/30/2021 01:00:00 PM Scheduled Provider:EDILIA CHAVES MD Location:[facility] Appointment Type:GS OV Check after Test Appointment Date:12/07/2021 02:30:00 PM Scheduled Provider: Location:[facility] Appointment Type:CT Thorax Screening w/o Contrast Future Scheduled TestsCT Low Dose Lung Cancer Screening (LDCT) 12/07/21 [facility] Evaluation + Plan note Future Appointments Appointment Date:11/28/2021 10:30:00 AM Scheduled Provider:KIM DUMONT DO Location:[facility] Appointment Type:PC OV Appointment Date:11/30/2021 01:00:00 PM Scheduled Provider:EDILIA CHAVES MD Location:[facility] Appointment Type:GS OV Check after Test Appointment Date:12/07/2021 02:30:00 PM Scheduled Provider: Location:[facility] Appointment Type:CT Thorax Screening w/o Contrast Diagnostic Tests PendingAntinuclear Antibody Screen, Serum 11/24/21Rheumatoid Factor 11/24/21 Future Scheduled TestsCT Low Dose Lung Cancer Screening (LDCT) 12/07/21 [facility] Evaluation + Plan note Future Appointments Appointment Date:05/24/2022 04:00:00 PM Scheduled Provider:KIM DUMONT DO Location:[facility] Appointment Type:PC OV Diagnostic Tests PendingAntinuclear Antibody Screen, Serum 05/23/22 Future Scheduled TestsCT Low Dose Lung Cancer Screening (LDCT) 02/21/22 [facility] Evaluation + Plan note Future Appointments Appointment Date:07/10/2022 01:00:00 PM Scheduled Provider: Location:[facility] Appointment Type:PF PFT w/Bronchodiltor Appointment Date:07/24/2022 01:30:00 PM Scheduled Provider:KIM DUMONT DO Location:[facility] Appointment Type:PC OV [facility] Evaluation + Plan note Future Appointments Appointment Date:07/17/2022 01:00:00 PM Scheduled Provider:KIM DUMONT DO Location:[facility] Appointment Type:PC OV Appointment Date:07/24/2022 01:30:00 PM Scheduled Provider:KIM DUMONT DO Location:[facility] Appointment Type:PC OV Future Scheduled TestsXR Chest 2 Views (PA & Lateral) 08/28/22 [facility] Evaluation + Plan note Future Appointments Appointment Date:09/12/2022 04:00:00 PM Scheduled Provider:KIM DUMONT DO Location:[facility] Appointment Type:PC OV Future Scheduled TestsBasic Metabolic Panel 07/17/22Complete Blood Count 07/17/22XR Chest 2 Views (PA & Lateral) 08/28/22 [facility] Evaluation + Plan note Future Appointments Appointment Date:09/12/2022 04:00:00 PM Scheduled Provider:KIM DUMONT DO Location:[facility] Appointment Type:PC OV Future Scheduled TestsBasic Metabolic Panel 07/17/22Complete Blood Count 07/17/22 [facility] Evaluation + Plan note Future Appointments Appointment Date:09/03/2022 04:30:00 PM Scheduled Provider: Location:[facility] Appointment Type:PT Outpatient Evaluation Appointment Date:09/12/2022 04:00:00 PM Scheduled Provider:KIM DUMONT DO Location:[facility] Appointment Type:PC OV Future Scheduled TestsBasic Metabolic Panel 07/17/22Complete Blood Count 07/17/22 [facility] Evaluation + Plan note Future Appointments Appointment Date:12/20/2022 04:30:00 PM Scheduled Provider:KIM DUMONT DO Location:[facility] Appointment Type:PC OV [facility] documented in this encounter [facility] note* Diagnosis Sore throat- Primary Acute pharyngitis Bronchitis Bronchitis, not specified as acute or chronic Wheezing documented in this encounter [facility] note* Diagnosis Viral URI with cough- Primary Acute upper respiratory infections of unspecified site Thrush (oral) documented in this encounter [facility] note* Diagnosis COPD with exacerbation (HCC)- Primary Obstructive chronic bronchitis with exacerbation Acute cough Abnormal CXR (chest x-ray) Other nonspecific abnormal finding of lung field documented in this encounter [facility] note* Diagnosis Headache, unspecified headache type- Primary Malaise and fatigue Other malaise and fatigue Pneumonia of lower lobe due to infectious organism, unspecified laterality documented in this encounter [facility] note* Diagnosis Acute pain of left knee- Primary documented in this encounter [facility] note* Diagnosis Sore throat- Primary Acute pharyngitis URI, acute Acute upper respiratory infections of unspecified site documented in this encounter [facility] note* Diagnosis Foot pain, left- Primary Pain in limb Pain in left lower leg documented in this encounter [facility] note* Diagnosis Rib injury- Primary Sprain of ribs Viral URI Acute upper respiratory infections of unspecified site documented in this encounter [facility] course Narrative No data available for this section [facility] Hospital Discharge instructions No data available for this section [facility] Progress note No data available for this section [facility] Reason for referral (narrative)* Diagnostic Procedure Only (Urgent) - Closed Specialty Diagnoses / Procedures Referred By Contkaela t Referred To Contact XR IMAGING Diagnoses Pain in left lower leg Procedures XR TIBIA FIBULA 2V AP/LAT LEFT RADIOLOGIC EXAMINATION TIBIA & FIBULA 2 VIEWS Mike Corera, LICENSED FUNERAL DIRECTOR [address] [place] [address] Xr Imaging [facility] Referral ID Status Reason Start Date Expiration Date V isits Requested Visits Authorized [id number] Closed Auto-Generate d Referral 03/05/2023 04/03/2024 1 1 * Diagnostic Procedure Only (Urgent) - Closed Specialty Diagnoses / Procedures Referred By Contac t Referred To Contact XR IMAGING Diagnoses Foot pain, left Procedures XR FOOT GENERAL 3V AP/LAT/OBL LEFT RADEX FOOT COMPLETE MINIMUM 3 VIEWS Mike Correa APRN.LICENSED FUNERAL DIRECTOR [address] [place] [address] [place] [address] Referral ID Status Reason Start Date Expiration Date V isits Requested Visits Authorized [id number] Closed Auto-Generate d Referral 03/05/2023 04/03/2024 1 1 [facility] Diagnostic Procedure Only (Urgent) - Closed Specialty Diagnoses / Procedures Referred By Contac t Referred To Contact XR IMAGING Diagnoses Rib injury Procedures XR RIBS/CHEST 3V AP RIB/OBLS/CXR LEFT RADEX RIBS UNI W/POSTEROANT CH MINIMUM 3 VIEWS Yonathan Ivan PA-C [address] [id number] [place] [address] Referral ID Status Reason Start Date Expiration Date V isits Requested Visits Authorized [id number] Closed Auto-Generate d Referral 04/02/2023 05/01/2024 1 1 [facility] Summary Purpose Family History No Family History [...] HIGH MDM 60-74 MINUTES Faiza Álvarez PA-C [address] [place] [address] Referral ID Status Reason Start Date Expiration Date Visits Requested Visits Authorized [id number] Authorized PCP Requested Referral 01/22/2023 01/22/2024 1 1 Specialty Diagnoses / Procedures Referred By Contac t Referred To Contact XR IMAGING Diagnoses Acute pain of left knee Procedures XR KNEE GENERAL 4V AP BOTH/PA BOTH/LAT/MERC LEFT RADIOLOGIC EXAM KNEE COMPLETE 4/MORE VIEWS Faiza Álvarez PA-C [address] [place] [address] [place] [address] Referral ID Status Reason Start Date Expiration Date V isits Requested Visits Authorized [id number] Closed Auto-Generate d Referral 01/22/2023 02/21/2024 1 1 Specialty Diagnoses / Procedures Referred By Syeda purdy Referred To Contact Traci Liriano APRN.LICENSED FUNERAL DIRECTOR [address] [id number] Referral ID Status Reason Start Date Expiration Date Visits Re quested Visits Authorized [id number] Closed 1 1 Health Concerns Infection Onset Date Last Indicated Resolved Time COVID-19 Rule-Out 02/21/2023 02/21/2023 Additional Source Comments (unrecognized sect ion and content) No Status Records FoundNo Status Records FoundNo Status Records Found INFORMATION SOURCE (unrecogn ized section and content) DATE CREATED AUTHOR AUTHOR'S ORGANIZ ATION 10/23/2022 [facility] ([place]) DATE CREATED AUTHOR AUTHOR'S ORGANIZ ATION 05/05/2023 [facility] Care Team (unrecognized sect ion and content) Logistics Account Manager Relationship Specialty Start Date End Date Kim Dumont DO [address] [phone] PCP - General Family Medicine 12/26/21 Logistics Account Manager Relationship Specialty Start Date End Date Kim Dumont DO [address] [place] [address] PCP - General Family Medicine 12/26/21 Logistics Account Manager Relationship Specialty Start Date End Date Kim Dumont DO [address] [place] [address] PCP - General Family Medicine 12/26/21 Logistics Account Manager Relationship Specialty Start Date End Date Kim Dumont DO [address] [place] [address] PCP - General Family Medicine 12/26/21 Logistics Account Manager Relationship Specialty Start Date End Date Kim Dumont DO [address] [place] [phone] PCP - General Family Medicine 12/26/21 Logistics Account Manager Relationship Specialty Start Date End Date Kim Dumont DO [address] [place] [address] PCP - General Family Medicine 12/26/21 Logistics Account Manager Relationship Specialty Start Date End Date Kim Dumont DO [address] [place] [phone] PCP - General Family Medicine 12/26/21 Logistics Account Manager Relationship Specialty Start Date End Date Kim Dumont DO [address] [place] [phone] PCP - General Family Medicine 12/26/21 Logistics Account Manager Relationship Specialty Start Date End Date Kim Dumont DO [address] [place] [address] PCP - General Family Medicine 12/26/21 Care Team (unrecognized sect ion and content) Care Team Personnel Name: KIM DUMONT DO Position: P4 Physician - Primary Care Med Service: Active Provider Member Role: Primary Care Physician Address: Address: [address] [place] [address] Care Team Related Persons Name: ALIYAH MOODY Care Team Personnel Name: KIM DUMONT DO Position: P4 Physician - Primary Care Med Service: Active Provider Member Role: Primary Care Physician Address: Address: [address] [place] [address] Care Team Related Persons Name: ALIYAH MOODY Care Team Personnel Name: KIM DUMONT DO Position: P4 Physician - Primary Care Member Role: Primary Care Physician Address: Address: [address] [place] [address] Care Team Related Persons Name: ALIYAH MOODY Care Team Personnel Name: KIM DUMONT DO Position: P4 Physician - Primary Care Member Role: Primary Care Physician Address: Address: [address] [place] [address] Care Team Related Persons Name: ALIYAH MOODY Care Team Personnel Name: KIM DUMONT DO Position: P4 Physician - Primary Care Member Role: Primary Care Physician Address: Address: [address] [place] [address] Care Team Related Persons Name: ALIYAH MOODY Care Team Personnel Name: KIM DUMONT DO Position: P4 Physician - Primary Care Member Role: Primary Care Physician Address: Address: [address] [place] [address] Care Team Related Persons Name: ALIYAH MOODY Care Team Personnel Name: KIM DUMONT DO Position: P4 Physician - Primary Care Member Role: Primary Care Physician Address: Address: [address] [place] [address] Care Team Related Persons Name: ALIYAH MOODY Source Comments (unrecognize d section and content) In the event this informatio n is protected by the Federal Confidentiality of Alcohol and Drug Abuse Patient Records regulations: The Federal rules restrict any use of the information to criminally investigate or prosecute any alcohol or drug abuse patient.[facility] the event this information is protected by the Federal Confidentiality of Alcohol and Drug Abuse Patient Records regulations: The Federal rules restrict any use of the information to criminally investigate or prosecute any alcohol or drug abuse patient.[facility] Center[facility] the event this information is protected by the Federal Confidentiality of Alcohol and Drug Abuse Patient Records regulations: The Federal rules restrict any use of the information to criminally investigate or prosecute any alcohol or drug abuse patient.[facility] Center[facility] the event this information is protected by the Federal Confidentiality of Alcohol and Drug Abuse Patient Records regulations: The Federal rules restrict any use of the information to criminally investigate or prosecute any alcohol or drug abuse patient.[facility] Center[facility] the event this information is protected by the Federal Confidentiality of Alcohol and Drug Abuse Patient Records regulations: The Federal rules restrict any use of the information to criminally investigate or prosecute any alcohol or drug abuse patient.[facility] CenterIn the event this information is protected by the Federal Confidentiality of Alcohol and Drug Abuse Patient Records regulations: The Federal rules restrict any use of the information to criminally investigate or prosecute any alcohol or drug abuse patient.[facility] CenterIn the event this information is protected by the Federal Confidentiality of Alcohol and Drug Abuse Patient Records regulations: The Federal rules restrict any use of the information to criminally investigate or prosecute any alcohol or drug abuse patient.[facility] CenterIn the event this information is protected by the Federal Confidentiality of Alcohol and Drug Abuse Patient Records regulations: The Federal rules restrict any use of the information to criminally investigate or prosecute any alcohol or drug abuse patient.[facility] [facility] the event this information is protected by the Federal Confidentiality of Alcohol and Drug Abuse Patient Records regulations: The Federal rules restrict any use of the information to criminally investigate or prosecute any alcohol or drug abuse patient.[facility] the event this information is protected by the Federal Confidentiality of Alcohol and Drug Abuse Patient Records regulations: The Federal rules restrict any use of the information to criminally investigate or prosecute any alcohol or drug abuse patient.[facility] Reason for Visit (unrecogniz ed section and [...] BE BASED ON THE PRIMARY CLINICAL RECORDS. [facility]. provides no warranty or guarantee of the accuracy or completeness of information in this document.
[2023-05-25 17:27] LABS: D-Dimer Quantitative (DVT/PE) 3.19 FEU/ug/m (0.27-0.49)
[2023-05-25 17:44] LABS: AST(SGOT) 58 U/L (15-37); Alanine Aminotransfer ALT/SGPT 28 U/L (16-61); Albumin, Serum 3.2 g/dL (3.2-5.0); Alkaline Phosphatase 105 U/L (45-117); Bilirubin, Direct 0.14 mg/dL (0.00-0.30); CPK Total, Creatine Kinase 902 U/L (39-308); Ferritin 258 ng/mL (26-388); Globulin 4.1 g/dL (2.2-4.2); LDH 573 U/L (87-241); Magnesium 1.8 mg/dL (1.6-2.6); Phosphorus 2.3 mg/dL (2.5-4.9); Protein, Total 7.3 g/dL (6.4-8.2)
[2023-05-25 18:06] LABS: BNP,B-Type NATRIURETIC PEPTIDE 32.9 pg/mL (0-100)
[2023-05-25 18:11] LABS: Erythrocyte Sedimentation Rate 76 mm/hr (0-20)
[2023-05-25] MEDS: 0.9% Normal Saline (1000mL) 1,000 ML 100 ML IV (18:56)
[2023-05-25] MEDS: Potassium Chloride Oral Tablet 20 MEQ 40 MEQ PO (19:02)
[2023-05-25] MEDS: Acetaminophen 325 MG Tablet 650 MG PO (19:02)
[2023-05-25 20:08] LABS: Procalcitonin 0.94 ng/mL (0.00-0.09)
[2023-05-25] MEDS: LORazepam 1 MG Tablet 2 MG PO (22:19)
[2023-05-25] MEDS: MELATONIN 3 MG TABLET PO (22:19)
[2023-05-25] MEDS: Atorvastatin Calcium 80 MG Tablet PO (22:19)
[2023-05-25] MEDS: Enoxaparin 30 MG/0.3 ML Syringe SC (22:21)
[2023-05-25] MEDS: Remdesivir 200 MG in 0.9% Normal Saline (250mL Bag) 210 ML 250 MG IV (22:24)
[2023-05-26] VITALS (10 sets, daily range): BP systolic 106–128; BP diastolic 75–79; PULSE 64–90; RESP 18–24; TEMP 35.4–36.2; O2SAT 78–97; BMI 26.6
[2023-05-26] MEDS: LORazepam 1 MG Tablet 2 MG PO (00:50)
[2023-05-26] MEDS: 0.9% Normal Saline (1000mL) 1,000 ML 100 ML IV (04:51)
[2023-05-26 07:08] LABS: Absolute Lymphocyte Count 0.63 X10^3/uL (0.83-4.51); Absolute Neutrophil Count 2.9 X10^3/uL (2.0-7.7); Hematocrit 33.3 % (40-54); Lymphocyte # 0.63 X10^3/ul (0.83-4.51); Lymphocyte % 16.5 % (19-41); Mean Corpuscular Volume 90.7 fL (80-94); Mean Platelet Vol. 9.6 fl (6.2-12.0); Monocyte# 0.27 X10^3/uL; Monocyte% 7.1 % (0-10); NRBC Flagged by Analyzer 0 % (0-5); Neutrophil # 2.89 X10^3/uL (2.7-7.7); Neutrophil % 75.9 % (47-70); Platelet Count 181 K/mm3 (150-450); RBC Distribution Width SD 50.2 fl (35.1-43.9); Red Blood Count 3.67 M/mm3 (4.6-6.2); White Blood Count 3.8 K/mm3 (4.4-11.0)
[2023-05-26] MEDS: Ipratropium/Albuterol Sulfate 3 ML AMPUL.NEB INHALATION ×3 (08:13→20:21)
--- NOTE | 2023-05-26 09:33 | PCM.PN.HOSP ---
Reason for Visit Reason for Visit: Diagnoses COVID-19 (05/25/23) Objective Data Objective Data Vital Signs: Vital Signs Temp Pulse Resp BP Pulse Ox O2 Del Method O2 Flow Rate 97.2 F L 90 20 H 106/75 93 Nasal Cannula 3 05/26/23 04:52 05/26/23 08:13 05/26/23 08:13 05/26/23 04:52 05/26/23 08:13 05/26/23 08:13 05/26/23 08:13 Oxygen Flow Rate (L/min) 3 Oxygen Delivery Method Nasal Cannula Weight: 180 lb Body Mass Index (BMI) 26.6 Intake & Output: Intake and Output for Last 24 Hours 05/24/23 05/25/23 05/26/23 23:59 23:59 23:59 Intake Total 1250 / 1250 991.67 / 991.67 Output Total 500 / 500 500 / 500 Balance 750 / 750 491.67 / 491.67 Lab / Micro Data 05/26/23 06:37 05/26/23 06:37 Labs: Laboratory Results - last 24 hr 05/25/23 14:25: WBC 7.1, RBC 4.31 L, Hgb 12.5 L, Hct 38.6 L, MCV 89.6, MCH 29.0, MCHC 32.4, RDW Std Deviation 50.1 H, RDW Coeff of Jayy 15.0 H, Plt Count 194, MPV 9.7, Immature Gran % (Auto) 0.300, Neut % (Auto) 82.9 H, Lymph % (Auto) 11.8 L, Mckenzie % (Auto) 4.9, Eos % (Auto) 0.0, Baso % (Auto) 0.1, Absolute Neuts (auto) 5.9, Absolute Lymphs (auto) 0.84, Nucleated RBC % 0, ESR 76 H, D-Dimer Quant (PE/DVT) 3.19 H*, Sodium 141, Potassium 3.4 L, Chloride 109 H, Carbon Dioxide 22.0, Anion Gap 10, BUN 24 H, Creatinine 1.82 H, Estim Creat Clear Calc 44.24, Est GFR (MDRD) Af Amer 49 L, Est GFR (MDRD) Non-Af 41 L, BUN/Creatinine Ratio 13.2, Glucose 104, Calcium 8.6, Phosphorus 2.3 L, Magnesium 1.8, Ferritin 258, Total Bilirubin 0.40, Direct Bilirubin 0.14, AST 58 H, ALT 28, Alkaline Phosphatase 105, Lactate Dehydrogenase 573 H, Total Creatine Kinase 902 H, Troponin I High Sens 19 05/25/23 14:25: Troponin I High Sens Cancelled, C-React Prot Ext Range 208.00 H, B-Natriuretic Peptide 32.9, Total Protein 7.3, Albumin 3.2, Globulin 4.1 05/25/23 15:20: Lactic Acid 1.3 05/25/23 15:41: PT 12.1, INR 0.9, APTT 25.6 05/25/23 19:30: Procalcitonin 0.94 H 05/26/23 06:37: WBC 3.8 L, RBC 3.67 L, Hgb 11.0 L, Hct 33.3 L, MCV 90.7, MCH 30.0, MCHC 33.0, RDW Std Deviation 50.2 H, RDW Coeff of Jayy 15.0 H, Plt Count 181, MPV 9.6, Immature Gran % (Auto) 0.500, Neut % (Auto) 75.9 H, Lymph % (Auto) 16.5 L, Mckenzie % (Auto) 7.1, Eos % (Auto) 0.0, Baso % (Auto) 0.0, Absolute Neuts (auto) 2.9, Absolute Lymphs (auto) 0.63 L, Nucleated RBC % 0 Micro: Microbiology 05/25/23 14:25 Mucosa - Nose SARS-CoV-2, Influenza & RSV (PCR) - Final SARS-CoV-2 (COVID 19 PCR) Radiography Diagnostic Testing: Radiology Impression Chest X-Ray 05/25/23 12:59 IMPRESSION: Bilateral infiltrates, right side greater than left. Findings consistent with pneumonia. Recommend short-term follow-up to resolution. Electronically Signed: Eamon Mccarthy MD at 15:31 EST , Chest CTA 05/25/23 15:30 IMPRESSION: Limited examination due to breathing motion artifact. No pulmonary emboli in the central or primary segmental branches. Smaller or more distal PE cannot be reliably excluded. Pulmonary findings consistent with clinical history of Covid pneumonia. Electronically Signed: Eamon Mccarthy MD at 17:20 EST , Physical Exam Narrative Seen and examined. States he has COVID in the past about 1/2 years ago. He has not taken any vaccine. Complain of cough, chest congestion sputum production sore throat and shortness of breath for 4 days. Physical exam General: Alert, Oriented x3, Cooperative HEENT: Atraumatic, PERRLA, EOMI, Normocephalic Oral: No Gingival or Mucosal Lesions/ Ulcerations Neck: Supple, No JVD, Negative Carotid Bruits Lungs: Air entry diminished in bilateral lung bases. Bilateral coarse crepitations and wheezing. Mild hypoxia. Cardiovascular: Regular rate, Regular Rhythm, Normal S1, Normal S2, No murmurs Abdomen: Bowel Sounds Present, Soft, Non Tender, Non-Distended : No renal angle tenderness. No suprapubic tenderness. Extremities: No edema, Capillary Refill Less than 3 Seconds Skin: No rashes, No breakdown Musculoskeletal: No Tenderness to Palpation of Joints or Extremities. ROM full and intact. Neurological: Cranial nerves II-XII grossly intact, DTR 2+/4. No acute focal neurological deficit. Psych/Mental Status: Flat affect. Assessment & Plan Assessment/Plan (1) COVID-19: PLAN: Plan The patient is a 58 y/o M admitted about 4 days of dyspnea along with associated symptoms of weakness myalgia headache and sore throat cough with sputum production yellowish in color. Patient also had fever for first few days. She has history of COPD stroke and a smoking history. 1. Acute bilateral pneumonia most likely due to COVID-19 with hypoxia, does not meet diagnosis of acute hypoxic respiratory failure: Patient is admitted to MedSurg floor. IV dexamethasone and remdesivir. On DuoNeb, continue incentive spirometry and PEP. Phlegm tree markers including CK, LDH CRP elevated, procalcitonin 0.94. Lactic acid normal. Troponin is normal. BNP normal. PT and OT ordered. #2. IWLL on CKD stage III: BUNs/creatinine 20/1.42 improved from 24/1.82. Last creatinine on December 2022 is 1.43 that is his baseline. WILL is resolved. Discontinue IV fluid patient might go on fluid overload with COVID-19 pneumonia and decreased lung function. #3. Hypokalemia: Admission K+ 3.4, magnesium level request, supplementation given, repeat potassium normal. Hypokalemia resolved #4. COPD: on oxygen with wean as tolerated to room air, continue ATC duonebs, PRN albuterol, HOB, IS parameters. #5. Normocytic anemia, unclear chronicity but new since 01/01/2023: Admission hemoglobin 12.5, MCV 89.6, prior to this hemoglobin primarily 13-14 range, will continue to trend and if further drops will further investigate otherwise may consider evaluation outpatient. #6. Chart reported Hx Brain aneurysm: Chart reported s/p clipping, most recent CT of the brain noted 01/01/2023 with no reported significant findings and last MRI brain 05/18/2020 with a normal unenhanced MRI of the brain at that time. #7. History of EtOH Abuse: Patient notes sober x 3 years. To be cautious given cognitive impairment will maintain on CIWA protocol, MVI, thiamine and folic acid. Encourage continued sobriety. Case management consulted. #8. Suspected Raynaud's disease: Patient is not the best historian but from discussions and presentation do suspect he likely has an underlying component of Raynaud's, may consider low-dose nifedipine if necessary. #9. Hx TIA/CVA: continue aspirin, statin, hypertensive regimen. #10. Chronic migraines: continue patient chronic home regimen however some agents may not be readily available in the hospital this may have to use home regimen. #11. Anxiety and depression: We will continue patient home olanzapine and Seroquel low-dose regimen. #12. Chart reported Cognitive impairment: Noted in the chart and evident on evaluation, complicates presentation, CM consulted. #13. Tobacco Abuse: Encouraged cessation, inpatient consultation per RT, NR if desired. #14. GERD: continue patient home PPI. #15. Hypertension none amlodipine, holding ACEI-HCTZ #16. Hyperlipidemia: We will continue patient on statin therapy. #17. DVT prophylaxis: Lovenox. #18. CODE status: Patient HCPOA and living will are not in place but his significant other Ashley would be his decision maker if necessary. Discussed CODE status at length including difference between FULL code, DNR-CCA and DNR-CC status. Following discussions about the differences in these status, requested Full Code status. Charges/Coding Visit Charges Inpatient E&M: 08211 Subs Hosp L2
[2023-05-26] MEDS: OLANZapine 5 MG/TAB TAB.RAPDIS 15 MG PO (10:26)
[2023-05-26] MEDS: Pantoprazole Sodium 40 MG Tablet PO (10:27)
[2023-05-26] MEDS: Thiamine Hydrochloride 100 MG Tablet PO (10:27)
[2023-05-26] MEDS: Influenza Virus Vac Quad 23-24 60 MCG/0.5 ML SYRINGE IM (10:27)
[2023-05-26] MEDS: Folic Acid 1 MG Tablet PO (10:27)
[2023-05-26] MEDS: amLODIPine 5 MG Tablet PO (10:27)
[2023-05-26] MEDS: Aspirin E.C. 81 MG Tablet PO (10:27)
[2023-05-26] MEDS: Multivitamins,Ther W-Minerals Tablet 1 TABLET PO (10:27)
[2023-05-26] MEDS: dexAMETHasone 4 MG/ML Vial 6 MG IV (10:28)
[2023-05-26] MEDS: Enoxaparin 30 MG/0.3 ML Syringe SC ×2 (10:28→20:42)
[2023-05-26] MEDS: QUEtiapine 25 MG Tablet 50 MG PO (10:30)
[2023-05-26 10:39] LABS: ALB/GLOB Ratio 0.7 RATIO (0.9-2.4); AST(SGOT) 38 U/L (15-37); Alanine Aminotransfer ALT/SGPT 22 U/L (16-61); Albumin, Serum 2.5 g/dL (3.2-5.0); Alkaline Phosphatase 89 U/L (45-117); Anion Gap 7 (5-15); BUN 20 mg/dL (7-18); BUN/Creat Ratio 14.1 RATIO (10-20); Calcium,Total 7.8 mg/dL (8.5-10.1); Chloride 113 mmol/L (98-107); Creatinine, Serum 1.42 mg/dL (0.70-1.30); EST Glomerular Filtration Rate 54 mL/min (>60); Est Glom Filt Rate - Afr Amer 66 mL/min (>60); Globulin 3.8 g/dL (2.2-4.2); Glucose 163 mg/dL (74-106); Potassium 4.1 mmol/L (3.5-5.1); Protein, Total 6.3 g/dL (6.4-8.2); Sodium Level 142 mmol/L (136-145)
[2023-05-26] MEDS: Atorvastatin Calcium 80 MG Tablet PO (20:41)
[2023-05-26] MEDS: Remdesivir 100 MG in 0.9% Normal Saline (250mL Bag) 230 ML 250 MG IV (20:41)
[2023-05-27] VITALS (16 sets, daily range): BP systolic 114–128; BP diastolic 74–85; PULSE 55–102; RESP 18–26; TEMP 36.4–36.6; O2SAT 77–99; BMI 25.9
[2023-05-27] MEDS: Acetaminophen 325 MG Tablet 650 MG PO (00:14)
[2023-05-27] MEDS: MELATONIN 3 MG TABLET PO (00:14)
[2023-05-27] MEDS: Albuterol 2.5 MG/3 ML VIAL.NEB. INHALATION (01:04)
[2023-05-27] MEDS: LORazepam 1 MG Tablet 2 MG PO ×3 (03:13→21:57)
--- NOTE | 2023-05-27 04:53 | NURSING ---
Pt continues to take 02 off. Pt desated to 87 % on ra. 02 reappilied. Pt confused at this time.
--- NOTE | 2023-05-27 05:01 | NURSING ---
Patient in covid room. MAHOGANY Rodriguez asked this nurse to pull ativan.
[2023-05-27] MEDS: lamoTRIgine 150 MG Tablet PO ×2 (05:30→21:58)
[2023-05-27] MEDS: OXcarbazepine 300 MG Tablet PO ×2 (05:30→21:58)
[2023-05-27] MEDS: Escitalopram Oxalate 10 MG Tablet PO (05:30)
[2023-05-27 06:41] LABS: Absolute Lymphocyte Count 1.04 X10^3/uL (0.83-4.51); Absolute Neutrophil Count 6.8 X10^3/uL (2.0-7.7); Basophil# 0.03 X10^3/uL; Basophil% 0.3 % (0-1); Hemoglobin 12.6 g/dL (13.0-16.5); Lymphocyte # 1.04 X10^3/ul (0.83-4.51); Lymphocyte % 11.7 % (19-41); Mean Corp Hgb Conc 32.3 g/dL (32-36); Mean Corpuscular Hgb 28.9 pg (27.0-32.0); Mean Corpuscular Volume 89.4 fL (80-94); Mean Platelet Vol. 9.7 fl (6.2-12.0); NRBC Flagged by Analyzer 0 % (0-5); Neutrophil % 76.9 % (47-70); Platelet Count 247 K/mm3 (150-450); Red Blood Count 4.36 M/mm3 (4.6-6.2); White Blood Count 8.9 K/mm3 (4.4-11.0)
--- NOTE | 2023-05-27 06:41 | NURSING ---
Pt continues to think he is at work. Pt very confused and restless. Pt will not keep 02 in his nose. Pt trying to get out of bed. 02 reapplied. Process Control Tech notified of need for a sitter. Ramiro will be here at 7am
[2023-05-27 07:04] LABS: ALB/GLOB Ratio 0.7 RATIO (0.9-2.4); AST(SGOT) 38 U/L (15-37); Alanine Aminotransfer ALT/SGPT 22 U/L (16-61); Albumin, Serum 2.5 g/dL (3.2-5.0); Alkaline Phosphatase 92 U/L (45-117); Anion Gap 8 (5-15); BUN 21 mg/dL (7-18); BUN/Creat Ratio 16.9 RATIO (10-20); Calcium,Total 8.3 mg/dL (8.5-10.1); Chloride 113 mmol/L (98-107); Creatinine, Serum 1.24 mg/dL (0.70-1.30); EST Glomerular Filtration Rate 64 mL/min (>60); Est Glom Filt Rate - Afr Amer 77 mL/min (>60); Estimated Creatinine Clearance 64.94 ml/min; Globulin 3.8 g/dL (2.2-4.2); Glucose 140 mg/dL (74-106); Potassium 3.7 mmol/L (3.5-5.1); Protein, Total 6.3 g/dL (6.4-8.2); Sodium Level 142 mmol/L (136-145)
[2023-05-27] MEDS: Ipratropium/Albuterol Sulfate 3 ML AMPUL.NEB INHALATION ×4 (07:19→20:22)
[2023-05-27] MEDS: Multivitamins,Ther W-Minerals Tablet 1 TABLET PO (10:05)
[2023-05-27] MEDS: OLANZapine 5 MG/TAB TAB.RAPDIS 15 MG PO (10:05)
[2023-05-27] MEDS: Enoxaparin 30 MG/0.3 ML Syringe SC ×2 (10:05→21:56)
[2023-05-27] MEDS: QUEtiapine 25 MG Tablet 50 MG PO (10:05)
[2023-05-27] MEDS: Thiamine Hydrochloride 100 MG Tablet PO (10:05)
[2023-05-27] MEDS: Pantoprazole Sodium 40 MG Tablet PO (10:06)
[2023-05-27] MEDS: Etodolac 200 MG Capsule PO ×2 (10:06→21:57)
[2023-05-27] MEDS: dexAMETHasone 4 MG/ML Vial 6 MG IV (10:06)
[2023-05-27] MEDS: Folic Acid 1 MG Tablet PO (10:06)
[2023-05-27] MEDS: amLODIPine 5 MG Tablet PO (10:06)
[2023-05-27] MEDS: Aspirin E.C. 81 MG Tablet PO (10:06)
--- NOTE | 2023-05-27 10:13 | CASEMGMT ---
MAHOGANY HUERTA Assessment Pt is A&Ox1-2 this time with no friends or family in the room. Pt has a sitter. Pt does not have a POA on file. This MAHOGANY HUERTA calls pt SO (Shanna) and she states pt Mother has Alzheimers and that his Dad has . Pt has a daughter that he gave up his parental rights to. Pt SO states that he has 2 sisters and the main contact for decisions should be Rachel Silva. Facesheet updated. Shanna states that she is willing to answer questions regarding the pt. Care providers, pharmacy, and demographics verified. Admitting dx: COVID PNA, Hypoxia LACE Strata: 3 PCP: Julia Specialists: Inside Sales Account Manager and Neurologist through [place]. Dr. Das (Pain management). Preferred Pharmacy: [facility] Insurance: [facility] Prescription Benefit: Yes LNOK: Shanna Fisher (SO), Rachel Silva ([facility]) Living Arrangements: Pt SO states they live together in a double wide with 3 steps to enter the home with no issues. No steps inside the home. ADLs/IADLs: Pt SO states the pt is normally I with ADLs and IADLs Transportation: Pt and pt SO drive DME:Denies HHC/SNF:Denies Plan: See how pt progresses in the hospital. Pt SO states the goal is to DC home with her. TBD. Wang Correa RN, CM
[2023-05-27] MEDS: LORazepam 2 MG/ML Syringe IV ×2 (14:14→18:48)
[2023-05-27] MEDS: 0.9% Saline Lock 10 ML Syringe IV ×4 (14:14→21:56)
[2023-05-27 15:09] LABS: Allen Test Positive; Base Excess -3 mmol/L (-2 to +2); Bicarbonate 22.6 mmol/L (22-26); Blood Gas Specimen Type ART; Mode Not entered; O2 Delivery Device Airvo; PO2 72 mmHG (75-100); SITE L Radial; SO2 94 % (95-99); Total Carbon Dioxide 24 mmol/L; pCO2 38.2 mmHg (35-45); pH 7.38 (7.35-7.45)
--- NOTE | 2023-05-27 16:29 | PCM.PN.HOSP ---
Subjective Subjective Confused and delirious. Keeps try to remove his Airvo and needs to have a sitter Objective Data Objective Data Vital Signs: Vital Signs Temp Pulse Resp BP Pulse Ox O2 Del Method O2 Flow Rate 97.6 F L 102 H 20 H 128/85 H 93 Airvo 60 05/27/23 14:14 05/27/23 14:14 05/27/23 14:14 05/27/23 14:14 05/27/23 14:14 05/27/23 15:32 05/27/23 15:32 FiO2 88 05/27/23 15:32 Oxygen Flow Rate (L/min) 60 Oxygen Delivery Method Airvo Weight: 175 lb 7.807 oz Body Mass Index (BMI) 25.9 Intake & Output: Intake and Output for Last 24 Hours 05/26/23 05/27/23 05/28/23 03:59 03:59 03:59 Intake Total 1250 / 1250 2138.34 / 2138.34 400 / 400 Output Total 500 / 500 500 / 500 900 / 900 Balance 750 / 750 1638.34 / 1638.34 -500 / -500 Lab / Micro Data 05/27/23 06:31 05/27/23 06:31 Labs: Laboratory Results - last 24 hr 05/27/23 06:31: WBC 8.9, RBC 4.36 L, Hgb 12.6 L, Hct 39.0 L, MCV 89.4, MCH 28.9, MCHC 32.3, RDW Std Deviation 50.0 H, RDW Coeff of Jayy 15.0 H, Plt Count 247, MPV 9.7, Immature Gran % (Auto) 2.100 H, Neut % (Auto) 76.9 H, Lymph % (Auto) 11.7 L, Eaton % (Auto) 9.0, Eos % (Auto) 0.0, Baso % (Auto) 0.3, Absolute Neuts (auto) 6.8, Absolute Lymphs (auto) 1.04, Nucleated RBC % 0, Sodium 142, Potassium 3.7, Chloride 113 H, Carbon Dioxide 21.0, Anion Gap 8, BUN 21 H, Creatinine 1.24, Estim Creat Clear Calc 64.94, Est GFR (MDRD) Af Amer 77, Est GFR (MDRD) Non-Af 64, BUN/Creatinine Ratio 16.9, Glucose 140 H, Calcium 8.3 L, Total Bilirubin 0.30, AST 38 H, ALT 22, Alkaline Phosphatase 92, Total Protein 6.3 L, Albumin 2.5 L, Globulin 3.8, Albumin/Globulin Ratio 0.7 L Micro: Microbiology 05/25/23 14:25 Mucosa - Nose SARS-CoV-2, Influenza & RSV (PCR) - Final SARS-CoV-2 (COVID 19 PCR) ABG Data ABG results: ABG 05/27/23 15:05 Specimen Type ART Sample Site L Radial pH 7.38 Bicarbonate Actual 22.6 Total CO2 24 Base Excess -3 L O2 Saturation 94 L O2 % 89.0 ABG pCO2 38.2 ABG pO2 72 L Johnny Test Positive O2 Delivery Device Airvo Vent Mode Not entered Physical Exam Narrative General: Alert, disoriented, Cooperative, No apparent distress HEENT: Atraumatic, PERRLA, EOMI, Normocephalic Oral: Moist Mucosa Neck: Supple, No JVD Lungs: Diminished, Normal air movement, No rhonchi, wheeze, No rales Cardiovascular: Regular rate, Regular Rhythm, Normal S1, Normal S2, No murmurs Abdomen: Soft, Non Tender, Non-Distended, No Hepato-splenomegaly Extremities: No edema, Capillary Refill Less than 3 Seconds Skin: No rashes, No breakdown Musculoskeletal: No Tenderness to Palpation of Joints or Extremities Neurological: Does not follow commands but moves all extremities no focal neurologic deficit Psych/Mental Status: Delirious, redirectable Assessment & Plan Assessment/Plan (1) COVID-19: PLAN: Plan 1. Acute bilateral pneumonia most likely due to COVID-19 with hypoxia with COPD exacerbation, does not meet diagnosis of acute hypoxic respiratory failure: Patient is admitted to MedSurg floor. IV dexamethasone and remdesivir. On DuoNeb, continue incentive spirometry and PEP. Phlegm tree markers including CK, LDH CRP elevated, procalcitonin 0.94. Lactic acid normal. Troponin is normal. BNP normal. PT and OT ordered. 05/27/2023: The CTA of the chest does not show any PEs however there was motion artifact and it is fairly consistent with COVID-pneumonia, will continue with present therapies he has increasing oxygen requirements and is currently on Airvo so we will trial him with a dose of IV Lasix. ABG demonstrates so low pO2 we will monitor 2. WILL on CKD stage III: BUNs/creatinine 20/1.42 improved from 24/1.82. Last creatinine on December 2022 is 1.43 that is his baseline. WILL is resolved. Discontinue IV fluid patient might go on fluid overload with COVID-19 pneumonia and decreased lung function. 05/27/2023: Creatinine is down to 1.24 today, will trial him on a dose of Lasix 3. Chart reported Hx Brain aneurysm: Chart reported s/p clipping, most recent CT of the brain noted 01/01/2023 with no reported significant findings and last MRI brain 05/18/2020 with a normal unenhanced MRI of the brain at that time. 4. History of EtOH Abuse: Patient notes sober x 3 years. To be cautious given cognitive impairment will maintain on CIWA protocol, MVI, thiamine and folic acid. Encourage continued sobriety. Case management consulted. 05/27/2023: He is behaving like alcohol withdrawal but his significant other also states that he has been sober for 3 years 5. Hx TIA/CVA: continue aspirin, statin, hypertensive regimen. 6. Chronic migraines: continue patient chronic home regimen however some agents may not be readily available in the hospital this may have to use home regimen. 7. Anxiety and depression: We will continue patient home olanzapine and Seroquel low-dose regimen. 8. Chart reported Cognitive impairment: Noted in the chart and evident on evaluation, complicates presentation, CM consulted. 9. Tobacco Abuse: Encouraged cessation, inpatient consultation per RT, NR if desired. 10. GERD: continue patient home PPI. 11. Hypertension none amlodipine, holding ACEI-HCTZ 12. Hyperlipidemia: We will continue patient on statin therapy. DVT: Lovenox Capacity Legal Tire Service Technician Reflex Medical hold order details:: IF a medical hold is selected below, a suggested order for a MEDICAL HOLD will reflex upon signing the document. Next of kin: [place] law dictates a PRIORITY LIST for identifying legal decision-maker/legal next of kin in the following order (LNOK): 1st: The patient?s legal guardian, if any 2nd: The patient's spouse (if status is questionable, consult Risk Management) 3rd: The patient?s adult child(amberly) (majority, if multiple children) 4th: The patient?s parents 5th: The patient?s adult siblings (majority, if multiple children siblings) Charges/Coding Visit Charges Inpatient E&M: 49380 Subs Hosp L2
[2023-05-27] MEDS: Furosemide 40 MG/4 ML Vial IV (16:31)
[2023-05-27] MEDS: Remdesivir 100 MG in 0.9% Normal Saline (250mL Bag) 230 ML 250 MG IV (21:55)
[2023-05-27] MEDS: Atorvastatin Calcium 80 MG Tablet PO (21:57)
[2023-05-28] VITALS (12 sets, daily range): BP systolic 100–113; BP diastolic 68–85; PULSE 76–110; RESP 18–28; TEMP 36.6–37.8; O2SAT 91–97; BMI 24.5
[2023-05-28 08:27] LABS: Absolute Lymphocyte Count 1.58 X10^3/uL (0.83-4.51); Absolute Neutrophil Count 12.9 X10^3/uL (2.0-7.7); Basophil# 0.08 X10^3/uL; Basophil% 0.5 % (0-1); Hemoglobin 14.1 g/dL (13.0-16.5); Lymphocyte # 1.58 X10^3/ul (0.83-4.51); Lymphocyte % 9.9 % (19-41); Mean Corp Hgb Conc 32.8 g/dL (32-36); Mean Corpuscular Hgb 28.7 pg (27.0-32.0); Mean Corpuscular Volume 87.6 fL (80-94); Mean Platelet Vol. 9.5 fl (6.2-12.0); Monocyte# 1.01 X10^3/uL; Monocyte% 6.3 % (0-10); NRBC Flagged by Analyzer 0 % (0-5); Neutrophil # 12.92 X10^3/uL (2.7-7.7); Neutrophil % 81.2 % (47-70); Platelet Count 344 K/mm3 (150-450); RBC Distribution Width CV 14.9 % (11.6-14.6); RBC Distribution Width SD 47.7 fl (35.1-43.9); Red Blood Count 4.91 M/mm3 (4.6-6.2); White Blood Count 15.9 K/mm3 (4.4-11.0)
[2023-05-28 08:51] LABS: ALB/GLOB Ratio 0.7 RATIO (0.9-2.4); AST(SGOT) 39 U/L (15-37); Alanine Aminotransfer ALT/SGPT 22 U/L (16-61); Albumin, Serum 2.8 g/dL (3.2-5.0); Alkaline Phosphatase 121 U/L (45-117); Anion Gap 6 (5-15); BUN 29 mg/dL (7-18); BUN/Creat Ratio 23.8 RATIO (10-20); Calcium,Total 9.7 mg/dL (8.5-10.1); Chloride 108 mmol/L (98-107); Creatinine, Serum 1.22 mg/dL (0.70-1.30); EST Glomerular Filtration Rate 65 mL/min (>60); Est Glom Filt Rate - Afr Amer 78 mL/min (>60); Globulin 4.3 g/dL (2.2-4.2); Glucose 117 mg/dL (74-106); Potassium 3.8 mmol/L (3.5-5.1); Protein, Total 7.1 g/dL (6.4-8.2); Sodium Level 141 mmol/L (136-145)
--- NOTE | 2023-05-28 10:35 | PN.HOSP_ITS ---
Subjective Subjective No new issues, appears to be breathing a little bit better with the Lasix that he was given yesterday we will repeat dose today Objective Data Objective Data Vital Signs: Vital Signs Temp Pulse Resp BP Pulse Ox O2 Del Method O2 Flow Rate 100 F H 76 28 H 110/69 96 Airvo 60 05/28/23 08:20 05/28/23 08:20 05/28/23 08:20 05/28/23 08:20 05/28/23 08:20 05/28/23 04:33 05/27/23 15:32 FiO2 50 05/28/23 07:10 Oxygen Flow Rate (L/min) 60 Oxygen Delivery Method Airvo Weight: 166 lb 4.8 oz Body Mass Index (BMI) 24.5 Intake & Output: Intake and Output for Last 24 Hours 05/27/23 05/28/23 05/29/23 03:59 03:59 03:59 Intake Total 2138.34 / 2138.34 1050 / 1050 Output Total 500 / 500 2100 / 2100 Balance 1638.34 / 1638.34 -1050 / -1050 Lab / Micro Data 05/28/23 08:06 05/28/23 08:06 Labs: Laboratory Results - last 24 hr 05/28/23 08:06: WBC 15.9 H, RBC 4.91, Hgb 14.1, Hct 43.0, MCV 87.6, MCH 28.7, MCHC 32.8, RDW Std Deviation 47.7 H, RDW Coeff of Jayy 14.9 H, Plt Count 344, MPV 9.5, Immature Gran % (Auto) 2.100 H, Neut % (Auto) 81.2 H, Lymph % (Auto) 9.9 L, Spencer % (Auto) 6.3, Eos % (Auto) 0.0, Baso % (Auto) 0.5, Absolute Neuts (auto) 12.9 H, Absolute Lymphs (auto) 1.58, Nucleated RBC % 0, Sodium 141, Potassium 3.8, Chloride 108 H, Carbon Dioxide 27.0, Anion Gap 6, BUN 29 H, Creatinine 1.22, Estim Creat Clear Calc 66.00, Est GFR (MDRD) Af Amer 78, Est GFR (MDRD) Non-Af 65, BUN/Creatinine Ratio 23.8 H, Glucose 117 H, Calcium 9.7, Total Bilirubin 0.60, AST 39 H, ALT 22, Alkaline Phosphatase 121 H, Total Protein 7.1, Albumin 2.8 L, Globulin 4.3 H, Albumin/Globulin Ratio 0.7 L Micro: Microbiology 05/25/23 15:45 Blood Culture (Wb) - Anticubital Right Blood Culture - Preliminary No growth in 48 hours. 05/25/23 15:20 Blood Culture (Wb) - Anticubital Left Blood Culture - Preliminary No growth in 48 hours. 05/25/23 14:25 Mucosa - Nose SARS-CoV-2, Influenza & RSV (PCR) - Final SARS-CoV-2 (COVID 19 PCR) ABG Data ABG results: ABG 05/27/23 15:05 Specimen Type ART Sample Site L Radial pH 7.38 Bicarbonate Actual 22.6 Total CO2 24 Base Excess -3 L O2 Saturation 94 L O2 % 89.0 ABG pCO2 38.2 ABG pO2 72 L Johnny Test Positive O2 Delivery Device Airvo Vent Mode Not entered Physical Exam Narrative General: Alert, disoriented, No apparent distress HEENT: Atraumatic, PERRLA, EOMI, Normocephalic Oral: Moist Mucosa Neck: Supple, No JVD Lungs: Diminished, Normal air movement, No rhonchi, wheeze, No rales Cardiovascular: Regular rate, Regular Rhythm, Normal S1, Normal S2, No murmurs Abdomen: Soft, Non Tender, Non-Distended, No Hepato-splenomegaly Extremities: No edema, Capillary Refill Less than 3 Seconds Skin: No rashes, No breakdown Musculoskeletal: No Tenderness to Palpation of Joints or Extremities Neurological: Does not follow commands but moves all extremities no focal neurologic deficit Psych/Mental Status: Delirious, redirectable Assessment & Plan Assessment/Plan (1) COVID-19: PLAN: Plan 1. Acute bilateral pneumonia most likely due to COVID-19 with hypoxia with COPD exacerbation, does not meet diagnosis of acute hypoxic respiratory failure: Patient is admitted to Medr floor. IV dexamethasone and remdesivir. On DuoNeb, continue incentive spirometry and PEP. Phlegm tree markers including CK, LDH CRP elevated, procalcitonin 0.94. Lactic acid normal. Troponin is normal. BNP normal. PT and OT ordered. 05/27/2023: The CTA of the chest does not show any PEs however there was motion artifact and it is fairly consistent with COVID-pneumonia, will continue with present therapies he has increasing oxygen requirements and is currently on Airvo so we will trial him with a dose of IV Lasix. ABG demonstrates so low pO2 we will monitor 05/28/2023: ABG yesterday was unremarkable other than a low pO2 he was given a dose of Lasix which was able to bring down his FiO2 so we will repeat a dose today kidney function so far stable 2. WILL on CKD stage III: BUNs/creatinine 201.42 improved from 241.82. Last creatinine on December 2022 is 1.43 that is his baseline. WILL is resolved. Discontinue IV fluid patient might go on fluid overload with COVID-19 pneumonia and decreased lung function. 05/27/2023: Creatinine is down to 1.24 today, will trial him on a dose of Lasix 05/28/2023: Creatinine is 1.22 today, can repeat a dose of Lasix 3. Chart reported Hx Brain aneurysm: Chart reported s/p clipping, most recent CT of the brain noted 01/01/2023 with no reported significant findings and last MRI brain 05/18/2020 with a normal unenhanced MRI of the brain at that time. 4. History of EtOH Abuse: Patient notes sober x 3 years. To be cautious given cognitive impairment will maintain on CIWA protocol, MVI, thiamine and folic acid. Encourage continued sobriety. Case management consulted. 05/27/2023: He is behaving like alcohol withdrawal but his significant other also states that he has been sober for 3 years 5. Hx TIA/CVA: continue aspirin, statin, hypertensive regimen. 6. Chronic migraines: continue patient chronic home regimen however some agents may not be readily available in the hospital this may have to use home regimen. 7. Anxiety and depression: We will continue patient home olanzapine and Sero quel low-dose regimen. 8. Chart reported Cognitive impairment: Noted in the chart and evident on e valuation, complicates presentation, CM consulted. 9. Tobacco Abuse: Encouraged cessation, inpatient consultation per RT, NR if desired. 10. GERD: continue patient home PPI. 11. Hypertension none amlodipine, holding ACEI-HCTZ 12. Hyperlipidemia: We will continue patient on statin therapy. DVT: Lovenox Capacity Legal Controls Designer Reflex Medical hold order details:: IF a medical hold is selected below, a suggested order for a MEDICAL HOLD will reflex upon signing the document. Next of kin: [place] law dictates a PRIORITY LIST for identifying legal decision-maker/legal next of kin in the following order (LNOK): 1st: The patient?s legal guardian, if any 2nd: The patient's spouse (if status is questionable, consult Risk Management) 3rd: The patient?s adult child(amberly) (majority, if multiple children) 4th: The patient?s parents 5th: The patient?s adult siblings (majority, if multiple children siblings) Charges/Coding Visit Charges Inpatient E&M: 13169 Subs Hosp L2
[2023-05-28] MEDS: Ipratropium/Albuterol Sulfate 3 ML AMPUL.NEB INHALATION (10:52)
[2023-05-28] MEDS: OLANZapine 5 MG/TAB TAB.RAPDIS 15 MG PO (10:54)
[2023-05-28] MEDS: Enoxaparin 30 MG/0.3 ML Syringe SC ×2 (10:54→22:45)
[2023-05-28] MEDS: 0.9% Saline Lock 10 ML Syringe IV ×4 (10:54→18:06)
[2023-05-28] MEDS: Folic Acid 1 MG Tablet PO (10:55)
[2023-05-28] MEDS: Pantoprazole Sodium 40 MG Tablet PO (10:55)
[2023-05-28] MEDS: amLODIPine 5 MG Tablet PO (10:55)
[2023-05-28] MEDS: Acetaminophen 325 MG Tablet 650 MG PO (10:55)
[2023-05-28] MEDS: Thiamine Hydrochloride 100 MG Tablet PO (10:55)
[2023-05-28] MEDS: QUEtiapine 25 MG Tablet 50 MG PO (10:55)
[2023-05-28] MEDS: OXcarbazepine 300 MG Tablet PO (10:55)
[2023-05-28] MEDS: lamoTRIgine 150 MG Tablet PO (10:55)
[2023-05-28] MEDS: Etodolac 200 MG Capsule PO (10:56)
[2023-05-28] MEDS: dexAMETHasone 4 MG/ML Vial 6 MG IV (10:56)
[2023-05-28] MEDS: Multivitamins,Ther W-Minerals Tablet 1 TABLET PO (10:56)
[2023-05-28] MEDS: Aspirin E.C. 81 MG Tablet PO (10:56)
[2023-05-28] MEDS: Escitalopram Oxalate 10 MG Tablet PO (11:01)
[2023-05-28] MEDS: Furosemide 40 MG/4 ML Vial IV (11:01)
[2023-05-28] MEDS: LORazepam 1 MG Tablet 2 MG PO (11:04)
[2023-05-28] MEDS: LORazepam 2 MG/ML Syringe IV ×3 (14:16→18:06)
[2023-05-28] MEDS: Remdesivir 100 MG in 0.9% Normal Saline (250mL Bag) 230 ML 250 MG IV (22:43)
[2023-05-29] VITALS (20 sets, daily range): BP systolic 99–133; BP diastolic 53–87; PULSE 79–105; RESP 18–60; TEMP 36.3–37.1; O2SAT 91–98; BMI 25.9; BMI 24.5
[2023-05-29] MEDS: 0.9% Saline Lock 10 ML Syringe IV ×4 (03:54→23:26)
[2023-05-29] MEDS: LORazepam 2 MG/ML Syringe IV (03:54)
[2023-05-29 08:07] LABS: Absolute Lymphocyte Count 1.58 X10^3/uL (0.83-4.51); Absolute Neutrophil Count 10.8 X10^3/uL (2.0-7.7); Basophil# 0.09 X10^3/uL; Basophil% 0.6 % (0-1); Eosinophil# 0.02 X10^3/uL; Eosinophils% 0.1 % (0-5); Hematocrit 40.9 % (40-54); Hemoglobin 13.5 g/dL (13.0-16.5); Lymphocyte # 1.58 X10^3/ul (0.83-4.51); Lymphocyte % 11.2 % (19-41); Mean Corpuscular Hgb 28.9 pg (27.0-32.0); Mean Corpuscular Volume 87.6 fL (80-94); Mean Platelet Vol. 9.6 fl (6.2-12.0); Monocyte# 1.25 X10^3/uL; Monocyte% 8.8 % (0-10); NRBC Flagged by Analyzer 0 % (0-5); Neutrophil # 10.82 X10^3/uL (2.7-7.7); Neutrophil % 76.7 % (47-70); Platelet Count 380 K/mm3 (150-450); RBC Distribution Width CV 14.7 % (11.6-14.6); RBC Distribution Width SD 47.5 fl (35.1-43.9); Red Blood Count 4.67 M/mm3 (4.6-6.2); White Blood Count 14.1 K/mm3 (4.4-11.0)
[2023-05-29 08:37] LABS: Anion Gap 6 (5-15); BUN 41 mg/dL (7-18); BUN/Creat Ratio 29.9 RATIO (10-20); Calcium,Total 9.3 mg/dL (8.5-10.1); Chloride 106 mmol/L (98-107); Creatinine, Serum 1.37 mg/dL (0.70-1.30); EST Glomerular Filtration Rate 57 mL/min (>60); Est Glom Filt Rate - Afr Amer 69 mL/min (>60); Estimated Creatinine Clearance 58.77 ml/min; Glucose 110 mg/dL (74-106); Magnesium 2.2 mg/dL (1.6-2.6); Phosphorus 3.1 mg/dL (2.5-4.9); Potassium 3.4 mmol/L (3.5-5.1); Sodium Level 141 mmol/L (136-145)
[2023-05-29] MEDS: QUEtiapine 25 MG Tablet 50 MG PO ×2 (09:48→13:46)
[2023-05-29] MEDS: Acetaminophen 325 MG Tablet 650 MG PO (09:48)
[2023-05-29] MEDS: OLANZapine 5 MG/TAB TAB.RAPDIS 15 MG PO (09:48)
[2023-05-29] MEDS: Escitalopram Oxalate 10 MG Tablet PO (09:49)
[2023-05-29] MEDS: Thiamine Hydrochloride 100 MG Tablet PO (09:49)
[2023-05-29] MEDS: Etodolac 200 MG Capsule PO ×2 (09:49→20:47)
[2023-05-29] MEDS: lamoTRIgine 150 MG Tablet PO ×2 (09:49→20:47)
[2023-05-29] MEDS: OXcarbazepine 300 MG Tablet PO ×2 (09:49→20:49)
[2023-05-29] MEDS: Aspirin E.C. 81 MG Tablet PO (09:49)
[2023-05-29] MEDS: amLODIPine 5 MG Tablet PO (09:50)
[2023-05-29] MEDS: Folic Acid 1 MG Tablet PO (09:50)
[2023-05-29] MEDS: Pantoprazole Sodium 40 MG Tablet PO (09:50)
[2023-05-29] MEDS: Enoxaparin 30 MG/0.3 ML Syringe SC ×2 (09:50→20:47)
[2023-05-29] MEDS: Multivitamins,Ther W-Minerals Tablet 1 TABLET PO (09:50)
[2023-05-29] MEDS: dexAMETHasone 4 MG/ML Vial 6 MG IV (09:50)
--- NOTE | 2023-05-29 13:01 | EX.PCM.CONCC ---
Assessment & Plan Assessment/Plan (1) Acute hypoxic respiratory failure: (2) COVID-19: PLAN: Plan RECOMMENDATIONS: 1. Wean heated high flow oxygen to maintain saturations at or above 90%. 2. Start empiric antibiotics. 3. Check MRSA screen, strep and urine Legionella antigens. 4. If no improvement in respiratory status over the next 24 to 48 hours, consider repeat CTA chest to rule out PE. 5. Continue scheduled bronchodilators. 6. Gentle diuresis as tolerated by hemodynamics and renal function. 7. Obtain arterial blood gas. IMPRESSIONS: 1. Acute hypoxemic respiratory failure Most likely secondary to underlying exacerbation of his COPD precipitated by COVID-19 pneumonia. Given that the patient has demonstrated worsening hypoxemia over the course of his hospitalization, we will start him empirically on broad-spectrum antimicrobials. Plan to check MRSA screen, along with strep and urine Legionella antigens. Arterial blood gas will also be obtained. Prior CTA chest completed on May 25 showed no definitive evidence of central pulmonary emboli. However, the imaging study was suboptimal due to respiratory artifact motion. Therefore, the patient does not begin to improve with conservative therapy, will need to consider repeat CTA chest to rule out PE. In the interim, continue heated high flow oxygen and wean FiO2 for saturations greater than 90%. I agree with attempts at gentle diuresis as tolerated by hemodynamics and renal function. In addition to the aforementioned, the patient's known right to left interatrial shunt is also complicating his current respiratory status. 2. Chronic kidney disease/anemia/history of alcohol dependency in remission/anxiety/depression/underlying cognitive impairment Complicates care, management, recovery and prognosis. Continue supportive care as noted above. This note was generated with [employer] dictation software. It may contain incorrect words, spelling, and punctuation that were not noted in checking the note before signing. HPI Consult Data Date of Consult: 05/29/23 HPI Narrative Reason for Consultation: Acute hypoxemic respiratory failure HPI Narrative: The patient is a 58-year-old male, with a history as outlined below, who presented to the emergency department on May 25 with cough, shortness of breath and fever. The patient has known COPD, underlying cognitive impairment and suspicion for obstructive sleep apnea. He was being maintained on a triple therapy inhaler regimen on an outpatient basis. The patient's medical history is also significant for underlying PFO and prior alcohol abuse history, apparently in remission. On presentation to the emergency department, the patient was documented to be afebrile and hemodynamically stable. He was initially saturating 96% on room air. Initial laboratory evaluation revealed no evidence of a leukocytosis. Chemistry profile was notable for a potassium of 3.4 and creatinine of 1.82. Lactate was within normal limits. COVID PCR was positive. CTA chest showed no significant pulmonary emboli, but did demonstrate extensive multifocal groundglass opacities. The patient was subsequently placed on bronchodilators, Decadron and remdesivir. Over the course of the hospitalization, the patient's oxygenation status has worsened. He is currently documented to be overall net +1.6 L for the hospitalization. [facility] Medical History (Updated 05/25/23 @ 18:23 by Kaylynn Tripp) Cerebral aneurysm Chronic pain CKD (chronic kidney disease) COPD (chronic obstructive pulmonary disease) Essential hypertension Excessive daytime sleepiness GERD (gastroesophageal reflux disease) History of alcohol abuse Hypertension Ischemic cerebrovascular accident (CVA) (05/17/20) Migraine headache without aura Mild cognitive impairment Nicotine dependence PFO (patent foramen ovale) Primary snoring Restless legs Smoker Stroke/cerebrovascular accident TIA (transient ischemic attack) Witnessed apneic spells Home Medications atorvastatin 80 mg tablet 80 mg PO QHS #90 tabs 05/19/20 [Rx Last Taken Unknown] BP monitor #1 ea 07/15/20 [Rx Last Taken Unknown] lisinopril 10 mg-hydrochlorothiazide 12.5 mg tablet 1 tab PO DAILY 07/28/20 [History Last Taken Unknown] quetiapine 50 mg tablet 50 mg PO DAILY 06/20/21 [History Last Taken Unknown] aspirin 81 mg tablet,delayed release (Adult Aspirin Regimen) 81 mg PO DAILY 09/26/21 [History Last Taken Unknown] amlodipine 5 mg tablet 5 mg PO DAILY #30 tabs 07/03/22 [Rx Last Taken Unknown] folic acid 1 mg tablet 1 mg PO DAILY #30 tabs 07/04/22 [Rx Last Taken Unknown] thiamine HCl (vitamin B1) 100 mg tablet 100 mg PO DAILY #30 tabs 07/04/22 [Rx Last Taken Unknown] albuterol sulfate 90 mcg/actuation aerosol inhaler 2 puff inhalation Q4H PRN shortness of breath or wheezing #8.5 grams 10/01/22 [Rx Last Taken Unknown] cholecalciferol (vitamin D3) 50 mcg (2,000 unit) capsule (Vitamin D3) 50 mcg PO DAILY 10/22/22 [History Last Taken Unknown] fluticasone propionate 220 mcg/actuation HFA aerosol inhaler (Flovent HFA) 1 puff inhalation BID #12 grams 10/22/22 [Rx Last Taken Unknown] olanzapine 15 mg tablet 15 mg PO DAILY 10/22/22 [History Last Taken Unknown] omeprazole 40 mg capsule,delayed release 40 mg PO DAILY 10/22/22 [History Last Taken Unknown] fremanezumab-vfrm 225 mg/1.5 mL subcutaneous syringe (Ajovy Syringe) 225 mg (1.5 mL) subcut QMONTH #1.5 mL 02/28/23 [Rx Last Taken Unknown] ubrogepant 100 mg tablet (Ubrelvy) 100 mg .Route .COMPLEX migraine headache #16 tabs 02/28/23 [Rx Last Taken Unknown] umeclidinium 62.5 mcg-vilanterol 25 mcg/actuation powdr for inhalation (Anoro Ellipta) 1 inh inhalation DAILY #60 ea 03/15/23 [Rx Last Taken Unknown] baclofen 10 mg tablet 10 mg PO Q8H PRN muscle spasm 05/25/23 [History Last Taken Unknown] cyclobenzaprine 5 mg tablet 5 mg PO DAILY back pain 05/25/23 [History Last Taken Unknown] gabapentin 600 mg tablet 600 mg PO Q8H 05/25/23 [History Last Taken Unknown] lamotrigine 150 mg tablet 150 mg PO Q12H 05/25/23 [History Last Taken Unknown] nabumetone 500 mg tablet 500 mg PO BID pain 05/25/23 [History Last Taken Unknown] escitalopram oxalate 10 mg tablet 10 mg PO DAILY anx 05/27/23 [History Last Taken Unknown] oxcarbazepine 300 mg tablet 300 mg PO BID seizure 05/27/23 [History Last Taken Unknown] Allergy/AdvReac Type Severity Reaction Status Date / Time tramadol HCl [From [facility]] Allergy Rash Verified 05/25/23 13:45 Family History Mother Cancer Brother Lung disease Father Cancer Surgical History History of angiography (05/18/15) History of back surgery (~12/2021) History of foot surgery History of left knee surgery Social History (Updated 05/25/23 @ 17:[address] Francia Jamil MD) household members: friend(s) Smoking Status: Current some day smoker tobacco type: cigarettes and e-cigarettes Electronic Cigarette Use: not used second hand exposure: No alcohol intake: former details: Sober x 3 years. substance use type: former substance user and marijuana ROS ROS Narrative 10 systems were reviewed with pertinent positives as noted in the HPI above. Physical Exam Const Constitutional Narrative: Alert, but disoriented and confused. Frequently removing his high flow cannula. Sitting in bedside recliner. HEENT normocephalic and head/scalp atraumatic Eyes PERRL, EOMs intact bilaterally and conjunctivae normal Neck supple General: trachea midline Chest inspection of chest normal Resp Effort and Inspection: tachypneic Auscultation: diminished lung sounds Cardio regular rate and regular rhythm GI normal to inspection, nondistended, normoactive bowel sounds Extremity no clubbing, cyanosis or edema Skin no rashes or lesions noted Neuro moves all extremities and no focal motor deficits Psych Activity / Motor Behavior: restless Lab / Micro Data 05/29/23 07:11 05/29/23 07:11 Labs: Laboratory Results - last 24 hr 05/29/23 07:11: WBC 14.1 H, RBC 4.67, Hgb 13.5, Hct 40.9, MCV 87.6, MCH 28.9, MCHC 33.0, RDW Std Deviation 47.5 H, RDW Coeff of Jayy 14.7 H, Plt Count 380, MPV 9.6, Immature Gran % (Auto) 2.600 H, Neut % (Auto) 76.7 H, Lymph % (Auto) 11.2 L, [place] % (Auto) 8.8, Eos % (Auto) 0.1, Baso % (Auto) 0.6, Absolute Neuts (auto) 10.8 H, Absolute Lymphs (auto) 1.58, Nucleated RBC % 0, Sodium 141, Potassium 3.4 L, Chloride 106, Carbon Dioxide 29.0, Anion Gap 6, BUN 41 H, Creatinine 1.37 H, Estim Creat Clear Calc 58.77, Est GFR (MDRD) Af Amer 69, Est GFR (MDRD) Non-Af 57 L, BUN/Creatinine Ratio 29.9 H, Glucose 110 H, Calcium 9.3, Phosphorus 3.1, Magnesium 2.2 Micro: Microbiology 05/25/23 15:45 Blood Culture (Wb) - Anticubital Right Blood Culture - Preliminary No growth in 48 hours. 05/25/23 15:20 Blood Culture (Wb) - Anticubital Left Blood Culture - Preliminary No growth in 48 hours. Capacity Legal Service Station Attendant Reflex Medical hold order details:: IF a medical hold is selected below, a suggested order for a MEDICAL HOLD will reflex upon signing the document. Next of kin: [place] law dictates a PRIORITY LIST for identifying legal decision-maker/legal next of kin in the following order (LNOK): 1st: The patient?s legal guardian, if any 2nd: The patient's spouse (if status is questionable, consult Risk Management) 3rd: The patient?s adult child(amberly) (majority, if multiple children) 4th: The patient?s parents 5th: The patient?s adult siblings (majority, if multiple children siblings) Charges/Coding Visit Charges Inpatient E&M: 31608 Init Hosp L3
--- NOTE | 2023-05-29 14:10 | PN.HOSP_ITS ---
Subjective Subjective Still disoriented slightly improved on his Airvo however we will consult pulmonology Objective Data Objective Data Vital Signs: Vital Signs Temp Pulse Resp BP Pulse Ox O2 Del Method O2 Flow Rate 97.4 F L 88 24 H 133/87 H 94 Airvo 60 05/29/23 14:00 05/29/23 14:08 05/29/23 14:08 05/29/23 14:00 05/29/23 14:08 05/29/23 14:00 05/29/23 11:59 FiO2 66 05/29/23 14:08 Oxygen Flow Rate (L/min) 60 Oxygen Delivery Method Airvo Weight: 176 lb 2.389 oz Body Mass Index (BMI) 25.9 Intake & Output: Intake and Output for Last 24 Hours 05/28/23 05/29/23 05/30/23 03:59 03:59 03:59 Intake Total 1050 / 1050 1150 / 1150 Output Total 2100 / 2100 850 / 850 350 / 350 Balance -1050 / -1050 300 / 300 -350 / -350 Lab / Micro Data 05/29/23 07:11 05/29/23 07:11 Labs: Laboratory Results - last 24 hr 05/29/23 07:11: WBC 14.1 H, RBC 4.67, Hgb 13.5, Hct 40.9, MCV 87.6, MCH 28.9, MCHC 33.0, RDW Std Deviation 47.5 H, RDW Coeff of Jayy 14.7 H, Plt Count 380, MPV 9.6, Immature Gran % (Auto) 2.600 H, Neut % (Auto) 76.7 H, Lymph % (Auto) 11.2 L , [place] % (Auto) 8.8, Eos % (Auto) 0.1, Baso % (Auto) 0.6, Absolute Neuts (auto) 10.8 H, Absolute Lymphs (auto) 1.58, Nucleated RBC % 0, Sodium 141, Potassium 3.4 L, Chloride 106, Carbon Dioxide 29.0, Anion Gap 6, BUN 41 H, Creatinine 1.37 H, Estim Creat Clear Calc 58.77, Est GFR (MDRD) Af Amer 69, Est GFR (MDRD) Non- Af 57 L, BUN/Creatinine Ratio 29.9 H, Glucose 110 H, Calcium 9.3, Phosphorus 3.1, Magnesium 2.2 Micro: Microbiology 05/25/23 15:45 Blood Culture (Wb) - Anticubital Right Blood Culture - Preliminary No growth in 48 hours. 05/25/23 15:20 Blood Culture (Wb) - Anticubital Left Blood Culture - Preliminary No growth in 48 hours. 05/25/23 14:25 Mucosa - Nose SARS-CoV-2, Influenza & RSV (PCR) - Final SARS-CoV-2 (COVID 19 PCR) Physical Exam Narrative General: Alert, disoriented, No apparent distress HEENT: Atraumatic, PERRLA, EOMI, Normocephalic Oral: Moist Mucosa Neck: Supple, No JVD Lungs: Diminished, Normal air movement, No rhonchi, wheeze, No rales, tachypneic Cardiovascular: Regular rate, Regular Rhythm, Normal S1, Normal S2, No murmurs Abdomen: Soft, Non Tender, Non-Distended, No Hepato-splenomegaly Extremities: No edema, Capillary Refill Less than 3 Seconds Skin: No rashes, No breakdown Musculoskeletal: No Tenderness to Palpation of Joints or Extremities Neurological: Does not follow commands but moves all extremities no focal neurologic deficit Psych/Mental Status: Delirious, redirectable Assessment & Plan Assessment/Plan (1) COVID-19: PLAN: Plan 1. Acute bilateral pneumonia most likely due to COVID-19 with hypoxia with COPD exacerbation with acute hypoxic respiratory failure: Patient is admitted to MedSurg floor. IV dexamethasone and remdesivir. On DuoNeb, continue incentive spirometry and PEP. Phlegm tree markers including CK, LDH CRP elevated, procalcitonin 0.94. Lactic acid normal. Troponin is normal. BNP normal. PT and OT ordered. 05/27/2023: The CTA of the chest does not show any PEs however there was motion artifact and it is fairly consistent with COVID-pneumonia, will continue with present therapies he has increasing oxygen requirements and is currently on Airvo so we will trial him with a dose of IV Lasix. ABG demonstrates so low pO2 we will monitor 05/28/2023: ABG yesterday was unremarkable other than a low pO2 he was given a dose of Lasix which was able to bring down his FiO2 so we will repeat a dose today kidney function so far stable 05/29/2023: He remains on Airvo and is tachypneic indicative of respiratory failure, given his continued presentation we will consult pulmonology today for assistance. He did have some improvement with Lasix however creatinine did bump a little bit to 1.37 today 2. WILL on CKD stage III: BUNs/creatinine 20/1.42 improved from 24/1.82. Last creatinine on December 2022 is 1.43 that is his baseline. WILL is resolved. Dis continue IV fluid patient might go on fluid overload with COVID-19 pneumonia and decreased lung function. 05/27/2023: Creatinine is down to 1.24 today, will trial him on a dose of Lasix 05/28/2023: Creatinine is 1.22 today, can repeat a dose of Lasix 05/29/2023: Will hold Lasix today and monitor renal function jumped to 1.37 3. Chart reported Hx Brain aneurysm: Chart reported s/p clipping, most recent CT of the brain noted 01/01/2023 with no reported significant findings and last MRI brain 05/18/2020 with a normal unenhanced MRI of the brain at that time. 4. History of EtOH Abuse: Patient notes sober x 3 years. To be cautious given cognitive impairment will maintain on CIWA protocol, MVI, thiamine and folic acid. Encourage continued sobriety. Case management consulted. 05/27/2023: He is behaving like alcohol withdrawal but his significant other also states that he has been sober for 3 years 5. Hx TIA/CVA: continue aspirin, statin, hypertensive regimen. 6. Chronic migraines: continue patient chronic home regimen however some agents may not be readily available in the hospital this may have to use home regimen. 7. Anxiety and depression: We will continue patient home olanzapine and Seroquel low-dose regimen. 05/29/2023: Continues to be delirious and a little combative so we will give him a one-time dose of 50 mg of Seroquel on top of his morning regimen 8. Chart reported Cognitive impairment: Noted in the chart and evident on evaluation, complicates presentation, CM consulted. 9. Tobacco Abuse: Encouraged cessation, inpatient consultation per RT, NR if desired. 10. GERD: continue patient home PPI. 11. Hypertension none amlodipine, holding ACEI-HCTZ 12. Hyperlipidemia: We will continue patient on statin therapy. DVT: Lovenox Capacity Legal Visiting Housekeeper Reflex Medical hold order details:: IF a medical hold is selected below, a suggested order for a MEDICAL HOLD will reflex upon signing the document. Next of kin: [place] law dictates a PRIORITY LIST for identifying legal decision-maker/legal next of kin in the following order (LNOK): 1st: The patient?s legal guardian, if any 2nd: The patient's spouse (if status is questionable, consult Risk Management) 3rd: The patient?s adult child(amberly) (majority, if multiple children) 4th: The patient?s parents 5th: The patient?s adult siblings (majority, if multiple children siblings) Charges/Coding Visit Charges Inpatient E&M: 13310 Subs Hosp L2
[2023-05-29] MEDS: Vancomycin HCl 2,000 MG in 0.9% Normal Saline (500mL Bag) 500 ML 250 MG IV (15:17)
[2023-05-29] MEDS: 0.9% Normal Saline (250mL Bag) 250 ML 15 ML IV (15:18)
[2023-05-29 15:21] LABS: M R Staph aureus DNA By PCR POSITIVE (Negative); Probe Check PASS
--- NOTE | 2023-05-29 15:43 | NURSING ---
attempted 2nd iv site twice unsuccessfully d/t pt pulls back and flails arm once cannula in. Charge nurse aware, unsafe for nurse d/t risk of needle stick and pt uncooperative when stimulated she notified md and med changes made. pt stood at edge of bed to void then back to bed.
[2023-05-29 15:55] LABS: Bacteria 0 SEEN /hpf (None Seen); Mucous, Urine 0 SEEN /hpf (<or=2+); Red Blood Cells-Urine 0 SEEN /hpf (0-5); Squamous Epithelial Cells - UA 0 SEEN /hpf (0-5); White Blood Cells 0 SEEN /hpf (0-5)
[2023-05-29 15:58] LABS: Color, Urine Yellow (Yellow); Glucose, Dipstick Normal (Normal); Ketone-Dipstick Negative (Negative); Leukocyte Esterase-Dipstick Negative /ul (Negative); Nitrite-Dipstick Negative (Negative); Occult Blood-Urine Negative /ul (Negative); Protein-Dipstick 30 mg/dl (Negative); Urine Clarity Clear (Clear); Urine Urobilinogen Normal (Normal); Urine pH 6.5 (5.0 - 8.0)
--- NOTE | 2023-05-29 16:01 | PCM.RX.CS ---
Consult Antibiotic Management Pharmacy has been consulted to manage selected antibiotic: Vancomycin Type of Intervention Type of Consult: New start Suspected Infection Suspected Infection: Other Labs Labs: Sodium 141 mmol/L (136-145) 05/29/23 07:11 Potassium 3.4 mmol/L (3.5-5.1) L 05/29/23 07:11 Chloride 106 mmol/L (98-107) 05/29/23 07:11 Carbon Dioxide 29.0 mmol/L (21.0-32.0) 05/29/23 07:11 Anion Gap 6 (5-15) 05/29/23 07:11 BUN 41 mg/dL (7-18) H 05/29/23 07:11 Creatinine 1.37 mg/dL (0.70-1.30) H 05/29/23 07:11 Est GFR (MDRD) Af Amer 69 mL/min (>60) 05/29/23 07:11 Est GFR (MDRD) Non-Af 57 mL/min (>60) L 05/29/23 07:11 BUN/Creatinine Ratio 29.9 RATIO (10-20) H 05/29/23 07:11 Glucose 110 mg/dL (74-106) H 05/29/23 07:11 Microbiology Microbiology: Microbiology 05/25/23 15:45 Blood Culture (Wb) - Anticubital Right Blood Culture - Preliminary No growth in 48 hours. 05/25/23 15:20 Blood Culture (Wb) - Anticubital Left Blood Culture - Preliminary No growth in 48 hours. 05/25/23 14:25 Mucosa - Nose SARS-CoV-2, Influenza & RSV (PCR) - Final SARS-CoV-2 (COVID 19 PCR) Dosing Weight Weight used for dosin.9 kg Estimated Creatinine Clearance Estimated Creatinine Clearance: 58.8ML/MIN Goal Trough Goal Trough: 15-20 mcg/mL Pharmacy Plan for Drug Dosing Pharmacy Plan for Drug Dosing: Give initial load dose of 2000mg IV x1, then continue with 750mg IV q12h per [facility] dosing protocol. Will check a trough before the 4th total dose. Pharmacy Service will continue to monitor and adjust dosing as required. Follow-Up Labs Follow-Up Labs: Trough: Vancomycin Date/Time Labs Ordered Labs to be done on [date and time ordered]: 05/31/23 02:30
[2023-05-29 16:04] LABS: Urine Bilirubin Dipstick 3 mg/dL (Negative)
[2023-05-29] MEDS: Piperacil/Tazobactam 3.375 GM in 0.9% Normal Saline (50mL MB+) 50 ML IV ×2 (18:19→23:18)
[2023-05-29] MEDS: Ipratropium/Albuterol Sulfate 3 ML AMPUL.NEB INHALATION (19:18)
[2023-05-29] MEDS: hydrOXYzine 50 MG/ML Vial 100 MG IM (20:42)
[2023-05-29] MEDS: Atorvastatin Calcium 80 MG Tablet PO (20:48)
[2023-05-29] MEDS: Remdesivir 100 MG in 0.9% Normal Saline (250mL Bag) 230 ML 250 MG IV (20:53)
--- NOTE | 2023-05-29 23:23 | NURSING ---
Bilateral wrist restraints applied to maintain pt safety. Pt constantly attempting to pull off airvo and pull at other wires/equipment.
[2023-05-29] MEDS: dexMEDEtomidine 400 MCG in 0.9% Normal Saline (100mL Bag) 96 ML 10 MCG CONT INF (23:26)
[2023-05-30] VITALS (29 sets, daily range): BP systolic 93–127; BP diastolic 70–90; PULSE 47–94; RESP 15–60; TEMP 35.8–36.7; O2SAT 60–100
[2023-05-30] MEDS: Vancomycin HCl 750 MG in 0.9% Normal Saline (250mL Bag) 250 ML 250 MG IV ×2 (03:10→15:13)
[2023-05-30 03:16] LABS: Absolute Lymphocyte Count 1.15 X10^3/uL (0.83-4.51); Absolute Neutrophil Count 12.7 X10^3/uL (2.0-7.7); Basophil# 0.07 X10^3/uL; Basophil% 0.5 % (0-1); Hemoglobin 12.6 g/dL (13.0-16.5); Lymphocyte # 1.15 X10^3/ul (0.83-4.51); Lymphocyte % 7.6 % (19-41); Mean Corp Hgb Conc 33.2 g/dL (32-36); Mean Corpuscular Hgb 29.1 pg (27.0-32.0); Mean Corpuscular Volume 87.8 fL (80-94); Mean Platelet Vol. 9.5 fl (6.2-12.0); Monocyte# 0.92 X10^3/uL; NRBC Flagged by Analyzer 0 % (0-5); Neutrophil # 12.65 X10^3/uL (2.7-7.7); Neutrophil % 83.1 % (47-70); Platelet Count 368 K/mm3 (150-450); RBC Distribution Width CV 14.4 % (11.6-14.6); RBC Distribution Width SD 46.6 fl (35.1-43.9); Red Blood Count 4.33 M/mm3 (4.6-6.2); White Blood Count 15.2 K/mm3 (4.4-11.0)
[2023-05-30 03:31] LABS: Anion Gap 5 (5-15); BUN 36 mg/dL (7-18); BUN/Creat Ratio 32.4 RATIO (10-20); Calcium,Total 8.6 mg/dL (8.5-10.1); Chloride 111 mmol/L (98-107); Creatinine, Serum 1.11 mg/dL (0.70-1.30); EST Glomerular Filtration Rate 72 mL/min (>60); Est Glom Filt Rate - Afr Amer 88 mL/min (>60); Estimated Creatinine Clearance 72.54 ml/min; Glucose 149 mg/dL (74-106); Potassium 3.7 mmol/L (3.5-5.1); Sodium Level 143 mmol/L (136-145)
[2023-05-30] MEDS: dexMEDEtomidine 400 MCG in 0.9% Normal Saline (100mL Bag) 96 ML 10 MCG CONT INF (04:26)
[2023-05-30] MEDS: Piperacil/Tazobactam 3.375 GM in 0.9% Normal Saline (50mL MB+) 50 ML IV ×4 (05:00→22:06)
[2023-05-30] MEDS: Ipratropium/Albuterol Sulfate 3 ML AMPUL.NEB INHALATION ×2 (06:50→11:00)
--- NOTE | 2023-05-30 07:18 | PCM.PN.INT ---
Assessment & Plan Assessment/Plan (1) Acute hypoxic respiratory failure: (2) COVID-19: PLAN: Plan RECOMMENDATIONS: 1. Wean heated high flow oxygen to maintain saturations at or above 90%. 2. Continue empiric antibiotics. 3. Hold all sedating medications, pending improvement in mental status. 4. If no improvement in respiratory status over the next 24 to 48 hours, consider repeat CTA chest to rule out PE. 5. Continue scheduled bronchodilators. 6. Gentle diuresis as tolerated by hemodynamics and renal function. IMPRESSIONS: 1. Acute hypoxemic respiratory failure Most likely secondary to underlying exacerbation of his COPD precipitated by COVID-19 pneumonia and possible secondary bacterial pneumonia. The patient will remain on empiric broad-spectrum antimicrobials. Prior CTA chest completed on May 25 showed no definitive evidence of central pulmonary emboli. However, the imaging study was suboptimal due to respiratory artifact motion. Therefore, if the patient does not begin to improve with conservative therapy, will need to consider repeat CTA chest to rule out PE. In the interim, continue heated high flow oxygen and wean FiO2 for saturations greater than 90%. I agree with attempts at gentle diuresis as tolerated by hemodynamics and renal function. In addition to the aforementioned, the patient's known right to left interatrial shunt is also complicating his current respiratory status. 2. Chronic kidney disease/anemia/history of alcohol dependency in remission/anxiety/depression/underlying cognitive impairment Complicates care, management, recovery and prognosis. Continue supportive care as noted above. Recommend holding all sedating medications for now, pending improvement in mental status. If the patient were to become agitated, Precedex can be utilized as needed. This note was generated with [employer] dictation software. It may contain incorrect words, spelling, and punctuation that were not noted in checking the note before signing. Subjective Subjective The patient was seen and examined at the bedside this morning. Events from the last 24 hours have been reviewed. The patient is currently afebrile, hemodynamically stable and maintaining appropriate oxygen saturations on heated high flow oxygen with a flow rate of 60 L/min and FiO2 of 70%. Apparently, the patient was transition to the intensive care unit overnight due to agitation. While he was initially placed on Precedex, that medication has been placed on hold due to increasing lethargy. White count is elevated this morning at 15,000. Creatinine is within normal limits. MRSA screen was positive yesterday. The patient is currently lethargic and not able to answer questions. Objective Data Objective Data The patient's most recent lab work, culture data and imaging studies have all been personally reviewed. COVID PCR was positive on May 25. Vital Signs: Vital Signs Temp Pulse Resp BP Pulse Ox O2 Del Method O2 Flow Rate 96.5 F L 82 18 127/84 H 100 Airvo 60 05/30/23 03:00 05/30/23 07:00 05/30/23 07:00 05/30/23 07:00 05/30/23 07:00 05/30/23 07:00 05/30/23 07:00 FiO2 70 05/30/23 07:00 Oxygen Flow Rate (L/min) 60 Oxygen Delivery Method Airvo Weight: 166 lb 0.129 oz Body Mass Index (BMI) 24.5 Intake & Output: Intake and Output for Last 24 Hours 05/28/23 05/29/23 05/30/23 23:59 23:59 23:59 Intake Total 1150 / 1150 935.92 / 1038.92 538.00 / 538.00 Output Total 850 / 850 900 / 900 Balance 300 / 300 35.92 / 138.92 538.00 / 538.00 Lab / Micro Data Attestation: I reviewed the patient's lab results. 05/30/23 03:10 05/30/23 03:10 Labs: Laboratory Results - last 24 hr 05/29/23 07:11: WBC 14.1 H, RBC 4.67, Hgb 13.5, Hct 40.9, MCV 87.6, MCH 28.9, MCHC 33.0, RDW Std Deviation 47.5 H, RDW Coeff of Jayy 14.7 H, Plt Count 380, MPV 9.6, Immature Gran % (Auto) 2.600 H, Neut % (Auto) 76.7 H, Lymph % (Auto) 11.2 L, [place] % (Auto) 8.8, Eos % (Auto) 0.1, Baso % (Auto) 0.6, Absolute Neuts (auto) 10.8 H, Absolute Lymphs (auto) 1.58, Nucleated RBC % 0, Sodium 141, Potassium 3.4 L, Chloride 106, Carbon Dioxide 29.0, Anion Gap 6, BUN 41 H, Creatinine 1.37 H, Estim Creat Clear Calc 58.77, Est GFR (MDRD) Af Amer 69, Est GFR (MDRD) Non-Af 57 L, BUN/Creatinine Ratio 29.9 H, Glucose 110 H, Calcium 9.3, Phosphorus 3.1, Magnesium 2.2 05/29/23 13:52: MRSA (PCR) POSITIVE H 05/29/23 15:40: Urine Color Yellow, Urine Clarity Clear, Urine pH 6.5, Ur Specific [place] 1.010, Urine Protein 30 H, Urine Glucose (UA) Normal, Urine Ketones Negative, Urine Occult Blood Negative, Urine Nitrite Negative, Urine Bilirubin 3 H, Urine Urobilinogen Normal, Ur Leukocyte Esterase Negative, Urine RBC 0 SEEN, Urine WBC 0 SEEN, Ur Squamous Epith Cells 0 SEEN, Urine Bacteria 0 SEEN, Urine Mucus 0 SEEN 05/30/23 03:10: WBC 15.2 H, RBC 4.33 L, Hgb 12.6 L, Hct 38.0 L, MCV 87.8, MCH 29.1, MCHC 33.2, RDW Std Deviation 46.6 H, RDW Coeff of Jayy 14.4, Plt Count 368, MPV 9.5, Immature Gran % (Auto) 2.800 H, Neut % (Auto) 83.1 H, Lymph % (Auto) 7.6 L, [place] % (Auto) 6.0, Eos % (Auto) 0.0, Baso % (Auto) 0.5, Absolute Neuts (auto) 12.7 H, Absolute Lymphs (auto) 1.15, Nucleated RBC % 0, Sodium 143, Potassium 3.7, Chloride 111 H, Carbon Dioxide 27.0, Anion Gap 5, BUN 36 H, Creatinine 1.11, Estim Creat Clear Calc 72.54, Est GFR (MDRD) Af Amer 88, Est GFR (MDRD) Non-Af 72, BUN/Creatinine Ratio 32.4 H, Glucose 149 H, Calcium 8.6 Micro: Microbiology 05/29/23 15:40 Urine, Random Legionella Antigen - Final 05/29/23 15:40 Urine, Random Streptococcus pneumoniae Antigen (M - Final 05/25/23 15:45 Blood Culture (Wb) - Anticubital Right Blood Culture - Preliminary No growth in 48 hours. 05/25/23 15:20 Blood Culture (Wb) - Anticubital Left Blood Culture - Preliminary No growth in 48 hours. 05/25/23 14:25 Mucosa - Nose SARS-CoV-2, Influenza & RSV (PCR) - Final SARS-CoV-2 (COVID 19 PCR) Physical Exam Const Constitutional Narrative: The patient is not currently responsive. General Appearance: lethargic HEENT normocephalic and head/scalp atraumatic Eyes PERRL, EOMs intact bilaterally and conjunctivae normal Neck supple General: trachea midline Chest inspection of chest normal Resp normal respiratory effort Auscultation: diminished lung sounds; Negative for rales, rhonchi or wheezes Cardio regular rate and regular rhythm GI normal to inspection, nondistended, normoactive bowel sounds Extremity no clubbing, cyanosis or edema Skin no rashes or lesions noted Neuro no focal motor deficits Psych Mood & Affect: flat affect Charges/Coding Visit Charges Inpatient E&M: 39420 Subs Hosp L3
[2023-05-30 07:22] LABS: Allen Test Positive; Base Excess 1 mmol/L (-2 to +2); Bicarbonate 27.5 mmol/L (22-26); Blood Gas Specimen Type ART; Comment 60LPM AIRVO; Mode Not entered; O2 Delivery Device Not entered; PO2 93 mmHG (75-100); SITE L Radial; SO2 96 % (95-99); Total Carbon Dioxide 29 mmol/L; pCO2 53.9 mmHg (35-45); pH 7.32 (7.35-7.45)
[2023-05-30] MEDS: Enoxaparin 30 MG/0.3 ML Syringe SC ×2 (08:25→22:06)
[2023-05-30] MEDS: dexAMETHasone 4 MG/ML Vial 6 MG IV (08:25)
[2023-05-30] MEDS: Furosemide 40 MG/4 ML Vial IV (08:25)
--- NOTE | 2023-05-30 09:22 | PCM.PN.HOSP ---
Subjective Subjective Transferred to the ICU likely for behaviors currently off Precedex increase Seroquel Objective Data Objective Data Vital Signs: Vital Signs Temp Pulse Resp BP Pulse Ox O2 Del Method O2 Flow Rate 96.8 F L 67 16 104/83 H 97 Airvo 60 05/30/23 08:00 05/30/23 09:00 05/30/23 09:00 05/30/23 09:00 05/30/23 09:00 05/30/23 09:00 05/30/23 08:00 FiO2 67 05/30/23 09:00 Oxygen Flow Rate (L/min) 60 Oxygen Delivery Method Airvo Weight: 166 lb 0.129 oz Body Mass Index (BMI) 24.5 Intake & Output: Intake and Output for Last 24 Hours 05/29/23 05/30/23 05/31/23 03:59 03:59 03:59 Intake Total 1150 / 1150 1146.92 / 1149.92 327.00 / 327.00 Output Total 850 / 850 900 / 900 Balance 300 / 300 246.92 / 249.92 327.00 / 327.00 Lab / Micro Data 05/30/23 03:10 05/30/23 03:10 Labs: Laboratory Results - last 24 hr 05/29/23 13:52: MRSA (PCR) POSITIVE H 05/29/23 15:40: Urine Color Yellow, Urine Clarity Clear, Urine pH 6.5, Ur Specific [place] 1.010, Urine Protein 30 H, Urine Glucose (UA) Normal, Urine Ketones Negative, Urine Occult Blood Negative, Urine Nitrite Negative, Urine Bilirubin 3 H, Urine Urobilinogen Normal, Ur Leukocyte Esterase Negative, Urine RBC 0 SEEN, Urine WBC 0 SEEN, Ur Squamous Epith Cells 0 SEEN, Urine Bacteria 0 SEEN, Urine Mucus 0 SEEN 05/30/23 03:10: WBC 15.2 H, RBC 4.33 L, Hgb 12.6 L, Hct 38.0 L, MCV 87.8, MCH 29.1, MCHC 33.2, RDW Std Deviation 46.6 H, RDW Coeff of Jayy 14.4, Plt Count 368, MPV 9.5, Immature Gran % (Auto) 2.800 H, Neut % (Auto) 83.1 H, Lymph % (Auto) 7.6 L, [place] % (Auto) 6.0, Eos % (Auto) 0.0, Baso % (Auto) 0.5, Absolute Neuts (auto) 12.7 H, Absolute Lymphs (auto) 1.15, Nucleated RBC % 0, Sodium 143, Potassium 3.7, Chloride 111 H, Carbon Dioxide 27.0, Anion Gap 5, BUN 36 H, Creatinine 1.11, Estim Creat Clear Calc 72.54, Est GFR (MDRD) Af Amer 88, Est GFR (MDRD) Non-Af 72, BUN/Creatinine Ratio 32.4 H, Glucose 149 H, Calcium 8.6 Micro: Microbiology 05/29/23 15:40 Urine, Random Legionella Antigen - Final 05/29/23 15:40 Urine, Random Streptococcus pneumoniae Antigen (M - Final 05/25/23 15:45 Blood Culture (Wb) - Anticubital Right Blood Culture - Preliminary No growth in 48 hours. 05/25/23 15:20 Blood Culture (Wb) - Anticubital Left Blood Culture - Preliminary No growth in 48 hours. 05/25/23 14:25 Mucosa - Nose SARS-CoV-2, Influenza & RSV (PCR) - Final SARS-CoV-2 (COVID 19 PCR) ABG Data ABG results: ABG 05/30/23 07:18 Specimen Type ART Sample Site L Radial pH 7.32 L Bicarbonate Actual 27.5 H Total CO2 29 Base Excess 1 O2 Saturation 96 O2 % 67.0 ABG pCO2 53.9 H ABG pO2 93 Johnny Test Positive O2 Delivery Device Not entered Vent Mode Not entered Clinical Comments 60LPM AIRVO Physical Exam Narrative General: Alert, disoriented, No apparent distress HEENT: Atraumatic, PERRLA, EOMI, Normocephalic Oral: Moist Mucosa Neck: Supple, No JVD Lungs: Diminished, Normal air movement, No rhonchi, wheeze, No rales Cardiovascular: Regular rate, Regular Rhythm, Normal S1, Normal S2, No murmurs Abdomen: Soft, Non Tender, Non-Distended, No Hepato-splenomegaly Extremities: No edema, Capillary Refill Less than 3 Seconds Skin: No rashes, No breakdown Musculoskeletal: No Tenderness to Palpation of Joints or Extremities Neurological: Does not follow commands but moves all extremities no focal neurologic deficit Psych/Mental Status: Delirious Assessment & Plan Assessment/Plan (1) COVID-19: PLAN: Plan 1. Acute bilateral pneumonia most likely due to COVID-19 with hypoxia with COPD exacerbation with acute hypoxic respiratory failure: Patient is admitted to [facility] floor. IV dexamethasone and remdesivir. On DuoNeb, continue incentive spirometry and PEP. Phlegm tree markers including CK, LDH CRP elevated, procalcitonin 0.94. Lactic acid normal. Troponin is normal. BNP normal. PT and OT ordered. 05/27/2023: The CTA of the chest does not show any PEs however there was motion artifact and it is fairly consistent with COVID-pneumonia, will continue with present therapies he has increasing oxygen requirements and is currently on Airvo so we will trial him with a dose of IV Lasix. ABG demonstrates so low pO2 we will monitor 05/28/2023: ABG yesterday was unremarkable other than a low pO2 he was given a dose of Lasix which was able to bring down his FiO2 so we will repeat a dose today kidney function so far stable 05/29/2023: He remains on Airvo and is tachypneic indicative of respiratory failure, given his continued presentation we will consult pulmonology today for assistance. He did have some improvement with Lasix however creatinine did bump a little bit to 1.37 today 05/30/2023: Started on Vanco and Zosyn and he is MRSA positive, creatinine is improved currently in the ICU. Will increase Seroquel for agitation to 100 mg daily, currently off Precedex 2. WILL on CKD stage III: BUNs/creatinine 20/1.42 improved from 24/1.82. Last creatinine on December 2022 is 1.43 that is his baseline. WILL is resolved. Discontinue IV fluid patient might go on fluid overload with COVID-19 pneumonia and decreased lung function. 05/27/2023: Creatinine is down to 1.24 today, will trial him on a dose of Lasix 05/28/2023: Creatinine is 1.22 today, can repeat a dose of Lasix 05/29/2023: Will hold Lasix today and monitor renal function jumped to 1.37 3. Chart reported Hx Brain aneurysm: Chart reported s/p clipping, most recent CT of the brain noted 01/01/2023 with no reported significant findings and last MRI brain 05/18/2020 with a normal unenhanced MRI of the brain at that time. 4. History of EtOH Abuse: Patient notes sober x 3 years. To be cautious given cognitive impairment will maintain on CIWA protocol, MVI, thiamine and folic acid. Encourage continued sobriety. Case management consulted. 05/27/2023: He is behaving like alcohol withdrawal but his significant other also states that he has been sober for 3 years 05/30/2023: Off Precedex, he maintained on admission and his significant other was also in the hospital is maintained that he does not drink anymore 5. Hx TIA/CVA: continue aspirin, statin, hypertensive regimen. 6. Chronic migraines: continue patient chronic home regimen however some agents may not be readily available in the hospital this may have to use home regimen. 7. Anxiety and depression: We will continue patient home olanzapine and Seroquel low-dose regimen. 05/29/2023: Continues to be delirious and a little combative so we will give him a one-time dose of 50 mg of Seroquel on top of his morning regimen 8. Chart reported Cognitive impairment: Noted in the chart and evident on evaluation, complicates presentation, CM consulted. 9. Tobacco Abuse: Encouraged cessation, inpatient consultation per RT, NR if desired. 10. GERD: continue patient home PPI. 11. Hypertension none amlodipine, holding ACEI-HCTZ 12. Hyperlipidemia: We will continue patient on statin therapy. 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 Next of kin: [place] law dictates a PRIORITY LIST for identifying legal decision-maker/legal next of kin in the following order (LNOK): 1st: The patient?s legal guardian, if any 2nd: The patient's spouse (if status is questionable, consult Risk Management) 3rd: The patient?s adult child(amberly) (majority, if multiple children) 4th: The patient?s parents 5th: The patient?s adult siblings (majority, if multiple children siblings) Charges/Coding Visit Charges Inpatient E&M: 19291 Subs Hosp L2
[2023-05-30] MEDS: dexMEDEtomidine 400 MCG in 0.9% Normal Saline (100mL Bag) 96 ML 9.40000000000000036 MCG CONT INF (10:00)
[2023-05-30] MEDS: dexMEDEtomidine 400 MCG in 0.9% Normal Saline (100mL Bag) 96 ML 20.6999999999999993 MCG CONT INF (15:13)
[2023-05-30] MEDS: dexMEDEtomidine 400 MCG in 0.9% Normal Saline (100mL Bag) 96 ML 11.3000000000000007 MCG CONT INF (20:55)
[2023-05-31] VITALS (24 sets, daily range): BP systolic 102–140; BP diastolic 65–103; PULSE 51–92; RESP 17–26; TEMP 36.6–36.9; O2SAT 90–99; BMI 24.0
[2023-05-31 01:30] LABS: Absolute Lymphocyte Count 1.69 X10^3/uL (0.83-4.51); Absolute Neutrophil Count 14.8 X10^3/uL (2.0-7.7); Basophil# 0.02 X10^3/uL; Basophil% 0.1 % (0-1); Eosinophil# 0.01 X10^3/uL; Eosinophils% 0.1 % (0-5); Hematocrit 43.1 % (40-54); Lymphocyte # 1.69 X10^3/ul (0.83-4.51); Lymphocyte % 9.3 % (19-41); Mean Corp Hgb Conc 32.5 g/dL (32-36); Mean Corpuscular Hgb 28.9 pg (27.0-32.0); Mean Corpuscular Volume 88.9 fL (80-94); Mean Platelet Vol. 9.9 fl (6.2-12.0); Monocyte# 1.18 X10^3/uL; Monocyte% 6.5 % (0-10); NRBC Flagged by Analyzer 0 % (0-5); Neutrophil # 14.78 X10^3/uL (2.7-7.7); Neutrophil % 81.4 % (47-70); POSITIVE MORPHOLOGY YES; Platelet Count 482 K/mm3 (150-450); RBC Distribution Width CV 14.5 % (11.6-14.6); RBC Distribution Width SD 46.9 fl (35.1-43.9); Red Blood Count 4.85 M/mm3 (4.6-6.2); White Blood Count 18.2 K/mm3 (4.4-11.0)
[2023-05-31] MEDS: Vancomycin Trough/Random Due 1 LAB MC (01:30)
[2023-05-31 01:31] LABS: Differential Indicated SCAN CRITERIA MET
[2023-05-31 01:42] LABS: Differential Comment SCANNED
[2023-05-31 01:43] LABS: Anion Gap 6 (5-15); BUN 45 mg/dL (7-18); BUN/Creat Ratio 31.9 RATIO (10-20); Calcium,Total 9.5 mg/dL (8.5-10.1); Chloride 112 mmol/L (98-107); Creatinine, Serum 1.41 mg/dL (0.70-1.30); EST Glomerular Filtration Rate 55 mL/min (>60); Est Glom Filt Rate - Afr Amer 66 mL/min (>60); Estimated Creatinine Clearance 57.11 ml/min; Glucose 127 mg/dL (74-106); Potassium 3.4 mmol/L (3.5-5.1); Sodium Level 145 mmol/L (136-145)
[2023-05-31 01:47] LABS: Vancomycin, Trough Level 25.1 ug/mL (5.0-15.0)
--- NOTE | 2023-05-31 01:54 | PHA.PHARE_ITS ---
Consult Antibiotic Management Pharmacy has been consulted to manage selected antibiotic: Vancomycin Type of Intervention Type of Consult: Follow-up Labs Labs: Sodium 145 mmol/L (136-145) 05/31/23 01:20 Potassium 3.4 mmol/L (3.5-5.1) L 05/31/23 01:20 Chloride 112 mmol/L (98-107) H 05/31/23 01:20 Carbon Dioxide 27.0 mmol/L (21.0-32.0) 05/31/23 01:20 Anion Gap 6 (5-15) 05/31/23 01:20 BUN 45 mg/dL (7-18) H 05/31/23 01:20 Creatinine 1.41 mg/dL (0.70-1.30) H 05/31/23 01:20 Est GFR (MDRD) Af Amer 66 mL/min (>60) 05/31/23 01:20 Est GFR (MDRD) Non-Af 55 mL/min (>60) L 05/31/23 01:20 BUN/Creatinine Ratio 31.9 RATIO (10-20) H 05/31/23 01:20 Glucose 127 mg/dL (74-106) H 05/31/23 01:20 Vancomycin Trough 25.1 ug/mL (5.0-15.0) H 05/31/23 01:20 Microbiology Microbiology: Microbiology 05/29/23 15:40 Urine, Random Legionella Antigen - Final 05/29/23 15:40 Urine, Random Streptococcus pneumoniae Antigen (M - Final 05/25/23 15:45 Blood Culture (Wb) - Anticubital Right Blood Culture - Preliminary No growth in 48 hours. 05/25/23 15:20 Blood Culture (Wb) - Anticubital Left Blood Culture - Preliminary No growth in 48 hours. 05/25/23 14:25 Mucosa - Nose SARS-CoV-2, Influenza & RSV (PCR) - Final SARS-CoV-2 (COVID 19 PCR) Dosing Weight Weight used for dosin.3 kg Estimated Creatinine Clearance Estimated Creatinine Clearance: 57 Goal Trough Goal Trough: 15-20 mcg/mL Pharmacy Plan for Drug Dosing Pharmacy Plan for Drug Dosing: Vancomycin trough level was high at 25.1. The level was drawn 10 hours post- dose, and may be associated with decrease in clearance (SCr from 1.11 to 1.41). Current dosing will be held. A random vanco level will be drawn in 12 hours and further dosing determined from that result. Pharmacy Service will continue to monitor and adjust dosing as required. Follow-Up Labs Follow-Up Labs: Trough: Vancomycin (random) Date/Time Labs Ordered Labs to be done on [date and time ordered]: 05/31/23 @1330 random
[2023-05-31] MEDS: dexMEDEtomidine 400 MCG in 0.9% Normal Saline (100mL Bag) 96 ML 28.1999999999999993 MCG CONT INF (01:56)
[2023-05-31] MEDS: lamoTRIgine 150 MG Tablet PO ×3 (02:46→21:49)
[2023-05-31] MEDS: OXcarbazepine 300 MG Tablet PO ×3 (02:47→21:50)
[2023-05-31] MEDS: Etodolac 200 MG Capsule PO ×2 (02:47→21:49)
[2023-05-31] MEDS: Dexmedetomidine 1,000 mcg in 0.9% NS 240 mL 18.8000000000000007 MCG CONT INF (05:00)
[2023-05-31] MEDS: Piperacil/Tazobactam 3.375 GM in 0.9% Normal Saline (50mL MB+) 50 ML IV ×4 (05:03→21:48)
[2023-05-31] MEDS: TITRATION PARAMETER CHANGE 1 EACH IV (05:58)
--- NOTE | 2023-05-31 06:56 | PCM.PN.INT ---
Assessment & Plan Assessment/Plan (1) Acute hypoxic respiratory failure: (2) COVID-19: PLAN: Plan RECOMMENDATIONS: 1. Wean supplemental oxygen to maintain saturations at or above 90%. 2. Potassium repletion 3. Hold diuretics today given interval increase in creatinine. 4. Continue empiric antibiotics. 5. Continue scheduled bronchodilators. 6. Continue Precedex as needed. IMPRESSIONS: 1. Acute hypoxemic respiratory failure Most likely secondary to underlying exacerbation of his COPD precipitated by COVID-19 pneumonia and possible secondary bacterial pneumonia. The patient will remain on empiric broad-spectrum antimicrobials. Prior CTA chest completed on May 25 showed no definitive evidence of central pulmonary emboli. However, the imaging study was suboptimal due to respiratory artifact motion. Recommend continuing supplemental oxygen to maintain saturations at or above 90%. Diuretics will be held today on account of interval increase in creatinine. In addition to the aforementioned, the patient's known right to left interatrial shunt is also complicating his current respiratory status. 2. Chronic kidney disease/anemia/history of alcohol dependency in remission/anxiety/depression/underlying cognitive impairment Complicates care, management, recovery and prognosis. Continue supportive care as noted above. Recommend utilizing Precedex as needed. This note was generated with [employer] dictation software. It may contain incorrect words, spelling, and punctuation that were not noted in checking the note before signing. Subjective Subjective The patient was seen and examined at the bedside this morning. Events from the last 24 hours have been reviewed. The patient is currently afebrile, hemodynamically stable and maintaining appropriate oxygen saturations on 6 L/min via nasal cannula. The patient remains on Precedex. White count is elevated at 18,000. Potassium was low at 3.4. Creatinine has increased to 1.4. Objective Data Objective Data The patient's most recent lab work, culture data and imaging studies have all been personally reviewed. COVID PCR was positive on May 25. Vital Signs: Vital Signs Temp Pulse Resp BP Pulse Ox O2 Del Method O2 Flow Rate 98.2 F 54 L 20 H 111/68 93 High Flow 6 05/31/23 04:00 05/31/23 06:00 05/31/23 06:00 05/31/23 06:00 05/31/23 06:00 05/31/23 06:00 05/31/23 06:00 FiO2 46 05/30/23 16:00 Oxygen Flow Rate (L/min) 6 Oxygen Delivery Method High Flow Weight: 162 lb 0.636 oz Body Mass Index (BMI) 24.0 Intake & Output: Intake and Output for Last 24 Hours 05/29/23 05/30/23 05/31/23 23:59 23:59 23:59 Intake Total 935.92 / 1038.92 1359.79 / 1364.49 215.28 / 215.28 Output Total 900 / 900 2825 / 2825 225 / 225 Balance 35.92 / 138.92 -1465.21 / -1460.51 -9.72 / -9.72 Lab / Micro Data Attestation: I reviewed the patient's lab results. 05/31/23 01:20 05/31/23 01:20 Labs: Laboratory Results - last 24 hr 05/31/23 01:20: WBC 18.2 H, RBC 4.85, Hgb 14.0, Hct 43.1, MCV 88.9, MCH 28.9, MCHC 32.5, RDW Std Deviation 46.9 H, RDW Coeff of Jayy 14.5, Plt Count 482 H, MPV 9.9, Immature Gran % (Auto) 2.600 H, Neut % (Auto) 81.4 H, Lymph % (Auto) 9.3 L, [place] % (Auto) 6.5, Eos % (Auto) 0.1, Baso % (Auto) 0.1, Absolute Neuts (auto) 14.8 H, Absolute Lymphs (auto) 1.69, Nucleated RBC % 0, Differential Comment SCANNED, Sodium 145, Potassium 3.4 L, Chloride 112 H, Carbon Dioxide 27.0, Anion Gap 6, BUN 45 H, Creatinine 1.41 H, Estim Creat Clear Calc 57.11, Est GFR (MDRD) Af Amer 66, Est GFR (MDRD) Non-Af 55 L, BUN/Creatinine Ratio 31.9 H, Glucose 127 H, Calcium 9.5, Vancomycin Trough 25.1 H Micro: Microbiology 05/29/23 15:40 Urine, Random Legionella Antigen - Final 05/29/23 15:40 Urine, Random Streptococcus pneumoniae Antigen (M - Final 05/25/23 15:45 Blood Culture (Wb) - Anticubital Right Blood Culture - Preliminary No growth in 48 hours. 05/25/23 15:20 Blood Culture (Wb) - Anticubital Left Blood Culture - Preliminary No growth in 48 hours. 05/25/23 14:25 Mucosa - Nose SARS-CoV-2, Influenza & RSV (PCR) - Final SARS-CoV-2 (COVID 19 PCR) ABG Data ABG results: ABG 05/30/23 07:18 Specimen Type ART Sample Site L Radial pH 7.32 L Bicarbonate Actual 27.5 H Total CO2 29 Base Excess 1 O2 Saturation 96 O2 % 67.0 ABG pCO2 53.9 H ABG pO2 93 Johnny Test Positive O2 Delivery Device Not entered Vent Mode Not entered Clinical Comments 60LPM AIRVO Physical Exam Const alert Constitutional Narrative: Lethargic and intermittently restless HEENT normocephalic and head/scalp atraumatic Eyes PERRL, EOMs intact bilaterally and conjunctivae normal Neck supple General: trachea midline Chest inspection of chest normal Resp normal respiratory effort Auscultation: diminished lung sounds; Negative for rales, rhonchi or wheezes Cardio regular rate and regular rhythm GI normal to inspection, nondistended, normoactive bowel sounds Extremity no clubbing, cyanosis or edema Skin no rashes or lesions noted Neuro no focal motor deficits Psych Activity / Motor Behavior: restless Charges/Coding Visit Charges Inpatient E&M: 72351 Subs Hosp L2
[2023-05-31] MEDS: Potassium Chloride 10mEq/100mL 10 MEQ/100 ML IV.SOLN. 100 MEQ IV BOLUS ×4 (08:21→13:34)
--- NOTE | 2023-05-31 10:01 | PN.HOSP_ITS ---
Subjective Subjective Currently down to 6 L nasal cannula however he was little bit more agitated overnight so Precedex was restarted Objective Data Objective Data Vital Signs: Vital Signs Temp Pulse Resp BP Pulse Ox O2 Del Method O2 Flow Rate 98.2 F 53 L 21 H 103/69 96 Nasal Cannula 6 05/31/23 04:00 05/31/23 09:00 05/31/23 09:00 05/31/23 09:00 05/31/23 09:00 05/31/23 09:00 05/31/23 09:00 FiO2 46 05/30/23 16:00 Oxygen Flow Rate (L/min) 6 Oxygen Delivery Method Nasal Cannula Weight: 162 lb 0.636 oz Body Mass Index (BMI) 24.0 Intake & Output: Intake and Output for Last 24 Hours 05/30/23 05/31/23 06/01/23 03:59 03:59 03:59 Intake Total 1146.92 / 1149.92 1278.75 / 1306.95 178.52 / 178.52 Output Total 900 / 900 2825 / 2825 225 / 225 Balance 246.92 / 249.92 -1546.25 / -1518.05 -46.48 / -46.48 Lab / Micro Data 05/31/23 01:20 05/31/23 01:20 Labs: Laboratory Results - last 24 hr 05/31/23 01:20: WBC 18.2 H, RBC 4.85, Hgb 14.0, Hct 43.1, MCV 88.9, MCH 28.9, MCHC 32.5, RDW Std Deviation 46.9 H, RDW Coeff of Jayy 14.5, Plt Count 482 H, MPV 9.9, Immature Gran % (Auto) 2.600 H, Neut % (Auto) 81.4 H, Lymph % (Auto) 9.3 L, [place] % (Auto) 6.5, Eos % (Auto) 0.1, Baso % (Auto) 0.1, Absolute Neuts (auto) 14.8 H, Absolute Lymphs (auto) 1.69, Nucleated RBC % 0, Differential Comment SCANNED, Sodium 145, Potassium 3.4 L, Chloride 112 H, Carbon Dioxide 27.0, Anion Gap 6, BUN 45 H, Creatinine 1.41 H, Estim Creat Clear Calc 57.11, Est GFR (MDRD) Af Amer 66, Est GFR (MDRD) Non-Af 55 L, BUN/Creatinine Ratio 31.9 H, Glucose 127 H, Calcium 9.5, Vancomycin Trough 25.1 H Micro: Microbiology 05/25/23 15:45 Blood Culture (Wb) - Anticubital Right Blood Culture - Final No growth in 5 days. 05/25/23 15:20 Blood Culture (Wb) - Anticubital Left Blood Culture - Final No growth in 5 days. 05/29/23 15:40 Urine, Random Legionella Antigen - Final 05/29/23 15:40 Urine, Random Streptococcus pneumoniae Antigen (M - Final 05/25/23 14:25 Mucosa - Nose SARS-CoV-2, Influenza & RSV (PCR) - Final SARS-CoV-2 (COVID 19 PCR) Physical Exam Narrative General: Somnolent HEENT: Atraumatic, PERRLA, EOMI, Normocephalic Oral: Moist Mucosa Neck: Supple, No JVD Lungs: Diminished, Normal air movement, No rhonchi, wheeze, No rales Cardiovascular: Regular rate, Regular Rhythm, Normal S1, Normal S2, No murmurs Abdomen: Soft, Non Tender, Non-Distended, No Hepato-splenomegaly Extremities: No edema, Capillary Refill Less than 3 Seconds Skin: No rashes, No breakdown Musculoskeletal: No Tenderness to Palpation of Joints or Extremities Neurological: Does not follow commands but moves all extremities no focal neurologic deficit Psych/Mental Status: Restless Assessment & Plan Assessment/Plan (1) COVID-19: PLAN: Plan 1. Acute bilateral pneumonia most likely due to COVID-19 with hypoxia with COPD exacerbation with acute hypoxic respiratory failure: Patient is admitted to MedSurg floor. IV dexamethasone and remdesivir. On DuoNeb, continue incentive spirometry and PEP. Phlegm tree markers including CK, LDH CRP elevated, procalcitonin 0.94. Lactic acid normal. Troponin is normal. BNP normal. PT and OT ordered. 05/27/2023: The CTA of the chest does not show any PEs however there was motion artifact and it is fairly consistent with COVID-pneumonia, will continue with present therapies he has increasing oxygen requirements and is currently on Airvo so we will trial him with a dose of IV Lasix. ABG demonstrates so low pO2 we will monitor 05/28/2023: ABG yesterday was unremarkable other than a low pO2 he was given a dose of Lasix which was able to bring down his FiO2 so we will repeat a dose today kidney function so far stable 05/29/2023: He remains on Airvo and is tachypneic indicative of respiratory failure, given his continued presentation we will consult pulmonology today for assistance. He did have some improvement with Lasix however creatinine did bump a little bit to 1.37 today 05/30/2023: Started on Vanco and Zosyn and he is MRSA positive, creatinine is improved currently in the ICU. Will increase Seroquel for agitation to 100 mg daily, currently off Precedex 05/31/2023: Continue with Precedex as well as antibiotics, Seroquel was discontinued. 2. WILL on CKD stage III: BUNs/creatinine 20/1.42 improved from 24/1.82. Last creatinine on December 2022 is 1.43 that is his baseline. WILL is resolved. Discontinue IV fluid patient might go on fluid overload with COVID-19 pneumonia and decreased lung function. 05/27/2023: Creatinine is down to 1.24 today, will trial him on a dose of Lasix 05/28/2023: Creatinine is 1.22 today, can repeat a dose of Lasix 05/29/2023: Will hold Lasix today and monitor renal function jumped to 1.37 05/31/2023: Hold Lasix today creatinine jumped to 1.41 3. Chart reported Hx Brain aneurysm: Chart reported s/p clipping, most recent CT of the brain noted 01/01/2023 with no reported significant findings and last MRI brain 05/18/2020 with a normal unenhanced MRI of the brain at that time. 4. History of EtOH Abuse: Patient notes sober x 3 years. To be cautious given cognitive impairment will maintain on CIWA protocol, MVI, thiamine and folic acid. Encourage continued sobriety. Case management consulted. 05/27/2023: He is behaving like alcohol withdrawal but his significant other also states that he has been sober for 3 years 05/30/2023: Off Precedex, he maintained on admission and his significant other was also in the hospital is maintained that he does not drink anymore 5. Hx TIA/CVA: continue aspirin, statin, hypertensive regimen. 6. Chronic migraines: continue patient chronic home regimen however some agents may not be readily available in the hospital this may have to use home regimen. 7. Anxiety and depression: We will continue patient home olanzapine and Seroquel low-dose regimen. 05/29/2023: Continues to be delirious and a little combative so we will give him a one-time dose of 50 mg of Seroquel on top of his morning regimen 8. Chart reported Cognitive impairment: Noted in the chart and evident on evaluation, complicates presentation, CM consulted. 9. Tobacco Abuse: Encouraged cessation, inpatient consultation per RT, NR if desired. 10. GERD: continue patient home PPI. 11. Hypertension none amlodipine, holding ACEI-HCTZ 12. Hyperlipidemia: We will continue patient on statin therapy. DVT: Lovenox Charges/Coding Visit Charges Inpatient E&M: 27848 Subs Hosp L2
[2023-05-31] MEDS: Enoxaparin 30 MG/0.3 ML Syringe SC ×2 (10:34→21:50)
[2023-05-31] MEDS: dexAMETHasone 4 MG/ML Vial 6 MG IV (10:36)
[2023-05-31 12:26] LABS: Vancomycin, Random Level 13.1 ug/mL (0.0-15.0)
[2023-05-31] MEDS: Escitalopram Oxalate 10 MG Tablet PO (12:32)
--- NOTE | 2023-05-31 14:07 | PCM.RX.CS ---
Consult Antibiotic Management Pharmacy has been consulted to manage selected antibiotic: Vancomycin Type of Intervention Type of Consult: Follow-up Suspected Infection Suspected Infection: Pneumonia Prior Doses of Antibiotics Prior Doses of Antibiotics Received/Current Regimen: Previously on 750mg iv q12h. Labs Labs: Sodium 145 mmol/L (136-145) 05/31/23 01:20 Potassium 3.4 mmol/L (3.5-5.1) L 05/31/23 01:20 Chloride 112 mmol/L (98-107) H 05/31/23 01:20 Carbon Dioxide 27.0 mmol/L (21.0-32.0) 05/31/23 01:20 Anion Gap 6 (5-15) 05/31/23 01:20 BUN 45 mg/dL (7-18) H 05/31/23 01:20 Creatinine 1.41 mg/dL (0.70-1.30) H 05/31/23 01:20 Est GFR (MDRD) Af Amer 66 mL/min (>60) 05/31/23 01:20 Est GFR (MDRD) Non-Af 55 mL/min (>60) L 05/31/23 01:20 BUN/Creatinine Ratio 31.9 RATIO (10-20) H 05/31/23 01:20 Glucose 127 mg/dL (74-106) H 05/31/23 01:20 Vancomycin Trough 25.1 ug/mL (5.0-15.0) H 05/31/23 01:20 Random Vancomycin 13.1 ug/mL (0.0-15.0) 05/31/23 11:50 Microbiology Microbiology: Microbiology 05/25/23 15:45 Blood Culture (Wb) - Anticubital Right Blood Culture - Final No growth in 5 days. 05/25/23 15:20 Blood Culture (Wb) - Anticubital Left Blood Culture - Final No growth in 5 days. 05/29/23 15:40 Urine, Random Legionella Antigen - Final 05/29/23 15:40 Urine, Random Streptococcus pneumoniae Antigen (M - Final 05/25/23 14:25 Mucosa - Nose SARS-CoV-2, Influenza & RSV (PCR) - Final SARS-CoV-2 (COVID 19 PCR) Dosing Weight Weight used for dosin.9 kg Estimated Creatinine Clearance Estimated Creatinine Clearance: 57 ml/min Goal Trough Goal Trough: 15-20 mcg/mL Pharmacy Plan for Drug Dosing Pharmacy Plan for Drug Dosing: Trough this AM at 0120 had been high at 25.1 and further dosing was held. Random level ~10hrs post trough level is 13.1. Recommend changing dose to 1500mg iv q24h starting today with trough level before 4th dose. Pharmacy Service will continue to monitor and adjust dosing as required. Follow-Up Labs Follow-Up Labs: Trough: Vancomycin (1.21.24 @1330)
[2023-05-31] MEDS: Vancomycin HCl 1,500 MG in 0.9% Normal Saline (500mL Bag) 500 ML 250 MG IV (14:11)
[2023-05-31] MEDS: Dexmedetomidine 1,000 mcg in 0.9% NS 240 mL 23.8999999999999986 MCG CONT INF (16:55)
[2023-05-31] MEDS: 0.9% Normal Saline (250mL Bag) 250 ML 15 ML IV (21:45)
[2023-05-31] MEDS: MELATONIN 3 MG TABLET PO (21:49)
[2023-05-31] MEDS: Atorvastatin Calcium 80 MG Tablet PO (21:50)
[2023-06-01] VITALS (25 sets, daily range): BP systolic 120–156; BP diastolic 74–99; PULSE 45–124; RESP 11–31; TEMP 36.4–37; O2SAT 87–100; BMI 23.8
[2023-06-01] MEDS: Dexmedetomidine 1,000 mcg in 0.9% NS 240 mL 27.6000000000000014 MCG CONT INF (01:07)
[2023-06-01] MEDS: Piperacil/Tazobactam 3.375 GM in 0.9% Normal Saline (50mL MB+) 50 ML IV ×4 (05:15→22:56)
[2023-06-01] MEDS: TITRATION PARAMETER CHANGE 1 EACH IV (05:27)
--- NOTE | 2023-06-01 06:15 | PN.CC_ITS ---
Assessment & Plan Assessment/Plan (1) Acute hypoxic respiratory failure: (2) COVID-19: PLAN: Plan RECOMMENDATIONS: 1. Wean supplemental oxygen to maintain saturations at or above 90%. 2. Continue empiric antibiotics. 3. Continue scheduled bronchodilators. 4. Continue Precedex as needed. 5. Continue Decadron to complete 10 days of therapy. IMPRESSIONS: 1. Acute hypoxemic respiratory failure Most likely secondary to underlying exacerbation of his COPD precipitated by COVID-19 pneumonia and possible secondary bacterial pneumonia. The patient will remain on empiric broad-spectrum antimicrobials and Decadron as ordered. Prior CTA chest completed on May 25 showed no definitive evidence of central pulmonary emboli. However, the imaging study was suboptimal due to respiratory artifact motion. Recommend continuing supplemental oxygen to maintain saturations at or above 90%. In addition to the aforementioned, the patient's known right to left interatrial shunt is also complicating his current respiratory status. 2. Chronic kidney disease/anemia/history of alcohol dependency in remission/anxiety/depression/underlying cognitive impairment Complicates care, management, recovery and prognosis. Continue supportive care as noted above. Recommend utilizing Precedex as needed. This note was generated with curated.by dictation software. It may contain incorrect words, spelling, and punctuation that were not noted in checking the note before signing. Subjective Subjective The patient was seen and examined at the bedside this morning. Events from the last 24 hours have been reviewed. The patient is currently afebrile, hemodynamically stable and maintaining appropriate oxygen saturations on 6 L/min via nasal cannula. The patient remains on Precedex along with broad-spectrum antimicrobials and Decadron. Objective Data Objective Data The patient's most recent lab work, culture data and imaging studies have all been personally reviewed. COVID PCR was positive on May 25. Vital Signs: Vital Signs Temp Pulse Resp BP Pulse Ox O2 Del Method O2 Flow Rate 98.4 F 49 L 19 H 126/74 H 93 High Flow 6 06/01/23 04:00 06/01/23 06:00 06/01/23 06:00 06/01/23 06:00 06/01/23 06:00 06/01/23 06:00 06/01/23 06:00 FiO2 46 05/30/23 16:00 Oxygen Flow Rate (L/min) 6 Oxygen Delivery Method High Flow Weight: 161 lb 2.526 oz Body Mass Index (BMI) 23.8 Intake & Output: Intake and Output for Last 24 Hours 05/30/23 05/31/23 06/01/23 23:59 23:59 23:59 Intake Total 1359.79 / 1364.49 1730.75 / 1758.35 278.19 / 278.19 Output Total 2825 / 2825 1100 / 1100 200 / 200 Balance -1465.21 / -1460.51 630.75 / 658.35 78.19 / 78.19 Lab / Micro Data Attestation: I reviewed the patient's lab results. 06/02/23 03:30 06/02/23 03:30 Labs: Laboratory Results - last 24 hr 05/31/23 11:50: Random Vancomycin 13.1 Micro: Microbiology 05/25/23 15:45 Blood Culture (Wb) - Anticubital Right Blood Culture - Final No growth in 5 days. 05/25/23 15:20 Blood Culture (Wb) - Anticubital Left Blood Culture - Final No growth in 5 days. 05/29/23 15:40 Urine, Random Legionella Antigen - Final 05/29/23 15:40 Urine, Random Streptococcus pneumoniae Antigen (M - Final 05/25/23 14:25 Mucosa - Nose SARS-CoV-2, Influenza & RSV (PCR) - Final SARS-CoV-2 (COVID 19 PCR) ABG Data ABG results: ABG 05/30/23 07:18 Specimen Type ART Sample Site L Radial pH 7.32 L Bicarbonate Actual 27.5 H Total CO2 29 Base Excess 1 O2 Saturation 96 O2 % 67.0 ABG pCO2 53.9 H ABG pO2 93 Johnny Test Positive O2 Delivery Device Not entered Vent Mode Not entered Clinical Comments 60LPM AIRVO Physical Exam Const no apparent distress General Appearance: lethargic HEENT normocephalic and head/scalp atraumatic Eyes PERRL, EOMs intact bilaterally and conjunctivae normal Neck supple General: trachea midline Chest inspection of chest normal Resp normal respiratory effort Auscultation: diminished lung sounds; Negative for rales, rhonchi or wheezes Cardio S1 normal heart sound and S2 normal heart sound Rate: bradycardia GI normal to inspection, nondistended, normoactive bowel sounds Extremity no clubbing, cyanosis or edema Skin no rashes or lesions noted Neuro no focal motor deficits Psych Activity / Motor Behavior: restless Charges/Coding Visit Charges Inpatient E&M: 20106 Subs Hosp L2
[2023-06-01] MEDS: Enoxaparin 30 MG/0.3 ML Syringe SC ×2 (08:50→20:46)
[2023-06-01] MEDS: lamoTRIgine 150 MG Tablet PO ×2 (08:50→20:46)
[2023-06-01] MEDS: Escitalopram Oxalate 10 MG Tablet PO (08:50)
[2023-06-01] MEDS: OXcarbazepine 300 MG Tablet PO ×2 (08:51→20:46)
[2023-06-01] MEDS: 0.9% Saline Lock 10 ML Syringe IV (08:51)
[2023-06-01] MEDS: dexAMETHasone 4 MG/ML Vial 6 MG IV (08:51)
--- NOTE | 2023-06-01 09:38 | PN.HOSP_ITS ---
Subjective Subjective Continue on Precedex to control behaviors Objective Data Objective Data Vital Signs: Vital Signs Temp Pulse Resp BP Pulse Ox O2 Del Method O2 Flow Rate 98.4 F 59 L 20 H 134/89 H 92 High Flow 6 06/01/23 04:00 06/01/23 07:00 06/01/23 07:00 06/01/23 07:00 06/01/23 07:00 06/01/23 07:00 06/01/23 07:00 FiO2 46 05/30/23 16:00 Oxygen Flow Rate (L/min) 6 Oxygen Delivery Method High Flow Weight: 161 lb 2.526 oz Body Mass Index (BMI) 23.8 Intake & Output: Intake and Output for Last 24 Hours 05/31/23 06/01/23 06/02/23 03:59 03:59 03:59 Intake Total 1278.75 / 1306.95 1729.02 / 1734.50 220.06 / 220.06 Output Total 2825 / 2825 1100 / 1100 300 / 300 Balance -1546.25 / -1518.05 629.02 / 634.50 -79.94 / -79.94 Lab / Micro Data 05/31/23 01:20 05/31/23 01:20 Labs: Laboratory Results - last 24 hr 05/31/23 11:50: Random Vancomycin 13.1 Micro: Microbiology 05/25/23 15:45 Blood Culture (Wb) - Anticubital Right Blood Culture - Final No growth in 5 days. 05/25/23 15:20 Blood Culture (Wb) - Anticubital Left Blood Culture - Final No growth in 5 days. 05/29/23 15:40 Urine, Random Legionella Antigen - Final 05/29/23 15:40 Urine, Random Streptococcus pneumoniae Antigen (M - Final 05/25/23 14:25 Mucosa - Nose SARS-CoV-2, Influenza & RSV (PCR) - Final SARS-CoV-2 (COVID 19 PCR) Physical Exam Narrative General: Somnolent HEENT: Atraumatic, PERRLA, EOMI, Normocephalic Oral: Moist Mucosa Neck: Supple, No JVD Lungs: Diminished, Normal air movement, No rhonchi, wheeze, No rales Cardiovascular: Regular rate, Regular Rhythm, Normal S1, Normal S2, No murmurs Abdomen: Soft, Non Tender, Non-Distended, No Hepato-splenomegaly Extremities: No edema, Capillary Refill Less than 3 Seconds Skin: No rashes, No breakdown Musculoskeletal: No Tenderness to Palpation of Joints or Extremities Neurological: Does not follow commands but moves all extremities no focal ne urologic deficit Psych/Mental Status: Restless Assessment & Plan Assessment/Plan (1) COVID-19: PLAN: Plan 1. Acute bilateral pneumonia due to COVID-19 with COPD exacerbation with acute hypoxic respiratory failure/WILL on CKD 3 ? Continue with Decadron for 10 total days, he did complete remdesivir ? He did have a CTA on admission that was negative for any PEs ? He has been intermittently receiving Lasix ? He does have delirium and agitation and it is unclear whether or not this is due to the disease process or alcohol withdrawal or there is some report of dementia as an outpatient as his mother had early onset Alzheimer's ? Currently on Precedex will wean as able and restart Seroquel when able ? Continue with broad-spectrum antibiotics, will continue with vancomycin and Zosyn as he is MRSA positive ? We will continue with x 1 dosing of Lasix based on renal function as his renal function has been variable throughout his hospitalization 2. HTN/HLD/history of CVA ? Blood pressures are stable ? Monitor make adjustments as necessary ? Continue with Lipitor ? Given variability in creatinine we will hold his lisinopril and hydrochlorothiazide but can continue with Norvasc ? Continue with aspirin 3. Anxiety/depression/history of alcohol abuse/tobacco abuse ? Can resume his home mental health medications ? Both he and his significant other state that he has not used alcohol in 3 y ears 4. GERD ? Stable ? Continue with PPI DVT: Lovenox Charges/Coding Visit Charges Inpatient E&M: 27991 Subs Hosp L2
[2023-06-01] MEDS: Dexmedetomidine 1,000 mcg in 0.9% NS 240 mL 27.3999999999999986 MCG CONT INF (10:38)
--- NOTE | 2023-06-01 12:00 | NURSING ---
O2 sats dropped to 86 on 6L HF NC, increased to 7L and sats up to low 90s
[2023-06-01 13:38] LABS: Allen Test Positive; Base Excess -5 mmol/L (-2 to +2); Bicarbonate 19.9 mmol/L (22-26); Blood Gas Specimen Type ART; Mode Not entered; O2 Delivery Device HFNC; PO2 63 mmHG (75-100); SITE R Radial; SO2 92 % (95-99); Total Carbon Dioxide 21 mmol/L; pCO2 32.6 mmHg (35-45)
[2023-06-01] MEDS: Vancomycin HCl 1,500 MG in 0.9% Normal Saline (500mL Bag) 500 ML 250 MG IV (14:17)
[2023-06-01] MEDS: QUEtiapine 25 MG Tablet 50 MG PO (14:17)
[2023-06-01] MEDS: Gabapentin 600 MG Tablet PO ×2 (15:53→22:56)
[2023-06-01] MEDS: Dexmedetomidine 1,000 mcg in 0.9% NS 240 mL 25.6000000000000014 MCG CONT INF (20:40)
[2023-06-01] MEDS: Etodolac 200 MG Capsule PO (20:46)
[2023-06-01] MEDS: MELATONIN 3 MG TABLET PO (20:46)
[2023-06-01] MEDS: Atorvastatin Calcium 80 MG Tablet PO (20:46)
[2023-06-01] MEDS: Baclofen 10 MG Tablet PO (22:56)
[2023-06-02] VITALS (27 sets, daily range): BP systolic 88–159; BP diastolic 62–87; PULSE 44–114; RESP 9–21; TEMP 36.3–36.6; O2SAT 91–100; BMI 23.8
[2023-06-02 03:52] LABS: Absolute Lymphocyte Count 1.96 X10^3/uL (0.83-4.51); Absolute Neutrophil Count 6.7 X10^3/uL (2.0-7.7); Basophil# 0.04 X10^3/uL; Basophil% 0.4 % (0-1); Eosinophil# 0.09 X10^3/uL; Eosinophils% 0.9 % (0-5); Hematocrit 35.4 % (40-54); Hemoglobin 11.3 g/dL (13.0-16.5); Lymphocyte # 1.96 X10^3/ul (0.83-4.51); Lymphocyte % 19.5 % (19-41); Mean Corp Hgb Conc 31.9 g/dL (32-36); Mean Corpuscular Hgb 28.7 pg (27.0-32.0); Mean Corpuscular Volume 89.8 fL (80-94); Mean Platelet Vol. 9.7 fl (6.2-12.0); Monocyte# 0.86 X10^3/uL; Monocyte% 8.6 % (0-10); NRBC Flagged by Analyzer 0 % (0-5); Neutrophil # 6.71 X10^3/uL (2.7-7.7); Neutrophil % 66.7 % (47-70); Platelet Count 451 K/mm3 (150-450); RBC Distribution Width CV 14.2 % (11.6-14.6); Red Blood Count 3.94 M/mm3 (4.6-6.2); White Blood Count 10.1 K/mm3 (4.4-11.0)
[2023-06-02 04:02] LABS: Anion Gap 2 (5-15); BUN 30 mg/dL (7-18); BUN/Creat Ratio 34.2 RATIO (10-20); Calcium,Total 7.7 mg/dL (8.5-10.1); Chloride 124 mmol/L (98-107); Creatinine, Serum 0.88 mg/dL (0.70-1.30); EST Glomerular Filtration Rate 95 mL/min (>60); Est Glom Filt Rate - Afr Amer 115 mL/min (>60); Glucose 98 mg/dL (74-106); Potassium 3.1 mmol/L (3.5-5.1); Sodium Level 150 mmol/L (136-145)
[2023-06-02] MEDS: 0.9% Saline Lock 10 ML Syringe IV (05:57)
[2023-06-02] MEDS: Piperacil/Tazobactam 3.375 GM in 0.9% Normal Saline (50mL MB+) 50 ML IV ×3 (05:57→17:05)
--- NOTE | 2023-06-02 06:43 | PCM.PN.INT ---
Assessment & Plan Assessment/Plan (1) Acute hypoxic respiratory failure: (2) COVID-19: PLAN: Plan RECOMMENDATIONS: 1. Wean supplemental oxygen to maintain saturations at or above 90%. 2. Continue empiric antibiotics. 3. Continue scheduled bronchodilators. 4. Continue to aggressively wean Precedex over today. 5. Continue Decadron to complete 10 days of therapy. IMPRESSIONS: 1. Acute hypoxemic respiratory failure Most likely secondary to underlying exacerbation of his COPD precipitated by COVID-19 pneumonia and possible secondary bacterial pneumonia. The patient will remain on empiric broad-spectrum antimicrobials and Decadron as ordered. Prior CTA chest completed on May 25 showed no definitive evidence of central pulmonary emboli. However, the imaging study was suboptimal due to respiratory artifact motion. Recommend continuing supplemental oxygen to maintain saturations at or above 90%. In addition to the aforementioned, the patient's known right to left interatrial shunt is also complicating his current respiratory status. 2. Chronic kidney disease/anemia/history of alcohol dependency in remission/anxiety/depression/underlying cognitive impairment Complicates care, management, recovery and prognosis. Continue supportive care as noted above. Recommend utilizing Precedex as needed. This note was generated with [employer] dictation software. It may contain incorrect words, spelling, and punctuation that were not noted in checking the note before signing. Subjective Subjective The patient was seen and examined at the bedside this morning. Events from the last 24 hours have been reviewed. The patient is currently afebrile, hemodynamically stable and maintaining appropriate oxygen saturations on 6 L/min via nasal cannula. Although the patient remains on Precedex, he seems more cooperative and directable this morning. Objective Data Objective Data The patient's most recent lab work, culture data and imaging studies have all been personally reviewed. COVID PCR was positive on May 25. Vital Signs: Vital Signs Temp Pulse Resp BP Pulse Ox O2 Del Method O2 Flow Rate 97.7 F L 72 13 135/87 H 99 High Flow 6 06/02/23 04:00 06/02/23 06:00 06/02/23 06:00 06/02/23 06:00 06/02/23 06:00 06/02/23 06:00 06/02/23 06:00 FiO2 46 05/30/23 16:00 Oxygen Flow Rate (L/min) 6 Oxygen Delivery Method High Flow Weight: 161 lb 2.526 oz Body Mass Index (BMI) 23.8 Intake & Output: Intake and Output for Last 24 Hours 05/31/23 06/01/23 06/02/23 23:59 23:59 23:59 Intake Total 1730.75 / 1758.35 1569.16 / 1574.64 328.37 / 328.37 Output Total 1100 / 1100 1150 / 1425 675 / 675 Balance 630.75 / 658.35 419.16 / 149.64 -346.63 / -346.63 Lab / Micro Data Attestation: I reviewed the patient's lab results. 06/03/23 05:00 06/03/23 05:00 Labs: Laboratory Results - last 24 hr 06/02/23 03:30: WBC 10.1, RBC 3.94 L, Hgb 11.3 L, Hct 35.4 L, MCV 89.8, MCH 28.7, MCHC 31.9 L, RDW Std Deviation 47.0 H, RDW Coeff of Jayy 14.2, Plt Count 451 H, MPV 9.7, Immature Gran % (Auto) 3.900 H, Neut % (Auto) 66.7, Lymph % (Auto) 19.5, [place] % (Auto) 8.6, Eos % (Auto) 0.9, Baso % (Auto) 0.4, Absolute Neuts (auto) 6.7, Absolute Lymphs (auto) 1.96, Nucleated RBC % 0, Sodium 150 H, Potassium 3.1 L, Chloride 124 H, Carbon Dioxide 24.0, Anion Gap 2 L, BUN 30 H, Creatinine 0.88, Estim Creat Clear Calc 91.50, Est GFR (MDRD) Af Amer 115, Est GFR (MDRD) Non-Af 95, BUN/Creatinine Ratio 34.2 H, Glucose 98, Calcium 7.7 L Micro: Microbiology 05/25/23 15:45 Blood Culture (Wb) - Anticubital Right Blood Culture - Final No growth in 5 days. 05/25/23 15:20 Blood Culture (Wb) - Anticubital Left Blood Culture - Final No growth in 5 days. 05/29/23 15:40 Urine, Random Legionella Antigen - Final 05/29/23 15:40 Urine, Random Streptococcus pneumoniae Antigen (M - Final 05/25/23 14:25 Mucosa - Nose SARS-CoV-2, Influenza & RSV (PCR) - Final SARS-CoV-2 (COVID 19 PCR) ABG Data ABG results: ABG 06/01/23 13:34 Specimen Type ART Sample Site R Radial pH 7.40 Bicarbonate Actual 19.9 L Total CO2 21 Base Excess -5 L O2 Saturation 92 L O2 % 7.0 ABG pCO2 32.6 L ABG pO2 63 L Johnny Test Positive O2 Delivery Device HFNC Vent Mode Not entered Physical Exam Const no apparent distress Constitutional Narrative: Somnolent, but arousable and answers questions. HEENT normocephalic and head/scalp atraumatic Eyes PERRL, EOMs intact bilaterally and conjunctivae normal Neck supple General: trachea midline Chest inspection of chest normal Resp normal respiratory effort Auscultation: diminished lung sounds; Negative for rales, rhonchi or wheezes Cardio S1 normal heart sound and S2 normal heart sound Rate: bradycardia GI normal to inspection, nondistended, normoactive bowel sounds Extremity no clubbing, cyanosis or edema Skin no rashes or lesions noted Neuro no focal motor deficits Psych cooperative Charges/Coding Visit Charges Inpatient E&M: 24861 Subs Hosp L2
[2023-06-02] MEDS: Multivitamins,Ther W-Minerals Tablet 1 TABLET PO (08:15)
[2023-06-02] MEDS: Aspirin E.C. 81 MG Tablet PO (08:15)
[2023-06-02] MEDS: Folic Acid 1 MG Tablet PO (08:15)
[2023-06-02] MEDS: Gabapentin 600 MG Tablet PO ×3 (08:15→22:06)
[2023-06-02] MEDS: dexAMETHasone 4 MG/ML Vial 6 MG IV (08:15)
[2023-06-02] MEDS: Enoxaparin 30 MG/0.3 ML Syringe SC ×2 (08:15→22:07)
[2023-06-02] MEDS: Escitalopram Oxalate 10 MG Tablet PO (08:16)
[2023-06-02] MEDS: Etodolac 200 MG Capsule PO ×2 (08:16→22:07)
[2023-06-02] MEDS: lamoTRIgine 150 MG Tablet PO ×2 (08:16→22:07)
[2023-06-02] MEDS: OXcarbazepine 300 MG Tablet PO ×2 (08:17→22:06)
[2023-06-02] MEDS: Thiamine Hydrochloride 100 MG Tablet PO (08:17)
[2023-06-02] MEDS: Pantoprazole Sodium 40 MG Tablet PO (08:17)
--- NOTE | 2023-06-02 08:35 | PCM.PN.HOSP ---
Subjective Subjective He had some increased agitation yesterday which has resolved, we are able to reinitiate his Seroquel will attempt to wean Precedex. Unclear as to his continued delirium pO2 yesterday on ABG was low at 63 while on 6 L nasal cannula Objective Data Objective Data Vital Signs: Vital Signs Temp Pulse Resp BP Pulse Ox O2 Del Method O2 Flow Rate 97.3 F L 80 20 H 127/76 H 97 High Flow 8 06/02/23 08:00 06/02/23 08:00 06/02/23 08:00 06/02/23 08:00 06/02/23 08:00 06/02/23 08:00 06/02/23 08:00 FiO2 46 05/30/23 16:00 Oxygen Flow Rate (L/min) 8 Oxygen Delivery Method High Flow Weight: 161 lb 2.526 oz Body Mass Index (BMI) 23.8 Intake & Output: Intake and Output for Last 24 Hours 06/01/23 06/02/23 06/03/23 03:59 03:59 03:59 Intake Total 1729.02 / 1734.50 1528.10 / 1532.68 349.50 / 349.50 Output Total 1100 / 1100 1425 / 1425 525 / 525 Balance 629.02 / 634.50 103.10 / 107.68 -175.50 / -175.50 Lab / Micro Data 06/02/23 03:30 06/02/23 03:30 Labs: Laboratory Results - last 24 hr 06/02/23 03:30: WBC 10.1, RBC 3.94 L, Hgb 11.3 L, Hct 35.4 L, MCV 89.8, MCH 28.7, MCHC 31.9 L, RDW Std Deviation 47.0 H, RDW Coeff of Jayy 14.2, Plt Count 451 H, MPV 9.7, Immature Gran % (Auto) 3.900 H, Neut % (Auto) 66.7, Lymph % (Auto) 19.5, [place] % (Auto) 8.6, Eos % (Auto) 0.9, Baso % (Auto) 0.4, Absolute Neuts (auto) 6.7, Absolute Lymphs (auto) 1.96, Nucleated RBC % 0, Sodium 150 H, Potassium 3.1 L, Chloride 124 H, Carbon Dioxide 24.0, Anion Gap 2 L, BUN 30 H, Creatinine 0.88, Estim Creat Clear Calc 91.50, Est GFR (MDRD) Af Amer 115, Est GFR (MDRD) Non-Af 95, BUN/Creatinine Ratio 34.2 H, Glucose 98, Calcium 7.7 L Micro: Microbiology 05/25/23 15:45 Blood Culture (Wb) - Anticubital Right Blood Culture - Final No growth in 5 days. 05/25/23 15:20 Blood Culture (Wb) - Anticubital Left Blood Culture - Final No growth in 5 days. 05/29/23 15:40 Urine, Random Legionella Antigen - Final 05/29/23 15:40 Urine, Random Streptococcus pneumoniae Antigen (M - Final 05/25/23 14:25 Mucosa - Nose SARS-CoV-2, Influenza & RSV (PCR) - Final SARS-CoV-2 (COVID 19 PCR) ABG Data ABG results: ABG 06/01/23 13:34 Specimen Type ART Sample Site R Radial pH 7.40 Bicarbonate Actual 19.9 L Total CO2 21 Base Excess -5 L O2 Saturation 92 L O2 % 7.0 ABG pCO2 32.6 L ABG pO2 63 L Johnny Test Positive O2 Delivery Device HFNC Vent Mode Not entered Physical Exam Narrative General: Somnolent but arousable HEENT: Atraumatic, PERRLA, EOMI, Normocephalic Oral: Moist Mucosa Neck: Supple, No JVD Lungs: Diminished, Normal air movement, No rhonchi, wheeze, No rales Cardiovascular: Regular rate, Regular Rhythm, Normal S1, Normal S2, No murmurs Abdomen: Soft, Non Tender, Non-Distended, No Hepato-splenomegaly Extremities: No edema, Capillary Refill Less than 3 Seconds Skin: No rashes, No breakdown Musculoskeletal: No Tenderness to Palpation of Joints or Extremities Neurological: Does not follow commands very well but moves all extremities no focal neurologic deficit Psych/Mental Status: Restless Assessment & Plan Assessment/Plan (1) COVID-19: PLAN: Plan 1. Acute bilateral pneumonia due to COVID-19 with COPD exacerbation with acute hypoxic respiratory failure/WILL on CKD 3 ? Continue with Decadron for 10 total days, he did complete remdesivir ? He did have a CTA on admission that was negative for any PEs ? He has been intermittently receiving Lasix ? He does have delirium and agitation and it is unclear whether or not this is due to the disease process or alcohol withdrawal or there is some report of dementia as an outpatient as his mother had early onset Alzheimer's ? Currently on Precedex will wean as able and restart Seroquel ? Continue with broad-spectrum antibiotics, will continue with vancomycin and Zosyn as he is MRSA positive ? We will continue with x 1 dosing of Lasix based on renal function as his renal function has been variable throughout his hospitalization 2. HTN/HLD/history of CVA ? Blood pressures are stable ? Monitor make adjustments as necessary ? Continue with Lipitor ? Given variability in creatinine we will hold his lisinopril and hydrochlorothiazide but can continue with Norvasc ? Continue with aspirin 3. Anxiety/depression/history of alcohol abuse/tobacco abuse ? Can resume his home mental health medications ? Both he and his significant other state that he has not used alcohol in 3 years 4. GERD ? Stable ? Continue with PPI DVT: Lovenox Charges/Coding Visit Charges Inpatient E&M: 20923 Subs Hosp L2
[2023-06-02] MEDS: Dexmedetomidine 1,000 mcg in 0.9% NS 240 mL 14.5999999999999996 MCG CONT INF (08:45)
[2023-06-02] MEDS: QUEtiapine 25 MG Tablet 50 MG PO (09:48)
[2023-06-02] MEDS: Potassium Chloride Oral Tablet 20 MEQ 40 MEQ PO (09:48)
[2023-06-02] MEDS: Baclofen 10 MG Tablet PO ×2 (12:36→22:06)
[2023-06-02] MEDS: Vancomycin Trough/Random Due 1 LAB MC (13:06)
[2023-06-02 13:18] LABS: Vancomycin, Trough Level 16.8 ug/mL (5.0-15.0)
--- NOTE | 2023-06-02 13:28 | PCM.RX.CS ---
Consult Antibiotic Management Pharmacy has been consulted to manage selected antibiotic: Vancomycin Type of Intervention Type of Consult: Follow-up Suspected Infection Suspected Infection: Pneumonia Prior Doses of Antibiotics Prior Doses of Antibiotics Received/Current Regimen: Vancomyicn 1.5 grams IV given 05/31 @ 1411, and 06/01 @ 1417 Labs Labs: Sodium 150 mmol/L (136-145) H 06/02/23 03:30 Potassium 3.1 mmol/L (3.5-5.1) L 06/02/23 03:30 Chloride 124 mmol/L (98-107) H 06/02/23 03:30 Carbon Dioxide 24.0 mmol/L (21.0-32.0) 06/02/23 03:30 Anion Gap 2 (5-15) L 06/02/23 03:30 BUN 30 mg/dL (7-18) H 06/02/23 03:30 Creatinine 0.88 mg/dL (0.70-1.30) 06/02/23 03:30 Est GFR (MDRD) Af Amer 115 mL/min (>60) 06/02/23 03:30 Est GFR (MDRD) Non-Af 95 mL/min (>60) 06/02/23 03:30 BUN/Creatinine Ratio 34.2 RATIO (10-20) H 06/02/23 03:30 Glucose 98 mg/dL (74-106) 06/02/23 03:30 Vancomycin Trough 16.8 ug/mL (5.0-15.0) H 06/02/23 12:37 Random Vancomycin 13.1 ug/mL (0.0-15.0) 05/31/23 11:50 Microbiology Microbiology: Microbiology 05/25/23 15:45 Blood Culture (Wb) - Anticubital Right Blood Culture - Final No growth in 5 days. 05/25/23 15:20 Blood Culture (Wb) - Anticubital Left Blood Culture - Final No growth in 5 days. 05/29/23 15:40 Urine, Random Legionella Antigen - Final 05/29/23 15:40 Urine, Random Streptococcus pneumoniae Antigen (M - Final 05/25/23 14:25 Mucosa - Nose SARS-CoV-2, Influenza & RSV (PCR) - Final SARS-CoV-2 (COVID 19 PCR) Dosing Weight Weight used for dosin.1 kg Estimated Creatinine Clearance Estimated Creatinine Clearance: ~91 Goal Trough Goal Trough: 15-20 mcg/mL Pharmacy Plan for Drug Dosing Pharmacy Plan for Drug Dosing: Vancomycin trough 22.5 hours after previous dose = 16.8, will continue current dosing, trough in 2 days. Pharmacy Service will continue to monitor and adjust dosing as required. Follow-Up Labs Follow-Up Labs: Trough: Vancomycin Date/Time Labs Ordered Labs to be done on [date and time ordered]: 06/02/23 @ 3653
[2023-06-02] MEDS: Vancomycin HCl 1,500 MG in 0.9% Normal Saline (500mL Bag) 500 ML 250 MG IV (13:56)
--- NOTE | 2023-06-02 14:02 | NURSING ---
restraints removed for patient to eat lunch with staff member at bedside, patient restless after lunch and pulled out IV, restraints back on bilateral wrists, precedex increased, Dr. Sutherland made aware.
[2023-06-02] MEDS: Atorvastatin Calcium 80 MG Tablet PO (22:07)
[2023-06-03] VITALS (26 sets, daily range): BP systolic 95–158; BP diastolic 64–103; PULSE 52–120; RESP 11–29; TEMP 36.6–37.1; O2SAT 90–97; BMI 24.0
[2023-06-03] MEDS: Piperacil/Tazobactam 3.375 GM in 0.9% Normal Saline (50mL MB+) 50 ML IV ×5 (00:17→22:54)
[2023-06-03 05:06] LABS: Absolute Lymphocyte Count 2.42 X10^3/uL (0.83-4.51); Absolute Neutrophil Count 8.3 X10^3/uL (2.0-7.7); Basophil# 0.05 X10^3/uL; Basophil% 0.4 % (0-1); Eosinophil# 0.11 X10^3/uL; Eosinophils% 0.9 % (0-5); Hematocrit 38.1 % (40-54); Hemoglobin 12.5 g/dL (13.0-16.5); Lymphocyte # 2.42 X10^3/ul (0.83-4.51); Lymphocyte % 20.1 % (19-41); Mean Corp Hgb Conc 32.8 g/dL (32-36); Mean Corpuscular Hgb 29.1 pg (27.0-32.0); Mean Corpuscular Volume 88.6 fL (80-94); Mean Platelet Vol. 9.7 fl (6.2-12.0); Monocyte# 0.87 X10^3/uL; Monocyte% 7.2 % (0-10); NRBC Flagged by Analyzer 0 % (0-5); Neutrophil # 8.28 X10^3/uL (2.7-7.7); Neutrophil % 68.7 % (47-70); Platelet Count 484 K/mm3 (150-450); RBC Distribution Width CV 14.5 % (11.6-14.6); RBC Distribution Width SD 46.9 fl (35.1-43.9); White Blood Count 12.1 K/mm3 (4.4-11.0)
[2023-06-03 05:36] LABS: Anion Gap 5 (5-15); BUN 26 mg/dL (7-18); Calcium,Total 9.2 mg/dL (8.5-10.1); Chloride 115 mmol/L (98-107); Creatinine, Serum 1.04 mg/dL (0.70-1.30); EST Glomerular Filtration Rate 78 mL/min (>60); Est Glom Filt Rate - Afr Amer 94 mL/min (>60); Estimated Creatinine Clearance 77.42 ml/min; Glucose 103 mg/dL (74-106); Potassium 3.6 mmol/L (3.5-5.1); Sodium Level 145 mmol/L (136-145)
--- NOTE | 2023-06-03 06:42 | PCM.PN.INT ---
Assessment & Plan Assessment/Plan (1) Acute hypoxic respiratory failure: (2) COVID-19: PLAN: Plan RECOMMENDATIONS: 1. Wean supplemental oxygen to maintain saturations at or above 90%. 2. Continue empiric antibiotics to complete 7 days of therapy. 3. Continue scheduled bronchodilators. 4. Continue to aggressively wean Precedex over today. Initiate Seroquel twice daily. 5. Continue Decadron to complete 10 days of therapy. IMPRESSIONS: 1. Acute hypoxemic respiratory failure Most likely secondary to underlying exacerbation of his COPD precipitated by COVID-19 pneumonia and possible secondary bacterial pneumonia. The patient will remain on empiric broad-spectrum antimicrobials and Decadron as ordered. Prior CTA chest completed on May 25 showed no definitive evidence of central pulmonary emboli. However, the imaging study was suboptimal due to respiratory artifact motion. Recommend continuing supplemental oxygen to maintain saturations at or above 90%. In addition to the aforementioned, the patient's known right to left interatrial shunt is also complicating his current respiratory status. 2. Chronic kidney disease/anemia/history of alcohol dependency in remission/anxiety/depression/underlying cognitive impairment Complicates care, management, recovery and prognosis. Continue supportive care as noted above. Recommend utilizing Precedex as needed. The patient has been restarted on Seroquel to facilitate weaning from Precedex therapy. This note was generated with [employer] dictation software. It may contain incorrect words, spelling, and punctuation that were not noted in checking the note before signing. Subjective Subjective The patient was seen and examined at the bedside this morning. Events from the last 24 hours have been reviewed. The patient is currently afebrile, hemodynamically stable and maintaining appropriate oxygen saturations on 2 L/min via nasal cannula. The patient was able to be weaned off of Precedex yesterday for a period of time. However, overnight, the medication had to be restarted. Morning labs are stable. The patient was restarted on Seroquel yesterday. The patient is relatively calm this morning and easily re-directable. Objective Data Objective Data The patient's most recent lab work, culture data and imaging studies have all been personally reviewed. COVID PCR was positive on May 25. Vital Signs: Vital Signs Temp Pulse Resp BP Pulse Ox O2 Del Method O2 Flow Rate 97.8 F 88 14 110/71 91 Nasal Cannula 2 06/03/23 04:00 06/03/23 06:00 06/03/23 06:00 06/03/23 06:00 06/03/23 06:00 06/03/23 06:00 06/03/23 06:00 FiO2 46 05/30/23 16:00 Oxygen Flow Rate (L/min) 2 Oxygen Delivery Method Nasal Cannula Weight: 162 lb 0.636 oz Body Mass Index (BMI) 24.0 Intake & Output: Intake and Output for Last 24 Hours 06/01/23 06/02/23 06/03/23 23:59 23:59 23:59 Intake Total 1569.16 / 1574.64 1358.61 / 1789.61 835.05 / 835.05 Output Total 1150 / 1425 1375 / 1875 750 / 750 Balance 419.16 / 149.64 -16.39 / -85.39 85.05 / 85.05 Lab / Micro Data Attestation: I reviewed the patient's lab results. 06/03/23 05:00 06/03/23 05:00 Labs: Laboratory Results - last 24 hr 06/02/23 12:37: Vancomycin Trough 16.8 H 06/03/23 05:00: WBC 12.1 H, RBC 4.30 L, Hgb 12.5 L, Hct 38.1 L, MCV 88.6, MCH 29.1, MCHC 32.8, RDW Std Deviation 46.9 H, RDW Coeff of Jayy 14.5, Plt Count 484 H, MPV 9.7, Immature Gran % (Auto) 2.700 H, Neut % (Auto) 68.7, Lymph % (Auto) 20.1, [place] % (Auto) 7.2, Eos % (Auto) 0.9, Baso % (Auto) 0.4, Absolute Neuts (auto) 8.3 H, Absolute Lymphs (auto) 2.42, Nucleated RBC % 0, Sodium 145, Potassium 3.6, Chloride 115 H, Carbon Dioxide 25.0, Anion Gap 5, BUN 26 H, Creatinine 1.04, Estim Creat Clear Calc 77.42, Est GFR (MDRD) Af Amer 94, Est GFR (MDRD) Non-Af 78, BUN/Creatinine Ratio 25.0 H, Glucose 103, Calcium 9.2 Micro: Microbiology 05/25/23 15:45 Blood Culture (Wb) - Anticubital Right Blood Culture - Final No growth in 5 days. 05/25/23 15:20 Blood Culture (Wb) - Anticubital Left Blood Culture - Final No growth in 5 days. 05/29/23 15:40 Urine, Random Legionella Antigen - Final 05/29/23 15:40 Urine, Random Streptococcus pneumoniae Antigen (M - Final 05/25/23 14:25 Mucosa - Nose SARS-CoV-2, Influenza & RSV (PCR) - Final SARS-CoV-2 (COVID 19 PCR) ABG Data ABG results: ABG 06/01/23 13:34 Specimen Type ART Sample Site R Radial pH 7.40 Bicarbonate Actual 19.9 L Total CO2 21 Base Excess -5 L O2 Saturation 92 L O2 % 7.0 ABG pCO2 32.6 L ABG pO2 63 L Johnny Test Positive O2 Delivery Device HFNC Vent Mode Not entered Physical Exam Const alert and no apparent distress HEENT normocephalic and head/scalp atraumatic Eyes PERRL, EOMs intact bilaterally and conjunctivae normal Neck supple General: trachea midline Chest inspection of chest normal Resp normal respiratory effort Auscultation: diminished lung sounds; Negative for rales, rhonchi or wheezes Cardio regular rate, regular rhythm, S1 normal heart sound and S2 normal heart sound GI normal to inspection, nondistended, normoactive bowel sounds Extremity no clubbing, cyanosis or edema Skin no rashes or lesions noted Neuro moves all extremities and no focal motor deficits Psych cooperative Activity / Motor Behavior: restless Charges/Coding Visit Charges Inpatient E&M: 08875 Subs Hosp L2
[2023-06-03] MEDS: Aspirin E.C. 81 MG Tablet PO (07:38)
[2023-06-03] MEDS: Gabapentin 600 MG Tablet PO ×3 (07:38→22:30)
[2023-06-03] MEDS: Thiamine Hydrochloride 100 MG Tablet PO (07:39)
[2023-06-03] MEDS: Folic Acid 1 MG Tablet PO (07:39)
[2023-06-03] MEDS: amLODIPine 5 MG Tablet PO (07:39)
[2023-06-03] MEDS: Multivitamins,Ther W-Minerals Tablet 1 TABLET PO (07:39)
[2023-06-03] MEDS: Etodolac 200 MG Capsule PO ×2 (07:40→20:42)
[2023-06-03] MEDS: Pantoprazole Sodium 40 MG Tablet PO (07:40)
[2023-06-03] MEDS: OXcarbazepine 300 MG Tablet PO ×2 (07:40→20:42)
[2023-06-03] MEDS: Enoxaparin 30 MG/0.3 ML Syringe SC ×2 (07:40→20:42)
[2023-06-03] MEDS: Escitalopram Oxalate 10 MG Tablet PO (07:41)
[2023-06-03] MEDS: QUEtiapine 25 MG Tablet 50 MG PO ×2 (07:43→20:42)
[2023-06-03] MEDS: lamoTRIgine 150 MG Tablet PO ×2 (09:33→20:42)
[2023-06-03] MEDS: dexAMETHasone 4 MG/ML Vial 6 MG IV (09:33)
--- NOTE | 2023-06-03 10:28 | PCM.PROGNOTE ---
Subjective Subjective Patient seen and examined. He had no active complaints. HE had been taken off the levophed, and remains on 2L of oxygen. Review of systems is otherwise negative. Objective Data Objective Data Vital Signs: Vital Signs Temp Pulse Resp BP Pulse Ox O2 Del Method O2 Flow Rate 98.8 F 108 H 18 125/83 H 92 Nasal Cannula 2 06/03/23 08:00 06/03/23 10:00 06/03/23 10:00 06/03/23 10:00 06/03/23 10:00 06/03/23 10:00 06/03/23 10:00 FiO2 46 05/30/23 16:00 Oxygen Flow Rate (L/min) 2 Oxygen Delivery Method Nasal Cannula Weight: 162 lb 0.636 oz Body Mass Index (BMI) 24.0 Intake & Output: Intake and Output for Last 24 Hours 06/01/23 06/02/23 06/03/23 23:59 23:59 23:59 Intake Total 1569.16 / 1574.64 1358.61 / 1789.61 843.33 / 843.33 Output Total 1150 / 1425 1375 / 1875 750 / 750 Balance 419.16 / 149.64 -16.39 / -85.39 93.33 / 93.33 Lab / Micro Data 06/03/23 05:00 06/03/23 05:00 Labs: Laboratory Results - last 24 hr 06/02/23 12:37: Vancomycin Trough 16.8 H 06/03/23 05:00: WBC 12.1 H, RBC 4.30 L, Hgb 12.5 L, Hct 38.1 L, MCV 88.6, MCH 29.1, MCHC 32.8, RDW Std Deviation 46.9 H, RDW Coeff of Jayy 14.5, Plt Count 484 H, MPV 9.7, Immature Gran % (Auto) 2.700 H, Neut % (Auto) 68.7, Lymph % (Auto) 20.1, [place] % (Auto) 7.2, Eos % (Auto) 0.9, Baso % (Auto) 0.4, Absolute Neuts (auto) 8.3 H, Absolute Lymphs (auto) 2.42, Nucleated RBC % 0, Sodium 145, Potassium 3.6, Chloride 115 H, Carbon Dioxide 25.0, Anion Gap 5, BUN 26 H, Creatinine 1.04, Estim Creat Clear Calc 77.42, Est GFR (MDRD) Af Amer 94, Est GFR (MDRD) Non-Af 78, BUN/Creatinine Ratio 25.0 H, Glucose 103, Calcium 9.2 Micro: Microbiology 05/25/23 15:45 Blood Culture (Wb) - Anticubital Right Blood Culture - Final No growth in 5 days. 05/25/23 15:20 Blood Culture (Wb) - Anticubital Left Blood Culture - Final No growth in 5 days. 05/29/23 15:40 Urine, Random Legionella Antigen - Final 05/29/23 15:40 Urine, Random Streptococcus pneumoniae Antigen (M - Final 05/25/23 14:25 Mucosa - Nose SARS-CoV-2, Influenza & RSV (PCR) - Final SARS-CoV-2 (COVID 19 PCR) Physical Exam Const alert, oriented x3 and no apparent distress General Appearance: cooperative HEENT normocephalic, head/scalp atraumatic, moist oral mucous membranes and oropharynx normal Eyes PERRL and EOMs intact bilaterally Neck no lymphadenopathy and supple Lymph Lymphatic: no lymphadenopathy noted and no lymphedema noted Resp Resp Narrative: mildly diminished breath sounds bibasally, no wheezes or crackles. On 2L of oxygen by nasal canula Cardio regular rate, regular rhythm, S1 normal heart sound, S2 normal heart sound and no murmurs GI normal to inspection, nondistended, normoactive bowel sounds, soft to palpation, non-tender and non-distended Extremity normal capillary refill, no clubbing, cyanosis or edema and no calf tenderness General Extremity: no tenderness to palpation of joints or extremities Skin General Skin Exam: no breakdown Neuro CN's II-XII intact bilaterally, no focal motor deficits, no sensory deficits noted and deep tendon reflexes 2+ bilaterally Motor Exam: strength 5/5 throughout and general weakness Psych thought process normal, cooperative and affect normal Appearance: appropriate Assessment & Plan Assessment/Plan (1) Acute hypoxic respiratory failure: (2) COVID-19: (3) Acute kidney injury: PLAN: Plan #Acute hypoxic respiratory failure due to COVID 19 infection and COPD exacerbation out of precautions for COVID on 2L f oxygen now on IV vancomycin and zosyn as he is MRSA positive; to complete a 7 day course of antiibotics CTA chest was negative for PE completed a course of remdesivir; on apradron, complete course tomorrow. blood cultures were negative being weaned off precedex, and to be started on seroquel #WILL on CKD 3: resolved. Cr is down to 1.04 #Hypertension; on amlodipine. IV hydralazine prn #Hyperlipidemia: on statin #Anxiety and depression: on seroquel and lexapro. Also on lamictal #History of CVA: on aspirin and statin #History of alcohol use disorder: says he hasnt drunk alcohol in a few years. Low risk for withdrawal DVT prophylaxis; lovenox Charges/Coding Visit Charges Inpatient E&M: 14685 Subs Hosp L2
[2023-06-03] MEDS: Vancomycin HCl 1,500 MG in 0.9% Normal Saline (500mL Bag) 500 ML 250 MG IV (14:20)
[2023-06-03] MEDS: Acetaminophen 325 MG Tablet 650 MG PO (19:28)
[2023-06-03] MEDS: Baclofen 10 MG Tablet PO (20:41)
[2023-06-03] MEDS: MELATONIN 3 MG TABLET PO (20:41)
[2023-06-03] MEDS: Atorvastatin Calcium 80 MG Tablet PO (20:42)
[2023-06-04] VITALS (17 sets, daily range): BP systolic 115–153; BP diastolic 62–97; PULSE 80–103; RESP 12–19; TEMP 36.6–36.8; O2SAT 90–97; BMI 24.4
[2023-06-04 04:55] LABS: Absolute Lymphocyte Count 3.39 X10^3/uL (0.83-4.51); Absolute Neutrophil Count 9.3 X10^3/uL (2.0-7.7); Basophil% 0.7 % (0-1); Eosinophils% 0.7 % (0-5); Hematocrit 43.6 % (40-54); Hemoglobin 14.4 g/dL (13.0-16.5); Lymphocyte # 3.39 X10^3/ul (0.83-4.51); Lymphocyte % 23.7 % (19-41); Mean Corpuscular Hgb 28.8 pg (27.0-32.0); Mean Corpuscular Volume 87.2 fL (80-94); Mean Platelet Vol. 9.9 fl (6.2-12.0); Monocyte# 0.96 X10^3/uL; Monocyte% 6.7 % (0-10); NRBC Flagged by Analyzer 0 % (0-5); Neutrophil # 9.28 X10^3/uL (2.7-7.7); Neutrophil % 64.7 % (47-70); Platelet Count 593 K/mm3 (150-450); RBC Distribution Width CV 14.4 % (11.6-14.6); RBC Distribution Width SD 45.7 fl (35.1-43.9); White Blood Count 14.3 K/mm3 (4.4-11.0)
[2023-06-04 05:13] LABS: Anion Gap 4 (5-15); BUN 19 mg/dL (7-18); BUN/Creat Ratio 16.7 RATIO (10-20); Calcium,Total 9.6 mg/dL (8.5-10.1); Chloride 115 mmol/L (98-107); Creatinine, Serum 1.14 mg/dL (0.70-1.30); EST Glomerular Filtration Rate 70 mL/min (>60); Est Glom Filt Rate - Afr Amer 85 mL/min (>60); Estimated Creatinine Clearance 70.63 ml/min; Glucose 125 mg/dL (74-106); Potassium 2.9 mmol/L (3.5-5.1); Sodium Level 143 mmol/L (136-145)
[2023-06-04] MEDS: Acetaminophen 325 MG Tablet 650 MG PO (05:13)
[2023-06-04] MEDS: Baclofen 10 MG Tablet PO (05:13)
[2023-06-04] MEDS: Piperacil/Tazobactam 3.375 GM in 0.9% Normal Saline (50mL MB+) 50 ML IV ×4 (05:13→23:29)
--- NOTE | 2023-06-04 07:05 | PCM.PN.INT ---
Assessment & Plan Assessment/Plan (1) Acute hypoxic respiratory failure: (2) COVID-19: PLAN: Plan RECOMMENDATIONS: 1. Wean supplemental oxygen to maintain saturations at or above 90%. 2. Continue empiric antibiotics to complete 7 days of therapy. 3. Continue scheduled bronchodilators. 4. Continue Decadron to complete 10 days of therapy. 5. Will sign off from a critical care perspective. Please call with any additional questions. 6. Follow-up in the pulmonary medicine clinic as scheduled in July. IMPRESSIONS: 1. Acute hypoxemic respiratory failure Most likely secondary to underlying exacerbation of his COPD precipitated by COVID-19 pneumonia and possible secondary bacterial pneumonia. The patient will remain on empiric broad-spectrum antimicrobials and Decadron as ordered. Prior CTA chest completed on May 25 showed no definitive evidence of central pulmonary emboli. However, the imaging study was suboptimal due to respiratory artifact motion. Recommend continuing supplemental oxygen to maintain saturations at or above 90%. In addition to the aforementioned, the patient's known right to left interatrial shunt is also complicating his current respiratory status. The patient is currently scheduled to follow-up in the pulmonary medicine clinic in July. 2. Chronic kidney disease/anemia/history of alcohol dependency in remission/anxiety/depression/underlying cognitive impairment Complicates care, management, recovery and prognosis. Continue supportive care as noted above. This note was generated with [employer] dictation software. It may contain incorrect words, spelling, and punctuation that were not noted in checking the note before signing. Subjective Subjective The patient was seen and examined at the bedside this morning. Events from the last 24 hours have been reviewed. The patient is currently afebrile, hemodynamically stable and maintaining appropriate oxygen saturations on 2 L/min via nasal cannula. No overnight events were noted by the nursing staff. The patient remains off of Precedex. Today will be his last dose of Decadron. Potassium is low this morning at 2.9. Creatinine is normal. The patient reported that he is anxious to be discharged home, as he needs to return to work as soon as possible. Objective Data Objective Data The patient's most recent lab work, culture data and imaging studies have all been personally reviewed. COVID PCR was positive on May 25. Vital Signs: Vital Signs Temp Pulse Resp BP Pulse Ox O2 Del Method O2 Flow Rate 98.2 F 96 19 H 133/84 H 94 Nasal Cannula 2 06/04/23 05:00 06/04/23 07:00 06/04/23 07:00 06/04/23 07:00 06/04/23 07:00 06/04/23 07:00 06/04/23 07:00 FiO2 46 05/30/23 16:00 Oxygen Flow Rate (L/min) 2 Oxygen Delivery Method Nasal Cannula Weight: 164 lb 14.492 oz Body Mass Index (BMI) 24.4 Intake & Output: Intake and Output for Last 24 Hours 06/02/23 06/03/23 06/04/23 23:59 23:59 23:59 Intake Total 1358.61 / 1789.61 1523.33 / 1523.33 50 / 50 Output Total 1375 / 1875 1600 / 2150 800 / 800 Balance -16.39 / -85.39 -76.67 / -626.67 -750 / -750 Lab / Micro Data Attestation: I reviewed the patient's lab results. 06/04/23 04:40 06/04/23 04:40 Labs: Laboratory Results - last 24 hr 06/04/23 04:40: WBC 14.3 H, RBC 5.00, Hgb 14.4, Hct 43.6, MCV 87.2, MCH 28.8, MCHC 33.0, RDW Std Deviation 45.7 H, RDW Coeff of Jayy 14.4, Plt Count 593 H, MPV 9.9, Immature Gran % (Auto) 3.500 H, Neut % (Auto) 64.7, Lymph % (Auto) 23.7, [place] % (Auto) 6.7, Eos % (Auto) 0.7, Baso % (Auto) 0.7, Absolute Neuts (auto) 9.3 H, Absolute Lymphs (auto) 3.39, Nucleated RBC % 0, Sodium 143, Potassium 2.9 L, Chloride 115 H, Carbon Dioxide 24.0, Anion Gap 4 L, BUN 19 H, Creatinine 1.14, Estim Creat Clear Calc 70.63, Est GFR (MDRD) Af Amer 85, Est GFR (MDRD) Non-Af 70, BUN/Creatinine Ratio 16.7, Glucose 125 H, Calcium 9.6 Micro: Microbiology 06/03/23 16:40 Stool Clostridioides difficile (PCR) - Final 05/25/23 15:45 Blood Culture (Wb) - Anticubital Right Blood Culture - Final No growth in 5 days. 05/25/23 15:20 Blood Culture (Wb) - Anticubital Left Blood Culture - Final No growth in 5 days. 05/29/23 15:40 Urine, Random Legionella Antigen - Final 05/29/23 15:40 Urine, Random Streptococcus pneumoniae Antigen (M - Final 05/25/23 14:25 Mucosa - Nose SARS-CoV-2, Influenza & RSV (PCR) - Final SARS-CoV-2 (COVID 19 PCR) ABG Data ABG results: ABG 06/01/23 13:34 Specimen Type ART Sample Site R Radial pH 7.40 Bicarbonate Actual 19.9 L Total CO2 21 Base Excess -5 L O2 Saturation 92 L O2 % 7.0 ABG pCO2 32.6 L ABG pO2 63 L Johnny Test Positive O2 Delivery Device HFNC Vent Mode Not entered Physical Exam Const alert and no apparent distress General Appearance: cooperative HEENT normocephalic and head/scalp atraumatic Eyes PERRL, EOMs intact bilaterally and conjunctivae normal Neck supple General: trachea midline Chest inspection of chest normal Resp normal respiratory effort Auscultation: diminished lung sounds; Negative for rales, rhonchi or wheezes Cardio regular rate, regular rhythm, S1 normal heart sound and S2 normal heart sound GI normal to inspection, nondistended, normoactive bowel sounds Extremity no clubbing, cyanosis or edema Skin no rashes or lesions noted Neuro moves all extremities and no focal motor deficits Psych cooperative Activity / Motor Behavior: restless Charges/Coding Visit Charges Inpatient E&M: 75131 Subs Hosp L2
[2023-06-04] MEDS: Pantoprazole Sodium 40 MG Tablet PO (07:34)
[2023-06-04] MEDS: Aspirin E.C. 81 MG Tablet PO (07:34)
[2023-06-04] MEDS: Gabapentin 600 MG Tablet PO ×3 (07:34→23:03)
[2023-06-04] MEDS: amLODIPine 5 MG Tablet PO (07:34)
[2023-06-04] MEDS: Multivitamins,Ther W-Minerals Tablet 1 TABLET PO (07:34)
[2023-06-04] MEDS: Etodolac 200 MG Capsule PO ×2 (07:35→23:04)
[2023-06-04] MEDS: Folic Acid 1 MG Tablet PO (07:35)
[2023-06-04] MEDS: QUEtiapine 25 MG Tablet 50 MG PO ×2 (07:35→23:04)
[2023-06-04] MEDS: Escitalopram Oxalate 10 MG Tablet PO (07:35)
[2023-06-04] MEDS: Thiamine Hydrochloride 100 MG Tablet PO (07:36)
[2023-06-04] MEDS: dexAMETHasone 4 MG/ML Vial 6 MG IV (07:36)
[2023-06-04] MEDS: OXcarbazepine 300 MG Tablet PO ×2 (07:36→23:03)
[2023-06-04] MEDS: lamoTRIgine 150 MG Tablet PO ×2 (07:36→23:03)
[2023-06-04] MEDS: Potassium Chloride 10mEq/100mL 10 MEQ/100 ML IV.SOLN. 100 MEQ IV BOLUS ×4 (07:37→10:49)
[2023-06-04] MEDS: Enoxaparin 30 MG/0.3 ML Syringe SC ×2 (07:37→23:02)
--- NOTE | 2023-06-04 10:04 | PN_ITS ---
Subjective Subjective Patient seen and examined. He felt well and had no active complaints. Review of systems is otherwise negative. He has remained hemodynamically stable. He remains on 2L of oxygen by nasal canula. Objective Data Objective Data Vital Signs: Vital Signs Temp Pulse Resp BP Pulse Ox O2 Del Method O2 Flow Rate 98.2 F 103 H 13 140/91 H 97 Nasal Cannula 2 06/04/23 08:00 06/04/23 09:00 06/04/23 09:00 06/04/23 09:00 06/04/23 09:54 06/04/23 09:54 06/04/23 09:54 FiO2 46 05/30/23 16:00 Oxygen Flow Rate (L/min) 2 Oxygen Delivery Method Nasal Cannula Weight: 164 lb 14.492 oz Body Mass Index (BMI) 24.4 Intake & Output: Intake and Output for Last 24 Hours 06/02/23 06/03/23 06/04/23 23:59 23:59 23:59 Intake Total 1358.61 / 1789.61 1523.33 / 1523.33 250 / 250 Output Total 1375 / 1875 1600 / 2150 800 / 800 Balance -16.39 / -85.39 -76.67 / -626.67 -550 / -550 Lab / Micro Data 06/04/23 04:40 06/04/23 04:40 Labs: Laboratory Results - last 24 hr 06/04/23 04:40: WBC 14.3 H, RBC 5.00, Hgb 14.4, Hct 43.6, MCV 87.2, MCH 28.8, MCHC 33.0, RDW Std Deviation 45.7 H, RDW Coeff of Jayy 14.4, Plt Count 593 H, MPV 9.9, Immature Gran % (Auto) 3.500 H, Neut % (Auto) 64.7, Lymph % (Auto) 23.7, [place] % (Auto) 6.7, Eos % (Auto) 0.7, Baso % (Auto) 0.7, Absolute Neuts (auto) 9.3 H, Absolute Lymphs (auto) 3.39, Nucleated RBC % 0, Sodium 143, Potassium 2.9 L, Chloride 115 H, Carbon Dioxide 24.0, Anion Gap 4 L, BUN 19 H, Creatinine 1.14, Estim Creat Clear Calc 70.63, Est GFR (MDRD) Af Amer 85, Est GFR (MDRD) No n-Af 70, BUN/Creatinine Ratio 16.7, Glucose 125 H, Calcium 9.6 Micro: Microbiology 06/03/23 16:40 Stool Clostridioides difficile (PCR) - Final 05/25/23 15:45 Blood Culture (Wb) - Anticubital Right Blood Culture - Final No growth in 5 days. 05/25/23 15:20 Blood Culture (Wb) - Anticubital Left Blood Culture - Final No growth in 5 days. 05/29/23 15:40 Urine, Random Legionella Antigen - Final 05/29/23 15:40 Urine, Random Streptococcus pneumoniae Antigen (M - Final 05/25/23 14:25 Mucosa - Nose SARS-CoV-2, Influenza & RSV (PCR) - Final SARS-CoV-2 (COVID 19 PCR) Physical Exam Const alert, oriented x3 and no apparent distress General Appearance: cooperative HEENT normocephalic, head/scalp atraumatic, moist oral mucous membranes and oropharynx normal Eyes PERRL and EOMs intact bilaterally Neck no lymphadenopathy and supple Lymph Lymphatic: no lymphadenopathy noted and no lymphedema noted Resp Resp Narrative: mildly diminished breath sounds bibasally, no wheezes or crackles. On 2L of oxygen by nasal canula Cardio regular rate, regular rhythm, S1 normal heart sound, S2 normal heart sound and no murmurs GI normal to inspection, nondistended, normoactive bowel sounds, soft to palpation, non-tender and non-distended Extremity normal capillary refill, no clubbing, cyanosis or edema and no calf tenderness General Extremity: no tenderness to palpation of joints or extremities Skin General Skin Exam: no breakdown Neuro CN's II-XII intact bilaterally, no focal motor deficits, no sensory deficits noted and deep tendon reflexes 2+ bilaterally Motor Exam: strength 5/5 throughout and general weakness Psych thought process normal, cooperative and affect normal Appearance: appropriate Assessment & Plan Assessment/Plan (1) Acute hypoxic respiratory failure: (2) COVID-19: (3) Acute kidney injury: PLAN: Plan #Acute hypoxic respiratory failure due to COVID 19 infection and COPD exacerbation * out of precautions for COVID * on 2L of oxygen now * on IV vancomycin and zosyn as he is MRSA positive; to complete a 7 day course of antibiotics * CTA chest was negative for PE * completed a course of remdesivir; on decadron, complete course tomorrow. * blood cultures were negative * on seroquel * #WILL on CKD 3: resolved. Cr is down to 1.04 #Hypokalemia: potassium is 2.9. Will replace and trend. Check Mg level. #Hypertension; on amlodipine. IV hydralazine prn #Hyperlipidemia: on statin #Anxiety and depression: on seroquel and lexapro. Also on lamictal #History of CVA: on aspirin and statin #History of alcohol use disorder: says he hasn't drunk alcohol in a few years. Low risk for withdrawal DVT prophylaxis; lovenox Disposition: PT/OT recommending additional therapy. Case management on board. Charges/Coding Visit Charges Inpatient E&M: 38412 Subs Hosp L2
[2023-06-04 11:10] LABS: Magnesium 1.9 mg/dL (1.6-2.6)
[2023-06-04 14:04] LABS: Vancomycin, Trough Level 13.1 ug/mL (5.0-15.0)
--- NOTE | 2023-06-04 14:28 | PCM.RX.CS ---
Consult Antibiotic Management Pharmacy has been consulted to manage selected antibiotic: Vancomycin Type of Intervention Type of Consult: Follow-up Suspected Infection Suspected Infection: Pneumonia Prior Doses of Antibiotics Prior Doses of Antibiotics Received/Current Regimen: Vancomycin 1.5 grams given 05/31 @ 1411, 06/01 @ 1417, 06/02 @ 1356 and 06/03 @ 1420 Labs Labs: Sodium 143 mmol/L (136-145) 06/04/23 04:40 Potassium 2.9 mmol/L (3.5-5.1) L 06/04/23 04:40 Chloride 115 mmol/L (98-107) H 06/04/23 04:40 Carbon Dioxide 24.0 mmol/L (21.0-32.0) 06/04/23 04:40 Anion Gap 4 (5-15) L 06/04/23 04:40 BUN 19 mg/dL (7-18) H 06/04/23 04:40 Creatinine 1.14 mg/dL (0.70-1.30) 06/04/23 04:40 Est GFR (MDRD) Af Amer 85 mL/min (>60) 06/04/23 04:40 Est GFR (MDRD) Non-Af 70 mL/min (>60) 06/04/23 04:40 BUN/Creatinine Ratio 16.7 RATIO (10-20) 06/04/23 04:40 Glucose 125 mg/dL (74-106) H 06/04/23 04:40 Vancomycin Trough 13.1 ug/mL (5.0-15.0) 06/04/23 13:01 Random Vancomycin 13.1 ug/mL (0.0-15.0) 05/31/23 11:50 Microbiology Microbiology: Microbiology 06/03/23 16:40 Stool Clostridioides difficile (PCR) - Final 05/25/23 15:45 Blood Culture (Wb) - Anticubital Right Blood Culture - Final No growth in 5 days. 05/25/23 15:20 Blood Culture (Wb) - Anticubital Left Blood Culture - Final No growth in 5 days. 05/29/23 15:40 Urine, Random Legionella Antigen - Final 05/29/23 15:40 Urine, Random Streptococcus pneumoniae Antigen (M - Final 05/25/23 14:25 Mucosa - Nose SARS-CoV-2, Influenza & RSV (PCR) - Final SARS-CoV-2 (COVID 19 PCR) Dosing Weight Weight used for dosin.8 kg Estimated Creatinine Clearance Estimated Creatinine Clearance: ~70 Goal Trough Goal Trough: 15-20 mcg/mL Pharmacy Plan for Drug Dosing Pharmacy Plan for Drug Dosing: Vancomycin trough = 13.1, will increase to 1750 mg Q24H Pharmacy Service will continue to monitor and adjust dosing as required. Follow-Up Labs Follow-Up Labs: Trough: Vancomycin Date/Time Labs Ordered Labs to be done on [date and time ordered]: 06/06/23 @ [id number]
[2023-06-04] MEDS: Vancomycin HCl 1,750 MG in 0.9% Normal Saline (500mL Bag) 500 ML 250 MG IV (14:38)
--- NOTE | 2023-06-04 15:24 | CASEMGMT ---
Patient continues to be impulsive and unaware of surroundings and safety. Therapy does not feel patient is safe to go home. Patient's significant other is currently not well either. SW met with patient. Introduced self and role at [facility]. SW talked with patient about therapy's recommendations for rehab. Patient asked if SW meant [facility]. SW told patient that is outpatient therapy. Therapy is recommending he go to a rehab facility where he would stay for a week or so to get stronger and then go back home. Patient asked about his work. SW told patient that it is unlikely that in his condition he would be able to return to work right away. Patient said he has a walker at home and a cane. SW told patient that a list of facilities that take his insurance can be printed and SW can check back with him. Patient was in agreement with this plan. Chandni FOOTE
--- NOTE | 2023-06-04 16:09 | CASEMGMT ---
Discharge Planning A list of?HH and SNF providers including quality and resource use data and consistent with the patient's preferred geographic region, medical needs, and insurance network was created in [facility] Guide.? This list was provided to the SW. Michelle Chapin Discharge Planning Asst.
[2023-06-04] MEDS: Atorvastatin Calcium 80 MG Tablet PO (23:04)
[2023-06-05 03:39] VITALS: BP 109/78; PULSE 80; RESP 16; TEMP 36.6; O2SAT 96
[2023-06-05] MEDS: Piperacil/Tazobactam 3.375 GM in 0.9% Normal Saline (50mL MB+) 50 ML IV ×2 (05:03→12:20)
[2023-06-05 06:00] VITALS: BMI 24.3
[2023-06-05] MEDS: Gabapentin 600 MG Tablet PO (06:30)
[2023-06-05 07:35] VITALS: O2SAT 96
[2023-06-05 07:57] LABS: Absolute Lymphocyte Count 3.51 X10^3/uL (0.83-4.51); Absolute Neutrophil Count 7.9 X10^3/uL (2.0-7.7); Basophil# 0.05 X10^3/uL; Basophil% 0.4 % (0-1); Eosinophil# 0.12 X10^3/uL; Eosinophils% 0.9 % (0-5); Hematocrit 37.5 % (40-54); Hemoglobin 12.1 g/dL (13.0-16.5); Lymphocyte # 3.51 X10^3/ul (0.83-4.51); Lymphocyte % 27.5 % (19-41); Mean Corp Hgb Conc 32.3 g/dL (32-36); Mean Corpuscular Hgb 28.7 pg (27.0-32.0); Mean Corpuscular Volume 88.9 fL (80-94); Monocyte# 0.93 X10^3/uL; Monocyte% 7.3 % (0-10); NRBC Flagged by Analyzer 0 % (0-5); Neutrophil # 7.85 X10^3/uL (2.7-7.7); Neutrophil % 61.5 % (47-70); Platelet Count 456 K/mm3 (150-450); RBC Distribution Width CV 14.6 % (11.6-14.6); RBC Distribution Width SD 46.9 fl (35.1-43.9); Red Blood Count 4.22 M/mm3 (4.6-6.2); White Blood Count 12.8 K/mm3 (4.4-11.0)
[2023-06-05 08:26] LABS: Anion Gap 3 (5-15); BUN 19 mg/dL (7-18); BUN/Creat Ratio 18.3 RATIO (10-20); Calcium,Total 9.2 mg/dL (8.5-10.1); Chloride 114 mmol/L (98-107); Creatinine, Serum 1.04 mg/dL (0.70-1.30); EST Glomerular Filtration Rate 78 mL/min (>60); Est Glom Filt Rate - Afr Amer 94 mL/min (>60); Estimated Creatinine Clearance 77.42 ml/min; Glucose 108 mg/dL (74-106); Potassium 2.8 mmol/L (3.5-5.1); Sodium Level 141 mmol/L (136-145)
[2023-06-05 08:47] VITALS: O2SAT 83; O2SAT 87; O2SAT 93; O2SAT 96
[2023-06-05 08:49] VITALS: BP 123/87; PULSE 86; RESP 16; TEMP 36.9; O2SAT 96
[2023-06-05] MEDS: QUEtiapine 25 MG Tablet 50 MG PO (09:07)
[2023-06-05] MEDS: amLODIPine 5 MG Tablet PO (09:07)
[2023-06-05] MEDS: Aspirin E.C. 81 MG Tablet PO (09:07)
[2023-06-05] MEDS: Enoxaparin 30 MG/0.3 ML Syringe SC (09:08)
[2023-06-05] MEDS: Pantoprazole Sodium 40 MG Tablet PO (09:08)
[2023-06-05] MEDS: Folic Acid 1 MG Tablet PO (09:08)
[2023-06-05] MEDS: Etodolac 200 MG Capsule PO (09:08)
[2023-06-05] MEDS: lamoTRIgine 150 MG Tablet PO (09:09)
[2023-06-05] MEDS: OXcarbazepine 300 MG Tablet PO (09:09)
[2023-06-05] MEDS: Multivitamins,Ther W-Minerals Tablet 1 TABLET PO (09:09)
[2023-06-05] MEDS: Escitalopram Oxalate 10 MG Tablet PO (09:09)
[2023-06-05] MEDS: Thiamine Hydrochloride 100 MG Tablet PO (09:09)
--- NOTE | 2023-06-05 10:23 | CASEMGMT ---
Addendum entered by Shana Correa 06/05/23 14:13: Pt states that he manages his won medications at home. Addendum entered by Shana Correa 06/05/23 12:23: Pt was able to work with therapy today and they are recommending outpt therapy. Pt states that he is wanting to set this up, will provide script. Referral sent to [facility] regarding home o2 needs. Pt states that he has a pulse ox at home. Reviewed with pt the home oxygen process and to call the number listed on the tank once he gets home for them to deliver the concentrator. Pt states understanding. Pt states that he is ready for DC today and that his neighbor will be picking him up at the time of DC. Pt states that he has a cane at home. Original Note: RN CM into pt room, pt sitting up in bed. Pt states he wants to go home. He states he is able to perform ADL/IADL's. Discussed therapy notes from yesterday, pt states he can do those things. He states he just needs to have someone with him at all times. He states his significant other can be there although she is also in the hospital. Pt aware therapy will work with him today and RNCM or SW will be in to discuss with him. Pt provided with a local in network list of DME companies should he be dc'd home with oxygen, pt chose [facility].
[2023-06-05 11:36] VITALS: BP 125/89; PULSE 94; RESP 16; TEMP 36.9; O2SAT 100
--- NOTE | 2023-06-05 13:56 | DS.PCM_ITS ---
Providers Date of Admission: 05/25/23 Date of Discharge: 06/05/23 Primary Care Physician: Dr. Kam Dumont, DO Consultations 05/29/23 12:30 Consult: Staking Technician / Pulmonary Medicine Routine Consulting Provider: Intensivists/Pulmonary Med Reason for Consult: COVID EMERGENT Consult: No MD Notified: Yes Date Notified: 05/29/23 Time Notified: 12:30 Method of Notification: Verbal Reason For Visit: COVID PNA, HYPOXIA Diagnosis Discharge Diagnosis (1) Acute hypoxic respiratory failure: Status: Acute Code(s): J96.01 - Acute respiratory failure with hypoxia (2) COVID-19: Status: Acute Code(s): U07.1 - COVID-19 (3) Acute kidney injury: Status: Acute Code(s): N17.9 - Acute kidney failure, unspecified Plan #Acute hypoxic respiratory failure due to COVID 19 infection and COPD exacerbation * out of precautions for COVID * on 2L of oxygen now * on IV vancomycin and zosyn as he is MRSA positive; to complete a 7 day course of antibiotics * CTA chest was negative for PE * completed a course of remdesivir; on decadron, complete course tomorrow. * blood cultures were negative * on seroquel * #WILL on CKD 3: resolved. Cr is down to 1.04 #Hypokalemia: potassium is 2.9. Will replace and trend. Check Mg level. #Hypertension; on amlodipine. IV hydralazine prn #Hyperlipidemia: on statin #Anxiety and depression: on seroquel and lexapro. Also on lamictal #History of CVA: on aspirin and statin #History of alcohol use disorder: says he hasn't drunk alcohol in a few years. Low risk for withdrawal DVT prophylaxis; lovenox Disposition: PT/OT recommending additional therapy. Case management on board. Medications at Discharge Home Medications atorvastatin 80 mg tablet 80 mg PO QHS #90 tabs 05/19/20 BP monitor #1 ea 07/15/20 lisinopril 10 mg-hydrochlorothiazide 12.5 mg tablet 1 tab PO DAILY 07/28/20 quetiapine 50 mg tablet 50 mg PO DAILY 06/20/21 aspirin 81 mg tablet,delayed release (Adult Aspirin Regimen) 81 mg PO DAILY 09/26/21 amlodipine 5 mg tablet 5 mg PO DAILY #30 tabs 07/03/22 folic acid 1 mg tablet 1 mg PO DAILY #30 tabs 07/04/22 thiamine HCl (vitamin B1) 100 mg tablet 100 mg PO DAILY #30 tabs 07/04/22 albuterol sulfate 90 mcg/actuation aerosol inhaler 2 puff inhalation Q4H PRN shortness of breath or wheezing #8.5 grams 10/01/22 cholecalciferol (vitamin D3) 50 mcg (2,000 unit) capsule (Vitamin D3) 50 mcg PO DAILY 10/22/22 fluticasone propionate 220 mcg/actuation HFA aerosol inhaler (Flovent HFA) 1 puff inhalation BID #12 grams 10/22/22 olanzapine 15 mg tablet 15 mg PO DAILY 10/22/22 omeprazole 40 mg capsule,delayed release 40 mg PO DAILY 10/22/22 fremanezumab-vfrm 225 mg/1.5 mL subcutaneous syringe (Ajovy Syringe) 225 mg (1.5 mL) subcut QMONTH #1.5 mL 02/28/23 ubrogepant 100 mg tablet (Ubrelvy) 100 mg .Route .COMPLEX migraine headache #16 tabs 02/28/23 umeclidinium 62.5 mcg-vilanterol 25 mcg/actuation powdr for inhalation (Anoro Ellipta) 1 inh inhalation DAILY #60 ea 03/15/23 baclofen 10 mg tablet 10 mg PO Q8H PRN muscle spasm 05/25/23 cyclobenzaprine 5 mg tablet 5 mg PO DAILY back pain 05/25/23 gabapentin 600 mg tablet 600 mg PO Q8H 05/25/23 lamotrigine 150 mg tablet 150 mg PO Q12H 05/25/23 nabumetone 500 mg tablet 500 mg PO BID pain 05/25/23 escitalopram oxalate 10 mg tablet 10 mg PO DAILY anx 05/27/23 oxcarbazepine 300 mg tablet 300 mg PO BID seizure 05/27/23 Hospital Course Operations None Procedures None Summary of Care Provided Minutes Spent on Discharge: 55 Hospital Course: Patient is a 58-year-old male with a past medical history as outlined was admitted through the ED on 05/25/2023 with a complaint of cough and shortness of breath with associated fever. He had been using his inhalers at home but his shortness of breath persisted and worsened. On admission he was initially saturating at 96% on room air. Creatinine was 1.82. COVID PCR was positive. CT of the chest was negative for any evidence of PE but showed by lateral extensive multifocal groundglass opacities. He was admitted and managed for hypoxia due to COVID-19 infection. He was placed on remdesivir and Decadron as well as breathing treatments. His oxygen requirements however increased as his oxygenation worsened and so he was managed for acute hypoxic respiratory failure due to COPD exacerbation and COVID-19 pneumonia. He was started empirically on broad-spectrum antibiotics. He was placed on high flow oxygen via nasal cannula. He was also diuresed gently. He was also placed on Precedex drip due to agitation thought to be due to acute alcohol wihdrawal. He completed a 5-day course of remdesivir and 7-day course of antibiotics. He also had an known right to left atrial shunt which was likely complicating his respiratory status also. Patient was gradually weaned down on his oxygen requirements to 3 L of oxygen. He had walking pulse ox which showed that he required 3 L of oxygen. Patient is ambulatory in the community so requires oxygen with ambulation. He remained stable and was discharged home on 06/05/2023. He is follow-up with his primary care doctor within 1 to 2 weeks and follow-up with pulmonology on outpatient basis. Patient seen and examined prior to discharge. He had no active complaints and had an uneventful night. Review of systems otherwise negative. Labs and vitals reviewed. Home medication reviewed and reconciled. Physical Exam Const alert, oriented x3 and no apparent distress General Appearance: cooperative and comfortable HEENT normocephalic, head/scalp atraumatic, hearing grossly normal bilaterally, moist oral mucous membranes and oropharynx normal Mouth: oral and palatal mucosa normal Eyes PERRL and EOMs intact bilaterally Neck no lymphadenopathy and supple Lymph Lymphatic: no lymphadenopathy noted and no lymphedema noted Resp Resp Narrative: mildly diminished breath sounds bibasally, no wheezes or crackles. On 2L of oxygen by nasal canula Cardio regular rate, regular rhythm, S1 normal heart sound, S2 normal heart sound and no murmurs GI normal to inspection, nondistended, normoactive bowel sounds, soft to palpation, non-tender and non-distended Extremity normal capillary refill, no clubbing, cyanosis or edema and no calf tenderness General Extremity: no tenderness to palpation of joints or extremities Skin General Skin Exam: no breakdown Neuro oriented x3, CN's II-XII intact bilaterally, moves all extremities, no focal motor deficits, no sensory deficits noted and deep tendon reflexes 2+ bilaterally Motor Exam: strength 5/5 throughout and general weakness Psych thought process normal, cooperative and affect normal Appearance: appropriate Weight / BMI Weight Weight: 164 lb 3.91 oz Body Mass Index (BMI) 24.3 ABG / Lab / Microbiology Data 06/05/23 07:10 06/05/23 07:10 Laboratory: Laboratory Results - last 24 hr 06/04/23 13:01: Vancomycin Trough 13.1 06/05/23 07:10: WBC 12.8 H, RBC 4.22 L, Hgb 12.1 L, Hct 37.5 L, MCV 88.9, MCH 28.7, MCHC 32.3, RDW Std Deviation 46.9 H, RDW Coeff of Jayy 14.6, Plt Count 456 H, MPV 10.0, Immature Gran % (Auto) 2.400 H, Neut % (Auto) 61.5, Lymph % (Auto) 27.5, [place] % (Auto) 7.3, Eos % (Auto) 0.9, Baso % (Auto) 0.4, Absolute Neuts (auto) 7.9 H, Absolute Lymphs (auto) 3.51, Nucleated RBC % 0, Sodium 141, Potassium 2.8 L, Chloride 114 H, Carbon Dioxide 24.0, Anion Gap 3 L, BUN 19 H, Creatinine 1.04, Estim Creat Clear Calc 77.42, Est GFR (MDRD) Af Amer 94, Est GFR (MDRD) Non-Af 78, BUN/Creatinine Ratio 18.3, Glucose 108 H, Calcium 9.2 Microbiology: Microbiology 06/03/23 16:40 Stool Clostridioides difficile (PCR) - Final 05/25/23 15:45 Blood Culture (Wb) - Anticubital Right Blood Culture - Final No growth in 5 days. 05/25/23 15:20 Blood Culture (Wb) - Anticubital Left Blood Culture - Final No growth in 5 days. 05/29/23 15:40 Urine, Random Legionella Antigen - Final 05/29/23 15:40 Urine, Random Streptococcus pneumoniae Antigen (M - Final 01/13/24 14:25 Mucosa - Nose SARS-CoV-2, Influenza & RSV (PCR) - Final SARS-CoV-2 (COVID 19 PCR) D/C Instructions Discharge Diet: Low fat / Low cholesterol Discharge Activity: Return to Normal Activity Weight Bearing Status: Weight bearing as tolerated Call your doctor if you observe: Fever of 101 or Higher, Shortness of breath, Dizziness, Swelling in the ankles and Chest pain Meaningful Use Info Meaningful Use Diagnoses (Choose all that apply): None applicable Discharge Plan Admission Admit Date/Time: 05/25/23 16:04 Primary Reason for Your Visit: hypoxic resp failure due to covid 19 pneumonia Attending Provider: Kalpana Alfonso Primary Care Provider: Kam Dumont Consulting Providers: Francia Jamil; Garry Tay; Maxx Sutherland Instructions Patient Instructions: Coronavirus Disease 2019 (COVID-19): Overview Discharge Orders/Prescriptions Prescriptions: Continued lisinopril-hydrochlorothiazide 10-12.5 mg tablet 1 tab PO DAILY quetiapine 50 mg tablet 50 mg PO DAILY aspirin [Adult Aspirin Regimen] 81 mg tablet,delayed release (DR/EC) 81 mg PO DAILY amlodipine 5 mg tablet 5 mg PO DAILY Qty: 30 5RF thiamine HCl (vitamin B1) 100 mg tablet 100 mg PO DAILY Qty: 30 6RF folic acid 1 mg tablet 1 mg PO DAILY Qty: 30 6RF cholecalciferol (vitamin D3) [Vitamin D3] 50 mcg (2,000 unit) capsule 50 mcg PO DAILY omeprazole 40 mg capsule,delayed release(DR/EC) 40 mg PO DAILY olanzapine 15 mg tablet 15 mg PO DAILY fluticasone propionate [Flovent HFA] 220 mcg/actuation HFA aerosol inhaler 1 puff inhalation BID Qty: 12 4RF atorvastatin 80 MG tablet 80 mg PO QHS Qty: 90 0RF gabapentin 600 mg tablet 600 mg PO Q8H baclofen 10 mg tablet 10 mg PO Q8H PRN (Reason: muscle spasm) lamotrigine 150 mg tablet 150 mg PO Q12H nabumetone 500 mg tablet 500 mg PO BID cyclobenzaprine 5 mg tablet 5 mg PO DAILY Patient Comments: pt to start after baclofen script done to see what one works best escitalopram oxalate 10 mg tablet 10 mg PO DAILY oxcarbazepine 300 mg tablet 300 mg PO BID (DME) BP monitor large See Rx Instructions .Route .MEDSUPPLY Qty: 1 0RF Rx Instructions: As directed albuterol sulfate 90 mcg/actuation HFA aerosol inhaler 2 puff inhalation Q4H PRN (Reason: shortness of breath or wheezing) Qty: 8.5 11RF Ajovy Syringe 225 mg/1.5 mL syringe 225 mg subcut QMONTH Qty: 1.5 4RF Ubrelvy 100 mg tablet 100 mg .ROUTE .COMPLEX Qty: 16 4RF Rx Instructions: One tablet PO every 2 hours as needed for headache up to 2 tablets daily. Anoro Ellipta 62.5-25 mcg/actuation blister with device 1 inh inhalation DAILY Qty: 60 6RF Referrals / Follow Up: Kam Dumont DO [Primary Care Provider] - Within 2 Weeks Disposition Disposition (needs filled in before D/C Order can be placed): Home, Self Care Charges/Coding Visit Charges Inpatient E&M: 18216 Disch Hosp >30min
--- NOTE | 2023-06-05 14:37 | PHA.DC_ITS ---
Pharmacy [facility] Med Reconciliation Pharmacy Service has performed discharge medication reconciliation for this patient. The patient's discharge medication list was reviewed for discrepancies and discrepancies were resolved. Medications at Discharge Home Medications atorvastatin 80 mg tablet 80 mg PO QHS #90 tabs 05/19/20 BP monitor #1 ea 07/15/20 lisinopril 10 mg-hydrochlorothiazide 12.5 mg tablet 1 tab PO DAILY 07/28/20 quetiapine 50 mg tablet 50 mg PO DAILY 06/20/21 aspirin 81 mg tablet,delayed release (Adult Aspirin Regimen) 81 mg PO DAILY 09/26/21 amlodipine 5 mg tablet 5 mg PO DAILY #30 tabs 07/03/22 folic acid 1 mg tablet 1 mg PO DAILY #30 tabs 07/04/22 thiamine HCl (vitamin B1) 100 mg tablet 100 mg PO DAILY #30 tabs 07/04/22 albuterol sulfate 90 mcg/actuation aerosol inhaler 2 puff inhalation Q4H PRN shortness of breath or wheezing #8.5 grams 10/01/22 cholecalciferol (vitamin D3) 50 mcg (2,000 unit) capsule (Vitamin D3) 50 mcg PO DAILY 10/22/22 fluticasone propionate 220 mcg/actuation HFA aerosol inhaler (Flovent HFA) 1 puff inhalation BID #12 grams 10/22/22 olanzapine 15 mg tablet 15 mg PO DAILY 10/22/22 omeprazole 40 mg capsule,delayed release 40 mg PO DAILY 10/22/22 fremanezumab-vfrm 225 mg/1.5 mL subcutaneous syringe (Ajovy Syringe) 225 mg (1.5 mL) subcut QMONTH #1.5 mL 02/28/23 ubrogepant 100 mg tablet (Ubrelvy) 100 mg .Route .COMPLEX migraine headache #16 tabs 02/28/23 umeclidinium 62.5 mcg-vilanterol 25 mcg/actuation powdr for inhalation (Anoro E llipta) 1 inh inhalation DAILY #60 ea 03/15/23 baclofen 10 mg tablet 10 mg PO Q8H PRN muscle spasm 05/25/23 cyclobenzaprine 5 mg tablet 5 mg PO DAILY back pain 05/25/23 gabapentin 600 mg tablet 600 mg PO Q8H 05/25/23 lamotrigine 150 mg tablet 150 mg PO Q12H 05/25/23 nabumetone 500 mg tablet 500 mg PO BID pain 05/25/23 escitalopram oxalate 10 mg tablet 10 mg PO DAILY anx 05/27/23 oxcarbazepine 300 mg tablet 300 mg PO BID seizure 05/27/23
--- NOTE | 2023-06-06 12:37 | CASEMGMT ---
TC to pt to verify that he received his oxygen. Pt states he was busy yesterday and did not call for his oxygen concentrator but will do so today. Explained the importance of this, pt verbalizes understanding. Pt denies any further needs at this time.
== END 2023-06-05 14:47 | disposition home or self-care (01) | DRG 177 ==
LOC: ED 15:30 → MS3 17:06 → ICU 05-31 13:03 → MS3 06-04 19:04
PROVIDERS: Family Medicine; Internal Medicine; Internal Medicine Critical Care Medicine; Admitting Provider Family Medicine; Emergency Provider Emergency Medicine; PCP Student in an Organized Health Care Education/Training Program; Visit Provider Student in an Organized Health Care Education/Training Program
DX: U07.1 COVID-19 (principal); J12.82 Pneumonia due to coronavirus disease 2019; J96.01 Acute respiratory failure with hypoxia; J44.1 Chronic obstructive pulmonary disease with (acute) exacerbation; N17.9 Acute kidney failure, unspecified; J44.0 Chronic obstructive pulmonary disease with (acute) lower respiratory infection; F10.239 Alcohol dependence with withdrawal, unspecified; N18.30 Chronic kidney disease, stage 3 unspecified; I12.9 Hypertensive chronic kidney disease with stage 1 through stage 4 chronic kidney disease, or unspecified chronic kidney disease; F32.A Depression, unspecified; D63.1 Anemia in chronic kidney disease; E78.5 Hyperlipidemia, unspecified; F17.290 Nicotine dependence, other tobacco product, uncomplicated; K21.9 Gastro-esophageal reflux disease without esophagitis; E87.6 Hypokalemia; F41.9 Anxiety disorder, unspecified; I73.00 Raynaud's syndrome without gangrene; G31.84 Mild cognitive impairment of uncertain or unknown etiology; Y90.9 Presence of alcohol in blood, level not specified; B95.62 Methicillin resistant Staphylococcus aureus infection as the cause of diseases classified elsewhere; Z79.82 Long term (current) use of aspirin; Z79.51 Long term (current) use of inhaled steroids; Z79.899 Other long term (current) drug therapy; Z86.16 Personal history of COVID-19; Z86.73 Personal history of transient ischemic attack (TIA), and cerebral infarction without residual deficits; Z23 Encounter for immunization
CPT/HCPCS: 36415; 36600; 71045; 71275; 80048; 80053; 80076; 80202; 81001; 82550; 82728; 82803; 83605; 83615; 83735; 83880; 84100; 84145; 84484; 85025; 85379; 85610; 85652; 85730; 86140; 87040; 87449; 87493; 87631; 87641; 93005; 94640; 94660; 94668; 94762; 97110; 97162; 97166; 97530; 97535; 99285; J7030; J7040; J7050; Q9967; 90686; A4216; J0248; J1940

== ENCOUNTER 2023-07-24 13:33 | Observation (INO) | payer MEDICAID, SELFPAY ==
[2023-07-24] VITALS (8 sets, daily range): BP systolic 128–154; BP diastolic 75–98; PULSE 68–84; RESP 16–18; TEMP 36.4–36.9; O2SAT 95–100; BMI 24.3; BMI 24.2
--- NOTE | 2023-07-24 14:15 | EDS_ITS ---
HPI History of Present Illness Chief Complaint: Abn Labs Narrative Narrative: 58-year-old male past medical history of chronic back pain, hypertension on lisinopril once a day presents at the direction of his primary care provider because he has reportedly had acute kidney failure. He denies any recent nausea, vomiting, or diarrhea but does admit that he does not drink as much water as he should. He states he does drink Gatorade. He had blood work done yesterday and was told that he needed to come to the emergency department because he is in acute renal failure and he could be on the verge of dialysis. He denies any symptoms, no chest pain, no shortness of breath, no other symptoms although he does state he urinates more than usual. [facility] Medical History Acute hypoxic respiratory failure Cerebral aneurysm Chronic pain CKD (chronic kidney disease) COPD (chronic obstructive pulmonary disease) COVID-19 Essential hypertension Excessive daytime sleepiness GERD (gastroesophageal reflux disease) History of alcohol abuse Hypertension Ischemic cerebrovascular accident (CVA) (05/17/20) Migraine headache without aura Mild cognitive impairment Nicotine dependence PFO (patent foramen ovale) Primary snoring Restless legs Smoker Stroke/cerebrovascular accident TIA (transient ischemic attack) Witnessed apneic spells Home Medications BP monitor #1 ea 07/15/20 [Rx Last Taken Unknown] lisinopril 10 mg-hydrochlorothiazide 12.5 mg tablet 1 tab PO DAILY 07/28/20 [History Last Taken 07/24/23] aspirin 81 mg tablet,delayed release (Adult Aspirin Regimen) 81 mg PO DAILY [facility]ART HEALTH 09/26/21 [History Last Taken Unknown] albuterol sulfate 90 mcg/actuation aerosol inhaler 2 puff inhalation Q4H PRN sh ortness of breath or wheezing #8.5 grams 10/01/22 [Rx Last Taken 07/23/23] omeprazole 40 mg capsule,delayed release 40 mg PO DAILY PRN heartburn 10/22/22 [History Last Taken 07/23/23] ubrogepant 100 mg tablet (Ubrelvy) 100 mg .Route .COMPLEX migraine headache #16 tabs 02/28/23 [Rx Last Taken Unknown] umeclidinium 62.5 mcg-vilanterol 25 mcg/actuation powdr for inhalation (Anoro Ellipta) 1 inh inhalation DAILY #60 ea 03/15/23 [Rx Last Taken 07/22/23] baclofen 10 mg tablet 10 mg PO Q8H PRN muscle spasm 05/25/23 [History Last Taken 07/22/23] gabapentin 600 mg tablet 600 mg PO Q8H 05/25/23 [History Last Taken 07/22/23] nabumetone 500 mg tablet 500 mg PO BID pain 05/25/23 [History Last Taken 07/22/23] diphenhydramine HCl 25 mg capsule (Allergy (diphenhydramine)) 25 mg PO PRN ALLERGIES 07/24/23 [History Last Taken Unknown] fluticasone propionate 220 mcg/actuation HFA aerosol inhaler 1 inh inhalation BID 07/24/23 [History Last Taken Unknown] multivitamin (Daily Multi-Vitamin tablet) 1 tab PO DAILY 07/24/23 [History Last Taken Unknown] Allergy/AdvReac Type Severity Reaction Status Date / Time tramadol HCl [From [facility]] Allergy Rash Verified 07/24/23 13:34 Family History Mother Cancer Brother Lung disease Father Cancer Surgical History History of angiography (05/18/15) History of back surgery (~12/2021) History of foot surgery History of left knee surgery Social History household members: friend(s) Smoking Status: Current every day smoker tobacco type: cigarettes Electronic Cigarette Use: not used second hand exposure: No alcohol intake: former details: Sober x 3 years. substance use type: former substance user and marijuana ROS ROS ED ROS Narrative Constitutional: No fever, no chills. HEENT: No sore throat. No neck pain. No loss of vision. No rhinorrhea. Cardiovascular: No chest pain. No palpitations. No pedal edema. Respiratory: No cough, no shortness of breath. Abdominal: No abdominal pain. No nausea. No vomiting. Genitourinary: No dysuria. No hematuria. Urinary frequency. Musculoskeletal: No myalgias. No arthralgias. Neurologic: No headaches. No dizziness. No lightheadedness. Skin: No rash. No change in color. Psychiatric: No depression. No anxiety. EXAM Physical Exam Narrative Exam Narrative: Afebrile. Vital signs noted. HEENT: Normocephalic. Atraumatic. PERRL, EOMI. Neck soft and supple. No point tenderness or step off. Moist mucous membranes. Cardiovascular: Regular rate and rhythm. No murmurs, rubs, or gallops appreciated. Respiratory: No tachypnea. Lungs clear to auscultation bilaterally. Gastrointestinal: Abdomen soft, nontender, with normoactive bowel sounds. No rebound or guarding. Neurological: Awake. Alert. Nonfocal, nonlateralizing. Skin: No rash. Normal color. No pallor. Musculoskeletal: No pedal edema. Full range of motion extremities. Const Vital Signs: 07/24/23 13:34 07/24/23 14:43 07/24/23 15:28 Temperature 97.5 F L 98.1 F Temperature Source Temporal Oral Pulse Rate 81 70 Respiratory Rate 16 18 Respiratory Pattern Normal Blood Pressure 138/88 H 154/95 H Blood Pressure Mean 104 114 Pulse Ox 100 99 Oxygen Delivery Method Room Air Room Air 07/24/23 15:28 Temperature 98.1 F Temperature Source Pulse Rate 70 Respiratory Rate 18 Respiratory Pattern Blood Pressure 154/95 H Blood Pressure Mean 114 Pulse Ox 99 Oxygen Delivery Method MDM MDM MDM Narrative Medical decision making narrative: I reviewed his prior laboratory work in the EMR and in May, approximately 3 months ago, he had a normal creatinine but low potassium. I will recheck his CMP and CBC here, and he will be bolused normal saline 1 L intravenously. I reviewed his prior laboratory work and he had normal creatinine in May of this year. Review of his laboratory work today shows normal white count of 7.7, hemoglobin normal at 13.0 with hematocrit slightly low at 38.8 and platelet count normal at 394. Review of his CMP shows BUN elevated at 35 which it has been in the past, but his creatinine is 2.62 today. Glucose appropriately elevated at 103. LFTs are grossly unremarkable. At this point in time, I will discuss patient with the hospitalist for his acute kidney injury. Patient was discussed with Dr. Sutherland. He would like another liter of normal saline ordered. Patient will be placed on observation on medical surgical floor. He is in stable condition. History & Record Review Discussion w/independent historian: Patient and Significant other Lab Data Attestation: I reviewed the patient's lab results. (Normal creatinine in May.) Labs: Laboratory Results - last 24 hr 07/24/23 14:35 WBC 7.7 RBC 4.44 L Hgb 13.0 Hct 38.8 L MCV 87.4 MCH 29.3 MCHC 33.5 RDW Std Deviation 43.6 RDW Coeff of Jayy 13.6 Plt Count 394 MPV 9.1 Sodium 138 Potassium 3.6 Chloride 106 Carbon Dioxide 23.0 Anion Gap 9 BUN 35 H Creatinine 2.62 H Estim Creat Clear Calc 30.73 Est GFR (MDRD) Af Amer 33 L Est GFR (MDRD) Non-Af 27 L BUN/Creatinine Ratio 13.4 Glucose 103 Calcium 9.5 Total Bilirubin 0.30 AST 15 ALT 16 Alkaline Phosphatase 78 Total Protein 7.5 Albumin 4.7 Globulin 2.8 Albumin/Globulin Ratio 1.7 Management Discussion w/another healthcare provider: Hospitalist Discharge Plan Dx/Rx/DC Orders Clinical Impression: Acute kidney injury, Elevated BUN, Hypertension Disposition Disposition: Acute Care [facility]
[2023-07-24] MEDS: 0.9% Normal Saline (1000mL) 1,000 ML 1000 ML IV (14:41)
[2023-07-24 14:50] LABS: Hematocrit 38.8 % (40-54); Mean Corp Hgb Conc 33.5 g/dL (32-36); Mean Corpuscular Hgb 29.3 pg (27.0-32.0); Mean Corpuscular Volume 87.4 fL (80-94); Mean Platelet Vol. 9.1 fl (6.2-12.0); Platelet Count 394 K/mm3 (150-450); RBC Distribution Width CV 13.6 % (11.6-14.6); RBC Distribution Width SD 43.6 fl (35.1-43.9); Red Blood Count 4.44 M/mm3 (4.6-6.2); White Blood Count 7.7 K/mm3 (4.4-11.0)
[2023-07-24 15:05] LABS: ALB/GLOB Ratio 1.7 RATIO (0.9-2.4); AST(SGOT) 15 U/L (15-37); Alanine Aminotransfer ALT/SGPT 16 U/L (16-61); Albumin, Serum 4.7 g/dL (3.2-5.0); Alkaline Phosphatase 78 U/L (45-117); Anion Gap 9 (5-15); BUN 35 mg/dL (7-18); BUN/Creat Ratio 13.4 RATIO (10-20); Calcium,Total 9.5 mg/dL (8.5-10.1); Chloride 106 mmol/L (98-107); Creatinine, Serum 2.62 mg/dL (0.70-1.30); EST Glomerular Filtration Rate 27 mL/min (>60); Est Glom Filt Rate - Afr Amer 33 mL/min (>60); Estimated Creatinine Clearance 30.73 ml/min; Globulin 2.8 g/dL (2.2-4.2); Glucose 103 mg/dL (74-106); Potassium 3.6 mmol/L (3.5-5.1); Protein, Total 7.5 g/dL (6.4-8.2); Sodium Level 138 mmol/L (136-145)
--- NOTE | 2023-07-24 15:47 | PCM.HP.STD ---
HPI - General General Date of Admission: 07/24/23 HPI Narrative HILDA LEO, is a 58 M who presents to the hospital the discretion of his PCP secondary to abnormal labs. He had a BMP yesterday that demonstrated acute kidney injury and today on presentation to the ER his creatinine was 2.6 to his baseline is normally 1. He denies any nausea or vomiting but states that he mostly drinks Gatorade and drink very little to no water. He is on lisinopril and hydrochlorothiazide both of which is likely contributing to this WILL. Electrolytes are not abnormal and he is still making urine however his PCP apparently told them that he was close to needing dialysis and that has caused this some fair anxiety and him and his girlfriend. He has received 1 L of fluids and is getting another liter in the ER currently otherwise he feels fine and has no complaints. I [facility] Medical History Acute hypoxic respiratory failure Cerebral aneurysm Chronic pain CKD (chronic kidney disease) COPD (chronic obstructive pulmonary disease) COVID-19 Essential hypertension Excessive daytime sleepiness GERD (gastroesophageal reflux disease) History of alcohol abuse Hypertension Ischemic cerebrovascular accident (CVA) (05/17/20) Migraine headache without aura Mild cognitive impairment Nicotine dependence PFO (patent foramen ovale) Primary snoring Restless legs Smoker Stroke/cerebrovascular accident TIA (transient ischemic attack) Witnessed apneic spells Home Medications BP monitor #1 ea 07/15/20 [Rx Last Taken Unknown] lisinopril 10 mg-hydrochlorothiazide 12.5 mg tablet 1 tab PO DAILY 07/28/20 [History Last Taken 07/24/23] aspirin 81 mg tablet,delayed release (Adult Aspirin Regimen) 81 mg PO DAILY HEART HEALTH 09/26/21 [History Last Taken Unknown] albuterol sulfate 90 mcg/actuation aerosol inhaler 2 puff inhalation Q4H PRN shortness of breath or wheezing #8.5 grams 10/01/22 [Rx Last Taken 07/23/23] omeprazole 40 mg capsule,delayed release 40 mg PO DAILY PRN heartburn 10/22/22 [History Last Taken 07/23/23] ubrogepant 100 mg tablet (Ubrelvy) 100 mg .Route .COMPLEX migraine headache #16 tabs 02/28/23 [Rx Last Taken Unknown] umeclidinium 62.5 mcg-vilanterol 25 mcg/actuation powdr for inhalation (Anoro Ellipta) 1 inh inhalation DAILY #60 ea 03/15/23 [Rx Last Taken 07/22/23] baclofen 10 mg tablet 10 mg PO Q8H PRN muscle spasm 05/25/23 [History Last Taken 07/22/23] gabapentin 600 mg tablet 600 mg PO Q8H 05/25/23 [History Last Taken 07/22/23] nabumetone 500 mg tablet 500 mg PO BID pain 05/25/23 [History Last Taken 07/22/23] diphenhydramine HCl 25 mg capsule (Allergy (diphenhydramine)) 25 mg PO PRN ALLERGIES 07/24/23 [History Last Taken Unknown] fluticasone propionate 220 mcg/actuation HFA aerosol inhaler 1 inh inhalation BID 07/24/23 [History Last Taken Unknown] multivitamin (Daily Multi-Vitamin tablet) 1 tab PO DAILY 07/24/23 [History Last Taken Unknown] Allergy/AdvReac Type Severity Reaction Status Date / Time tramadol HCl [From [facility]] Allergy Rash Verified 07/24/23 13:34 Family History Mother Cancer Brother Lung disease Father Cancer Surgical History History of angiography (05/18/15) History of back surgery (~12/2021) History of foot surgery History of left knee surgery Social History household members: friend(s) Smoking Status: Current every day smoker tobacco type: cigarettes Electronic Cigarette Use: not used second hand exposure: No alcohol intake: former details: Sober x 3 years. substance use type: former substance user and marijuana ROS Constitutional Constitutional: Denies chills, fatigue, fever(s) or malaise Eyes Eyes: Denies blurry vision ENT HEENT: Denies headache(s) or nasal discharge Cardiovascular Cardiovascular: Denies chest pain, dyspnea on exertion or syncope Respiratory/Chest Respiratory/Chest: Denies cough, shortness of breath at rest or shortness of breath with exertion Gastrointestinal Gastrointestinal: Denies constipation, diarrhea, nausea or vomiting Genitourinary Genitourinary: Denies dysuria Neurologic Neurologic: Denies focal weakness, numbness or tremor(s) Psychiatric Psychiatric: Denies anxiety or depression Vital Signs Vital Signs Vital Signs: 07/24/23 13:34 07/24/23 14:43 07/24/23 15:28 Temperature 97.5 F L 98.1 F Temperature Source Temporal Oral Pulse Rate 81 70 Respiratory Rate 16 18 Respiratory Pattern Normal Blood Pressure 138/88 H 154/95 H Blood Pressure Mean 104 114 Pulse Ox 100 99 Oxygen Delivery Method Room Air Room Air 07/24/23 15:28 Temperature 98.1 F Temperature Source Pulse Rate 70 Respiratory Rate 18 Respiratory Pattern Blood Pressure 154/95 H Blood Pressure Mean 114 Pulse Ox 99 Oxygen Delivery Method Weight Weight: 165 lb Body Mass Index (BMI) 24.3 Physical Exam Narrative General: Alert, Oriented x3, Cooperative, No apparent distress HEENT: Atraumatic, PERRLA, EOMI, Normocephalic Oral: Moist Mucosa Neck: Supple, No JVD Lungs: Diminished, Normal air movement, No rhonchi, No wheeze, No rales Cardiovascular: Regular rate, Regular Rhythm, Normal S1, Normal S2, No murmurs Abdomen: Soft, Non Tender, Non-Distended, No Hepato-splenomegaly Extremities: No edema, Capillary Refill Less than 3 Seconds Skin: No rashes, No breakdown Musculoskeletal: No Tenderness to Palpation of Joints or Extremities Neurological: No focal neurological deficits, Motor Exam 5/5 strength throughout, Sensory exam intact to light touch and pain Psych/Mental Status: Normal Affect, Appropriate Results Lab / Micro Data 07/24/23 14:35 07/24/23 14:35 Labs: Laboratory Results - last 24 hr 07/24/23 14:35: WBC 7.7, RBC 4.44 L, Hgb 13.0, Hct 38.8 L, MCV 87.4, MCH 29.3, MCHC 33.5, RDW Std Deviation 43.6, RDW Coeff of Jayy 13.6, Plt Count 394, MPV 9.1, Sodium 138, Potassium 3.6, Chloride 106, Carbon Dioxide 23.0, Anion Gap 9, BUN 35 H, Creatinine 2.62 H, Estim Creat Clear Calc 30.73, Est GFR (MDRD) Af Amer 33 L, Est GFR (MDRD) Non-Af 27 L, BUN/Creatinine Ratio 13.4, Glucose 103, Calcium 9.5, Total Bilirubin 0.30, AST 15, ALT 16, Alkaline Phosphatase 78, Total Protein 7.5, Albumin 4.7, Globulin 2.8, Albumin/Globulin Ratio 1.7 Assessment & Plan Assessment/Plan (1) Acute kidney injury: PLAN: Plan 1. WILL ? This is likely due to dehydration from not drinking any water while taking lisinopril and hydrochlorothiazide ? Will hold his blood pressure medications ? Will continue with 2 L of fluid in the ER and then the 100 cc/h on the floor ? Repeat BMP in the morning ? Will continue with the baclofen but will decrease the dose of his gabapentin to 300 from 600 mg p.o. 3 times daily until renal function normalizes 2. Essential HTN/history of CVA ? Blood pressures are stable ? Will hold his lisinopril and hydrochlorothiazide secondary to his IWLL ? Will monitor and make adjustments as necessary 3. Chronic back pain/anxiety/depression/history of alcohol abuse ? Can resume his home medications, will dose adjust his gabapentin for his renal function ? He has not had a alcoholic beverage in 3 years according to him and his girlfriend 4. COPD ? Not in exacerbation ? Can resume his home inhalers 5. GERD ? Stable ? Continue with PPI DVT: Ambulation 75 minutes was spent on direct patient care, including documentation as well as chart review and collaboration with colleagues Charges/Coding Visit Charges Inpatient E&M: 17290 Init Hosp L3
[2023-07-24] MEDS: 0.9% Normal Saline (1000mL) 1,000 ML 999 ML IV (16:44)
--- NOTE | 2023-07-24 17:41 | NURSING ---
MED SURG OBS SANJEEV ACUTE KIDNEY INJURY
[2023-07-24] MEDS: 0.9% Normal Saline (1000mL) 1,000 ML 100 ML IV (18:41)
[2023-07-24] MEDS: Ipratropium/Albuterol Sulfate 3 ML AMPUL.NEB INHALATION (20:06)
[2023-07-24] MEDS: Baclofen 10 MG Tablet PO (21:15)
[2023-07-24] MEDS: Gabapentin 300 MG Capsule PO (21:15)
[2023-07-24] MEDS: Etodolac 200 MG Capsule PO (21:15)
[2023-07-24] MEDS: Rizatriptan Benzoate 10 MG Tablet PO (21:52)
[2023-07-25] MEDS: 0.9% Normal Saline (1000mL) 1,000 ML 100 ML IV (03:21)
[2023-07-25 03:22] VITALS: BP 113/60; PULSE 57; RESP 14; TEMP 37; O2SAT 94
[2023-07-25] MEDS: Gabapentin 300 MG Capsule PO ×2 (06:39→14:18)
--- NOTE | 2023-07-25 07:18 | PN.HOSP_ITS ---
Reason for Visit Reason for Visit: Diagnoses Acute kidney failure, unspecified (07/24/23) Subjective Subjective Feels well. Screen of chronic headache. Patient sadder gets a migraine 4 times per month. Objective Data Objective Data Vital Signs: Vital Signs Temp Pulse Resp BP Pulse Ox O2 Del Method 37.0 C 57 L 14 113/60 94 Room Air 07/25/23 03:22 07/25/23 03:22 07/25/23 03:22 07/25/23 03:22 07/25/23 03:22 07/25/23 03:22 Oxygen Delivery Method Room Air Weight: 74.48 kg Body Mass Index (BMI) 24.2 Intake & Output: Intake and Output for Last 24 Hours 07/23/23 07/24/23 07/25/23 23:59 23:59 23:59 Intake Total 19990 1450 / 1450 Balance 19990 1450 / 1450 Lab / Micro Data 07/24/23 14:35 07/25/23 06:45 Labs: Laboratory Results - last 24 hr 07/24/23 14:35: WBC 7.7, RBC 4.44 L, Hgb 13.0, Hct 38.8 L, MCV 87.4, MCH 29.3, MCHC 33.5, RDW Std Deviation 43.6, RDW Coeff of Jayy 13.6, Plt Count 394, MPV 9.1, Sodium 138, Potassium 3.6, Chloride 106, Carbon Dioxide 23.0, Anion Gap 9, BUN 35 H, Creatinine 2.62 H, Estim Creat Clear Calc 30.73, Est GFR (MDRD) Af Amer 33 L, Est GFR (MDRD) Non-Af 27 L, BUN/Creatinine Ratio 13.4, Glucose 103, Calcium 9.5, Total Bilirubin 0.30, AST 15, ALT 16, Alkaline Phosphatase 78, Total Protein 7.5, Albumin 4.7, Globulin 2.8, Albumin/Globulin Ratio 1.7 Physical Exam Const alert and no apparent distress GI normal to inspection, nondistended, normoactive bowel sounds Assessment & Plan Assessment/Plan (1) Acute kidney injury: PLAN: Plan WILL * Resolved * secondary to medications with lisinopril and hydrochlorothiazide. Patient states that he has been drinking fine though he does favor Gatorade over water. * Will hold his blood pressure medications * Improved with IV fluids Migraine * Patient established with [facility]. Patient does take Ubrevly * will give dose of sumatriptan. Chronic conditions: * Essential HTN? Blood pressures are stable? Will hold his lisinopril and hydrochlorothiazide secondary to his WILL * Chronic back pain/anxiety/depression/history of alcohol abuse? Can resume his home medications, will dose adjust his gabapentin for his renal function? He has not had a alcoholic beverage in 3 years according to him and his girlfriend * COPD? Not in exacerbation? Can resume his home inhalers * GERD? Stable? Continue with PPI DVT: Ambulation DC home.
[2023-07-25 07:42] VITALS: PULSE 82; RESP 18; O2SAT 91
[2023-07-25] MEDS: Ipratropium/Albuterol Sulfate 3 ML AMPUL.NEB INHALATION ×2 (07:42→13:47)
[2023-07-25 08:36] VITALS: BP 127/77; PULSE 84; RESP 18; TEMP 36.8; O2SAT 95
[2023-07-25] MEDS: Aspirin E.C. 81 MG Tablet PO (08:43)
[2023-07-25] MEDS: Etodolac 200 MG Capsule PO (08:43)
[2023-07-25] MEDS: Baclofen 10 MG Tablet PO (08:45)
[2023-07-25 08:52] LABS: Anion Gap 9 (5-15); BUN 20 mg/dL (7-18); BUN/Creat Ratio 14.4 RATIO (10-20); Calcium,Total 8.8 mg/dL (8.5-10.1); Chloride 113 mmol/L (98-107); Creatinine, Serum 1.39 mg/dL (0.70-1.30); EST Glomerular Filtration Rate 56 mL/min (>60); Est Glom Filt Rate - Afr Amer 67 mL/min (>60); Estimated Creatinine Clearance 57.93 ml/min; Glucose 92 mg/dL (74-106); Potassium 3.4 mmol/L (3.5-5.1); Sodium Level 143 mmol/L (136-145)
--- NOTE | 2023-07-25 11:04 | DS.PCM_ITS ---
Providers Date of Admission: 07/24/23 Primary Care Physician: Dr. Kam Dumont DO Reason For Visit: WILL Diagnosis Discharge Diagnosis (1) Acute kidney injury: Status: Acute Code(s): N17.9 - Acute kidney failure, unspecified Plan WILL * Resolved * secondary to medications with lisinopril and hydrochlorothiazide. Patient states that he has been drinking fine though he does favor Gatorade over water. * Will hold his blood pressure medications * Improved with IV fluids Migraine * Patient established with [facility]. Patient does take Ubrevly * will give dose of sumatriptan. Chronic conditions: * Essential HTN? Blood pressures are stable? Will hold his lisinopril and hydrochlorothiazide secondary to his WILL * Chronic back pain/anxiety/depression/history of alcohol abuse? Can resume his home medications, will dose adjust his gabapentin for his renal function? He has not had a alcoholic beverage in 3 years according to him and his girlfriend * COPD? Not in exacerbation? Can resume his home inhalers * GERD? Stable? Continue with PPI DVT: Ambulation DC home. Medications at Discharge Home Medications BP monitor #1 ea 07/15/20 aspirin 81 mg tablet,delayed release (Adult Aspirin Regimen) 81 mg PO DAILY HEART HEALTH 09/26/21 albuterol sulfate 90 mcg/actuation aerosol inhaler 2 puff inhalation Q4H PRN shortness of breath or wheezing #8.5 grams 10/01/22 omeprazole 40 mg capsule,delayed release 40 mg PO DAILY PRN heartburn 10/22/22 ubrogepant 100 mg tablet (Ubrelvy) 100 mg .Route .COMPLEX migraine headache #16 tabs 02/28/23 umeclidinium 62.5 mcg-vilanterol 25 mcg/actuation powdr for inhalation (Anoro Ellipta) 1 inh inhalation DAILY #60 ea 03/15/23 baclofen 10 mg tablet 10 mg PO Q8H PRN muscle spasm 05/25/23 gabapentin 600 mg tablet 600 mg PO Q8H 05/25/23 nabumetone 500 mg tablet 500 mg PO BID pain 05/25/23 diphenhydramine HCl 25 mg capsule (Allergy (diphenhydramine)) 25 mg PO PRN ALLERGIES 07/24/23 fluticasone propionate 220 mcg/actuation HFA aerosol inhaler 1 inh inhalation BID 07/24/23 multivitamin (Daily Multi-Vitamin tablet) 1 tab PO DAILY 07/24/23 Hospital Course Operations None Procedures None Summary of Care Provided Minutes Spent on Discharge: 32 Weight / BMI Weight Weight: 74.48 kg Body Mass Index (BMI) 24.2 ABG / Lab / Microbiology Data 07/24/23 14:35 07/25/23 06:45 Laboratory: Laboratory Results - last 24 hr 07/24/23 14:35: WBC 7.7, RBC 4.44 L, Hgb 13.0, Hct 38.8 L, MCV 87.4, MCH 29.3, MCHC 33.5, RDW Std Deviation 43.6, RDW Coeff of Jayy 13.6, Plt Count 394, MPV 9.1, Sodium 138, Potassium 3.6, Chloride 106, Carbon Dioxide 23.0, Anion Gap 9, BUN 35 H, Creatinine 2.62 H, Estim Creat Clear Calc 30.73, Est GFR (MDRD) Af Amer 33 L, Est GFR (MDRD) Non-Af 27 L, BUN/Creatinine Ratio 13.4, Glucose 103, Calcium 9.5, Total Bilirubin 0.30, AST 15, ALT 16, Alkaline Phosphatase 78, T otal Protein 7.5, Albumin 4.7, Globulin 2.8, Albumin/Globulin Ratio 1.7 07/25/23 06:45: Sodium 143, Potassium 3.4 L, Chloride 113 H, Carbon Dioxide 21.0, Anion Gap 9, BUN 20 H, Creatinine 1.39 H, Estim Creat Clear Calc 57.93, Est GFR (MDRD) Af Amer 67, Est GFR (MDRD) Non-Af 56 L, BUN/Creatinine Ratio 14.4, Glucose 92, Calcium 8.8 D/C Instructions Discharge Diet: No restrictions Return to work on: 07/26/23 Meaningful Use Info Meaningful Use Diagnoses (Choose all that apply): None applicable Discharge Plan Admission Admit Date/Time: 07/24/23 15:49 Primary Reason for Your Visit: Acute kidney injury Attending Provider: Osei Barrera Primary Care Provider: Kam Dumont Consulting Providers: Maxx Sutherland Instructions Additional Instructions / Restrictions: You had acute kidney injury secondary to medications. This medication is being your blood pressure medication which is lisinopril/hydrochlorothiazide. Is recommended that you discontinue that medication moving forward. Kidney function has improved with holding that medication as well as some IV fluids. Your blood pressure has remained stable. Though I do recommend you follow-up with primary care doctor for routine blood pressure and checkup monitoring. Discharge Orders/Prescriptions Prescriptions: Continued aspirin [Adult Aspirin Regimen] 81 mg tablet,delayed release (DR/EC) 81 mg PO DAILY omeprazole 40 mg capsule,delayed release(DR/EC) 40 mg PO DAILY PRN (Reason: heartburn) gabapentin 600 mg tablet 600 mg PO Q8H baclofen 10 mg tablet 10 mg PO Q8H PRN (Reason: muscle spasm) nabumetone 500 mg tablet 500 mg PO BID fluticasone propionate 220 mcg/actuation HFA aerosol inhaler 1 inh inhalation BID diphenhydramine HCl [Allergy (diphenhydramine)] 25 mg capsule 25 mg PO PRN multivitamin [Daily Multi-Vitamin] Tablet 1 tab PO DAILY (DME) BP monitor large See Rx Instructions .Route .MEDSUPPLY Qty: 1 0RF Rx Instructions: As directed albuterol sulfate 90 mcg/actuation HFA aerosol inhaler 2 puff inhalation Q4H PRN (Reason: shortness of breath or wheezing) Qty: 8.5 11RF Ubrelvy 100 mg tablet 100 mg .ROUTE .COMPLEX Qty: 16 4RF Patient Comments: PT HASNT TAKEN IN A WHILE, NEEDS APPT TO GET NEW RX Rx Instructions: One tablet PO every 2 hours as needed for headache up to 2 tablets daily. Anoro Ellipta 62.5-25 mcg/actuation blister with device 1 inh inhalation DAILY Qty: 60 6RF Discontinued lisinopril-hydrochlorothiazide 10-12.5 mg tablet 1 tab PO DAILY Referrals / Follow Up: Kam Dumont DO [Primary Care Provider] - Within 2 Weeks [facility] [Provider Group] - Within 3 Months Disposition Disposition (needs filled in before D/C Order can be placed): Home, Self Care Charges/Coding Visit Charges Inpatient E&M: 17304 Disch Hosp >30min
[2023-07-25] MEDS: SUMAtriptan 6 MG/0.5 ML Vial SC (12:23)
[2023-07-25 13:47] VITALS: PULSE 84; RESP 18
--- NOTE | 2023-07-25 14:07 | CASEMGMT ---
MAHOGANY CM into pt room, pt lying in bed in no distress. Pt states he is ready to go home. States he is I at home. He denies any homegoing needs and reports he is just awaiting his paperwork.
[2023-07-25 14:31] VITALS: BP 125/88; PULSE 76; RESP 18; TEMP 36.9; O2SAT 99
== END 2023-07-25 14:36 | disposition home or self-care (01) ==
LOC: ED 15:35 → MS3 17:20
PROVIDERS: Admitting Provider Family Medicine; Emergency Provider Emergency Medicine; PCP Student in an Organized Health Care Education/Training Program
DX: N17.9 Acute kidney failure, unspecified (principal); J44.9 Chronic obstructive pulmonary disease, unspecified; T46.4X5A Adverse effect of angiotensin-converting-enzyme inhibitors, initial encounter; N18.9 Chronic kidney disease, unspecified; G43.909 Migraine, unspecified, not intractable, without status migrainosus; I12.9 Hypertensive chronic kidney disease with stage 1 through stage 4 chronic kidney disease, or unspecified chronic kidney disease; F17.210 Nicotine dependence, cigarettes, uncomplicated; T88.7XXA Unspecified adverse effect of drug or medicament, initial encounter; K21.9 Gastro-esophageal reflux disease without esophagitis; Z79.899 Other long term (current) drug therapy; Z79.82 Long term (current) use of aspirin; G89.29 Other chronic pain
CPT/HCPCS: 80048; 80053; 85027; 94640; 96360; 96361; 96372; 99221; 99283; J7030; A4216; G0378; J3030

== ENCOUNTER 2023-08-29 13:46 | Emergency (ER) | payer MEDICAID, SELFPAY ==
[2023-08-29 13:47] VITALS: BP 140/83; PULSE 95; RESP 16; TEMP 35.7; O2SAT 100; BMI 25.0
--- NOTE | 2023-08-29 14:14 | VDLE_ITS ---
Reason For Study: Right leg swelling RIGHT LEFT GSV is normal. CFV is compressible, spontaneous, phasic, CFV is compressible, spontaneous, phasic, competent, and demonstrates normal competent and demonstrates normal augmentation. augmentation. FV is compressible, spontaneous, phasic, competent and demonstrates normal augmentation. POP V is compressible, spontaneous, phasic, competent and demonstrates normal augmentation. T/P Trunk is compressible. PTV is compressible. RT PerV is compressible. Procedure This is a venous duplex using B-mode, color flow and spectral Doppler. Exam performed portable in ED. A preliminary report was called and/or faxed to Dr. Conte. VL/Venous Duplex US, Unilateral Interpretation Summary Deep veins of the right lower extremity are patent and compressible segmentally . There is no evidence of right lower extremity deep vein thrombosis. The right great sapheno us vein appears patent and compressible segmentally. Ordering Physician: Rashard Conte Referring Physician: Kam Dumont Performed By: Meera Barahona RVT
--- NOTE | 2023-08-29 14:15 | EX.ED.DYSGE1 ---
HPI History of Present Illness Chief Complaint: Lower Extremity Injury Informant: patient Narrative Narrative: 58-year-old male presenting to the emergency room with right foot and ankle pain. Patient states that 2 to 3 days ago he tripped due to his refrigerator falling and injuring the right ankle/foot. He states that he fell out of the yard as well reinjuring it. He states he has pain posterior mid calf extending down to the medial and lateral ankle and onto the foot. He notes bruising. Denies other injuries. Patient takes a baby aspirin but no anticoagulant. PFSH [facility] Medical History Acute hypoxic respiratory failure Cerebral aneurysm Chronic pain CKD (chronic kidney disease) COPD (chronic obstructive pulmonary disease) COVID-19 Essential hypertension Excessive daytime sleepiness GERD (gastroesophageal reflux disease) History of alcohol abuse Hypertension Ischemic cerebrovascular accident (CVA) (05/17/20) Migraine headache without aura Mild cognitive impairment Nicotine dependence PFO (patent foramen ovale) Primary snoring Restless legs Smoker Stroke/cerebrovascular accident TIA (transient ischemic attack) Witnessed apneic spells Home Medications BP monitor #1 ea 07/15/20 [Rx Last Taken Unknown] aspirin 81 mg tablet,delayed release (Adult Aspirin Regimen) 81 mg PO DAILY HEART HEALTH 09/26/21 [History Last Taken Unknown] albuterol sulfate 90 mcg/actuation aerosol inhaler 2 puff inhalation Q4H PRN shortness of breath or wheezing #8.5 grams 10/01/22 [Rx Last Taken 07/23/23] omeprazole 40 mg capsule,delayed release 40 mg PO DAILY PRN heartburn 10/22/22 [History Last Taken 07/23/23] ubrogepant 100 mg tablet (Ubrelvy) 100 mg .Route .COMPLEX migraine headache #16 tabs 02/28/23 [Rx Last Taken Unknown] umeclidinium 62.5 mcg-vilanterol 25 mcg/actuation powdr for inhalation (Anoro Ellipta) 1 inh inhalation DAILY #60 ea 03/15/23 [Rx Last Taken 07/22/23] baclofen 10 mg tablet 10 mg PO Q8H PRN muscle spasm 05/25/23 [History Last Taken 07/22/23] gabapentin 600 mg tablet 600 mg PO Q8H 05/25/23 [History Last Taken 07/22/23] nabumetone 500 mg tablet 500 mg PO BID pain 05/25/23 [History Last Taken 07/22/23] diphenhydramine HCl 25 mg capsule (Allergy (diphenhydramine)) 25 mg PO PRN ALLERGIES 07/24/23 [History Last Taken Unknown] fluticasone propionate 220 mcg/actuation HFA aerosol inhaler 1 inh inhalation BID 07/24/23 [History Last Taken Unknown] multivitamin (Daily Multi-Vitamin tablet) 1 tab PO DAILY 07/24/23 [History Last Taken Unknown] hydrocodone-acetaminophen 5-325mg 5mg-325mg 1 tab PO Q6H PRN PRN Pain 3 days #10 TABLETS 08/29/23 [Rx Last Taken Unknown] Allergy/AdvReac Type Severity Reaction Status Date / Time tramadol HCl [From [facility]] Allergy Rash Verified 08/29/23 13:51 nicotine AdvReac Mild Itching Verified 08/29/23 13:51 Family History Mother Cancer Brother Lung disease Father Cancer Surgical History History of angiography (05/18/15) History of back surgery (~12/2021) History of foot surgery History of left knee surgery Social History household members: friend(s) Smoking Status: Current every day smoker tobacco type: cigarettes Electronic Cigarette Use: not used second hand exposure: No alcohol intake: former details: Sober x 3 years. substance use type: former substance user and marijuana ROS ROS ED Constitutional Constitutional ED: Denies chills, fever(s) or weight loss Eyes Eyes: Denies change in vision or diplopia ENT ENT ED: Denies ear pain, rhinorrhea or sore throat Cardiovascular Cardiovascular: Denies chest pain, orthopnea, palpitations or racing heartbeat Respiratory/Chest Respiratory/Chest: Denies cough, dyspnea or orthopnea Gastrointestinal Gastrointestinal: Denies abdominal pain, diarrhea, nausea or vomiting Genitourinary Genitourinary ED: Denies dysuria, hematuria or urinary frequency Musculoskeletal Musculoskeletal: Reports other Details: Right foot ankle and calf pain ; Denies arthralgias or myalgias Integumentary Denies abscess or rash Neurologic Neurologic: Denies headache(s) or weakness Psychiatric Psychiatric: Denies anxiety, depression, suicidal ideation or suicidal thoughts Endocrine Endocrinology: Denies polydipsia, polyphagia or polyuria Allergic/Immunologic Allergic/Immunologic ED: Denies mouth swelling, tongue swelling or urticaria EXAM Physical Exam Const Vital Signs: 08/29/23 13:47 Temperature 96.3 F L Temperature Source Temporal Pulse Rate 95 Respiratory Rate 16 Blood Pressure 140/83 H Blood Pressure Mean 102 Pulse Ox 100 Oxygen Delivery Method Room Air Positive well nourished and well developed General Appearance ED: well developed HEENT Reports normocephalic, head/scalp atraumatic and moist mucous membranes Eyes PERRL and EOMs intact bilaterally Neck no lymphadenopathy, supple and no JVD Resp normal respiratory effort and clear to auscultation bilaterally Cardio regular rate, regular rhythm and no murmurs GI normal to inspection, nondistended, normoactive bowel sounds and non-tender Palpation: soft Back/Spine no CVA tenderness and normal ROM Extremity Extremity Narrative: Patient has tenderness mid calf near the transition to the Achilles tendon. He has tenderness along the Achilles. The Achilles palpates intact. Normal Sher's test. He has swelling circumferential around the right ankle. He has ecchymosis on the dependent portion of the foot down to the toes. Neuro oriented x3 and CN's II-XII intact bilaterally Sensorium / Orientation: alert Motor Exam: strength 5/5 throughout Psych mental status grossly normal Mood & Affect: Negative for depressed or tearful Skin no rashes or lesions noted and no wounds MDM MDM MDM Narrative Medical decision making narrative: My independent interpretation of the plain films of the right ankle is an acute fracture of the lateral malleolus with soft tissue swelling. The mortise appears stable. I independent interpretation of the plain films of the right foot is lateral malleolus fracture. Duplex ultrasound is negative for DVT. Patient will be placed in a boot orthosis. He will be given crutches. I will write for pain medication would recommend orthopedic follow-up. Patient is comfortable and understanding of this plan. I would recommend nonweightbearing until cleared by orthopedics History & Record Review Discussion w/independent historian: Patient Discharge Plan Triage Chief Complaint: Lower Extremity Injury ED Provider: Rashard Conte Dx/Rx/DC Orders Clinical Impression: Fracture of distal end of fibula, Pain of right calf, Acute right ankle pain, Fall Instructions: ED Ankle Fracture Prescriptions: New hydrocodone-acetaminophen [hydrocodone-acetaminophen] 5-325 mg tablet 1 tab PO Q6H PRN PRN (Reason: Pain) 3 Days Qty: 10 0RF No Action aspirin [Adult Aspirin Regimen] 81 mg tablet,delayed release (DR/EC) 81 mg PO DAILY omeprazole 40 mg capsule,delayed release(DR/EC) 40 mg PO DAILY PRN (Reason: heartburn) gabapentin 600 mg tablet 600 mg PO Q8H baclofen 10 mg tablet 10 mg PO Q8H PRN (Reason: muscle spasm) nabumetone 500 mg tablet 500 mg PO BID fluticasone propionate 220 mcg/actuation HFA aerosol inhaler 1 inh inhalation BID diphenhydramine HCl [Allergy (diphenhydramine)] 25 mg capsule 25 mg PO PRN multivitamin [Daily Multi-Vitamin] Tablet 1 tab PO DAILY (DME) BP monitor large See Rx Instructions .Route .MEDSUPPLY Qty: 1 0RF Rx Instructions: As directed albuterol sulfate 90 mcg/actuation HFA aerosol inhaler 2 puff inhalation Q4H PRN (Reason: shortness of breath or wheezing) Qty: 8.5 11RF Ubrelvy 100 mg tablet 100 mg .ROUTE .COMPLEX Qty: 16 4RF Patient Comments: PT HASNT TAKEN IN A WHILE, NEEDS APPT TO GET NEW RX Rx Instructions: One tablet PO every 2 hours as needed for headache up to 2 tablets daily. Anoro Ellipta 62.5-25 mcg/actuation blister with device 1 inh inhalation DAILY Qty: 60 6RF Primary Care Provider: Kam Dumont Referrals: Kam Dumont DO [Primary Care Provider] - Eddie Thrasher MD [Med Staff - Active Staff] - As soon as possible Disposition Disposition: Home, Self Care
--- NOTE | 2023-08-29 14:40 | RAD_ITS ---
STUDY: X-RAY - RIGHT FOOT CLINICAL: Male, 58 years old. Swelling and bruising following injury. TECHNIQUE: 3 view(s) of the foot. COMPARISON: None. FINDINGS: There is a plantar calcaneal spur. Normal visualized subtalar, talonavicular, calcaneocuboid, tarsal and tarsometatarsal articulations. Normal metatarsi. Normal metatarsophalangeal joint of the great toe. Normal tibial and fibular sesamoid bones. Normal interphalangeal joint of the great toe. Normal phalanges of the great toe. Normal second through fifth metatarsophalangeal joints. Normal interphalangeal joints and phalanges of the lesser toes. Dorsal soft tissue swelling. A suspected nondisplaced fracture of the lateral malleolus. RAD/Foot min 3 Views IMPRESSION: Dorsal soft tissue swelling. I suspect a nondisplaced fracture of the lateral malleolus. Electronically Signed: Danish Del Valle MD at 15:41 EDT ,
--- NOTE | 2023-08-29 14:40 | RAD_ITS ---
STUDY: X-RAY - RIGHT ANKLE REASON FOR EXAM: Male, 58 years old. Pain following injury. TECHNIQUE: 3 view(s) of the ankle. COMPARISON: None. FINDINGS: Nondisplaced oblique fracture of the lateral malleolus. Normal medial and lateral malleoli. Normal tibiotalar articulation and ankle mortise. Plantar spur. The visualized subtalar, talonavicular, calcaneocuboid and tarsal articulations are normal. Lateral soft tissue swelling. RAD/Ankle min 3 Views IMPRESSION: Nondisplaced oblique fracture of the lateral malleolus without evidence of overlying soft tissue swelling. Electronically Signed: Danish Del Valle MD at 15:41 EDT ,
[2023-08-29 15:53] VITALS: BP 117/72; PULSE 74; RESP 18; TEMP 36.4; O2SAT 10
== END 2023-08-29 16:12 | disposition home or self-care (01) ==
PROVIDERS: Emergency Provider Emergency Medicine; PCP Student in an Organized Health Care Education/Training Program; Visit Provider Emergency Medicine
DX: S82.831A Other fracture of upper and lower end of right fibula, initial encounter for closed fracture (principal); F17.210 Nicotine dependence, cigarettes, uncomplicated; N18.9 Chronic kidney disease, unspecified; Z86.16 Personal history of COVID-19; Z86.73 Personal history of transient ischemic attack (TIA), and cerebral infarction without residual deficits; W19.XXXA Unspecified fall, initial encounter
CPT/HCPCS: 73610; 73630; 93971; 99283

== ENCOUNTER → 2024-08-12 | Outpatient (CLI) | payer MEDICAID, SELFPAY ==
[2024-08-12 15:26] LABS: Amphetamine Urine NEGATIVE (<1000 ng/mL); Barbiturate Urine NEGATIVE (< 200 ng/mL); Benzodiazepine Urine NEGATIVE (< 200 ng/mL); Buprenorphine Urine NEGATIVE (< 200 ng/mL); Cocaine Urine NEGATIVE (< 300 ng/mL); Fentanyl, Urine NEGATIVE; Methadone Urine NEGATIVE (< 300 ng/mL); Opiates Urine NEGATIVE (< 300 ng/mL); Oxycodone, Urine NEGATIVE (< 100 ng/mL); PCP Urine NEGATIVE (< 25 ng/mL); THC Urine NEGATIVE (< 50 ng/mL)
== END | disposition home or self-care (01) ==
PROVIDERS: PCP Student in an Organized Health Care Education/Training Program; Referring Provider Anesthesiology Pain Medicine; Visit Provider Anesthesiology Pain Medicine
DX: F11.20 Opioid dependence, uncomplicated (principal)
CPT/HCPCS: 80307

== ENCOUNTER 2025-04-15 13:48 | Emergency (ER) | payer MEDICAID, SELFPAY ==
[2025-04-15 13:48] VITALS: BP 109/87; PULSE 86; RESP 20; TEMP 36.2; O2SAT 97; BMI 23.0
--- NOTE | 2025-04-15 14:59 | CT_ITS ---
PROCEDURE: SPINE LUMBAR WITHOUT CONTRAST 04/15/2025 REASON FOR EXAM: LOW BACK PAIN, TRAUMA TECHNIQUE: Procedure Code: CTSPL Modality: CT Procedure: SPINE LUMBAR WITHOUT CONTRAST Coronal and Sagittal reconstruction series were provided. One or more dose reduction techniques were used (e.g., Automated exposure control, adjustment of the mA and/or kV according to patient size, use of iterative reconstruction technique RADIATION DOSE SUMMARY: CTDlvol: 20.61 mGy DLP: 461.31 mGycm FINDINGS: Vertebrae: No acute bony abnormalities. Alignment: Anterolisthesis L3 on L4 by 2 mm. L1-2: No foraminal or canal stenosis. L2-3: Disc space narrowing. Uncovertebral hypertrophy. Facet joint arthropathy. Severe left and moderate right foramina stenosis. Moderate canal stenosis. L3-4: Disc space narrowing. Facet joints arthropathy. Moderate right and moderate left foramina stenosis. Severe canal stenosis. L4-5: Disc space narrowing. Facet joints arthropathy. Severe bilateral foramina stenosis. Moderate canal stenosis. L5-S1: Disc space narrowing. Sclerotic endplates. Facet joints arthropathy. Severe bilateral foramina stenosis. Mild canal stenosis. Sacrum: No acute bony abnormalities. CT/Spine Lumbar without Contrast IMPRESSION: Multilevel degenerate changes predominantly for moderate canal stenosis and sev ere bilateral foramina stenosis at L4-L5. Reading Location: [facility]
[2025-04-15] MEDS: Lidocaine 5% Patch 1 PATCH TOPICAL (15:06)
[2025-04-15] MEDS: Ketorolac 30 MG/ML Syringe IM (15:06)
--- NOTE | 2025-04-15 15:15 | EDS_ITS ---
HPI History of Present Illness Chief Complaint: Back Narrative Narrative: Patient is a 59-year-old male presenting to the emergency department for back pain. Patient states that he was trying to break down cardboard and slipped on a piece that was wet causing him to fall backwards hitting his low back on the edge of a stair. He denies hitting his head or any loss of consciousness he is not on any oral anticoagulation. He denies any numbness or weakness in his legs that is new. He denies any saddle anesthesia, bowel or bladder incontinence or retention, fevers, chills, IV drug use. Patient states he was able to ambulate afterwards and walked into the emergency department today. [facility] Medical History Alcohol use History of echocardiogram Cardiology follow-up encounter Restless legs Chronic pain Smoker Hypertension Stroke/cerebrovascular accident Cerebral aneurysm CKD (chronic kidney disease) GERD (gastroesophageal reflux disease) Acute hypoxic respiratory failure COVID-19 COPD (chronic obstructive pulmonary disease) Witnessed apneic spells Excessive daytime sleepiness Primary snoring Mild cognitive impairment History of alcohol abuse Migraine headache without aura Nicotine dependence Ischemic cerebrovascular accident (CVA) (05/17/20) TIA (transient ischemic attack) PFO (patent foramen ovale) Essential hypertension Home Medications ?Medication ?Instructions ?Recorded ?Last Taken ?Type BP monitor #1 ea 07/15/20 Unknown Rx aspirin 81 mg tablet,delayed 81 mg PO DAILY HEART HEAL TH 09/26/21 Unknown History release (Adult Aspirin Regimen) albuterol sulfate 90 mcg/actuation 2 puff inhalation Q 4H PRN 10/01/22 07/23/23 Rx aerosol inhaler shortness of breath or wheez ing #8.5 grams omeprazole 40 mg capsule,delayed 40 mg PO DAILY PRN he artburn 10/22/22 07/23/23 History release umeclidinium 62.5 mcg-vilanterol 1 inh inhalation GOVIND Y #60 ea 03/15/23 07/22/23 Rx 25 mcg/actuation powdr for inhalation (Anoro Ellipta) baclofen 10 mg tablet 10 mg PO Q8H muscle spasm 07/22/23 History gabapentin 600 mg tablet 600 mg PO Q8H 05/25/2307/21 History diphenhydramine HCl 25 mg capsule 25 mg PO PRN ALLERGI ES 07/24/23 Unknown History (Allergy (diphenhydramine)) multivitamin (Daily Multi-Vitamin 1 tab PO DAILY 07/23 Unknown History tablet) amlodipine 5 mg tablet 5 mg PO DAILY #30 tabs 01/13 Unknown Rx fremanezumab-vfrm 225 mg/1.5 mL 225 mg (1.5 mL) subcut QMONTH #1.5 01/14/24 Unknown Rx subcutaneous syringe (Ajovy mL Syringe) ubrogepant 100 mg tablet (Ubrelvy) 100 mg .Route .COMP MARCELL migraine 01/14/24 Unknown Rx headache #16 tabs Allergy/AdvReac Type Severity Reaction Status Date / Time tramadol HCl (From [facility]) Allergy Rash Verified 04/15/25 13:50 nicotine AdvReac Mild Itching Verified 04/15/25 13:50 Family History Mother Cancer Brother Lung disease Father Cancer Surgical History History of angiography (05/18/15) History of left knee surgery History of foot surgery Social History household members: friend(s) Smoking Status: Former smoker Electronic Cigarette Use: not used second hand exposure: No alcohol intake: former details: Sober x 3 years. substance use type: former substance user and marijuana ROS ROS ED ROS Narrative See HPI EXAM Physical Exam Narrative Exam Narrative: Vital signs: Reviewed General: Alert and oriented x 3. No acute distress. Nontoxic-appearing. HEENT: Head is normocephalic and atraumatic. No evidence of trauma to the head or face. No cephalhematoma, lacerations or abrasions. Sinuses nontender, pupils equal round and reactive. Extraocular movements intact. Nares are patent. No septal hematoma. Oropharynx and throat exams normal. No oropharyngeal trauma. Neck: Supple without lymphadenopathy nontender. No midline cervical spinal tenderness to palpation. No step-offs or deformities. No Cardiovascular: Regular rate and rhythm, no murmurs. No rubs or gallops. Normal S1 and S2 Respiratory: Clear to auscultation bilaterally. No wheezes, rales, rhonchi Chest: Chest wall is atraumatic and nontender to palpation. There is no ecchymosis, crepitus or erythema. Abdominal: Soft and nontender. Normal bowel sounds. No guarding or rebound. Nonsurgical abdomen Back: There is no midline thoracic spinal tenderness to palpation. There is lower lumbar midline spinal tenderness to palpation. No step offs or deformities. There is left sided paraspinal lower lumbar tenderness to palpation. Extremities: No tenderness. No bruising. Normal range of motion. Normal sensation. Skin: No rash or redness. Neurological: Cranial nerves II through XII are grossly intact. 5/5 strength in bilateral lower extremities. Sensation intact in bilateral lower extremities. Straight leg test negative. Normal cerebellar function. The rest of the physical exam is unremarkable Const Vital Signs: 04/15/25 13:48 04/15/25 15:53 Temperature 97.2 F L 97.2 F L Temperature Source Temporal Pulse Rate 86 52 L Respiratory Rate 20 H 16 Blood Pressure 109/87 H 118/75 Blood Pressure Mean 94 89 Pulse Ox 97 97 Oxygen Delivery Method Room Air MDM MDM MDM Narrative Medical decision making narrative: Patient is a 59-year-old male presenting to the emergency department for low back pain after a fall. Patient was seen and examined. Vitals are stable. Patient resting in bed comfortably in no acute distress. Patient reports taking no pain medication prior to arrival. Given IM Toradol here and lidocaine patch placed. CT lumbar spine ordered given he was a traumatic event. He is neuro intact in his bilateral lower extremities and has no red flag back pain signs, I do not think he needs MRI imaging of his spine. CT shows multilevel degenerate changes predominantly for moderate canal stenosis and severe bilateral foramina stenosis at L4-L5. Patient updated on the negative imaging findings. Patient's pain is much better after IV Toradol and lidocaine patch. He was given RICE instructions for home. Ambulates without difficulty. Patient discharged from the Emergency Department. I do not feel that the patient's evaluation reveals any acute reason for admission at this time. I instructed them to either follow-up with their primary care physician or promptly return to the Emergency Department for reevaluation should symptoms worsen or new symptoms develop. I explained what symptoms would indicate the need to return to the emergency department. Shared decision making was used. The patient voiced understanding of the treatment plan and is agreeable with it. Clinical impression Low back pain History & Record Review Discussion w/independent historian: Patient Radiography Diagnostic Testing: Clinical Impression(s) from Imaging Studies Lumbar Spine CT 04/15/25 14:59 IMPRESSION: Multilevel degenerate changes predominantly for moderate canal stenosis and severe bilateral foramina stenosis at L4-L5. Reading Location: [facility] Discharge Plan Triage Chief Complaint: Back ED Provider: Chandni Dugan Dx/Rx/DC Orders Clinical Impression: Back pain due to injury Instructions: ED Back Pain (Acute or Chronic), ED Back Sprain/Strain Prescriptions: No Action aspirin [Adult Aspirin Regimen] 81 mg tablet,delayed release (DR/EC) 81 mg PO DAILY omeprazole 40 mg capsule,delayed release(DR/EC) 40 mg PO DAILY PRN (Reason: heartburn) Ubrelvy 100 mg tablet 100 mg .ROUTE .COMPLEX Qty: 16 6RF Patient Comments: PT HASNT TAKEN IN A WHILE, NEEDS APPT TO GET NEW RX Rx Instructions: One tablet PO every 2 hours as needed for headache up to 2 tablets daily. amlodipine 5 mg tablet 5 mg PO DAILY Qty: 30 6RF Ajovy Syringe 225 mg/1.5 mL syringe 225 mg subcut QMONTH Qty: 1.5 6RF gabapentin 600 mg tablet 600 mg PO Q8H baclofen 10 mg tablet 10 mg PO Q8H diphenhydramine HCl [Allergy (diphenhydramine)] 25 mg capsule 25 mg PO PRN multivitamin [Daily Multi-Vitamin] Tablet 1 tab PO DAILY (DME) BP monitor large See Rx Instructions .Route .MEDSUPPLY Qty: 1 0RF Rx Instructions: As directed albuterol sulfate 90 mcg/actuation HFA aerosol inhaler 2 puff inhalation Q4H PRN (Reason: shortness of breath or wheezing) Qty: 8.5 11RF Anoro Ellipta 62.5-25 mcg/actuation blister with device 1 inh inhalation DAILY Qty: 60 6RF Primary Care Provider: Kam Dumont Referrals: Kam Dumont DO [Primary Care Provider, Family Practice] - As soon as possible Activity Restrictions/Additional Instructions: Take Motrin and Tylenol at home for pain control. You can apply lidocaine patches to your lower back. Your evaluation in the Emergency Department did not reveal any acute reason for admission. However, I want to emphasize that you may be early in the course of a disease process or illness even if it is not present. For this reason you should follow-up within 24 hours for reevaluation with either your primary care physician or if necessary back here in the Emergency Department. You should return to the Emergency Department immediately if your symptoms worsen or new symptoms develop. Print Language: Angolan Disposition Disposition: Home, Self Care Discharge Date/Time: 04/15/25 15:54
[2025-04-15 15:53] VITALS: BP 118/75; PULSE 52; RESP 16; TEMP 36.2; O2SAT 97
== END 2025-04-15 15:54 | disposition home or self-care (01) ==
PROVIDERS: Emergency Provider Student in an Organized Health Care Education/Training Program; PCP Student in an Organized Health Care Education/Training Program; Visit Provider Student in an Organized Health Care Education/Training Program
DX: S39.92XA Unspecified injury of lower back, initial encounter (principal); J44.9 Chronic obstructive pulmonary disease, unspecified; M54.50 Low back pain, unspecified; W01.0XXA Fall on same level from slipping, tripping and stumbling without subsequent striking against object, initial encounter; M48.061 Spinal stenosis, lumbar region without neurogenic claudication; I10 Essential (primary) hypertension; K21.9 Gastro-esophageal reflux disease without esophagitis; G25.81 Restless legs syndrome; G89.29 Other chronic pain; G43.009 Migraine without aura, not intractable, without status migrainosus; Z86.73 Personal history of transient ischemic attack (TIA), and cerebral infarction without residual deficits; Z79.82 Long term (current) use of aspirin; Z79.51 Long term (current) use of inhaled steroids; Z79.899 Other long term (current) drug therapy; Z87.891 Personal history of nicotine dependence
CPT/HCPCS: 72131; 96372; 99282